=== PATIENT | female | born 1945 | race Caucasian/White ===

== ENCOUNTER 2019-04-14 12:24 | Outpatient (CLI) | payer MEDICARE, MEDICAID, SELFPAY ==
[2019-04-14 13:13] LABS: Alanine Aminotransferase 18 U/L (4-35); Albumin Level 3.7 g/dL (3.5-5.1); Alkaline Phosphatase 79 U/L (38-126); Aspartate Amino Transferase 32 U/L (14-36); Bilirubin,Total 0.5 mg/dL (0.2-1.3); Blood Urea Nitrogen 14 mg/dL (7-17); Carbon Dioxide 26 mmol/L (22-30); Chloride 103 mmol/L (98-107); Cholesterol 184 mg/dL (0-200); Estimated Glomerular Filt Rate > 60; Glucose 95 mg/dL (65-105); HDL Direct 58 mg/dL; Potassium 4.3 mmol/L (3.4-5.0); Sodium 136 mmol/L (137-145); Triglycerides 69 mg/dL (<150)
[2019-04-14 13:24] LABS: LDL Cholesterol Direct 97 mg/dL
== END 2019-04-14 12:25 | disposition home or self-care (01) ==
PROVIDERS: PCP Family Medicine; Visit Provider Nurse Practitioner Family
DX: E78.5 Hyperlipidemia, unspecified (principal); I10 Essential (primary) hypertension
CPT/HCPCS: 36415; 80053; 80061

== ENCOUNTER 2019-05-19 12:32 | Outpatient (CLI) | payer MEDICARE, MEDICAID, SELFPAY ==
--- NOTE | ~2019-05-19 | MM_ITS ---
EXAMINATION: MM screening jina BI w corbin HISTORY: Screening mammogram; history of left partial mastectomy and radiation treatment for breast c ancer TECHNIQUE: Craniocaudal and mediolateral oblique 3-D tomosynthesis images were obtained and synthetic 2-D images were generated. CAD analysis was submitted and interpreted. COMPARISON: 05/11/2018, 05/09/2017, 05/06/2016 bilateral digital screening mammogram examinations BREAST PARENCHYMAL COMPOSITION: There are scattered areas of fibroglandular density. FINDINGS: There is postoperative change including stable scarring and some benign calcifications in t he posterior outer mid left breast. There is no evidence of interval suspicious mass, calcification, or architectural distortion to suggest malignancy in either breast. There has been no suspicious inte rval change. IMPRESSION: 1. No mammographic evidence of malignancy. 2. Recommend routine screening mammography in one year. BI-RADS Category 2: Benign finding(s). Reviewed, dictated and finalized at location A. R ENTRY
== END 2019-05-19 12:33 | disposition home or self-care (01) ==
LOC: ANHIMG 12:36
PROVIDERS: PCP Family Medicine; Visit Provider Family Medicine
DX: Z12.31 Encounter for screening mammogram for malignant neoplasm of breast (principal)
CPT/HCPCS: 77063; 77067

== ENCOUNTER 2019-07-01 17:19 | Emergency (ER) | payer MEDICARE, MEDICAID, SELFPAY ==
--- NOTE | ~2019-07-01 | XR_ITS ---
EXAMINATION: XR chest 2V DATE: 07/01/2019 18:07 INDICATION: Chest pressure. TECHNIQUE: Frontal and lateral views of the chest were obtained. COMPARISON: Chest 2 views 02/08/2013 FINDINGS: There is mild scarring at the lung apices. No pleural effusion or pneumothorax. The heart s ize is normal. There is internal fixation of the humeri. IMPRESSION: 1. Mild scarring at the lung apices. Reviewed, dictated and finalized at location A.
[2019-07-01 17:25] VITALS: BP 148/82; PULSE 82; RESP 18; TEMP 37; O2SAT 97
[2019-07-01 17:32] VITALS: PULSE 82
--- NOTE | 2019-07-01 17:46 | ECG_ITS ---
Measurements Intervals [place] Rate: 83 P: 94 WI: 141 QRS: 36 QRSD: 104 T: -7 QT: 356 QTc: 418 Interpretive Statements SINUS RHYTHM ATRIAL PREMATURE COMPLEX INCOMPLETE RIGHT BUNDLE BRANCH BLOCK BORDERLINE ST-T WAVE ABNORMALITY- ANT/INF LEADS BASELINE ARTIFACT- II, III, AVL, AVF, V3 BORDERLINE ECG Electronically Signed On 07-02-2019 7:11:20 CDT by Paul Kaplan D.O.
--- NOTE | 2019-07-01 17:46 | ED.CHESTPAIN ---
HPI - Chest Pain General Chief Complaint: Chest Pain Stated Complaint: chest heaviness Time Seen by Provider: 07/01/19 17:45 Source: patient and RN notes reviewed Mode of arrival: ambulatory Limitations: no limitations History of Present Illness HPI narrative: A 74 y/o female presents to the ED with lt chest heaviness. She states that she was at home going through old bills when she acutely developed lt chest heaviness that lasted roughly 30 minutes before it resolved. She reports associated anxiety. She notes that she has a hx of anxiety but that she stopped taking her anxiety medication months ago because she no longer needed it. She denies any fevers, chills, SOB, or cough. MD complaint: chest heaviness Onset (ago): unknown Timing of current episode: now resolved Onset: other (gonig through old bills) Pain location: left chest Quality: heaviness Associated symptoms: other (anxiety) Treatment prior to arrival: none Risk Factors Coronary artery disease risk factors: hyperlipidemia and hypertension Related Data Home Medications Medication Instructions Recorded Confirmed letrozole 2.5 mg tablet 2.5 mg PO BID tablet 02/15/19 06/16/19 multivitamin 1 tablet PO DAILY 02/15/19 06/16/19 vitamin E (dl, acetate) 400 unit 400 unit PO BID cap 02/15/19 06/16/19 capsule benztropine 2 mg tablet 2 mg PO BID 06/01/19 06/16/19 gabapentin 300 mg capsule 300 mg PO DAILY 06/01/19 06/16/19 memantine 5 mg tablet 5 mg PO QAM 06/01/19 06/16/19 ropinirole 2 mg tablet 2 mg PO BID 06/01/19 06/16/19 ropinirole 3 mg tablet 3 mg PO .hs tablet 06/01/19 06/16/19 Allergies Allergy/AdvReac Type Severity Reaction Status Date / Time amoxicillin Allergy Mild Rash Verified 07/01/19 17:30 Review of Systems Review of Systems: All systems reviewed & are unremarkable except as noted in HPI and below Constitutional: Constitutional: Denies chills and Denies fever(s) Cardiovascular: Cardiovascular: Reports chest pain (lt heaviness - resolved) Respiratory: Respiratory: Denies cough and Denies dyspnea Psychiatric: Psychiatric: Reports anxiety PMFSH Past Medical History Medical History (Updated 07/02/19 @ 00:00 by Background Daemon) Anxiety Benign essential hypertension Depression GERD (gastroesophageal reflux disease) H/O: HTN (hypertension) History of left breast cancer Humeral fracture ALEN. Hx of breast cancer Obstructive sleep apnea Other hyperlipidemia Restless leg syndrome Surgical History Surgical History History of bladder surgery Hx of shoulder surgery ALEN. Hx of tubal ligation Family History Family History Father Family history of lung cancer Mother Family history of coronary artery disease Acute myocardial infarction Other Diabetes mellitus Family history of diabetes mellitus in first degree relative Social History Social History Smoking status: Never smoker Second hand tobacco smoke exposure: No Alcohol intake: never Exam Narrative: Exam Narrative: General appearance: Well-developed, well-nourished, anxious, restless Skin: Normal color Head: Normocephalic, nontraumatic Eyes: Clear conjunctiva ENT: Oropharynx normal, ears normal, nose normal Neck: Supple, nontender Chest and respiratory: Airway patent, no respiratory distress, no accessory muscle use Heart: Regular rate/rhythm Abdomen: Soft, nontender, no organomegaly, quiet bowel sounds Vascular: Normal peripheral pulses, normal capillary refill. Musculoskeletal: Normal range of motion, nontender back Neurologic: Alert and oriented ?3, AUTOMOTIVE CONSULTANT is normal as tested, no gross motor deficit
[2019-07-01 18:00] LABS: Basophils Percent Auto 0.7 % (0.2-1.2); Eosinophils Absolute Auto 0.1 K/mm3 (0-0.3); Eosinophils Percent Auto 1.3 % (0-4.4); Hematocrit 41.3 % (37.0-47.0); Hemoglobin 13.3 g/dL (12.0-15.0); Immature Granulocyte Absolute 0.02 K/mm3 (0.00-0.031); Immature Granulocyte Percent A 0.3 % (0-0.5); Lymphocytes Percent Auto 18.1 % (18.3-44.2); Mean Corpuscular HGB Conc 32.2 g/dl (32-36); Mean Corpuscular Hemoglobin 29.4 pg (26-34); Mean Corpuscular Volume 91.2 fl (80-100); Mean Platelet Volume 10.6 fl (7.4-10.4); Monocytes Absolute Auto 0.4 K/mm3 (0.1-0.6); Monocytes Percent Auto 6.6 % (2.6-8.5); Neutrophils Absolute Auto 4.4 K/mm3 (1.3-6.7); Platelet Count Result 203 k/mm3 (150-375); Red Blood Count 4.53 M/mm3 (4.2-5.4); Red Cell Distribution Width 13.2 % (11.5-14.5); White Blood Count 6.1 K/mm3 (4.5-10.0)
[2019-07-01 18:12] LABS: Blood Urea Nitrogen 15 mg/dL (7-17); Calcium 9.2 mg/dL (8.4-10.2); Carbon Dioxide 28 mmol/L (22-30); Chloride 107 mmol/L (98-107); Estimated CRCL calculation 47 ml/min; Estimated Glomerular Filt Rate > 60; Glucose 95 mg/dL (65-105); Partial Thromboplastin Time 24.5 SECONDS (22.3-36.8); Potassium 3.9 mmol/L (3.4-5.0); Prothrombin Time 12.5 Seconds (11.1-14.7); Sodium 138 mmol/L (137-145)
[2019-07-01] MEDS: ASPIRIN 81 MG CHEWABLE TABLET 324 MG PO (18:13)
[2019-07-01] MEDS: LORAZEPAM 0.5 MG TABLET PO (18:14)
[2019-07-01 18:17] VITALS: BP 146/82; PULSE 73; RESP 17; O2SAT 99
[2019-07-01 18:23] LABS: Troponin I < 0.012 ng/mL (0.000-0.034)
[2019-07-01 19:18] VITALS: BP 142/74; PULSE 72; RESP 16; O2SAT 98
== END 2019-07-01 19:19 | disposition home or self-care (01) ==
PROVIDERS: Emergency Provider Emergency Medicine; PCP Family Medicine
DX: R07.89 Other chest pain (principal); F41.9 Anxiety disorder, unspecified; I10 Essential (primary) hypertension; K21.9 Gastro-esophageal reflux disease without esophagitis; Z85.3 Personal history of malignant neoplasm of breast; G47.33 Obstructive sleep apnea (adult) (pediatric); G25.81 Restless legs syndrome; I49.1 Atrial premature depolarization; I45.10 Unspecified right bundle-branch block; R94.31 Abnormal electrocardiogram [ECG] [EKG]
CPT/HCPCS: 36415; 71046; 80048; 84484; 85025; 85610; 85730; 93005; 99284; A9270

== ENCOUNTER 2019-08-23 06:58 | Outpatient (CLI) | payer MEDICARE, MEDICAID, SELFPAY | END 2019-08-23 06:59 | disposition home or self-care (01) | PROVIDERS: PCP Family Medicine; Visit Provider Internal Medicine Gastroenterology | DX: Z01.812 Encounter for preprocedural laboratory examination (principal); Z20.828 Contact with and (suspected) exposure to other viral communicable diseases | CPT/HCPCS: 87635; C9803; U0003 ==

== ENCOUNTER 2019-08-25 00:22 | Day surgery (SDC) | payer MEDICARE, MEDICAID, SELFPAY ==
[2019-08-19 12:40] VITALS: BMI 29.2
[2019-08-25 07:08] VITALS: BP 107/55; PULSE 64; RESP 18; TEMP 37.2; O2SAT 95
[2019-08-25] MEDS: LACTATED RINGERS 1,000 ML 150 ML IV CONT (07:39)
--- NOTE | 2019-08-25 07:58 | WPDANESEPPF ---
Anes - Initial Pre Proc Eval Procedure: Operation Date: 08/25/19 08:00 Proposed Procedures p Screening Colonoscopy - Edison Lopez MD Date/Time: 08/25/19 07:58 Surgeon: Edison Lopez MD Pre Op Diagnosis: Neoplasm Screening Patient Data Age: 74 Gender: F Height: 5 ft Weight: 67.5 kg Last Vital Signs Temp 98.9 F 08/25/19 07:08 Pulse 64 08/25/19 07:08 Resp 18 08/25/19 07:08 BP 107/55 L 08/25/19 07:08 Pulse Ox 95 08/25/19 07:08 Allergies Allergy/AdvReac Type Severity Reaction Status Date / Time amoxicillin Allergy Mild Rash Verified 08/25/19 07:05 Home Medications Medication Instructions Recorded Confirmed Type letrozole 2.5 mg tablet 2.5 mg PO DAILY tablet 02/15/19 08/19/19 History multivitamin 1 tablet PO DAILY 02/15/19 08/19/19 History vitamin E (dl, acetate) 400 unit 400 unit PO BID cap 02/15/19 08/19/19 History capsule benztropine 2 mg tablet 2 mg PO BID 06/01/19 08/19/19 History gabapentin 300 mg capsule 300 mg PO HS 06/01/19 08/19/19 History memantine 5 mg tablet 5 mg PO QAM 06/01/19 08/19/19 History alendronate 70 mg tablet 70 mg PO WEEKLY #1 tablet 07/01/19 08/19/19 Rx meloxicam 15 mg tablet 15 mg PO DAILY #30 tablet 08/06/19 08/19/19 Rx ropinirole 2 mg tablet 2 mg PO BID #56 tablet 08/11/19 08/19/19 Rx ropinirole 3 mg tablet 3 mg PO .hs #90 tablet 08/11/19 08/19/19 Rx peg 3350-electrolytes 236 240 ml PO Q10M #4000 ml 08/16/19 Rx gram-22.74 gram-6.74 gram-5.86 gram solution amlodipine 5 mg PO HS 08/19/19 08/19/19 History aspirin [Aspir-81] 81 mg PO DAILY 08/19/19 08/19/19 History clonazepam 0.25 mg PO DAILY 08/19/19 08/19/19 History docusate sodium 100 mg PO DAILY PRN 08/19/19 08/19/19 History Patient hx anesthesia problems: none Family hx anesthesia problems: none [facility] Past Medical History Medical History (Updated 07/02/19 @ 00:00 by Keith Leon) Anxiety Benign essential hypertension Depression GERD (gastroesophageal reflux disease) H/O: HTN (hypertension) History of left breast cancer Humeral fracture ALEN. Hx of breast cancer Obstructive sleep apnea Other hyperlipidemia Restless leg syndrome Surgical History Surgical History History of bladder surgery Hx of shoulder surgery ALEN. Hx of tubal ligation Social History Social History Smoking status: Never smoker Second hand tobacco smoke exposure: No Alcohol intake: never Anes - Eval Final PreProcedure Day of Procedure 08/25/19 07:58 Patient weight: normal Heart: regular rate and rhythm Lungs: clear to auscultation Airway: Mallampati scale class II Neurological: alert and oriented Last oral intake: >/= 8 hours ASA classification: III Emergent: no Anesthetic plan: proceed Anesthesia type and monitoring: general GIVS and standard monitoring Informed Consent: The patient's anesthetic plan and its attendant risks and benefits were discussed with the patient/family/POA. Questions were solicited and answers provided to the satisfaction of the patient/family/POA.
--- NOTE | 2019-08-25 08:04 | PM.HPGS ---
History of Present Illness History of Present Illness Consent: Risks, benefits, and alternatives have been discussed and questions answered. Patient agrees to proceed with procedure. Chief complaint: Neoplasm Screening Narrative: Cinthia Mccartney is a 74 year old female with history of polyps, she is due to have another colonoscopy Review of Systems Constitutional: Constitutional: Denies headache(s) and Denies weakness Eyes: Eyes: Denies blurry vision ENT: Reports Normal hearing present, Denies headache(s) and Denies neck pain Cardiovascular: Cardiovascular: Denies chest pain and Denies dyspnea Respiratory: Respiratory: Denies dyspnea Gastrointestinal: Gastrointestinal: Reports no additional gastrointestinal complaints Genitourinary: Genitourinary: Denies dysuria Musculoskeletal: Musculoskeletal: Denies neck pain Integumentary/Breasts: Skin/Breast: Denies dry skin Neurologic: Reports Normal hearing present, Denies headache(s) and Denies weakness Psychiatric: Psychiatric: Denies anxiety Endocrine: Endocrine: Denies change in body appearance Hematologic/Lymphatic: Hematologic/Lymphatic: Denies easy bleeding Allergic/Immunologic: Allergic/Immunologic: Denies urticaria PMFSH Past Medical History Medical History (Updated 07/02/19 @ 00:00 by [facility] Daemon) Anxiety Benign essential hypertension Depression GERD (gastroesophageal reflux disease) H/O: HTN (hypertension) History of left breast cancer Humeral fracture ALEN. Hx of breast cancer Obstructive sleep apnea Other hyperlipidemia Restless leg syndrome Surgical History Surgical History History of bladder surgery Hx of shoulder surgery ALEN. Hx of tubal ligation Social History Social History Smoking status: Never smoker Second hand tobacco smoke exposure: No Alcohol intake: never Meds Home Medications and Allergies Home Medications Medication Instructions Recorded Confirmed Type letrozole 2.5 mg tablet 2.5 mg PO DAILY tablet 02/15/19 08/19/19 History multivitamin 1 tablet PO DAILY 02/15/19 08/19/19 History vitamin E (dl, acetate) 400 unit 400 unit PO BID cap 02/15/19 08/19/19 History capsule benztropine 2 mg tablet 2 mg PO BID 06/01/19 08/19/19 History gabapentin 300 mg capsule 300 mg PO HS 06/01/19 08/19/19 History memantine 5 mg tablet 5 mg PO QAM 06/01/19 08/19/19 History alendronate 70 mg tablet 70 mg PO WEEKLY #1 tablet 07/01/19 08/19/19 Rx meloxicam 15 mg tablet 15 mg PO DAILY #30 tablet 08/06/19 08/19/19 Rx ropinirole 2 mg tablet 2 mg PO BID #56 tablet 08/11/19 08/19/19 Rx ropinirole 3 mg tablet 3 mg PO .hs #90 tablet 08/11/19 08/19/19 Rx peg 3350-electrolytes 236 240 ml PO Q10M #4000 ml 08/16/19 Rx gram-22.74 gram-6.74 gram-5.86 gram solution amlodipine 5 mg PO HS 08/19/19 08/19/19 History aspirin [Aspir-81] 81 mg PO DAILY 08/19/19 08/19/19 History clonazepam 0.25 mg PO DAILY 08/19/19 08/19/19 History docusate sodium 100 mg PO DAILY PRN 08/19/19 08/19/19 History Allergies Allergy/AdvReac Type Severity Reaction Status Date / Time amoxicillin Allergy Mild Rash Verified 08/25/19 07:05 Vital Signs Vital Signs - 24 hr 08/25/19 07:08 Temperature 98.9 F Pulse Rate 64 Respiratory Rate 18 Blood Pressure 107/55 L Pulse Oximetry 95 Exam Const: General: comfortable and no acute distress HENMT: General nose exam: Normal nares present Eyes: General: appearance normal, both eyes and all related structures Neck: Neck: no JVD Resp: Auscultation: clear to auscultation bilaterally Cardio: Rate: regular rate Rhythm: regular rhythm GI: Inspection: non-distended GI Palp: Yes Soft to palpation Skin: General skin exam: normal color Neuro: General: gait normal Speech: normal speech Extrem: General: normal to inspection Psych: Mental Status: mental status grossly normal Assessment and Plan Asses
[2019-08-25 08:30] VITALS: BP 113/40; PULSE 66; RESP 14; O2SAT 100
[2019-08-25 08:40] VITALS: BP 100/50; PULSE 69; RESP 16; O2SAT 99
[2019-08-25 08:50] VITALS: BP 114/58; PULSE 71; RESP 16; O2SAT 100
== END 2019-08-25 09:07 | disposition home or self-care (01) ==
PROVIDERS: PCP Family Medicine; Visit Provider Internal Medicine Gastroenterology
PROC: 0DJD8ZZ Inspection of Lower Intestinal Tract, Via Natural or Artificial Opening Endoscopic (ICD-10-PCS; CPT 45378; principal; 2019-08-25 08:00)
DX: Z12.11 Encounter for screening for malignant neoplasm of colon (principal); K63.5 Polyp of colon; K57.30 Diverticulosis of large intestine without perforation or abscess without bleeding; K64.8 Other hemorrhoids; K64.4 Residual hemorrhoidal skin tags; I10 Essential (primary) hypertension; K21.9 Gastro-esophageal reflux disease without esophagitis; E78.5 Hyperlipidemia, unspecified; G25.81 Restless legs syndrome; F41.8 Other specified anxiety disorders; Z85.3 Personal history of malignant neoplasm of breast; Z79.811 Long term (current) use of aromatase inhibitors; Z79.82 Long term (current) use of aspirin
CPT/HCPCS: 45385; 88305; J2704; J7120

== ENCOUNTER 2019-10-20 08:35 | Outpatient (CLI) | payer MEDICARE, MEDICAID, SELFPAY ==
--- NOTE | ~2019-10-20 | DEXA_ITS ---
Bone Density Report Name: Cinthia Mccartney Age: 74 Sex: Female Ethnicity: White Date of : 1945 Indication: postmenopausal; cancer; Referring Provider: JENNIFER AMATO Study: Bone densitometry was performed. Exam Date: October 20, 2019 Accession number: [id number] Bone Density: Region BMD T-score Z-score Classification AP Spine (L1-L4) 1.091 0.4 2.7 Normal Femoral Neck (Left) 0.620 -2.1 -0.1 Osteopenia Total Hip (Left) 0.864 -0.6 1.0 Normal Total Hip Bilateral Avg 0.879 -0.5 1.2 Normal Femoral Neck (Right) 0.619 -2.1 -0.1 Osteopenia Total Hip (Right) 0.892 -0.4 1.3 Normal World Health Organization criteria for BMD impression classify patients as: Normal (T-score at or above -1.0), Osteopenia (T-score between -1.0 and -2.5), or Osteoporosis (T-score at or below -2.5). 10-year Fracture Risk(1): Major Osteoporotic Fracture 13% Hip Fracture 2.9% Reported Risk Factors: [place] (), Neck BMD=0.619, BMI=29.9 (1) FRAX(R) Version 3.08. Fracture probability calculated for an untreated patient. Fracture probability may be lower if the patient has received treatment. Previous Exams: Region Exam Age BMD T-score BMD Change BMD Change Date g/cm2 vs Baseline vs Previous AP Spine(L1-L4) 10/20/2019 74 1.091 0.4 0.017(1.6%)# 0.055(5.4%)* 05/02/2015 69 1.035 -0.1 -0.038(-3.6%)# -0.063(-5.7%)# 04/27/2008 62 1.098 0.5 0.024(2.2%)* 0.024(2.2%)* 08/09/2004 59 1.074 0.2 Total Hip(Left) 10/20/2019 74 0.864 -0.6 -0.132(-13.2%) -0.080(-8.5%)* 05/02/2015 69 0.945 0.0 -0.051(-5.1%)# -0.003(-0.4%)# 04/27/2008 62 0.948 0.0 -0.048(-4.8%)* -0.048(-4.8%)* 08/09/2004 59 0.996 0.4 Total Hip(Right) 10/20/2019 74 0.892 -0.4 -0.070(-7.3%)# -0.080(-8.3%)* 05/02/2015 69 0.973 0.3 0.011(1.1%)# 0.012(1.2%)# 04/27/2008 62 0.961 0.2 -0.001(-0.1%) -0.001(-0.1%) 08/09/2004 59 0.962 0.2 *Denotes significance at 95% confidence level, LSC for AP Spine = 0.022 g/cm2, LSC for Total Hip = 0.027 g/cm2 Clinical Information Provided by Patient: Has used the following medications: Calcium Has the following medical conditions: Cancer Patient maximum height was 60 Menopause Age: 51 Onset of menses at age 14 Number of children 2 Impression: The patient has low bone mass, based on the Left Femoral Neck T-score. The patient has an estimated ten-year risk of hip fracture of 2.9% and
== END 2019-10-20 08:36 | disposition home or self-care (01) ==
PROVIDERS: PCP Family Medicine; Visit Provider Internal Medicine Medical Oncology
DX: C50.112 Malignant neoplasm of central portion of left female breast (principal); Z17.0 Estrogen receptor positive status [ER+]; Z79.811 Long term (current) use of aromatase inhibitors; M85.89 Other specified disorders of bone density and structure, multiple sites
CPT/HCPCS: 77080

== ENCOUNTER 2019-10-27 08:52 | Outpatient (CLI) | payer MEDICARE, MEDICAID, SELFPAY ==
--- NOTE | ~2019-10-27 | XR_ITS ---
XR lumbar spine min 4V DATE: 10/27/2019 09:11 INDICATION: Low back pain for 2 weeks. No injury. TECHNIQUE: AP, bilateral oblique, lateral and coned lateral lumbosacral views COMPARISON: None FINDINGS: There is diffuse osteopenia. There is mild rotatory dextroscoliosis of the lumbar spine. No fracture or bone destruction is evident. The lumbar pedicles are intact. There is moderately severe degenerative disc disease at L2-3 on the left and mild to moderate degener ative disc disease at the remaining interspaces. There is degenerative change at the apophyseal joint s, particularly lower lumbar and lumbosacral area. No spondylolysis or spondylolisthesis. The sacroiliac joints are intact. IMPRESSION: Osteopenia Mild rotatory dextroscoliosis Degenerative disc disease, most pronounced at L2-3 on the left Reviewed, dictated and finalized at location B.
== END 2019-10-27 08:53 | disposition home or self-care (01) ==
LOC: ANHIMG 09:02
PROVIDERS: PCP Family Medicine; Visit Provider Nurse Practitioner
DX: M51.36 Other intervertebral disc degeneration, lumbar region (principal); M85.80 Other specified disorders of bone density and structure, unspecified site; M41.9 Scoliosis, unspecified
CPT/HCPCS: 72110

== ENCOUNTER 2019-12-23 08:30 | Outpatient (RCR) | payer MEDICARE, MEDICAID, SELFPAY ==
--- NOTE | 2019-11-22 13:51 | PTOPEVAL ---
PHYSICAL THERAPY EVALUATION AND PLAN OF CARE Thank you for referring Cinthia Mccartney to [facility].? The patient is scheduled to be seen for therapy? 2x/week for 4 weeks. Please review, sign, date and return this plan of care KASH. I agree with and certify that the following plan of care is medically necessary. Referring Physician Date Attending Provider: Brenda Dela Cruz NP Evaluation Outpatient Past Medical History Neurological History Hx Dementia Yes: ON NAMENDA Hx Other Neurological Disorders Yes: RESTLESS LEG SYNDROME Cardiovascular History Hx Hypertension Yes Gastrointestinal History Hx Hemorrhoids Yes Hx Polyps Yes Genitourinary History Hx Bladder Surgery Yes Musculoskeletal History Hx Arthritis Yes Hx Back Pain Yes Hx Fractures Yes: BILATERAL ARMS Hx Orthopedic Surgery Yes: BILATERAL ARMS, BILATERAL SHOULDER MAY HAVE METAL Hx Scoliosis Yes Hematological History Hx Hematological Disorders No Significant History Endocrine History Hx Endocrine Disorders No Significant History HEENT History Hx Cataracts Yes Hx Sinus Problems Yes: ALLERGIES Integumentary History Hx Skin Disorders No Significant History Reproductive History Hx Post Menopausal Yes Hx Other Reproductive Disorders Yes: LT BREAST LUMPECTOMY CANCER Psychosocial History Hx Anxiety Yes Pain History History of Any Previous or Ongoing No Significant History Instance of Pain Anesthesia History Hx Anesthesia Reactions No Significant History Other History Hx Cancer Yes: LT BREAST 8 years ago Hx Implanted Device Yes: BILATERAL SHOULDERS ? Hx Radiation Therapy Yes Diagnosis low back pain Onset 2months Subjective Information Cinthia is here today with left Query Text:As Reported By Patient/ sided low back pain. She Family states that it was initially intermittment pain and now it is continuous. Pain increases when she lifts the left leg - donning/doffing shoes, taking off pants. Pain stays in left side of low back and does not travel down the left leg. Self Report Pain Assessment Left Spine, Lumbar Reported Pain Level 2 Pain Description Aching Pain Frequency Acute,Continuous Lowest Pain Intensity 1 Greatest Pain Intensity 6 Other Pain Aggravat
--- NOTE | 2019-12-23 09:02 | PTOPEVAL ---
PHYSICAL THERAPY DISCHARGE NOTE Thank you for referring Cinthia Mccartney to [facility].? Please review, sign, date and return this plan of care KASH. I agree with and certify that the following plan of care is medically necessary. Referring Physician Date Attending Provider: Brenda Dela Cruz, IN SERVICE EDUCATION TEACHER Discharge Diagnosis low back pain Onset 2months Subjective Information Cinthia reports she is doing Query Text:As Reported By Patient/ much better. donning/doffing Family shoes not longer causes pain and taking off her pants on less troublesome. Self Report Pain Assessment Left Spine, Lumbar Reported Pain Level 3 Pain Description Pressure Pain Aggravating Factors Walking Pain Score Pain Score 3: Self Report Cervical and Lumbar ROM Lumbar ROM Lumbar Flexion (0-90) 70 Query Text:Active in Degrees Lumbar Flexion Active Floor Query Text:Hands to: Lumbar Extension (0-40) 30 Query Text:Active in Degrees Lumbar Lateral Flexion Right (0-40) 25 Query Text:Active in Degrees Lumbar Lateral Flexion Left (0-40) 25 Query Text:Active in Degrees Lateral Rotation Right (0-45) 30 Query Text:Active in Degrees Lateral Rotation Left (0-45) 30 Query Text:Active in Degrees Lumbar Comments no increase in symptoms with ROM Lower Extremity Muscle Strength Testing Hip Strength Bilateral Hip Flexion Strength 4+ Good + Hip Extension Strength 3 Fair Hip Abduction Strength 3+ Fair + Knee Strength Bilateral Knee Flexion Strength 5 Normal Knee Extension Strength 5 Normal Muscle Length Testing Muscle Length Testing Piriformis w/Hip Flexion >90 Degrees (R) WFL,(L) WFL Posture Supine Position Leg Length Discrepancy equal leg length Palpation non-tender throughout glutes and SIJ Special Test-Spine Lumbar Spine Special Tests Crossed Straight Leg Raise Test Negative Right,Negative Left Straight Leg Raise Test Negative Right,Negative Left PT Clinical Summary Cinthia has participated in physical therapy for 4 weeks for left sided low back pain. She presents with significant improvement in sypmtoms, ROM, and strength. ROM no longer illicits symptoms. She was provided with updated HEP and instructed in progression. We will discharge from PT
== END 2019-12-23 13:25 | disposition home or self-care (01) ==
LOC: ANHPT 08:30
PROVIDERS: PCP Family Medicine; Visit Provider Nurse Practitioner
DX: M54.5 Low back pain (principal)
CPT/HCPCS: 97110; 97161

== ENCOUNTER 2019-12-24 08:49 | Outpatient (CLI) | payer MEDICARE, MEDICAID, SELFPAY ==
[2019-12-24 09:16] LABS: Basophils Percent Auto 0.7 % (0.2-1.2); Eosinophils Absolute Auto 0.2 K/mm3 (0-0.3); Eosinophils Percent Auto 3.4 % (0-4.4); Hematocrit 36.5 % (37.0-47.0); Hemoglobin 12.7 g/dL (12.0-15.0); Immature Granulocyte Absolute 0.02 K/mm3 (0.00-0.031); Immature Granulocyte Percent A 0.4 % (0-0.5); Lymphocytes Absolute Auto 0.96 K/mm3 (0.9-3.2); Mean Corpuscular HGB Conc 34.8 g/dl (32-36); Mean Corpuscular Hemoglobin 31.4 pg (26-34); Mean Corpuscular Volume 90.1 fl (80-100); Mean Platelet Volume 9.8 fl (7.4-10.4); Monocytes Absolute Auto 0.4 K/mm3 (0.1-0.6); Monocytes Percent Auto 7.3 % (2.6-8.5); Neutrophils Percent Auto 71.2 % (45.5-73.1); Platelet Count Result 192 k/mm3 (150-375); Red Blood Count 4.05 M/mm3 (4.2-5.4); Red Cell Distribution Width 12.9 % (11.5-14.5); White Blood Count 5.6 K/mm3 (4.5-10.0)
[2019-12-24 09:35] LABS: Alanine Aminotransferase 19 U/L (4-35); Albumin Level 3.6 g/dL (3.5-5.1); Alkaline Phosphatase 73 U/L (38-126); Anion Gap 3 mmol/L (8-16); Aspartate Amino Transferase 26 U/L (14-36); Bilirubin,Total 0.6 mg/dL (0.2-1.3); Blood Urea Nitrogen 19 mg/dL (7-17); Calcium 9.5 mg/dL (8.4-10.2); Carbon Dioxide 29 mmol/L (22-30); Chloride 105 mmol/L (98-107); Cholesterol 225 mg/dL (0-200); Estimated Glomerular Filt Rate 54; Glucose 100 mg/dL (65-105); HDL Direct 66 mg/dL; Potassium 4.2 mmol/L (3.4-5.0); Sodium 137 mmol/L (137-145); Triglycerides 92 mg/dL (<150)
[2019-12-24 09:46] LABS: LDL Cholesterol Direct 117 mg/dL
== END 2019-12-24 08:50 | disposition home or self-care (01) ==
LOC: ANHLAB 08:51
PROVIDERS: PCP Family Medicine; Visit Provider Family Medicine
DX: E78.5 Hyperlipidemia, unspecified (principal); G25.81 Restless legs syndrome; I10 Essential (primary) hypertension
CPT/HCPCS: 36415; 80053; 80061; 84443; 85025

== ENCOUNTER 2020-01-04 08:55 | Outpatient (CLI) | payer MEDICARE, MEDICAID, SELFPAY ==
--- NOTE | 2020-01-04 09:07 | ECHO_ITS ---
Patient Info Name: Cinthia Mccartney Age: 74 years : 1945 Gender: Female Ht: 60 in Wt: 150 lbs BSA: 1.72 m2 HR: 59 bpm BP: 153 / 74 mmHg Heart Rhythm: Sinus Rhythm Exam Date: 01/04/2020 9:11 AM Exam Location: [facility] Patient Status: Outpatient Admit Date: 01/04/2020 Staff Ordering Physician: Judy Camarillo MD Mobility Manager: Elisabeth Timmons RDCS Attending Provider: Judy Camarillo MD Exam Type: CA echo doppler color flow Study Info Indications R01.1 - Cardiac murmur, unspecified Complete two-dimensional, color flow and Doppler transthoracic echocardiogram is performed. Summary 1. Complete two-dimensional, color flow and Doppler transthoracic echocardiogram is performed. 2. Left ventricular chamber dimension is normal. 3. Left ventricular systolic function is normal, estimated at 60-65%. 4. There is mildly increased left ventricular wall thickness. 5. The left ventricular diastolic function is grade III diastolic dysfunction. 6. E/e' 22 is elevated. 7. Left atrial chamber dimension is mildly enlarged. 8. The aortic valve is not well visualized. 9. There is severe aortic valve sclerosis. 10. There is mild aortic valve stenosis with a peak velocity of 242 cm/s, mean gradient of 12 mmHg, and aortic valve area of 1.9 cm2. 11. There is mild aortic valve regurgitation. 12. The mitral valve has mildly calcified annulus. 13. There is trace mitral valve regurgitation. 14. There is mild to moderate tricuspid valve regurgitation. 15. No pulmonary hypertension, estimated pulmonary arterial systolic pressure is 36 mmHg. 16. There is trace pulmonic regurgitation. Left Ventricle E/e' 22 is elevated. Left ventricular chamber dimension is normal. Left ventricular systolic function is normal, estimated at 60-65%. There is mildly increased left ventricular wall thickness. The left ventricular diastolic function is grade III diastolic dysfunction. Right Ventricle Right ventricular chamber dimension is normal. Right ventricular systolic function is normal. Left Atria Left atrial chamber dimension is mildly enlarged. Right Atria Right atrial chamber dimension is normal. Aortic Valve Cannot determine number of aortic valve leaflets. The aortic valve is not well visualized. There is severe aortic valve sclerosis. There is mild aortic valve stenosis with a peak velocity of 242 cm/s, mean gradient of 12 mmHg, and aortic valve area of 1.9 cm2. There is mild aortic valve regurgitation. Pulmonic Valve There is trace pulmonic regurgitation. Mitral Valve The mitral valve has mildly calcified annulus. There is no mitral valve stenosis. There is trace mitral valve regurgitation. Tricuspid Valve There is mild to moderate tricuspid valve regurgitation. No pulmonary hypertension, estimated pulmonary arterial systolic pressure is 36 mmHg. Pericardium/Pleural There is no pericardial effusion. Inferior Vena Cava Normal inferior vena cava with >50% collapse upon inspiration consistent with normal right atrial pressure, 5 mmHg. Aorta The aortic root size at the sinus of Valsalva is normal. Left Ventricular Outflow Tract Name Value Normal LVOT 2D LVOT Diameter 2.0 cm
--- NOTE | 2020-01-04 09:45 | ECG_ITS ---
Measurements Intervals [place] Rate: 58 P: 88 IN: 154 QRS: 46 QRSD: 111 T: 24 QT: 394 QTc: 388 Interpretive Statements SINUS BRADYCARDIA INCOMPLETE RIGHT BUNDLE BRANCH BLOCK NONSPECIFIC T-WAVE ABNORMALITY- INFERIOR LEADS BASELINE ARTIFACT- II, III, AVF BORDERLINE ECG Electronically Signed On 01-04-2020 10:32:00 CDT by Paul Kaplan D.O.
== END 2020-01-04 08:56 | disposition home or self-care (01) ==
PROVIDERS: PCP Family Medicine; Visit Provider Family Medicine
DX: I10 Essential (primary) hypertension (principal); I45.10 Unspecified right bundle-branch block; I34.0 Nonrheumatic mitral (valve) insufficiency; I35.1 Nonrheumatic aortic (valve) insufficiency; I36.1 Nonrheumatic tricuspid (valve) insufficiency
CPT/HCPCS: 93005; 93306

== ENCOUNTER 2020-01-08 01:19 | Outpatient (CLI) | payer MEDICARE, MEDICAID, SELFPAY ==
[2020-01-08 17:59] LABS: SARS-CoV-2 RNA PCR Negative
== END 2020-01-08 01:20 | disposition home or self-care (01) ==
LOC: ANHCOVIDDT 01:19
PROVIDERS: PCP Family Medicine; Visit Provider Surgery
DX: Z01.812 Encounter for preprocedural laboratory examination (principal); Z20.828 Contact with and (suspected) exposure to other viral communicable diseases
CPT/HCPCS: 87635; C9803; U0003

== ENCOUNTER 2020-01-11 01:26 | Day surgery (SDC) | payer MEDICARE, MEDICAID, SELFPAY ==
[2019-12-30 09:38] VITALS: BMI 30.1
[2020-01-11] MEDS: ACETAMINOPHEN 500 MG TABLET 1000 MG PO (10:13)
[2020-01-11 10:25] VITALS: BP 144/51; PULSE 71; RESP 16; TEMP 36.8; O2SAT 98
[2020-01-11] MEDS: LACTATED RINGERS 1,000 ML 30 ML IV CONT ×2 (10:34→14:19)
[2020-01-11] MEDS: KETOROLAC 15 MG/ML VIAL (*BKC) IV PUSH (10:39)
--- NOTE | 2020-01-11 10:55 | WPDANESEPPF ---
Anes - Initial Pre Proc Eval Procedure: Operation Date: 01/11/20 12:00 Proposed Procedures p Laparoscopic Incarcerated Umbilical Hernia Repair with Mesh, Possible Open - Freeman Patino MD Date/Time: 01/11/20 10:55 Surgeon: Freeman Patino MD Pre Op Diagnosis: incarcerated umbilical hernia Patient Data Age: 74 Gender: F Height: 5 ft Weight: 68.3 kg Allergies Allergy/AdvReac Type Severity Reaction Status Date / Time amoxicillin Allergy Mild Rash Verified 01/11/20 10:06 Home Medications Medication Instructions Recorded Confirmed Type letrozole 2.5 mg tablet 2.5 mg PO DAILY tablet 02/15/19 01/11/20 History multivitamin 1 tablet PO DAILY 02/15/19 01/11/20 History vitamin E (dl, acetate) 400 unit 400 unit PO BID cap 02/15/19 01/11/20 History capsule benztropine 2 mg tablet 2 mg PO BID 06/01/19 01/11/20 History gabapentin 300 mg capsule 300 mg PO HS 06/01/19 01/11/20 History memantine 5 mg tablet 5 mg PO QAM 06/01/19 01/11/20 History alendronate 70 mg tablet 70 mg PO WEEKLY #1 tablet 07/01/19 01/11/20 Rx ropinirole 3 mg tablet 3 mg PO .hs #90 tablet 08/11/19 01/11/20 Rx aspirin [Aspir-81] 81 mg PO DAILY 08/19/19 01/11/20 History ropinirole 2 mg tablet 2 mg PO BID #180 tablet 09/07/19 01/11/20 Rx amlodipine 5 mg tablet 5 mg PO HS #28 tablet 11/30/19 01/11/20 Rx famotidine 20 mg tablet 20 mg PO BID #180 tablet 12/22/19 01/11/20 Rx clonazepam 0.25 mg disintegrating 0.5 mg PO .prn tablet 12/29/19 01/05/20 History tablet meloxicam 15 mg tablet 15 mg PO DAILY #30 tablet 12/30/19 01/11/20 Rx Patient hx anesthesia problems: none Family hx anesthesia problems: none PMFSH Past Medical History Medical History Benign essential hypertension Chronic back pain Depression GERD (gastroesophageal reflux disease) GERD without esophagitis History of left breast cancer HTN (hypertension) Humeral fracture ALEN. Obstructive sleep apnea Osteopenia Other hyperlipidemia Restless leg syndrome Surgical History Surgical History History of bladder surgery History of lumpectomy of left breast 06/2012 Hx of shoulder surgery ALEN. Hx of tubal ligation Family History Family History Father Family history of lung cancer Mother Family history of coronary artery disease Acute myocardial infarction Son Diabetes mellitus Other Family history of diabetes mellitus in first degree relative Social History Social History Smoking status: Never smoker Second hand tobacco smoke exposure: No Alcohol intake: never Substance use: unknown Living arrangements: alone Gender identity (if verbalized by the patient): Female Spiritual care concerns: No Anes - Eval Final PreProcedure Day of Procedure 01/11/20 10:55 Patient weight: overweight Heart: regular rate and rhythm Lungs: clear to auscultation Airway: Mallampati scale class II Neurological: alert and oriented Last oral intake: >/= 8 hours ASA classification: III Emergent: no Anesthetic plan: proceed Anesthesia type and monitoring: general ETT and standard monitoring Informed Consent: The patient's anesthetic plan and its attendant risks and benefits were discussed with the patient/family/POA. Questions were solicited and answers provided to the satisfaction of the patient/family/POA.
--- NOTE | 2020-01-11 11:48 | WPDHPUPDATE1 ---
History and Physical Update Update Date/Time: 01/11/20 11:48 History and Physical has been reviewed, including an updated exam of the patient. There are NO changes in the patient's condition. Risks, benefits, and alternatives have been discussed and questions answered. Patient agrees to proceed with procedure.
[2020-01-11] MEDS: CLINDAMYCIN 900 MG/NS 50 ML 900 MG/50 ML PIGGYBACK 50 MG IVPB (12:12)
[2020-01-11] MEDS: BUPIVACAINE/EPINEPHRINE 0.5% 10 ML VIAL 20 ML INFILTRATE (12:29)
[2020-01-11 14:19] VITALS: BP 113/54; PULSE 88; RESP 10; TEMP 36.1; O2SAT 100
--- NOTE | 2020-01-11 14:24 | PM.PROC ---
Procedure Note - Detailed Date of procedure: 01/11/20 Pre-op diagnosis: incarcerated umbilical hernia Post-op diagnosis: same Procedure performed: Laparoscopic umbilical hernia repair with mesh Description of procedure: DESCRIPTION OF PROCEDURE: The patient was placed in the supine position on the operative table and after induction of adequate general endotracheal anesthesia by Chirag Anesthesia, the entire abdomen was prepped and draped in usual sterile fashion and the head placed slightly up. An Ioban drape was used to prevent contact of the mesh with the skin during this clean case. Following this, local anesthetic was placed and a spot selected about two fingerbreadths below the costal margin on the left and a small incision made after instilling local anesthetic using 0.25% Marcaine with epinephrine. Following this, a Veress needle technique using the water drop test was completed. Using 2 towel clips on the skin, I carefully elevated the skin and then passed the Veress needle into the abdomen and we could see that the saline dropped through the Veress needle easily. CO2 gas was connected and the abdomen was insufflated to 15 mm Hg pressure after starting out at around 9. Following this, 0 degree 5 mm laparoscope was placed inside a 5 mm trocar, which was carefully twisted into the abdomen without difficulty, seeing a open pneumoperitoneum as we entered. Thus, the trocar was removed, the sleeve seemed to be within the abdomen but perhaps within some omentum in the left upper quadrant. Whenever I pulled this back it appeared that there was some bleeding going on. Therefore we left this in place holding it for a study. I then went to the patient's right side right mid abdomen placed local anesthetic a small incision and then a new trocar was used to carefully twisted and turned into the abdomen and the in the right mid abdomen entering the abdomen under direct vision with fill 5 mm 0 degree scope within the 5 mm trocar. The trocar was removed gas connected to this site and we then inspected the left upper quadrant through this site there was no major pulsatile bleeding or any other problems the trocar its the sleeve itself was tangled in a little bit of omentum in so then we went ahead used the right lower quadrant trocar site to be able to place a 12 mm port site as noted below. This was placed in left lower quadrant of the abdomen.. Careful inspection of the abdomen revealed no inguinal hernias. A medium-sized defect in the umbilicus that was actually difficult to see initially because there was significant Omentum going up into the defect which eventually measure a bout 3 cm in diameter. I then placed a 12 mm port in the left lower quadrant under direct vision with the laparoscope, we could see up into a 30 mm defect that had been measured then with an instrument with a known cm marker. There was incarceration of omentum and some other adhesions to the underside of the umbilicus. I used a combination of blunt sharp dissection to reduce the omental fat out of the umbilical defect carefully putting pressure externally over the umbilical hernia and pulling the mental fat out of the defect with either grasper or a [place] dissector. Bovie cautery was used on the adhesions and we eventually removed what appeared to be a good amount of omental fat from the umbilical defect. The omentum going up into this was amputated and we checked for hemostasis and was allowed to fall back down over the top of the underlying bowel. At least a 2 fairly good sized pieces of omental fat that were from the omentum and were up in the hernia defect were removed from the abdomen and passed off the field as specimen. Just above the hernia defect was where the falciform started so I incised this for about 2 cm to get out of the way so as the such the circular mesh would lay nicely against the anterior abdominal wall when we placed it. During the various parts of this di
[2020-01-11 14:35] VITALS: BP 110/46; PULSE 79; RESP 14; O2SAT 100
[2020-01-11 14:50] VITALS: BP 110/50; PULSE 78; RESP 19; O2SAT 95
[2020-01-11 15:00] VITALS: BP 88/59; PULSE 84; RESP 16
[2020-01-11] MEDS: oxyCODONE HCL (*CRX) 2.5 MG TAB IR PO (15:06)
[2020-01-11 15:15] VITALS: BP 92/58; PULSE 93; RESP 16
== END 2020-01-11 16:05 | disposition home or self-care (01) ==
PROVIDERS: PCP Family Medicine; Visit Provider Surgery
PROC: (CPT 49653; principal; 2020-01-11 12:00)
DX: K42.0 Umbilical hernia with obstruction, without gangrene (principal); I10 Essential (primary) hypertension; E78.5 Hyperlipidemia, unspecified; G25.81 Restless legs syndrome; K21.9 Gastro-esophageal reflux disease without esophagitis; F32.9 Major depressive disorder, single episode, unspecified; G47.33 Obstructive sleep apnea (adult) (pediatric); Z79.82 Long term (current) use of aspirin
CPT/HCPCS: 49653; 36415; 86850; 86900; 86901; 88304; A9270; C1781; J0330; J1100; J1170; J1885; J2405; J2704; J3010; J7120

== ENCOUNTER 2020-05-26 08:18 | Outpatient (CLI) | payer MEDICARE, MEDICAID, SELFPAY ==
--- NOTE | ~2020-05-26 | MM_ITS ---
EXAMINATION: MM screening jina BI w corbin HISTORY: Screening TECHNIQUE: Craniocaudal and mediolateral oblique 3-D tomosynthesis images were obtained and synthetic 2-D images were generated. CAD analysis was submitted and interpreted. COMPARISON: Comparison to multiple prior studies sequentially, with oldest reviewed study dated 09/19. BREAST PARENCHYMAL COMPOSITION: There are scattered areas of fibroglandular density. FINDINGS: There are surgical changes in the mid outer aspect of the left breast. There is no evidence of suspicious mass, calcification, or architectural distortion to suggest malignancy in either breas t. There has been no suspicious interval change. IMPRESSION: 1. No mammographic evidence of malignancy. 2. Recommend routine screening mammography in one year. BI-RADS Category 1: Negative Reviewed, dictated and finalized at location A. 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
== END 2020-05-26 08:19 | disposition home or self-care (01) ==
PROVIDERS: PCP Family Medicine; Visit Provider Family Medicine
DX: Z12.31 Encounter for screening mammogram for malignant neoplasm of breast (principal)
CPT/HCPCS: 77063; 77067

== ENCOUNTER 2020-07-12 08:56 | Outpatient (CLI) | payer MEDICARE, MEDICAID, SELFPAY ==
[2020-07-12 09:52] LABS: Alanine Aminotransferase 17 U/L (4-35); Aspartate Amino Transferase 46 U/L (14-36)
== END 2020-07-12 08:57 | disposition home or self-care (01) ==
PROVIDERS: PCP Family Medicine; Visit Provider Podiatrist Foot & Ankle Surgery
DX: B35.1 Tinea unguium (principal)
CPT/HCPCS: 36415; 84450; 84460

== ENCOUNTER 2020-10-11 09:11 | Outpatient (CLI) | payer MEDICARE, MEDICAID, SELFPAY ==
[2020-10-11 09:56] LABS: Alanine Aminotransferase 13 U/L (4-35); Aspartate Amino Transferase 38 U/L (14-36)
== END 2020-10-11 09:12 | disposition home or self-care (01) ==
PROVIDERS: PCP Family Medicine; Visit Provider Podiatrist Foot & Ankle Surgery
DX: B35.1 Tinea unguium (principal)
CPT/HCPCS: 36415; 84450; 84460

== ENCOUNTER → 2020-12-29 03:53 | Outpatient (CLI) | payer MEDICARE, MEDICAID, SELFPAY ==
[2020-12-29 18:26] LABS: SARS-CoV-2 RNA PCR Positive
== END ==
PROVIDERS: PCP Family Medicine; Visit Provider Nurse Practitioner
DX: U07.1 COVID-19 (principal)
CPT/HCPCS: C9803; U0003; U0005

== ENCOUNTER 2021-02-02 08:20 | Outpatient (CLI) | payer MEDICARE, MEDICAID, SELFPAY ==
[2021-02-02 08:51] LABS: Basophils Percent Auto 0.8 % (0.2-1.2); Eosinophils Absolute Auto 0.2 K/mm3 (0-0.3); Hematocrit 33.8 % (37.0-47.0); Immature Granulocyte Absolute 0.02 K/mm3 (0.00-0.031); Immature Granulocyte Percent A 0.4 % (0-0.5); Lymphocytes Absolute Auto 0.92 K/mm3 (0.9-3.2); Lymphocytes Percent Auto 17.5 % (18.3-44.2); Mean Corpuscular HGB Conc 32.5 g/dl (32-36); Mean Corpuscular Hemoglobin 29.5 pg (26-34); Mean Corpuscular Volume 90.6 fl (80-100); Mean Platelet Volume 9.3 fl (7.4-10.4); Monocytes Absolute Auto 0.4 K/mm3 (0.1-0.6); Monocytes Percent Auto 8.2 % (2.6-8.5); Neutrophils Absolute Auto 3.6 K/mm3 (1.3-6.7); Neutrophils Percent Auto 69.1 % (45.5-73.1); Platelet Count Result 196 k/mm3 (150-375); Red Blood Count 3.73 M/mm3 (4.2-5.4); Red Cell Distribution Width 13.3 % (11.5-14.5); White Blood Count 5.3 K/mm3 (4.5-10.0)
[2021-02-02 09:00] LABS: Hemoglobin A1C 5.3 % (<5.7)
[2021-02-02 09:19] LABS: Alanine Aminotransferase 30 U/L (4-35); Albumin Level 3.9 g/dL (3.5-5.1); Alkaline Phosphatase 67 U/L (38-126); Anion Gap 6 mmol/L (8-16); Aspartate Amino Transferase 33 U/L (14-36); Bilirubin,Total 0.5 mg/dL (0.2-1.3); Blood Urea Nitrogen 15 mg/dL (7-17); Calcium 9.3 mg/dL (8.4-10.2); Carbon Dioxide 27 mmol/L (22-30); Chloride 103 mmol/L (98-107); Cholesterol 131 mg/dL (0-200); Estimated Glomerular Filt Rate > 60; Glucose 96 mg/dL (65-110); HDL Direct 67 mg/dL; Potassium 4.6 mmol/L (3.4-5.0); Sodium 136 mmol/L (137-145); Triglycerides 48 mg/dL (<150)
[2021-02-02 09:28] LABS: Vitamin D 25 Hydroxy 47.6 ng/mL
[2021-02-02 09:32] LABS: LDL Cholesterol Direct 41 mg/dL
[2021-02-03 09:44] LABS: Total Triiodothyronine (T3) 1.55 NG/ML (0.97-1.69)
== END 2021-02-02 08:21 | disposition home or self-care (01) ==
PROVIDERS: PCP Family Medicine; Visit Provider Family Medicine
DX: E55.9 Vitamin D deficiency, unspecified (principal); E78.5 Hyperlipidemia, unspecified; R73.9 Hyperglycemia, unspecified; F32.9 Major depressive disorder, single episode, unspecified; F41.9 Anxiety disorder, unspecified; E53.8 Deficiency of other specified B group vitamins; I10 Essential (primary) hypertension
CPT/HCPCS: 36415; 80053; 80061; 82306; 82607; 83036; 84439; 84443; 84480; 85025

== ENCOUNTER 2021-02-09 08:54 | Outpatient (RCR) | payer MEDICARE, MEDICAID, SELFPAY ==
[2021-02-07 10:38] LABS: Basophils Percent Auto 0.6 % (0.2-1.2); Eosinophils Absolute Auto 0.1 K/mm3 (0-0.3); Eosinophils Percent Auto 1.1 % (0-4.4); Hematocrit 34.9 % (37.0-47.0); Hemoglobin 11.6 g/dL (12.0-15.0); Immature Granulocyte Absolute 0.01 K/mm3 (0.00-0.031); Immature Granulocyte Percent A 0.2 % (0-0.5); Lymphocytes Absolute Auto 0.82 K/mm3 (0.9-3.2); Lymphocytes Percent Auto 15.7 % (18.3-44.2); Mean Corpuscular HGB Conc 33.2 g/dl (32-36); Mean Corpuscular Hemoglobin 30.1 pg (26-34); Mean Corpuscular Volume 90.4 fl (80-100); Mean Platelet Volume 9.5 fl (7.4-10.4); Monocytes Absolute Auto 0.3 K/mm3 (0.1-0.6); Monocytes Percent Auto 5.9 % (2.6-8.5); Neutrophils Percent Auto 76.5 % (45.5-73.1); Platelet Count Result 197 k/mm3 (150-375); Red Blood Count 3.86 M/mm3 (4.2-5.4); Red Cell Distribution Width 13.2 % (11.5-14.5); White Blood Count 5.2 K/mm3 (4.5-10.0)
[2021-02-07 11:19] LABS: Iron 65 ug/dL (37-170)
[2021-02-07 11:29] LABS: Percent Iron Saturation 19 % (20-50)
[2021-02-09 13:28] LABS: IFOB Positive Control Positive; Immunochemical Fecal Occult Bl Negative (N)
== END 2021-05-08 23:59 | disposition home or self-care (01) ==
LOC: ANHLAB 08:54
PROVIDERS: PCP Family Medicine; Visit Provider Family Medicine
DX: D64.9 Anemia, unspecified (principal)
CPT/HCPCS: 36415; 82274; 82728; 83540; 83550; 85025

== ENCOUNTER 2021-06-22 08:17 | Outpatient (CLI) | payer MEDICARE, MEDICAID, SELFPAY ==
--- NOTE | ~2021-06-22 | MM_ITS ---
EXAMINATION: MM screening jina BI w corbin HISTORY: Screening mammogram, history of left breast cancer TECHNIQUE: Craniocaudal and mediolateral oblique 3-D tomosynthesis images were obtained and synthetic 2-D images were generated. CAD analysis was submitted and interpreted. COMPARISON: 05/26/2020, 05/19/2019, 05/11/2018 BREAST PARENCHYMAL COMPOSITION: There are scattered areas of fibroglandular density. FINDINGS: There are stable lumpectomy changes in the outer left breast. There is no suspicious mass, calcification, or architectural distortion to suggest malignancy in either breast. There has been no suspicious interval change. IMPRESSION: 1. No mammographic evidence of malignancy. 2. Recommend routine screening mammography in one year. BI-RADS Category 2: Benign finding(s). Reviewed, dictated and finalized at location A.
== END 2021-06-22 08:18 | disposition home or self-care (01) ==
LOC: ANHIMG 08:19
PROVIDERS: PCP Family Medicine; Visit Provider Family Medicine
DX: Z12.31 Encounter for screening mammogram for malignant neoplasm of breast (principal)
CPT/HCPCS: 77063; 77067

== ENCOUNTER 2021-08-01 10:21 | Outpatient (CLI) | payer MEDICARE, MEDICAID, SELFPAY ==
[2021-08-01 10:50] LABS: Basophils Percent Auto 0.5 % (0.2-1.2); Eosinophils Absolute Auto 0.1 K/mm3 (0-0.3); Eosinophils Percent Auto 1.3 % (0-4.4); Hematocrit 35.6 % (37.0-47.0); Hemoglobin 11.4 g/dL (12.0-15.0); Immature Granulocyte Absolute 0.03 K/mm3 (0.00-0.031); Immature Granulocyte Percent A 0.5 % (0-0.5); Lymphocytes Absolute Auto 0.74 K/mm3 (0.9-3.2); Lymphocytes Percent Auto 13.3 % (18.3-44.2); Mean Corpuscular Hemoglobin 29.4 pg (26-34); Mean Corpuscular Volume 91.8 fl (80-100); Mean Platelet Volume 9.9 fl (7.4-10.4); Monocytes Absolute Auto 0.3 K/mm3 (0.1-0.6); Monocytes Percent Auto 5.9 % (2.6-8.5); Neutrophils Absolute Auto 4.4 K/mm3 (1.3-6.7); Neutrophils Percent Auto 78.5 % (45.5-73.1); Platelet Count Result 175 k/mm3 (150-375); Red Blood Count 3.88 M/mm3 (4.2-5.4); Red Cell Distribution Width 13.3 % (11.5-14.5); White Blood Count 5.6 K/mm3 (4.5-10.0)
[2021-08-01 11:11] LABS: Alanine Aminotransferase 53 U/L (4-35); Albumin Level 4.3 g/dL (3.5-5.1); Alkaline Phosphatase 91 U/L (38-126); Anion Gap 6 mmol/L (8-16); Aspartate Amino Transferase 49 U/L (14-36); Bilirubin,Total 0.8 mg/dL (0.2-1.3); Blood Urea Nitrogen 13 mg/dL (7-17); Calcium 8.9 mg/dL (8.4-10.2); Carbon Dioxide 26 mmol/L (22-30); Chloride 105 mmol/L (98-107); Estimated Glomerular Filt Rate > 60; Glucose 94 mg/dL (65-110); Potassium 4.7 mmol/L (3.4-5.0); Sodium 137 mmol/L (137-145)
== END 2021-08-01 10:22 | disposition home or self-care (01) ==
LOC: ANHLAB 10:23
PROVIDERS: PCP Family Medicine; Visit Provider Family Medicine
DX: D64.9 Anemia, unspecified (principal); I10 Essential (primary) hypertension
CPT/HCPCS: 36415; 80053; 85025

== ENCOUNTER 2021-09-12 10:40 | Outpatient (CLI) | payer MEDICARE, MEDICAID, SELFPAY ==
[2021-09-12 12:07] LABS: Alanine Aminotransferase 43 U/L (6-35); Albumin Level 4.1 g/dL (3.5-5.1); Alkaline Phosphatase 74 U/L (38-126); Anion Gap 5 mmol/L (8-16); Aspartate Amino Transferase 43 U/L (14-36); Blood Urea Nitrogen 28 mg/dL (7-17); Carbon Dioxide 28 mmol/L (22-30); Chloride 106 mmol/L (98-107); Estimated Glomerular Filt Rate > 60; Glucose 94 mg/dL (65-110); Potassium 4.6 mmol/L (3.4-5.0); Sodium 139 mmol/L (137-145)
== END 2021-09-12 10:41 | disposition home or self-care (01) ==
PROVIDERS: PCP Family Medicine; Visit Provider Family Medicine
DX: I50.32 Chronic diastolic (congestive) heart failure (principal); R79.89 Other specified abnormal findings of blood chemistry
CPT/HCPCS: 36415; 80053

== ENCOUNTER 2021-09-18 10:45 | Observation (INO) | payer MEDICARE, MEDICAID, SELFPAY ==
[2021-09-18] VITALS (35 sets, daily range): BP systolic 87–138; BP diastolic 48–77; PULSE 113–176; RESP 8–27; TEMP 36.4–37.2; O2SAT 97–100; BMI 26.7
--- NOTE | 2021-09-18 | ECHO_ITS ---
Patient Info Name: Cinthia Mccartney Age: 76 years : 1945 Gender: Female Ht: 60 in Wt: 137 lbs BSA: 1.64 m2 HR: 113 bpm BP: 118 / 72 mmHg Heart Rhythm: Sinus Rhythm Technical Quality: Fair Exam Date: 09/18/2021 4:21 PM Exam Location: [facility] Card Pulmonary Patient Status: Inpatient Admit Date: 09/18/2021 Staff Ordering Physician: Rafa Pineda Orthodontic Assistant: Lynn Kasper RDCS Attending Provider: Fish Lowry MD Referring Physician: Edwin MCKEON; Exam Type: CA echo doppler w bubble study Study Info Indications - syncope Complete two-dimensional, color flow and Doppler transthoracic echocardiogram is performed with agitated saline. Contrast/Agitated Saline Contrast/Ag. Saline: Agitated Saline Amount: 20.00 ml Existing IV Access: Yes IV Access Condition: patent with no signs of infiltration Summary 1. Left ventricular chamber dimension is normal. 2. Left ventricular systolic function is normal, estimated at 65-70%. 3. There is mildly increased left ventricular wall thickness. 4. The left ventricular diastolic function is abnormal. 5. E/e' 12 is mildly elevated. 6. Left atrial chamber dimension is moderately enlarged. 7. Right atrial chamber dimension is mildly enlarged. 8. There is severe aortic valve sclerosis. 9. There is moderate aortic valve stenosis with a peak velocity of 250 cm/s, mean gradient of 13 mmHg, and aortic valve area of 1.3 cm2. 10. There is mild aortic valve regurgitation. 11. The mitral valve has moderately calcified annulus. 12. There is mild mitral valve regurgitation. 13. There is mild to moderate tricuspid valve regurgitation. 14. No pulmonary hypertension, estimated pulmonary arterial systolic pressure is 39 mmHg. 15. Dilated inferior vena cava with <50% collapse upon inspiration consistent with significantly elevated right atrial pressure, 15 mmHg. 16. There is trivial pericardial effusion. Left Ventricle E/e' 12 is mildly elevated. Left ventricular chamber dimension is normal. Left ventricular systolic function is normal, estimated at 65-70%. There is mildly increased left ventricular wall thickness. The left ventricular diastolic function is abnormal. Right Ventricle Right ventricular chamber dimension is normal. Right ventricular systolic function is normal. Left Atria Left atrial chamber dimension is moderately enlarged. Right Atria Right atrial chamber dimension is mildly enlarged. Atrial Septum Agitated saline injection with and without valsalva maneuver opacified right side cardiac chambers without shunt to left cardiac chambers. Intact interatrial septum visualized by 2D, color flow and agitated saline imaging. Aortic Valve The aortic valve is probable trileaflet. There is severe aortic valve sclerosis. There is moderate aortic valve stenosis with a peak velocity of 250 cm/s, mean gradient of 13 mmHg, and aortic valve area of 1.3 cm2. There is mild aortic valve regurgitation. Pulmonic Valve There is no pulmonic regurgitation. Mitral Valve The mitral valve has moderately calcified annulus. There is no mitral valve stenosis. There is mild mitral valve regurgitation. Tricuspid Valve There is mild to moderate tricuspid valve regurgitation. No pulmonary hypertension, estimated pulmonary arterial systolic pressure is 39 mmHg. Pericardium/Pleural There is trivial pericardial effusion. Inferior Vena Cava Dilated inferior
--- NOTE | ~2021-09-18 | CT_ITS ---
EXAMINATION: CT brain wo con DATE: 09/18/2021 17:56 INDICATION: fall . TECHNIQUE: Computed tomography (CT) of the head was performed without intravenous contrast. The mA wa s adjusted according to patient size. Iterative reconstruction technique was employed. The dose-lengt h product was 529.67 mGy-cm. COMPARISON: None FINDINGS: No acute intracranial hemorrhage or extra-axial fluid collection. No hydrocephalus, mass, or herniation. No acute ischemic infarct. Unremarkable dural venous sinus attenuation. No acute osseous abnormality. Possible mild posterior scalp contusion. Mucosal thickening in ethmoid air cells, otherwise the aerated spaces are clear. Mild atrophy and chronic white matter change. Atherosclerotic intracranial calcifications. IMPRESSION: No acute intracranial process. Reviewed, dictated and finalized at location K.
--- NOTE | ~2021-09-18 | XR_ITS ---
EXAM: XR humerus LT DATE: 09/19/2021 17:43 HISTORY: Fall, bruising to lateral proximal left humerus . COMPARISON: None available. FINDINGS: Pin fixation of the proximal left humerus, without hardware fracture or abnormal perihardw are lucency. Decreased mineralization. No fracture or dislocation. No lytic or blastic lesion. Joint spaces are maintained. No erosion or periosteal change. Subcutaneous contusion. IMPRESSION: No acute osseous finding in the left humerus. No radiographic evidence of hardware-relate d complication. Reviewed, dictated and finalized at location K. IMPRESSION: No acute osseous finding in the left humerus. No radiographic evide nce of hardware-related complication.
--- NOTE | ~2021-09-18 | XR_ITS ---
EXAMINATION: XR chest 1V portable DATE: 09/18/2021 11:35 INDICATION: Arrhythmia. Dizziness. Chest pressure. TECHNIQUE: A single frontal view of the chest was obtained. COMPARISON: Chest 2 views 07/01/2019 FINDINGS: The chest demonstrates clear lungs without pneumonia, pleural effusion, or pneumothorax. Th e heart size is normal. There is internal fixation of right humerus and left humerus. IMPRESSION: 1. No acute cardiopulmonary disease. Reviewed, dictated and finalized at location B.
--- NOTE | ~2021-09-18 | US_ITS ---
EXAMINATION: US carotid duplex BI DATE: 09/19/2021 10:53 INDICATION: Syncope. TECHNIQUE: Grayscale, color Doppler, and pulsed Doppler images of the cervical carotid arteries were obtained. The degree of vessel stenosis is placed in one of the following categories: normal, <50%, 5 0-69%, >=70% but less than near-occlusion, near-occlusion, or total occlusion. Note that percent sten osis relative to normal distal artery lumen diameter is indirectly measured from velocity measurement s as described by Christiano, et al. Radiology 2003; 229:340-346. COMPARISON: Ultrasound 03/27/17 FINDINGS: RIGHT: The right common carotid artery (CCA) peak systolic velocity (PSV) is 75 cm/s. The right internal car otid artery (ICA) PSV is 102 cm/s. The right ICA end-diastolic velocity (EDV) is 20 cm/s. The right I CA/CCA PSV ratio is 1.4. Grayscale and color Doppler images yield an estimate of <50% diameter reduct ion from plaque in the ICA. There is antegrade flow in the right vertebral artery. LEFT: The left CCA PSV is 69 cm/s. The left ICA PSV is 63 cm/s. The left ICA EDV is 18 cm/s. The left ICA/C CA PSV ratio is 0.9. Grayscale and color Doppler images yield an estimate of <50% diameter reduction from plaque in the ICA. There is antegrade flow in the left vertebral artery. IMPRESSION: 1. <50% stenosis in the right internal carotid artery. 2. <50% stenosis in the left internal carotid artery. Reviewed, dictated and finalized at location B.
--- NOTE | 2021-09-18 10:49 | ECG_ITS ---
Measurements Intervals [place] Rate: 157 P: OR: 0 QRS: 82 QRSD: 103 T: 242 QT: 268 QTc: 433 Interpretive Statements ATRIAL FIBRILLATION WITH RAPID VENTRICULAR RESPONSE INCOMPLETE RIGHT BUNDLE BRANCH BLOCK RIGHT VENTRICULAR HYPERTROPHY AND ST-T CHANGE MARKED ST DEPRESSION, CONSIDER SUBENDOCARDIAL INJURY COMPARED TO ECG 01/04/2020 09:53:37 ATRIAL FIBRILLATION NOW PRESENT RIGHT VENTRICULAR HYPERTROPHY NOW PRESENT ST (T WAVE) DEVIATION NOW PRESENT Electronically Signed On 09-18-2021 11:23:00 CDT by Acosta Henson M.D.
--- NOTE | 2021-09-18 10:53 | ED.ARRPALP ---
HPI - Arrhythmia/Palpitations General Chief Complaint: Dizziness Stated Complaint: fast heart rate Time Seen by Provider: 09/18/21 10:48 History of Present Illness HPI narrative: pt woke up with feeling like going to pass out no loc no kapoor/vision chagnes/med changes no cp buyt mild chest pressure and sob says has had before but no dx svt or afib ems thought svt tried adenocard 6mg and 12mg no conversion, fluids for soft pressure. no other f/uri/n/v/d/abd pain/neuro cahgnes/med chagnes/sick contacts smoking or drinking Related Data Home Medications Medication Instructions Recorded Confirmed letrozole 2.5 mg tablet 2.5 mg PO DAILY 02/15/19 09/07/21 benztropine 2 mg tablet 2 mg PO BID RLS 06/01/19 09/07/21 memantine 5 mg tablet 5 mg PO QAM 06/01/19 09/07/21 aspirin 81 mg tablet,delayed 81 mg PO DAILY 08/19/19 09/07/21 release (Aspir-) paliperidone palmitate 156 mg/mL 156 mg IM MONTHLY 05/31/20 09/07/21 intramuscular syringe ezetimibe 10 mg tablet 10 mg PO DAILY 01/31/21 09/07/21 rosuvastatin 40 mg tablet 40 mg PO DAILY 01/31/21 09/07/21 letrozole 2.5 mg tablet 2.5 mg PO DAILY 09/18/21 09/18/21 Allergies Allergy/AdvReac Type Severity Reaction Status Date / Time amoxicillin Allergy Mild Rash Verified 09/07/21 09:30 Review of Systems Constitutional: Comments: CONSTITUTIONAL: Denies fever, chills, or sweats. EYES: Denies visual changes, redness, or discharge. ENT: Denies rhinorrhea, congestion, sore throat, or otalgia. CARDIOVASCULAR: Denies chest pain, palpitations, or edema. RESPIRATORY: Denies cough. says some sob GASTROINTESTINAL: Denies abdominal pain, nausea, vomiting, or diarrhea. GENITOURINARY: Denies dysuria or hematuria. SKIN: Denies rash or itching. MUSCULOSKELETAL: Denies back pain, joint pain, or myalgia. NEUROLOGIC: Denies headache, numbness, or weakness. has lt headedness PSYCHIATRIC: Denies anxiety or depression. [facility] Past Medical History Medical History (Updated 09/18/21 @ 13:20 by Sarita Yan MD) Benign essential hypertension Chronic back pain Cognitive impairment Depression GERD without esophagitis History of breast cancer Humeral fracture ALEN. Ingrown toenail of left foot Obstructive sleep apnea Osteopenia Other hyperlipidemia Paronychia Restless leg syndrome Seasonal allergies Surgical History Surgical History History of bladder surgery (Unknown) History of lumpectomy of left breast 06/2012 History of umbilical hernia (~2019) Hx of shoulder surgery ALEN. Hx of tubal ligation (Unknown) Family History Family History Father Family history of lung cancer Mother Family history of coronary artery disease Acute myocardial infarction Son Diabetes mellitus Other Family history of diabetes mellitus in first degree relative Social History Social History Second hand tobacco smoke exposure: No Alcohol intake: never Substance use: unknown Gender identity (if verbalized by the patient): Female Spiritual care concerns: No Exam Const: Other: APPEARANCE: Well appearing, no pain in distress, well-nourished. Head normocephalic atraumtaic. EYES: PERRLA/EOMI, conjunctivae very clear. NOSE: Normal no drainage EARS:TMS clear Nichelle Larsen, with good light reflex. THROAT: Pharynx clear, no exudate. NECK: Supple. No adenopathy, no masses. RESPIRATORY: Airway patent, repsirations nonlabored. Clear to auscultation bilaterally, no rales, rhonchi, wheezing. CARDIOVASCULAR: tachy irreg irredg ABDOMINAL: Soft, nontender, nondistended, no hepatosplenomegally MUSCULOSKELETAl: Moves all extremities. Strenght/ROM intact, No edema, No calf tenderness. NEURO: Alert. Cranial nerves II through XII intact. Good gait. Good coordination SKIN:: Warm, dry. Normal Color PSYCHIATRIC: Normal affect/mood, normal interaction with parents
[2021-09-18] MEDS: AMIODARONE 150 MG/D5W 100 ML 150 MG/100 ML BAG 600 MG IV CONT (11:02)
--- NOTE | 2021-09-18 11:08 | ECG_ITS ---
Measurements Intervals [place] Rate: 135 P: [place]: 0 QRS: 76 QRSD: 112 T: -82 QT: 297 QTc: 446 Interpretive Statements ATRIAL FIBRILLATION WITH RAPID VENTRICULAR RESPONSE INCOMPLETE RIGHT BUNDLE BRANCH BLOCK RIGHT VENTRICULAR HYPERTROPHY AND ST-T CHANGE ST DEPRESSION, CONSIDER SUBENDOCARDIAL INJURY Electronically Signed On 09-18-2021 12:14:52 CDT by Acosta Henson M.D.
[2021-09-18] MEDS: AMIODARONE 360 MG/D5W 200 ML 360 MG/200 ML BAG 33.33 MG IV CONT ×2 (11:16→15:52)
[2021-09-18] MEDS: ASPIRIN 81 MG CHEWABLE TABLET 324 MG PO (11:23)
[2021-09-18 11:38] LABS: Basophils Percent Auto 0.4 % (0.2-1.2); Eosinophils Percent Auto 0.8 % (0-4.4); Hematocrit 36.2 % (37.0-47.0); Hemoglobin 11.5 g/dL (12.0-15.0); Immature Granulocyte Absolute 0.03 K/mm3 (0.00-0.031); Immature Granulocyte Percent A 0.6 % (0-0.5); Lymphocytes Absolute Auto 0.57 K/mm3 (0.9-3.2); Mean Corpuscular HGB Conc 31.8 g/dl (32-36); Mean Corpuscular Hemoglobin 29.4 pg (26-34); Mean Corpuscular Volume 92.6 fl (80-100); Mean Platelet Volume 11.1 fl (7.4-10.4); Monocytes Absolute Auto 0.3 K/mm3 (0.1-0.6); Monocytes Percent Auto 5.4 % (2.6-8.5); Neutrophils Absolute Auto 4.3 K/mm3 (1.3-6.7); Neutrophils Percent Auto 81.8 % (45.5-73.1); Platelet Count Result 154 k/mm3 (150-375); Red Blood Count 3.91 M/mm3 (4.2-5.4); Red Cell Distribution Width 13.7 % (11.5-14.5); White Blood Count 5.2 K/mm3 (4.5-10.0)
[2021-09-18 11:55] LABS: Alanine Aminotransferase 39 U/L (6-35); Albumin Level 3.7 g/dL (3.5-5.1); Alkaline Phosphatase 68 U/L (38-126); Anion Gap 15 mmol/L (8-16); Aspartate Amino Transferase 44 U/L (14-36); Bilirubin,Total 0.9 mg/dL (0.2-1.3); Blood Urea Nitrogen 28 mg/dL (7-17); CRP < 0.5 mg/dL (<1.0); Calcium 8.5 mg/dL (8.4-10.2); Carbon Dioxide 16 mmol/L (22-30); Chloride 109 mmol/L (98-107); Estimated CRCL calculation 33 ml/min; Estimated Glomerular Filt Rate 48; Glucose 98 mg/dL (65-110); Potassium 3.8 mmol/L (3.4-5.0); Sodium 140 mmol/L (137-145)
[2021-09-18 12:10] LABS: Troponin I 0.026 ng/mL (0.000-0.034)
[2021-09-18 12:11] LABS: Magnesium 2.1 mg/dL (1.6-2.3)
[2021-09-18 12:43] LABS: INR 1.2; Lactic Acid Reflex 1.4 mmol/L (0.7-2.0); Prothrombin Time 14.2 Seconds (11.1-14.7)
--- NOTE | 2021-09-18 12:43 | PC.NURSE ---
Per verbal order from Dr. Yan Amiodarone drip increased to 1.5 mg/min.
[2021-09-18 12:44] LABS: Partial Thromboplastin Time 28.9 SECONDS (22.3-36.8)
--- NOTE | 2021-09-18 13:00 | PM.IMHP ---
H&P: HPI History of Present Illness Date/Time: 09/18/21 13:00 Chief Complaint: Near Syncope Narrative: Patient is a 76-year-old female with a past medical history of hypertension, CAD, breast cancer, ZORAN who presented to the hospital after a syncopal episode. Patient's daughter was also present and stated that the patient passed out and fell over the coffee table. She was unresponsive with her eyes rolling back in the back of her head. She was also dizzy with white sheet and blurry vision. She denied any chest pain or palpitations however she did state that she took her blood pressure this a.m. and was 113 systolic LEEP. She also took her Entresto which is new and she stated that she feels like her blood pressure was affected. She also stated that over the last few weeks she has lost about 10 lb ends 3 weeks and feels like her blood pressure has been labile. Her doctors recently taken her off of her blood pressure medications and has started her on Entresto for a systolic heart murmur and lesions on her. Patient sees Dr. Duckworth for cardiology. She also stated that her vision changes has resolved and she does have a little bit of a headache. She also claims to be dizzy with any kind of activity like just getting on a bedpan. She denies any nausea and vomiting however did have nausea vomiting upon arrival in the ambulance. Her appetite has been good and she was doing well eating a salad. She denies any chest pain or shortness of breath. It was also noted that the patient's heart rate was elevated and was 180 and is currently in the 110s. Patient is also noted to have slightly elevated liver enzymes. Blood pressure was also noted to be in the 80 systolic sleep patient was given fluids and blood pressure is currently 128/57. Patient is on 2 L nasal cannula currently satting 100%. Was also discussed the patient is on Namenda for psychoses. Review of Systems Review of Systems: All systems reviewed & are unremarkable except as noted in HPI and below PMFSH Past Medical History Medical History Benign essential hypertension Depression DJD (degenerative joint disease) GERD without esophagitis History of breast cancer Humeral fracture ALEN. Ingrown toenail of left foot Obstructive sleep apnea Osteopenia Other hyperlipidemia Paronychia Restless leg syndrome Seasonal allergies Surgical History Surgical History History of bladder surgery (Unknown) History of lumpectomy of left breast 06/2012 History of umbilical hernia (~2019) Hx of shoulder surgery ALEN. Hx of tubal ligation (Unknown) Family History Family History Father Family history of lung cancer Mother Family history of coronary artery disease Acute myocardial infarction Son Diabetes mellitus Daughter Hypertension Other Family history of diabetes mellitus in first degree relative Social History Social History Social History: Patient currently resides in a apartment at [facility] in [facility]. Daughter states that she can go to assisted living due to her Namenda. She wishes to be a full code at this time and her daughter Ashli is her surrogate. She denies any pets. Smoking status: Never smoker Second hand tobacco smoke exposure: No Alcohol intake: never Substance use: never Living arrangements: alone Occupation/Education: retired Gender identity (if verbalized by the patient): Female Sexual Orientation (if Verbalized by the Patient): Straight or Heterosexual Spiritual care concerns: No Agree to blood products: Yes Meds Home Medications and Allergies Home Medications Medication Instructions Recorded Confirmed Type benztropine 2 mg tablet 2 mg PO HS 06/01/19 09/18/21 History memantine 5 mg tablet 5 mg
[2021-09-18] MEDS: ENOXAPARIN 80 MG/0.8 ML SYRINGE 64 MG SUB-Q (13:36)
--- NOTE | 2021-09-18 14:46 | PC.NURSE ---
Amiodarone drip rate decreased to 1 mg/min per Pharmacy.
--- NOTE | 2021-09-18 14:47 | ADMGEN ---
This patient, Cinthia Mccartney, was admitted to IMU Room 211-01 at 1442. Patient/family oriented to hospital policies and general routines including ID bracelet, bed and alarms, visiting hours, pain management, procedures, bathroom and other care routines, personal items, smoking policy, room service/diet, and visiting hours. Information on how to activate the Rapid Response Team has been discussed. Patient/Family are encouraged to report perceived risks to care and to ask questions if they do not understand what they are told or what they should do.
--- NOTE | 2021-09-18 15:48 | ECG_ITS ---
Measurements Intervals [place] Rate: 114 P: [place]: 0 QRS: 51 QRSD: 110 T: 17 QT: 335 QTc: 462 Interpretive Statements ATRIAL FLUTTER/TACHYCARDIA WITH RAPID VENTRICULAR RESPONSE INCOMPLETE RIGHT BUNDLE BRANCH BLOCK [90+ ms QRS DURATION, TERMINAL R IN V1/V2, 40+ ms S IN I/aVL/V4/V5/V6] MODERATE ST DEPRESSION [0.05+ mV ST DEPRESSION] ABNORMAL ECG COMPARED TO ECG 09/18/2021 11:30:38 ATRIAL FLUTTER NOW PRESENT Electronically Signed On 09-19-2021 9:57:15 CDT by Krishan Webb M.D.
--- NOTE | 2021-09-18 15:54 | PM.CNCAR ---
Assessment and Plan Assessment and plan (1) Syncope and collapse: Code(s): R55 - Syncope and collapse Status: Acute Assessment and Plan: This is a related hypotension likely secondary to atrial fibrillation with extreme rapid ventricular response. (2) Atrial fibrillation with rapid ventricular response: Code(s): I48.91 - Unspecified atrial fibrillation Status: Acute Assessment and Plan: Probably new onset. Heart rate is better controlled on amiodarone drip. Appears to be acute onset. Will request records from Dr. Mills's office. Recommend 1 milligram/kilogram subQ of enoxaparin. 2D echocardiogram with Doppler be ordered and reviewed. Will trend troponins as her troponin has elevated. Repeat EKG stat. (3) Cognitive impairment: Code(s): R41.89 - Other symptoms and signs involving cognitive functions and awareness Status: Acute (4) Benign essential hypertension: Code(s): I10 - Essential (primary) hypertension Status: Chronic Assessment and Plan: He has improved at this point. (5) Obstructive sleep apnea: Code(s): G47.33 - Obstructive sleep apnea (adult) (pediatric) Status: Chronic Plan Patient has elevated troponin in the setting of atrial fibrillation with rapid ventricular response and hypotension. She has diffuse ST segment changes. Cannot exclude underlying severe ischemia but also could be a demand ischemia situation due to her atrial fibrillation rapid response. She is currently feeling better with better rate control. Will continue amiodarone, enoxaparin. 2D echocardiogram with Doppler. Continue to trend troponins. Continue Zetia and rosuvastatin. She does have [id number] aortic stenosis noted by echocardiogram last month. Stat EKG now. Will keep NPO after midnight for possible cardiac catheterization tomorrow versus cardioversion +/-T tomorrow. History of Present Illness History of Present Illness Consult date/time: 09/18/21 15:54 Reason For Visit: Afib RVR New Onset Narrative: Date of service 09/18/2021 Reason consultation: Atrial fibrillation Requesting provider: Dr. Yan History: Patient is a 76-year-old female who has history of aortic stenosis and follows with Dr. Mills. To my knowledge she does not have any abnormal rhythm issues. The patient herself is a poor historian but her daughter is at bedside. Patient states she was feeling fine until this morning. She was getting ready and had a sudden onset of feeling like she was going to faint. She did actually pass out or her kitchen table. Family did lay her down on the ground and she did become a bit more awake and alert at that point. She did develop some chest pressure. EMS was called and she was found to be tachycardic. She was given adenosine without benefit. She was brought to the ER and is found to be in atrial fibrillation with rapid ventricular response. She was started on amiodarone. She was also hypotensive at that time. With slowing of the heart rate though her blood pressures did increase. Chest pain lasted for couple of hours. She no longer has any chest pain or tightness. She has no shortness of breath. She has no paroxysmal nocturnal dyspnea, orthopnea, edema. Review of Systems Review of Systems: All systems reviewed & are unremarkable except as noted in HPI and below Constitutional: Constitutional: Denies body ache(s) Eyes: Eyes: Denies blurry vision ENT: Reports Normal hearing present Cardiovascular: Cardiovascular: Reports chest pain Respiratory: Respiratory: Denies chest congestion and Denies dyspnea Gastrointestinal: Gastrointestinal: Denies abdominal pain Genitourinary: Genitourinary: Denies hematuria Musculoskeletal: Musculoskeletal: Denies back pain Integumentary/Breasts: Skin/Breast: Denies breast pain Neurologic: Denies Abnormal speech present Psychiatric: Psychiatric: Denies behavioral changes Endocrine: E
[2021-09-18 16:09] LABS: Appearance Urine Clear (Clear); Bilirubin Urine Negative (Negative); Color Urine Yellow (Yellow); Glucose Urine UA 3+ mg/dL (Negative); Ketones Urine 3+ mg/dL (Negative); Leukocyte Esterase Ur 1+ LEU/UL (Negative); Nitrate Urine Negative (Negative); Protein Urine 1+ mg/dL (Negative); Specific Grav Ur 1.015 (1.001-1.035); Urobilinogen Urine 0.2 mg/dL (<2.0); pH Urine 5.5 (5.0-9.0)
[2021-09-18 16:12] LABS: Mucus Urine Rare /lpf; Squamous Epithelial Cell Urine Occasional /hpf (Few); WBC Urine 21-30 /hpf
[2021-09-18 16:15] LABS: Add Urine Microscopic? YES; Blood Urine Trace-Intact (Negative)
[2021-09-18] MEDS: AMIODARONE 360 MG/D5W 200 ML 360 MG/200 ML BAG 16.67 MG IV CONT (17:20)
[2021-09-18] MEDS: rOPINIRole HCL 1 MG TABLET 2 MG PO (17:22)
[2021-09-18] MEDS: ACETAMINOPHEN 325 MG TABLET 650 MG PO (18:33)
[2021-09-18] MEDS: rOPINIRole HCL 1 MG TABLET 3 MG PO (20:47)
[2021-09-18] MEDS: BENZTROPINE MESYLATE 1 MG TABLET 2 MG PO (20:47)
[2021-09-19] VITALS (22 sets, daily range): BP systolic 102–148; BP diastolic 45–89; PULSE 50–121; RESP 14–20; TEMP 36.6–36.9; O2SAT 92–100
[2021-09-19] MEDS: AMIODARONE 360 MG/D5W 200 ML 360 MG/200 ML BAG 16.67 MG IV CONT (01:58)
[2021-09-19] MEDS: ENOXAPARIN 80 MG/0.8 ML SYRINGE 64 MG SUB-Q (01:59)
--- NOTE | 2021-09-19 04:48 | ECG_ITS ---
Measurements Intervals Simms Rate: 59 P: 100 UT: 144 QRS: 65 QRSD: 121 T: 24 QT: 430 QTc: 428 Interpretive Statements SINUS BRADYCARDIA RIGHT BUNDLE BRANCH BLOCK [120+ ms QRS DURATION, UPRIGHT V1, 40+ ms S IN I/aVL/V4/V5/V6] NONSPECIFIC ST AND T-WAVE ABNORMALITY ABNORMAL ECG SINUS BRADYCARDIA NOW PRESENT RIGHT BUNDLE-BRANCH BLOCK NOW PRESENT Electronically Signed On 09-19-2021 10:30:27 CDT by Krishan Webb M.D.
[2021-09-19 06:26] LABS: Basophils Percent Auto 0.4 % (0.2-1.2); Eosinophils Absolute Auto 0.1 K/mm3 (0-0.3); Eosinophils Percent Auto 1.1 % (0-4.4); Hematocrit 33.4 % (37.0-47.0); Hemoglobin 11.2 g/dL (12.0-15.0); Immature Granulocyte Absolute 0.02 K/mm3 (0.00-0.031); Immature Granulocyte Percent A 0.3 % (0-0.5); Lymphocytes Absolute Auto 0.87 K/mm3 (0.9-3.2); Lymphocytes Percent Auto 12.3 % (18.3-44.2); Mean Corpuscular HGB Conc 33.5 g/dl (32-36); Mean Corpuscular Hemoglobin 29.6 pg (26-34); Mean Corpuscular Volume 88.4 fl (80-100); Mean Platelet Volume 10.4 fl (7.4-10.4); Monocytes Absolute Auto 0.6 K/mm3 (0.1-0.6); Monocytes Percent Auto 8.1 % (2.6-8.5); Neutrophils Absolute Auto 5.5 K/mm3 (1.3-6.7); Neutrophils Percent Auto 77.8 % (45.5-73.1); Platelet Count Result 155 k/mm3 (150-375); Red Blood Count 3.78 M/mm3 (4.2-5.4); Red Cell Distribution Width 13.4 % (11.5-14.5); White Blood Count 7.1 K/mm3 (4.5-10.0)
[2021-09-19 06:45] LABS: Alanine Aminotransferase 45 U/L (6-35); Albumin Level 3.3 g/dL (3.5-5.1); Alkaline Phosphatase 70 U/L (38-126); Anion Gap 4 mmol/L (8-16); Aspartate Amino Transferase 65 U/L (14-36); Bilirubin,Total 0.2 mg/dL (0.2-1.3); Blood Urea Nitrogen 20 mg/dL (7-17); Carbon Dioxide 23 mmol/L (22-30); Chloride 104 mmol/L (98-107); Estimated CRCL calculation 39 ml/min; Estimated Glomerular Filt Rate > 60; Glucose 107 mg/dL (65-110); Potassium 4.1 mmol/L (3.4-5.0); Sodium 131 mmol/L (137-145)
[2021-09-19 07:42] LABS: Hepatitis B Surface Antigen Negative (Negative)
[2021-09-19 07:48] LABS: HAV RESULT Negative (Negative); Hepatitis B Core IgM Result Negative (Negative)
[2021-09-19 07:59] LABS: Hepatitis C Virus Antibody Negative (Negative)
[2021-09-19] MEDS: ACETAMINOPHEN 325 MG TABLET 650 MG PO (08:32)
[2021-09-19] MEDS: ASPIRIN 81 MG ENTERIC TABLET PO (08:34)
--- NOTE | 2021-09-19 09:00 | PM.IMPN ---
Progress Note: A&P Assessment and Plan (1) Atrial fibrillation with rapid ventricular response: Code(s): I48.91 - Unspecified atrial fibrillation Status: Acute Assessment and Plan: HR noted in the 180s, adenosine 6 and 12mg given in the field with no response EKG shows afib with RVR DC'd at this time Add aspirin 81mg PO Daily Cardiology consulted thank you for your help Telemonitor Will go for cardiac cath tomorrow Trend heart rate Lovenox for stroke prophylaxis, will probably need to change to a PO option upon DC CHADVAS score is 4, mod-high risk (2) Elevated troponin: Code(s): R77.8 - Other specified abnormalities of plasma proteins Status: Acute Assessment and Plan: Trops elevated 1.020, 2.950, 2.260 Could be demand ischemia metoprolol added Cardiac cath scheduled for tomorrow (3) Syncope and collapse: Code(s): R55 - Syncope and collapse Status: Acute Assessment and Plan: Reported by daughter probably related to hypotension Carotid doppler <50% stenosis Orthostatic blood pressures seems to be unremarkable Head CT No acute intracranial process Echo with bubble EF of 65-70% with abnormal diastolic dysfunction PT/OT (4) Transaminitis: Code(s): R74.01 - Elevation of levels of liver transaminase levels Status: Acute Assessment and Plan: AST/ALT elevated at 65/45 Hep panel in the am Trend labs (5) GERD without esophagitis: Code(s): K21.9 - Gastro-esophageal reflux disease without esophagitis Status: Acute Assessment and Plan: Protonix on board (6) Restless leg syndrome: Code(s): G25.81 - Restless legs syndrome Status: Chronic Assessment and Plan: Continue home ropinirole (7) History of breast cancer: Code(s): Z85.3 - Personal history of malignant neoplasm of breast Status: Acute Assessment and Plan: Continue home chemo therapy medications (8) ZORAN (obstructive sleep apnea): Code(s): G47.33 - Obstructive sleep apnea (adult) (pediatric) Status: Acute Assessment and Plan: CPAP with home settings apnea link ordered Time Spent With Patient Time with patient: Greater than 35 minutes Subjective Date/time seen: 09/19/21 09:00 Interval history: 09/19/21 0900 Patient was sitting in the chair. Patient stated that she is little weak but has not had any dizziness, shortness of breath, nausea, sweats, chills, fevers or for [place]. She did state that she is having a little bit of chest pain that lasts a couple minutes however was not accompanied with anything or radiated anywhere. Looks as if patient is going for cardiac catheterization tomorrow. 09/18/21? 13:00 Patient is a 76-year-old female with a past medical history of hypertension, CAD, breast cancer, ZORAN who presented to the hospital after a syncopal episode.? Patient's daughter was also present and stated that the patient passed out and fell over the coffee table.? She was unresponsive with her eyes rolling back in the back of her head.? She was also dizzy with white sheet and blurry vision.? She denied any chest pain or palpitations however she did state that she took her blood pressure this a.m. and was 113 systolic LEEP.? She also took her Entresto which is new and she stated that she feels like her blood pressure was affected.? She also stated that over the last few weeks she has lost about 10 lb ends 3 weeks and feels like her blood pressure has been labile.? Her doctors recently taken her off of her blood pressure medications and has started her on Entresto for a systolic heart murmur and lesions on her.? Patient sees Dr. Duckworth for cardiology.? She also stated that her vision changes has resolved and she does have a little bit of a headache.? She also claims to be dizzy with any kind of a
--- NOTE | 2021-09-19 09:00 | P.PNIM_ITS ---
Progress Note: A&P Assessment and Plan (1) Atrial fibrillation with rapid ventricular response: Code(s): I48.91 - Unspecified atrial fibrillation Status: Acute Assessment and Plan: * HR noted in the 180s, adenosine 6 and 12mg given in the field with no response * EKG shows afib with RVR * DC'd at this time * Add aspirin 81mg PO Daily * Cardiology consulted thank you for your help * Telemonitor * Will go for cardiac cath tomorrow * Trend heart rate * Lovenox for stroke prophylaxis, will probably need to change to a PO option upon DC * CHADVAS score is 4, mod-high risk (2) Elevated troponin: Code(s): R77.8 - Other specified abnormalities of plasma proteins Status: Acute Assessment and Plan: * Trops elevated 1.020, 2.950, 2.260 * Could be demand ischemia * metoprolol added * Cardiac cath scheduled for tomorrow (3) Syncope and collapse: Code(s): R55 - Syncope and collapse Status: Acute Assessment and Plan: * Reported by daughter * probably related to hypotension * Carotid doppler <50% stenosis * Orthostatic blood pressures seems to be unremarkable * Head CT No acute intracranial process * Echo with bubble EF of 65-70% with abnormal diastolic dysfunction * PT/OT (4) Transaminitis: Code(s): R74.01 - Elevation of levels of liver transaminase levels Status: Acute Assessment and Plan: * AST/ALT elevated at 65/45 * Hep panel in the am * Trend labs (5) GERD without esophagitis: Code(s): K21.9 - Gastro-esophageal reflux disease without esophagitis Status: Acute Assessment and Plan: * Protonix on board (6) Restless leg syndrome: Code(s): G25.81 - Restless legs syndrome Status: Chronic Assessment and Plan: * Continue home ropinirole (7) History of breast cancer: Code(s): Z85.3 - Personal history of malignant neoplasm of breast Status: Acute Assessment and Plan: * Continue home chemo therapy medications (8) ZORAN (obstructive sleep apnea): Code(s): G47.33 - Obstructive sleep apnea (adult) (pediatric) Status: Acute Assessment and Plan: * CPAP with home settings * apnea link ordered Time Spent With Patient Time with patient: Greater than 35 minutes Subjective Date/time seen: 09/19/21 09:00 Interval history: 09/19/21 0900 Patient was sitting in the chair. Patient stated that she is little weak but has not had any dizziness, shortness of breath, nausea, sweats, chills, fevers or for Strong. She did state that she is having a little bit of chest pain that lasts a couple minutes however was not accompanied with anything or radiated anywhere. Looks as if patient is going for cardiac catheterization tomorrow. 09/18/21? 13:00 Patient is a 76-year-old female with a past medical history of hypertension, CAD, breast cancer, ZORAN who presented to the hospital after a syncopal episode.? Patient's daughter was also present and stated that the patient passed out and fell over the coffee table.? She was unresponsive with her eyes rolling back in the back of her head.? She was also dizzy with white sheet and blurry vision.? She denied any chest pain or palpitations however she did state that she took her blood pressure this a.m. and was 113 systolic LEEP.
--- NOTE | 2021-09-19 09:37 | PM.PNCARD ---
Progress Note: A&P Assessment and Plan (1) Syncope and collapse: Code(s): R55 - Syncope and collapse Status: Acute Assessment and Plan: This is a related hypotension likely secondary to atrial fibrillation with extreme rapid ventricular response. (2) Atrial fibrillation with rapid ventricular response: Code(s): I48.91 - Unspecified atrial fibrillation Status: Acute Assessment and Plan: Probably new onset. Will discontinue amiodarone for now. Continue enoxaparin and transition to a direct oral anticoagulant likely tomorrow. Will start low-dose metoprolol tartrate 12.5 mg p.o. b.i.d.. Request records from Dr. Mills's office. Echocardiogram will be reviewed. (3) Cognitive impairment: Code(s): R41.89 - Other symptoms and signs involving cognitive functions and awareness Status: Acute (4) Benign essential hypertension: Code(s): I10 - Essential (primary) hypertension Status: Chronic Assessment and Plan: He has improved at this point. (5) Obstructive sleep apnea: Code(s): G47.33 - Obstructive sleep apnea (adult) (pediatric) Status: Chronic (6) Elevated troponin: Code(s): R77.8 - Other specified abnormalities of plasma proteins Status: Acute Assessment and Plan: Uncertain if this is secondary to demand ischemia from her rapid ventricular response +/-associated with underlying significant coronary disease. Given her significant EKG abnormalities though while in rapid ventricular response, will recommend a coronary angiogram prior to discharge. Continue enoxaparin, metoprolol, statin. Will repeat a troponin now Plan Patient has elevated troponin in the setting of atrial fibrillation with rapid ventricular response and hypotension. She has diffuse ST segment changes. Cannot exclude underlying severe ischemia but also could be a demand ischemia situation due to her atrial fibrillation rapid response. She is currently feeling better with better rate control. Will continue amiodarone, enoxaparin. 2D echocardiogram with Doppler. Continue to trend troponins. Continue Zetia and rosuvastatin. She does have [id number] aortic stenosis noted by echocardiogram last month. Stat EKG now. Will keep NPO after midnight for possible cardiac catheterization tomorrow versus cardioversion +/-T tomorrow. Subjective Date/time seen: 09/19/21 09:37 Interval history: Patient is a 76-year-old female with a past medical history of hypertension, CAD, breast cancer, ZORAN who presented to the hospital after a syncopal episode.? Date of service 09/19/2021: She had a low little bit of chest pain lasting a couple of minutes this morning but is overall feeling better. Rhythm is now normal. No shortness of breath Review of Systems Review of Systems: All systems reviewed & are unremarkable except as noted in HPI and below Constitutional: Constitutional: Denies body ache(s) and Denies excessive sweating Eyes: Eyes: Denies blurry vision ENT: Reports Normal hearing present Cardiovascular: Cardiovascular: Reports chest pain and Denies dyspnea Respiratory: Respiratory: Denies chest congestion and Denies dyspnea Gastrointestinal: Gastrointestinal: Denies abdominal pain Genitourinary: Genitourinary: Denies hematuria Musculoskeletal: Musculoskeletal: Denies back pain Integumentary/Breasts: Skin/Breast: Denies breast pain Neurologic: Reports Normal hearing present, Denies Abnormal speech present and Denies behavioral changes Psychiatric: Psychiatric: Denies behavioral changes Endocrine: Endocrine: Denies excessive sweating Hematologic/Lymphatic: Hematologic/Lymphatic: Denies easy bleeding Allergic/Immunologic: Allergic/Immunologic: Denies GI upset with certain foods Exam Narrative: Patient is awake alert appears to be stated age Const: General: comfortable; No in distress HENMT: General nose exam: Normal nares present Eyes: Scl
[2021-09-19] MEDS: ROSUVASTATIN 10 MG TABLET 40 MG PO (11:05)
[2021-09-19] MEDS: MELOXICAM 7.5 MG TABLET 15 MG PO (11:06)
[2021-09-19] MEDS: EZETIMIBE 10 MG TABLET PO (11:06)
[2021-09-19] MEDS: LETROZOLE (*CHEMO) 2.5 MG TABLET PO (11:07)
[2021-09-19] MEDS: LORATADINE 10 MG TABLET PO (11:07)
[2021-09-19] MEDS: BENZTROPINE MESYLATE 1 MG TABLET PO (11:07)
[2021-09-19] MEDS: rOPINIRole HCL 1 MG TABLET 2 MG PO ×2 (11:07→17:25)
[2021-09-19] MEDS: MEMANTINE 5 MG TABLET PO (11:07)
[2021-09-19] MEDS: ENOXAPARIN 60 MG/0.6 ML SYRINGE SUB-Q (14:13)
[2021-09-19] MEDS: HYDROcodone/acetaminophen (*CRX) 5-325 MG TABLET 1 TAB PO (20:22)
[2021-09-19] MEDS: METOPROLOL TARTRATE 12.5 MG TABLET PO (20:23)
[2021-09-19] MEDS: rOPINIRole HCL 1 MG TABLET 3 MG PO (20:23)
[2021-09-19] MEDS: BENZTROPINE MESYLATE 1 MG TABLET 2 MG PO (20:23)
[2021-09-20] VITALS (26 sets, daily range): BP systolic 136–155; BP diastolic 37–90; PULSE 46–99; RESP 13–20; TEMP 36.4–37.1; O2SAT 95–100
[2021-09-20 05:11] LABS: Basophils Percent Auto 0.4 % (0.2-1.2); Eosinophils Absolute Auto 0.1 K/mm3 (0-0.3); Eosinophils Percent Auto 2.6 % (0-4.4); Hemoglobin 10.6 g/dL (12.0-15.0); Immature Granulocyte Absolute 0.01 K/mm3 (0.00-0.031); Immature Granulocyte Percent A 0.2 % (0-0.5); Immature Platelet Fraction Pct 8.1 % (0.9-11.2); Lymphocytes Absolute Auto 0.81 K/mm3 (0.9-3.2); Lymphocytes Percent Auto 16.2 % (18.3-44.2); Mean Corpuscular HGB Conc 33.1 g/dl (32-36); Mean Corpuscular Hemoglobin 29.2 pg (26-34); Mean Corpuscular Volume 88.2 fl (80-100); Mean Platelet Volume 10.8 fl (7.4-10.4); Monocytes Absolute Auto 0.5 K/mm3 (0.1-0.6); Monocytes Percent Auto 9.2 % (2.6-8.5); Neutrophils Absolute Auto 3.6 K/mm3 (1.3-6.7); Neutrophils Percent Auto 71.4 % (45.5-73.1); Platelet Count Result 157 k/mm3 (150-375); Red Blood Count 3.63 M/mm3 (4.2-5.4); Red Cell Distribution Width 13.5 % (11.5-14.5)
[2021-09-20 05:34] LABS: Alanine Aminotransferase 40 U/L (6-35); Albumin Level 3.4 g/dL (3.5-5.1); Alkaline Phosphatase 68 U/L (38-126); Anion Gap 4 mmol/L (8-16); Aspartate Amino Transferase 46 U/L (14-36); Bilirubin,Total 0.4 mg/dL (0.2-1.3); Blood Urea Nitrogen 16 mg/dL (7-17); Calcium 7.9 mg/dL (8.4-10.2); Carbon Dioxide 24 mmol/L (22-30); Chloride 101 mmol/L (98-107); Estimated CRCL calculation 44 ml/min; Estimated Glomerular Filt Rate > 60; Glucose 104 mg/dL (65-110); Sodium 129 mmol/L (137-145)
--- NOTE | 2021-09-20 07:34 | P.PNIM_ITS ---
Progress Note: A&P Assessment and Plan (1) Atrial fibrillation with rapid ventricular response: Code(s): I48.91 - Unspecified atrial fibrillation Status: Acute Assessment and Plan: * HR noted in the 180s, adenosine 6 and 12mg given in the field with no response * EKG shows afib with RVR * DC'd at this time * Add aspirin 81mg PO Daily * Cardiology consulted thank you for your help * Telemonitor * Cardiac cath scheduled for today * Metoprolol added 12.5mg PO Q12 * Trend heart rate * Lovenox for stroke prophylaxis, will probably need to change to a PO option upon DC * CHADVAS score is 4, mod-high risk (2) Elevated troponin: Code(s): R77.8 - Other specified abnormalities of plasma proteins Status: Acute Assessment and Plan: * Trops elevated 1.020, 2.950, 2.260 * Could be demand ischemia * metoprolol added * Cardiac cath scheduled today (3) Syncope and collapse: Code(s): R55 - Syncope and collapse Status: Acute Assessment and Plan: * Reported by daughter * probably related to hypotension * Carotid doppler <50% stenosis * Orthostatic blood pressures seems to be unremarkable * Head CT No acute intracranial process * Echo with bubble EF of 65-70% with abnormal diastolic dysfunction * PT/OT (4) Transaminitis: Code(s): R74.01 - Elevation of levels of liver transaminase levels Status: Acute Assessment and Plan: * AST/ALT elevated, trending down 46/40 * Hep panel negative * Trend labs (5) GERD without esophagitis: Code(s): K21.9 - Gastro-esophageal reflux disease without esophagitis Status: Acute Assessment and Plan: * Protonix on board (6) Restless leg syndrome: Code(s): G25.81 - Restless legs syndrome Status: Chronic Assessment and Plan: * Continue home ropinirole (7) History of breast cancer: Code(s): Z85.3 - Personal history of malignant neoplasm of breast Status: Acute Assessment and Plan: * Continue home chemo therapy medications (8) ZORAN (obstructive sleep apnea): Code(s): G47.33 - Obstructive sleep apnea (adult) (pediatric) Status: Acute Assessment and Plan: * CPAP with home settings * apnea link showed evaluation period being too short * Will need to repeat, reordered (9) Upper extremity injury: Code(s): S49.90XA - Unspecified injury of shoulder and upper arm, unspecified arm, initial encounter Status: Acute Assessment and Plan: * Large lump with bruising noted on left biceps * Xray just shows subcutaneous contusion * ice and pain medications on board * Continue to watch swelling Time Spent With Patient Time with patient: Greater than 35 minutes Subjective Date/time seen: 09/20/21 07:34 Interval history: 09/20/2134 Patient was lying in bed looking at her menu. She stated that she is doing okay today. She is going for a cardiac catheterization today. Did get a call from the nurse yesterday who stated that she had a lump with soreness on her left arm. Arm does exhibit a big lump with a bruise which he states is sore and rates her pain a 3/10. She did say that Tylenol was helping. She denies any chest pain, shortness of breath, nausea, vomiting,
--- NOTE | 2021-09-20 07:34 | PM.IMPN ---
Progress Note: A&P Assessment and Plan (1) Atrial fibrillation with rapid ventricular response: Code(s): I48.91 - Unspecified atrial fibrillation Status: Acute Assessment and Plan: HR noted in the 180s, adenosine 6 and 12mg given in the field with no response EKG shows afib with RVR DC'd at this time Add aspirin 81mg PO Daily Cardiology consulted thank you for your help Telemonitor Cardiac cath scheduled for today Metoprolol added 12.5mg PO Q12 Trend heart rate Lovenox for stroke prophylaxis, will probably need to change to a PO option upon DC CHADVAS score is 4, mod-high risk (2) Elevated troponin: Code(s): R77.8 - Other specified abnormalities of plasma proteins Status: Acute Assessment and Plan: Trops elevated 1.020, 2.950, 2.260 Could be demand ischemia metoprolol added Cardiac cath scheduled today (3) Syncope and collapse: Code(s): R55 - Syncope and collapse Status: Acute Assessment and Plan: Reported by daughter probably related to hypotension Carotid doppler <50% stenosis Orthostatic blood pressures seems to be unremarkable Head CT No acute intracranial process Echo with bubble EF of 65-70% with abnormal diastolic dysfunction PT/OT (4) Transaminitis: Code(s): R74.01 - Elevation of levels of liver transaminase levels Status: Acute Assessment and Plan: AST/ALT elevated, trending down 46/40 Hep panel negative Trend labs (5) GERD without esophagitis: Code(s): K21.9 - Gastro-esophageal reflux disease without esophagitis Status: Acute Assessment and Plan: Protonix on board (6) Restless leg syndrome: Code(s): G25.81 - Restless legs syndrome Status: Chronic Assessment and Plan: Continue home ropinirole (7) History of breast cancer: Code(s): Z85.3 - Personal history of malignant neoplasm of breast Status: Acute Assessment and Plan: Continue home chemo therapy medications (8) ZORAN (obstructive sleep apnea): Code(s): G47.33 - Obstructive sleep apnea (adult) (pediatric) Status: Acute Assessment and Plan: CPAP with home settings apnea link showed evaluation period being too short Will need to repeat, reordered (9) Upper extremity injury: Code(s): S49.90XA - Unspecified injury of shoulder and upper arm, unspecified arm, initial encounter Status: Acute Assessment and Plan: Large lump with bruising noted on left biceps Xray just shows subcutaneous contusion ice and pain medications on board Continue to watch swelling Time Spent With Patient Time with patient: Greater than 35 minutes Subjective Date/time seen: 09/20/21 07:34 Interval history: 09/20/21 0734 Patient was lying in bed looking at her menu. She stated that she is doing okay today. She is going for a cardiac catheterization today. Did get a call from the nurse yesterday who stated that she had a lump with soreness on her left arm. Arm does exhibit a big lump with a bruise which he states is sore and rates her pain a 3/10. She did say that Tylenol was helping. She denies any chest pain, shortness of breath, nausea, vomiting, diarrhea, sweats, fevers, chills. She also stated that she has been having a little constipation has had a bowel movement while. 09/19/21 0900 Patient was sitting in the chair. Patient stated that she is little weak but has not had any dizziness, shortness of breath, nausea, sweats, chills, fevers or fatigue. She did state that she is having a little bit of chest pain that lasts a couple minutes however was not accompanied with anything or radiated anywhere. Looks as if patient is going for cardiac catheterization tomorrow. 09/18/21? 13:00 Patient is a 76-year-old female with a past medical history of hypert
[2021-09-20] MEDS: EZETIMIBE 10 MG TABLET PO (08:47)
[2021-09-20] MEDS: ASPIRIN 81 MG ENTERIC TABLET PO (08:47)
[2021-09-20] MEDS: BENZTROPINE MESYLATE 1 MG TABLET PO (08:47)
[2021-09-20] MEDS: LETROZOLE (*CHEMO) 2.5 MG TABLET PO (08:48)
[2021-09-20] MEDS: LORATADINE 10 MG TABLET PO (08:48)
[2021-09-20] MEDS: MEMANTINE 5 MG TABLET PO (08:50)
[2021-09-20] MEDS: METOPROLOL TARTRATE 12.5 MG TABLET PO ×2 (08:50→20:31)
[2021-09-20] MEDS: rOPINIRole HCL 1 MG TABLET 2 MG PO ×2 (08:50→16:23)
[2021-09-20] MEDS: ROSUVASTATIN 10 MG TABLET 40 MG PO (08:51)
--- NOTE | 2021-09-20 11:04 | P.PCNCC_ITS ---
Cardiac Cath Procedure Note Date of procedure:: 09/20/21 Performing physician:: Lydia Fox MD Date of service September 20, 2021 Indication:: elevated troponins Brief clinical history:: this 76-year-old female with past history of atrial fibrillation who was admitted here with syncope and AFib with RVR. The EKG was very concerning with very deep ST depressions and AVR elevation concerning for left main disease. Procedure Procedure performed:: 1-Moderate sedation that started at 10:47 a.m. and ended at 10:59 a.m. with total duration 12 minutes using 2mg of Versed and 50mcg fentanyl. The registered nurse was maulik peralta. 2-Selective left and right coronary angiogram. 3-Left heart catheterization with measurement of LVEDP and measurement of gradient across aortic valve. 4-Right common femoral arterial angiogram. 5-Deployment of 6 Palestinian Angio-Seal. Sedation/Medication given:: Moderate sedation. Access site:: Right common femoral artery. Estimated blood loss:: 10cc Procedure note:: After informed consent patient was brought in to director of labor relations with the was draped and prepped in usual manner. Moderate sedation was given and the right groin was infiltrated using 1% lidocaine. Five Palestinian sheath was obtained using micropuncture needle and the modified Seldinger technique. Selective left coronary angiogram was done using JL4 catheter with the tip of the catheter placed in the left main coronary artery. Selective right coronary angiogram was done using JR4 catheter with the tip of the catheter placed to the right coronary artery. After that 5 Palestinian pigtail catheter was advanced across the aortic valve into the left ventricle with measurement of LVEDP and measurement of gradient across aortic valve. Right common femoral arterial angiogram was done. Findings:: 1- left coronary artery is a large artery that divides into large LAD, large circumflex artery. Left main is free of disease. 2- left anterior descending artery is a large artery that runs and wraps around the apex. Minimal irregularities proximally. In the mid segment medium size diagonal branch looks unremarkable. 3- leftcircumflex artery is a large artery Free of disease. Medium-sized OM1 tortuous free of disease, small to medium OM2 free of disease and small OM 3 free of disease. 4- right coronary artery is very large artery and dominant and free of disease. 5- LVEDP was 19 mm Hgand no gradient across aortic valve. 6- opening arterial pressure was 150/80and closing pressure was 125/66 7- right femoral artery angiogram shows no significant disease in the right common femoral artery. Conclusion:: - no CAD. Assessment and Plan Assessment and plan (1) Elevated troponin: Code(s): R77.8 - Other specified abnormalities of plasma proteins Status: Acute Plan - continue medical management
--- NOTE | 2021-09-20 11:08 | WPDHPUPDATE1 ---
History and Physical Update Update Date/Time: 09/20/21 11:08 History and Physical has been reviewed, including an updated exam of the patient. There are NO changes in the patient's condition. Risks, benefits, and alternatives have been discussed and questions answered. Patient agrees to proceed with procedure.
--- NOTE | 2021-09-20 11:08 | WPDMODSED ---
Moderate Sedation Note-Pt Data Patient Data Allergies Allergy/AdvReac Type Severity Reaction Status Date / Time amoxicillin Allergy Mild Rash Verified 09/20/21 09:51 Home Medications Medication Instructions Recorded Confirmed Type benztropine 2 mg tablet 2 mg PO HS 06/01/19 09/18/21 History memantine 5 mg tablet 5 mg PO QAM 06/01/19 09/18/21 History ezetimibe 10 mg tablet 10 mg PO DAILY 01/31/21 09/18/21 History rosuvastatin 40 mg tablet 40 mg PO DAILY 01/31/21 09/18/21 History alendronate 70 mg tablet 70 mg PO WEEKLY #12 tabs 04/09/21 09/18/21 Rx meloxicam 15 mg tablet 15 mg PO DAILY #90 tabs 04/09/21 09/18/21 Rx ropinirole 2 mg tablet 2 mg PO BID #180 tabs 06/04/21 09/18/21 Rx omeprazole 20 mg capsule,delayed 20 mg PO BID #180 caps 06/28/21 09/18/21 Rx release ropinirole 3 mg tablet 3 mg PO QHS #90 tabs 08/23/21 09/18/21 Rx loratadine 10 mg tablet (Allergy 10 mg PO DAILY #90 tabs 09/07/21 09/18/21 Rx Relief (loratadine)) benztropine 1 mg tablet 1 mg PO DAILY 09/18/21 09/18/21 History letrozole 2.5 mg tablet 2.5 mg PO DAILY 09/18/21 09/18/21 History paliperidone palm (3-month) 819 1 syr IM [id number] 09/18/21 09/18/21 History mg/2.63 mL intramuscular syringe (Jv Peterson) Current Medications: Active Medications Acetaminophen (Acetaminophen 325 Mg Tablet) 650 mg PO Q6H PRN PRN Reason: Mild Pain (1-3) or Fever Last Admin: 09/19/21 08:32 Dose: 650 mg Hydrocodone Bitart/Acetaminophen (Hydrocodone/Acetaminophen (*Crx) 5-325 Mg Tablet) 1 tab PO Q6H PRN PRN Reason: Pain Rated 4-6 Last Admin: 09/19/21 20:22 Dose: 1 tab Alendronate Sodium (Alendronate Sodium 70 Mg Tablet) 70 mg PO Tu@0630 MATHIEU Aspirin (Aspirin 81 Mg Enteric Tablet) 81 mg PO QAM [facility] Last Admin: 09/20/21 08:47 Dose: 81 mg Benztropine Mesylate (Benztropine Mesylate 1 Mg Tablet) 2 mg PO HS [facility] Last Admin: 09/19/21 20:23 Dose: 2 mg Benztropine Mesylate (Benztropine Mesylate 1 Mg Tablet) 1 mg PO DAILY [facility] Last Admin: 09/20/21 08:47 Dose: 1 mg Ezetimibe (Ezetimibe 10 Mg Tablet) 10 mg PO DAILY [facility] Last Admin: 09/20/21 08:47 Dose: 10 mg Letrozole (Letrozole (*Chemo) 2.5 Mg Tablet) 2.5 mg PO DAILY [facility] Last Admin: 09/20/21 08:48 Dose: 2.5 mg Loratadine (Loratadine 10 Mg Tablet) 10 mg PO DAILY [facility] Last Admin: 09/20/21 08:48 Dose: 10 mg Meloxicam (Meloxicam 7.5 Mg Tablet) 15 mg PO DAILY [facility] Stop: 10/19/21 08:59 Last Admin: 09/19/21 11:06 Dose: 15 mg Memantine (Memantine 5 Mg Tablet) 5 mg PO QAM [facility] Last Admin: 09/20/21 08:50 Dose: 5 mg Metoprolol Tartrate (Metoprolol Tartrate 12.5 Mg Tablet) 12.5 mg PO Q12HR [facility] Last Admin: 09/20/21 08:50 Dose: 12.5 mg Perflutren Lipid Microsphere (Perflutren Lipid Microspheres 1.5 Ml Vial Diluted To 10 Ml Total Volume) 0 ml IV PUSH ONCE PRN; Protocol PRN Reason: adequate visualization Perflutren Lipid Microsphere (Perflutren Lipid Microspheres 1.5 Ml Vial Diluted To 10 Ml Total Volume) 0 ml IV PUSH ONCE PRN; Protocol PRN Reason: adequate visualization Polyethylene Glycol (Polyethylene Glycol 3350 17 Gm Powd.Pack) 17 gm PO QAM [facility] Ropinirole HCl (Ropinirole Hcl 1 Mg Tablet) 3 mg PO QHS [facility] Last Admin: 09/19/21 20:23 Dose: 3 mg Ropinirole HCl (Ropinirole Hcl 1 Mg Tablet) 2 mg PO BID [facility] Last Admin: 09/20/21 08:50 Dose: 2 mg Rosuvastatin Calcium (Rosuvastatin 10 Mg Tablet) 40 mg PO DAILY [facility] Last Admin: 09/20/21 08:51 Dose: 40 mg Senna/Docusate Sodium (Senna/Docusate Sodium Tablet) 1 tab PO DAILY MATHIEU Sedation/Anesthesia: No previous sedation/anesthesia problems (including family history). [facility] Past Medical History Medical History Benign essential hypertension Depression DJD (degenerative joint disease) GERD without esophagitis History of breast cancer Humeral fracture ALEN. Ingrown toenail of left foot Obstructive sleep apnea Osteopenia Other hyperlipidemia Paronychia Restless leg
[2021-09-20] MEDS: MELOXICAM 7.5 MG TABLET 15 MG PO (12:00)
[2021-09-20] MEDS: SENNA/DOCUSATE SODIUM TABLET 1 TAB PO (16:21)
[2021-09-20] MEDS: polyethylene glycoL 3350 17 GM POWD.PACK PO (16:21)
[2021-09-20] MEDS: BENZTROPINE MESYLATE 1 MG TABLET 2 MG PO (20:31)
[2021-09-20] MEDS: rOPINIRole HCL 1 MG TABLET 3 MG PO (20:31)
[2021-09-21] VITALS (8 sets, daily range): BP systolic 112–164; BP diastolic 48–97; PULSE 53–72; RESP 16–18; TEMP 36–36.6; O2SAT 98–100
[2021-09-21 05:09] LABS: Basophils Percent Auto 0.3 % (0.2-1.2); Eosinophils Absolute Auto 0.2 K/mm3 (0-0.3); Eosinophils Percent Auto 2.9 % (0-4.4); Hematocrit 33.1 % (37.0-47.0); Immature Granulocyte Absolute 0.01 K/mm3 (0.00-0.031); Immature Granulocyte Percent A 0.2 % (0-0.5); Lymphocytes Absolute Auto 0.92 K/mm3 (0.9-3.2); Lymphocytes Percent Auto 15.5 % (18.3-44.2); Mean Corpuscular HGB Conc 33.2 g/dl (32-36); Mean Corpuscular Hemoglobin 29.5 pg (26-34); Mean Corpuscular Volume 88.7 fl (80-100); Mean Platelet Volume 10.9 fl (7.4-10.4); Monocytes Absolute Auto 0.5 K/mm3 (0.1-0.6); Monocytes Percent Auto 7.6 % (2.6-8.5); Neutrophils Absolute Auto 4.4 K/mm3 (1.3-6.7); Neutrophils Percent Auto 73.5 % (45.5-73.1); Platelet Count Result 145 k/mm3 (150-375); Red Blood Count 3.73 M/mm3 (4.2-5.4); Red Cell Distribution Width 13.5 % (11.5-14.5); White Blood Count 5.9 K/mm3 (4.5-10.0)
[2021-09-21 05:22] LABS: Alanine Aminotransferase 49 U/L (6-35); Albumin Level 3.6 g/dL (3.5-5.1); Alkaline Phosphatase 75 U/L (38-126); Anion Gap 3 mmol/L (8-16); Aspartate Amino Transferase 48 U/L (14-36); Bilirubin,Total 0.7 mg/dL (0.2-1.3); Blood Urea Nitrogen 12 mg/dL (7-17); Calcium 8.2 mg/dL (8.4-10.2); Carbon Dioxide 25 mmol/L (22-30); Chloride 101 mmol/L (98-107); Estimated CRCL calculation 44 ml/min; Estimated Glomerular Filt Rate > 60; Glucose 94 mg/dL (65-110); Magnesium 1.9 mg/dL (1.6-2.3); Potassium 4.3 mmol/L (3.4-5.0); Sodium 129 mmol/L (137-145)
--- NOTE | 2021-09-21 09:00 | P.DS_ITS ---
DS: Admitting Diagnosis Discharge Date 09/21/21 0900 Admitting Diagnosis New onset AFib RVR DS: Discharge Diagnosis Discharge Diagnosis (1) Atrial fibrillation with rapid ventricular response: Code(s): I48.91 - Unspecified atrial fibrillation Status: Acute Assessment and Plan: * HR noted in the 180s, adenosine 6 and 12mg given in the field with no response * EKG shows afib with RVR * DC'd at this time * Add aspirin 81mg PO Daily * Cardiology consulted thank you for your help * Telemonitor * Cardiac cath no cardiac disease noted * Metoprolol added 12.5mg PO Q12 * Trend heart rate * Lovenox for stroke prophylaxis, will probably need to change to a PO option upon DC * CHADVAS score is 4, mod-high risk (2) Elevated troponin: Code(s): R77.8 - Other specified abnormalities of plasma proteins Status: Acute Assessment and Plan: * Trops elevated 1.020, 2.950, 2.260 * Could be demand ischemia * metoprolol added * Cardiac cath scheduled today (3) Syncope and collapse: Code(s): R55 - Syncope and collapse Status: Acute Assessment and Plan: * Reported by daughter * probably related to hypotension * Carotid doppler <50% stenosis * Orthostatic blood pressures seems to be unremarkable * Head CT No acute intracranial process * Echo with bubble EF of 65-70% with abnormal diastolic dysfunction * PT/OT (4) Transaminitis: Code(s): R74.01 - Elevation of levels of liver transaminase levels Status: Acute Assessment and Plan: * AST/ALT elevated, trending down 46/40 * Hep panel negative * Trend labs (5) GERD without esophagitis: Code(s): K21.9 - Gastro-esophageal reflux disease without esophagitis Status: Acute Assessment and Plan: * Protonix on board (6) Restless leg syndrome: Code(s): G25.81 - Restless legs syndrome Status: Chronic Assessment and Plan: * Continue home ropinirole (7) History of breast cancer: Code(s): Z85.3 - Personal history of malignant neoplasm of breast Status: Acute Assessment and Plan: * Continue home chemo therapy medications (8) ZORAN (obstructive sleep apnea): Code(s): G47.33 - Obstructive sleep apnea (adult) (pediatric) Status: Acute Assessment and Plan: * CPAP with home settings * apnea link showed evaluation period being too short * Will need to repeat, reordered (9) Upper extremity injury: Code(s): S49.90XA - Unspecified injury of shoulder and upper arm, unspecified arm, initial encounter Status: Acute Assessment and Plan: * Large lump with bruising noted on left biceps * Xray just shows subcutaneous contusion * ice and pain medications on board * Continue to watch swelling DS: Summary Hospital Course Hospital Course: Patient is a 76-year-old female with a past medical history of hypertension, depression, GERD, hyperlipidemia that presented to the ED with complaint of a syncopal episode. Upon arrival patient was noted to be in AFib RVR with a heart rate in the 180s. EKG did show AFib RVR and Cardiology was consulted. Patient was started on amiodarone drip and patient did convert later in the evening to sinus bradycardia. It was also noted the humble
--- NOTE | 2021-09-21 09:00 | PM.DS ---
DS: Admitting Diagnosis Discharge Date 09/21/21 0900 Admitting Diagnosis New onset AFib RVR DS: Discharge Diagnosis Discharge Diagnosis (1) Atrial fibrillation with rapid ventricular response: Code(s): I48.91 - Unspecified atrial fibrillation Status: Acute Assessment and Plan: HR noted in the 180s, adenosine 6 and 12mg given in the field with no response EKG shows afib with RVR DC'd at this time Add aspirin 81mg PO Daily Cardiology consulted thank you for your help Telemonitor Cardiac cath no cardiac disease noted Metoprolol added 12.5mg PO Q12 Trend heart rate Lovenox for stroke prophylaxis, will probably need to change to a PO option upon DC CHADVAS score is 4, mod-high risk (2) Elevated troponin: Code(s): R77.8 - Other specified abnormalities of plasma proteins Status: Acute Assessment and Plan: Trops elevated 1.020, 2.950, 2.260 Could be demand ischemia metoprolol added Cardiac cath scheduled today (3) Syncope and collapse: Code(s): R55 - Syncope and collapse Status: Acute Assessment and Plan: Reported by daughter probably related to hypotension Carotid doppler <50% stenosis Orthostatic blood pressures seems to be unremarkable Head CT No acute intracranial process Echo with bubble EF of 65-70% with abnormal diastolic dysfunction PT/OT (4) Transaminitis: Code(s): R74.01 - Elevation of levels of liver transaminase levels Status: Acute Assessment and Plan: AST/ALT elevated, trending down 46/40 Hep panel negative Trend labs (5) GERD without esophagitis: Code(s): K21.9 - Gastro-esophageal reflux disease without esophagitis Status: Acute Assessment and Plan: Protonix on board (6) Restless leg syndrome: Code(s): G25.81 - Restless legs syndrome Status: Chronic Assessment and Plan: Continue home ropinirole (7) History of breast cancer: Code(s): Z85.3 - Personal history of malignant neoplasm of breast Status: Acute Assessment and Plan: Continue home chemo therapy medications (8) ZORAN (obstructive sleep apnea): Code(s): G47.33 - Obstructive sleep apnea (adult) (pediatric) Status: Acute Assessment and Plan: CPAP with home settings apnea link showed evaluation period being too short Will need to repeat, reordered (9) Upper extremity injury: Code(s): S49.90XA - Unspecified injury of shoulder and upper arm, unspecified arm, initial encounter Status: Acute Assessment and Plan: Large lump with bruising noted on left biceps Xray just shows subcutaneous contusion ice and pain medications on board Continue to watch swelling DS: Summary Hospital Course Hospital Course: Patient is a 76-year-old female with a past medical history of hypertension, depression, GERD, hyperlipidemia that presented to the ED with complaint of a syncopal episode. Upon arrival patient was noted to be in AFib RVR with a heart rate in the 180s. EKG did show AFib RVR and Cardiology was consulted. Patient was started on amiodarone drip and patient did convert later in the evening to sinus bradycardia. It was also noted the patient had elevated troponins of 1.020, 2.950, 2.260. Patient did undergo a echo which did show an EF of 65-70% with an abnormal diastolic dysfunction. Patient was also was taken to the cardiac catheterization which did not show any CAD at this time. Patient was also worked up for syncope and carotid Dopplers were less than 50% stenosis bilaterally and orthostatic blood pressures were unremarkable. Head CT did show no acute intracranial process. Patient has been working with PT and OT and has been doing well. Patient was also transitioned off the insulin drip and put on metoprolol. Heart rate has been controlled and p
[2021-09-21] MEDS: BENZTROPINE MESYLATE 1 MG TABLET PO (09:44)
[2021-09-21] MEDS: EZETIMIBE 10 MG TABLET PO (09:44)
[2021-09-21] MEDS: LETROZOLE (*CHEMO) 2.5 MG TABLET PO (09:45)
[2021-09-21] MEDS: MELOXICAM 7.5 MG TABLET 15 MG PO (09:45)
[2021-09-21] MEDS: LORATADINE 10 MG TABLET PO (09:45)
[2021-09-21] MEDS: METOPROLOL TARTRATE 12.5 MG TABLET PO (09:46)
[2021-09-21] MEDS: polyethylene glycoL 3350 17 GM POWD.PACK PO (09:46)
[2021-09-21] MEDS: MEMANTINE 5 MG TABLET PO (09:46)
[2021-09-21] MEDS: rOPINIRole HCL 1 MG TABLET 2 MG PO (09:47)
[2021-09-21] MEDS: SENNA/DOCUSATE SODIUM TABLET 1 TAB PO (09:47)
[2021-09-21] MEDS: ROSUVASTATIN 10 MG TABLET 40 MG PO (09:49)
== END 2021-09-21 10:40 | disposition home or self-care (01) ==
LOC: ANHED 13:20 → ANHIMU 15:06
PROVIDERS: Internal Medicine Cardiovascular Disease; Admitting Provider Chiropractor; Emergency Provider Emergency Medicine; PCP Family Medicine; Visit Provider Nurse Practitioner
PROC: 4A023N7 Measurement of Cardiac Sampling and Pressure, Left Heart, Percutaneous Approach (ICD-10-PCS; CPT 93452; principal; 2021-09-20 10:00)
DX: R55 Syncope and collapse (principal); I48.91 Unspecified atrial fibrillation; R41.89 Other symptoms and signs involving cognitive functions and awareness; R74.01 Elevation of levels of liver transaminase levels; R77.8 Other specified abnormalities of plasma proteins; S49.92XA Unspecified injury of left shoulder and upper arm, initial encounter; Z79.82 Long term (current) use of aspirin; I10 Essential (primary) hypertension; K21.9 Gastro-esophageal reflux disease without esophagitis; G47.33 Obstructive sleep apnea (adult) (pediatric); E78.5 Hyperlipidemia, unspecified; Z85.3 Personal history of malignant neoplasm of breast; I25.10 Atherosclerotic heart disease of native coronary artery without angina pectoris; G25.81 Restless legs syndrome
CPT/HCPCS: 36415; 70450; 71045; 73060; 80053; 80074; 81001; 83605; 83735; 84443; 84484; 85025; 85055; 85610; 85730; 86140; 87040; 87086; 87088; 93005; 93306; 93458; 93880; 94762; 96365; 96366; 96372; 96375; 96376; 97161; 97165; 99285; A9270; C1760; C1887; C1894; G0269; G0378; J0282; J1644; J1650; J2250; J3010; J7030; J7040

== ENCOUNTER 2021-10-26 10:01 | Outpatient (CLI) | payer MEDICARE, MEDICAID, SELFPAY ==
[2021-10-26 10:35] LABS: Basophils Percent Auto 0.8 % (0.2-1.2); Eosinophils Absolute Auto 0.1 K/mm3 (0-0.3); Eosinophils Percent Auto 1.7 % (0-4.4); Hematocrit 41.2 % (37.0-47.0); Hemoglobin 12.2 g/dL (12.0-15.0); Immature Granulocyte Absolute 0.01 K/mm3 (0.00-0.031); Immature Granulocyte Percent A 0.2 % (0-0.5); Lymphocytes Absolute Auto 0.65 K/mm3 (0.9-3.2); Lymphocytes Percent Auto 13.8 % (18.3-44.2); Mean Corpuscular HGB Conc 29.6 g/dl (32-36); Mean Corpuscular Hemoglobin 29.8 pg (26-34); Mean Corpuscular Volume 100.5 fl (80-100); Mean Platelet Volume 10.5 fl (7.4-10.4); Monocytes Absolute Auto 0.4 K/mm3 (0.1-0.6); Monocytes Percent Auto 7.8 % (2.6-8.5); Neutrophils Absolute Auto 3.6 K/mm3 (1.3-6.7); Neutrophils Percent Auto 75.7 % (45.5-73.1); Platelet Count Result 162 k/mm3 (150-375); Red Cell Distribution Width 13.8 % (11.5-14.5); White Blood Count 4.7 K/mm3 (4.5-10.0)
[2021-10-26 10:49] LABS: Alanine Aminotransferase 41 U/L (6-35); Albumin Level 4.4 g/dL (3.5-5.1); Alkaline Phosphatase 72 U/L (38-126); Anion Gap 5 mmol/L (8-16); Aspartate Amino Transferase 42 U/L (14-36); Bilirubin,Total 0.9 mg/dL (0.2-1.3); Blood Urea Nitrogen 30 mg/dL (7-17); Carbon Dioxide 30 mmol/L (22-30); Chloride 105 mmol/L (98-107); Estimated Glomerular Filt Rate 54; Glucose 105 mg/dL (65-110); Magnesium 2.2 mg/dL (1.6-2.3); Potassium 4.8 mmol/L (3.4-5.0); Sodium 140 mmol/L (137-145)
== END 2021-10-26 10:02 | disposition home or self-care (01) ==
LOC: ANHLAB 10:06
PROVIDERS: PCP Family Medicine; Visit Provider Nurse Practitioner
DX: D64.9 Anemia, unspecified (principal); R74.8 Abnormal levels of other serum enzymes; R25.2 Cramp and spasm
CPT/HCPCS: 36415; 80053; 83735; 85025

== ENCOUNTER 2021-12-03 09:26 | Outpatient (CLI) | payer MEDICARE, MEDICAID, SELFPAY ==
[2021-12-03 10:09] LABS: Basophils Percent Auto 0.6 % (0.2-1.2); Eosinophils Absolute Auto 0.1 K/mm3 (0-0.3); Eosinophils Percent Auto 1.3 % (0-4.4); Hematocrit 39.7 % (37.0-47.0); Hemoglobin 12.7 g/dL (12.0-15.0); Immature Granulocyte Absolute 0.02 K/mm3 (0.00-0.031); Immature Granulocyte Percent A 0.4 % (0-0.5); Lymphocytes Absolute Auto 0.66 K/mm3 (0.9-3.2); Lymphocytes Percent Auto 12.5 % (18.3-44.2); Mean Corpuscular Hemoglobin 29.9 pg (26-34); Mean Corpuscular Volume 93.4 fl (80-100); Mean Platelet Volume 10.3 fl (7.4-10.4); Monocytes Absolute Auto 0.5 K/mm3 (0.1-0.6); Monocytes Percent Auto 8.5 % (2.6-8.5); Neutrophils Percent Auto 76.7 % (45.5-73.1); Platelet Count Result 189 k/mm3 (150-375); Red Blood Count 4.25 M/mm3 (4.2-5.4); Red Cell Distribution Width 13.4 % (11.5-14.5); White Blood Count 5.3 K/mm3 (4.5-10.0)
[2021-12-03 10:24] LABS: Anion Gap 9 mmol/L (8-16); Blood Urea Nitrogen 26 mg/dL (7-17); Calcium 9.6 mg/dL (8.4-10.2); Carbon Dioxide 30 mmol/L (22-30); Chloride 100 mmol/L (98-107); Estimated Glomerular Filt Rate > 60; Glucose 99 mg/dL (65-110); Potassium 4.4 mmol/L (3.4-5.0); Sodium 139 mmol/L (137-145)
[2021-12-03 10:27] LABS: NT Pro B Type Natriuretic Pept 519 pg/mL (5-100)
[2021-12-03 10:48] LABS: Iron 64 ug/dL (37-170)
[2021-12-03 10:58] LABS: Percent Iron Saturation 18 % (20-50)
[2021-12-03 11:20] LABS: Hepatitis B Surface Antigen Negative (Negative)
[2021-12-03 11:26] LABS: HAV RESULT Negative (Negative); Hepatitis B Core IgM Result Negative (Negative)
[2021-12-03 11:37] LABS: Hepatitis C Virus Antibody Negative (Negative)
== END 2021-12-03 09:27 | disposition home or self-care (01) ==
PROVIDERS: PCP Family Medicine
DX: I27.20 Pulmonary hypertension, unspecified (principal); I38 Endocarditis, valve unspecified; I65.23 Occlusion and stenosis of bilateral carotid arteries; I49.5 Sick sinus syndrome; R79.89 Other specified abnormal findings of blood chemistry; E78.5 Hyperlipidemia, unspecified; D50.9 Iron deficiency anemia, unspecified; I50.32 Chronic diastolic (congestive) heart failure; Z13.9 Encounter for screening, unspecified; R53.83 Other fatigue
CPT/HCPCS: 36415; 80048; 80074; 82728; 83540; 83550; 83880; 85025

== ENCOUNTER 2021-12-21 09:09 | Outpatient (CLI) | payer MEDICARE, MEDICAID, SELFPAY ==
[2021-12-21 09:53] LABS: Basophils Percent Auto 0.4 % (0.2-1.2); Eosinophils Absolute Auto 0.1 K/mm3 (0-0.3); Hematocrit 38.7 % (37.0-47.0); Hemoglobin 12.3 g/dL (12.0-15.0); Immature Granulocyte Absolute 0.01 K/mm3 (0.00-0.031); Immature Granulocyte Percent A 0.2 % (0-0.5); Lymphocytes Absolute Auto 0.74 K/mm3 (0.9-3.2); Lymphocytes Percent Auto 15.7 % (18.3-44.2); Mean Corpuscular HGB Conc 31.8 g/dl (32-36); Mean Corpuscular Hemoglobin 29.9 pg (26-34); Mean Corpuscular Volume 93.9 fl (80-100); Mean Platelet Volume 10.1 fl (7.4-10.4); Monocytes Absolute Auto 0.4 K/mm3 (0.1-0.6); Monocytes Percent Auto 8.7 % (2.6-8.5); Neutrophils Absolute Auto 3.4 K/mm3 (1.3-6.7); Platelet Count Result 175 k/mm3 (150-375); Red Blood Count 4.12 M/mm3 (4.2-5.4); Red Cell Distribution Width 13.7 % (11.5-14.5); White Blood Count 4.7 K/mm3 (4.5-10.0)
[2021-12-21 10:01] LABS: Alanine Aminotransferase 42 U/L (6-35); Albumin Level 4.1 g/dL (3.5-5.1); Alkaline Phosphatase 73 U/L (38-126); Anion Gap 11 mmol/L (8-16); Aspartate Amino Transferase 45 U/L (14-36); Bilirubin,Total 0.6 mg/dL (0.2-1.3); Blood Urea Nitrogen 23 mg/dL (7-17); Calcium 9.4 mg/dL (8.4-10.2); Carbon Dioxide 25 mmol/L (22-30); Chloride 104 mmol/L (98-107); Estimated Glomerular Filt Rate > 60; Glucose 97 mg/dL (65-110); Potassium 4.4 mmol/L (3.4-5.0); Sodium 140 mmol/L (137-145)
[2021-12-21 10:08] LABS: NT Pro B Type Natriuretic Pept 384 pg/mL (5-100)
[2021-12-21 10:19] LABS: Iron 47 ug/dL (37-170)
[2021-12-21 10:45] LABS: Percent Iron Saturation 14 % (20-50)
[2021-12-21 10:51] LABS: Hepatitis B Surface Antigen Negative (Negative)
[2021-12-21 10:57] LABS: HAV RESULT Negative (Negative); Hepatitis B Core IgM Result Negative (Negative)
[2021-12-21 11:08] LABS: Hepatitis C Virus Antibody Negative (Negative)
== END 2021-12-21 09:10 | disposition home or self-care (01) ==
PROVIDERS: PCP Family Medicine
DX: G47.30 Sleep apnea, unspecified (principal); I50.32 Chronic diastolic (congestive) heart failure; R79.89 Other specified abnormal findings of blood chemistry; I27.20 Pulmonary hypertension, unspecified; I38 Endocarditis, valve unspecified; I65.23 Occlusion and stenosis of bilateral carotid arteries; I49.5 Sick sinus syndrome; E78.5 Hyperlipidemia, unspecified; D50.9 Iron deficiency anemia, unspecified; Z51.81 Encounter for therapeutic drug level monitoring; Z79.899 Other long term (current) drug therapy
CPT/HCPCS: 36415; 80053; 80074; 82728; 83540; 83550; 83880; 85025

== ENCOUNTER 2021-12-28 08:29 | Outpatient (CLI) | payer MEDICARE, MEDICAID, SELFPAY ==
--- NOTE | ~2021-12-28 | DEXA_ITS ---
Bone Density Report Name: ERLIN TRONCOSO Age: 76 Sex: Female Ethnicity: White Date of : 1945 Indication: postmenopausal; screening for osteoporosis; cancer; Referring Provider: LM, JENNIFER Study: Bone densitometry was performed. Exam Date: December 28, 2021 Accession number: [id number] Bone Density: Region BMD T-score Z-score Classification AP Spine(L1-L4) 1.018 -0.3 2.2 Normal Femoral Neck (Left) 0.575 -2.5 -0.4 Osteoporosis Total Hip (Left) 0.852 -0.7 1.1 Normal Femoral Neck (Right) 0.628 -2.0 0.1 Osteopenia Total Hip (Right) 0.873 -0.6 1.2 Normal Total Hip Mean 0.862 -0.7 1.2 Normal World Health Organization criteria for BMD impression classify patients as: Normal (T-score at or above -1.0), Osteopenia (T-score between -1.0 and -2.5), or Osteoporosis (T-score at or below -2.5). 10-year Fracture Risk: FRAX not reported because: Some T-score for Spine Total or Hip Total or Femoral Neck at or below -2.5 Previous Exams: Region Exam Age BMD T-score BMD Change BMD Change Date g/cm2 vs Baseline vs Previous AP Spine (L1-L4) 12/28/2021 76 1.018 -0.3 -0.018 (-1.7%) -0.073 (-6.7%) 10/20/2019 74 1.091 0.4 0.055 (5.4%)* 0.055 (5.4%)* 05/02/2015 69 1.035 -0.1 Total Hip(Left) 12/28/2021 76 0.852 -0.7 -0.093 (-9.8%) -0.012 (-1.4%) 10/20/2019 74 0.864 -0.6 -0.080 (-8.5%) -0.080 (-8.5%) 05/02/2015 69 0.945 0.0 Total Hip(Right) 12/28/2021 76 0.873 -0.6 -0.100 (-10.3% -0.020 (-2.2%) 10/20/2019 74 0.892 -0.4 -0.080 (-8.3%) -0.080 (-8.3%) 05/02/2015 69 0.973 0.3 *Denotes significance at 95% confidence level, LSC for AP Spine = 0.022 g/cm2, LSC for Total Hip = 0.027 g/cm2 Clinical Information Provided by Patient: Has the following medical conditions: Cancer Patient maximum height was 60.5 Drinks caffeinated beverages Onset of menses at age 14 Number of children 2 Impression: The patient has osteoporosis, based on the Left Femoral Neck T-score. The BMD for the AP Spine (L1-L4) decreased, changing by -6.7% since the last DXA exam. Discussion: INCREASED RISK OF FRACTURE. BONE DENSITY IS UNDESIRABLY LOW AT ONE OR MORE SKELETAL SITES, CONSISTENT WITH POSTMENOPAUSAL OSTEOPOROSIS. This patient's lowest T-score meets the World Health Organization's (WHO) criteria for osteoporosis at one or more sites (T-score -2.5 or below). In untreated patients, the risk of osteoporotic fracture
== END 2021-12-28 08:30 | disposition home or self-care (01) ==
LOC: ANHIMG 08:31
PROVIDERS: PCP Family Medicine; Visit Provider Internal Medicine Medical Oncology
DX: Z78.0 Asymptomatic menopausal state (principal); M85.89 Other specified disorders of bone density and structure, multiple sites
CPT/HCPCS: 77080

== ENCOUNTER 2022-02-08 09:39 | Outpatient (CLI) | payer MEDICARE, MEDICAID, SELFPAY ==
[2022-02-08 10:05] LABS: Basophils Percent Auto 0.6 % (0.2-1.2); Eosinophils Absolute Auto 0.1 K/mm3 (0-0.3); Eosinophils Percent Auto 1.2 % (0-4.4); Hematocrit 44.1 % (37.0-47.0); Hemoglobin 14.2 g/dL (12.0-15.0); Immature Granulocyte Absolute 0.01 K/mm3 (0.00-0.031); Immature Granulocyte Percent A 0.2 % (0-0.5); Lymphocytes Percent Auto 12.3 % (18.3-44.2); Mean Corpuscular HGB Conc 32.2 g/dl (32-36); Mean Corpuscular Hemoglobin 30.1 pg (26-34); Mean Corpuscular Volume 93.4 fl (80-100); Mean Platelet Volume 10.4 fl (7.4-10.4); Monocytes Absolute Auto 0.3 K/mm3 (0.1-0.6); Monocytes Percent Auto 6.7 % (2.6-8.5); Neutrophils Absolute Auto 3.9 K/mm3 (1.3-6.7); Platelet Count Result 165 k/mm3 (150-375); Red Blood Count 4.72 M/mm3 (4.2-5.4); Red Cell Distribution Width 13.4 % (11.5-14.5); White Blood Count 4.9 K/mm3 (4.5-10.0)
[2022-02-08 10:19] LABS: Alanine Aminotransferase 53 U/L (6-35); Albumin Level 4.9 g/dL (3.5-5.1); Alkaline Phosphatase 85 U/L (38-126); Anion Gap 12 mmol/L (8-16); Aspartate Amino Transferase 50 U/L (14-36); Bilirubin,Total 1.1 mg/dL (0.2-1.3); Blood Urea Nitrogen 24 mg/dL (7-17); Calcium 9.6 mg/dL (8.4-10.2); Carbon Dioxide 26 mmol/L (22-30); Chloride 101 mmol/L (98-107); Cholesterol 158 mg/dL (0-200); Estimated Glomerular Filt Rate > 60; Glucose 83 mg/dL (65-110); HDL Direct 72 mg/dL; Potassium 4.5 mmol/L (3.4-5.0); Sodium 139 mmol/L (137-145); Triglycerides 65 mg/dL (<150)
[2022-02-08 10:30] LABS: LDL Cholesterol Direct 55 mg/dL
[2022-02-08 13:48] LABS: Vitamin D 25 Hydroxy 54.2 ng/mL
== END 2022-02-08 09:40 | disposition home or self-care (01) ==
PROVIDERS: PCP Family Medicine; Visit Provider Family Medicine
DX: E78.5 Hyperlipidemia, unspecified (principal); I10 Essential (primary) hypertension; I48.91 Unspecified atrial fibrillation; E55.9 Vitamin D deficiency, unspecified
CPT/HCPCS: 36415; 80053; 80061; 82306; 84443; 85025

== ENCOUNTER 2022-06-24 08:26 | Outpatient (CLI) | payer MEDICARE, MEDICAID, SELFPAY ==
--- NOTE | ~2022-06-24 | MM_ITS ---
EXAMINATION: MM screening jina BI w corbin HISTORY: Screening TECHNIQUE: Craniocaudal and mediolateral oblique 3-D tomosynthesis images were obtained and synthetic 2-D images were generated. CAD analysis was submitted and interpreted. COMPARISON: Comparison to multiple prior studies sequentially, with oldest reviewed study dated 05/06. BREAST PARENCHYMAL COMPOSITION: There are scattered areas of fibroglandular density. FINDINGS: Stable surgical changes in the upper outer quadrant of the left breast, consistent with pre vious lumpectomy for breast cancer. There is no evidence of suspicious mass, calcification, or hansa ectural distortion to suggest malignancy in either breast. There has been no suspicious interval aguirre ge. IMPRESSION: 1. No mammographic evidence of malignancy. 2. Recommend routine screening mammography in one year. BI-RADS Category 1: Negative Reviewed, dictated and finalized at location A.
== END 2022-06-24 08:27 | disposition home or self-care (01) ==
LOC: ANHIMG 08:28
PROVIDERS: PCP Family Medicine; Visit Provider Internal Medicine Medical Oncology
DX: Z12.31 Encounter for screening mammogram for malignant neoplasm of breast (principal)
CPT/HCPCS: 77063; 77067

== ENCOUNTER 2022-08-14 09:26 | Outpatient (CLI) | payer MEDICARE, MEDICAID, SELFPAY ==
[2022-08-14 21:13] LABS: Alanine Aminotransferase 79 U/L (6-35); Albumin Level 3.9 g/dL (3.5-5.1); Alkaline Phosphatase 90 U/L (38-126); Anion Gap 5 mmol/L (8-16); Aspartate Amino Transferase 84 U/L (14-36); Bilirubin,Total 0.7 mg/dL (0.2-1.3); Blood Urea Nitrogen 23 mg/dL (7-17); Calcium 8.5 mg/dL (8.4-10.2); Carbon Dioxide 30 mmol/L (22-30); Chloride 106 mmol/L (98-107); Estimated Glomerular Filt Rate > 60; Glucose 90 mg/dL (65-110); Potassium 4.2 mmol/L (3.4-5.0); Sodium 141 mmol/L (137-145)
== END 2022-08-14 09:27 | disposition home or self-care (01) ==
LOC: ANHGOSHLAB 09:28
PROVIDERS: PCP Family Medicine; Visit Provider Family Medicine
DX: F03.90 Unspecified dementia, unspecified severity, without behavioral disturbance, psychotic disturbance, mood disturbance, and anxiety (principal); I10 Essential (primary) hypertension
CPT/HCPCS: 36415; 80053

== ENCOUNTER 2023-02-21 09:49 | Outpatient (CLI) | payer MEDICARE, MEDICAID, SELFPAY ==
[2023-02-21 18:40] LABS: Basophils Percent Auto 0.6 % (0.2-1.2); Eosinophils Percent Auto 0.7 % (0-4.4); Hematocrit 42.9 % (37.0-47.0); Hemoglobin 13.3 g/dL (12.0-15.0); Immature Granulocyte Absolute 0.03 K/mm3 (0.00-0.031); Immature Granulocyte Percent A 0.6 % (0-0.5); Lymphocytes Absolute Auto 0.85 K/mm3 (0.9-3.2); Lymphocytes Percent Auto 15.6 % (18.3-44.2); Mean Corpuscular Hemoglobin 29.1 pg (26-34); Mean Corpuscular Volume 93.9 fl (80-100); Mean Platelet Volume 10.6 fl (7.4-10.4); Monocytes Absolute Auto 0.4 K/mm3 (0.1-0.6); Monocytes Percent Auto 6.4 % (2.6-8.5); Neutrophils Absolute Auto 4.2 K/mm3 (1.3-6.7); Neutrophils Percent Auto 76.1 % (45.5-73.1); Platelet Count Result 156 k/mm3 (150-375); Red Blood Count 4.57 M/mm3 (4.2-5.4); Red Cell Distribution Width 14.4 % (11.5-14.5); White Blood Count 5.5 K/mm3 (4.5-10.0)
[2023-02-21 18:51] LABS: Alanine Aminotransferase 77 U/L (6-35); Albumin Level 4.1 g/dL (3.5-5.1); Alkaline Phosphatase 83 U/L (38-126); Anion Gap 7 mmol/L (8-16); Aspartate Amino Transferase 84 U/L (14-36); Blood Urea Nitrogen 12 mg/dL (7-17); Calcium 9.2 mg/dL (8.4-10.2); Carbon Dioxide 29 mmol/L (22-30); Chloride 106 mmol/L (98-107); Cholesterol 132 mg/dL (0-200); Estimated Glomerular Filt Rate > 60; Glucose 95 mg/dL (65-110); HDL Direct 64 mg/dL; Potassium 4.3 mmol/L (3.4-5.0); Sodium 142 mmol/L (137-145); Triglycerides 50 mg/dL (<150)
[2023-02-21 18:58] LABS: Vitamin D 25 Hydroxy 35.1 ng/mL
[2023-02-21 19:03] LABS: LDL Cholesterol Direct 52 mg/dL
== END 2023-02-21 09:50 | disposition home or self-care (01) ==
LOC: ANHGOSHLAB 09:50
PROVIDERS: PCP Family Medicine; Visit Provider Family Medicine
DX: E78.49 Other hyperlipidemia (principal); R79.89 Other specified abnormal findings of blood chemistry; E53.8 Deficiency of other specified B group vitamins; E55.9 Vitamin D deficiency, unspecified; E78.5 Hyperlipidemia, unspecified; I48.91 Unspecified atrial fibrillation; G25.81 Restless legs syndrome; I10 Essential (primary) hypertension; F32.9 Major depressive disorder, single episode, unspecified
CPT/HCPCS: 36415; 80053; 80061; 82306; 82607; 84443; 85025

== ENCOUNTER 2023-03-23 13:53 | Inpatient (IN) | payer MEDICARE, MEDICAID, SELFPAY ==
[2023-03-23] VITALS (37 sets, daily range): BP systolic 85–137; BP diastolic 29–88; PULSE 129–153; RESP 16–25; TEMP 36.2–36.9; O2SAT 95–100; BMI 24.2
--- NOTE | ~2023-03-23 | XR_ITS ---
EXAMINATION: XR chest 1V portable Exam Date/Time: 03/23/2023 14:38 EARRING MAKER HISTORY: tachycardia Comparison: 09/18/2021. RESULT: Lines, tubes, and devices: Bilateral humeral internal fixation. Lungs and pleura: Clear. Cardiomediastinal silhouette: Stable. Other: No acute osseous or upper abdominal finding. IMPRESSION: No acute cardiopulmonary process. Reviewed, dictated and finalized at location K. ING MAKER
--- NOTE | 2023-03-23 14:31 | ECG_ITS ---
Measurements Intervals [place] Rate: 151 P: [place]: 0 QRS: 80 QRSD: 109 T: -27 QT: 313 QTc: 497 Interpretive Statements ATRIAL FLUTTER/TACHYCARDIA WITH RAPID VENTRICULAR RESPONSE INCOMPLETE RIGHT BUNDLE BRANCH BLOCK [90+ ms QRS DURATION, TERMINAL R IN V1/V2, 40+ ms S IN I/aVL/V4/V5/V6] NONSPECIFIC ST AND T ABNORMALITY ABNORMAL ECG COMPARED TO ECG 09/19/2021 04:00:32 ATRIAL FLUTTER REPLACES SINUS RHYTHM Electronically Signed On 03-24-2023 7:18:31 RESOLUTION AGENT by Fish Brito M.D.
[2023-03-23 14:46] LABS: Basophils Percent Auto 0.3 % (0.2-1.2); Eosinophils Absolute Auto 0.1 K/mm3 (0-0.3); Eosinophils Percent Auto 0.8 % (0-4.4); Hematocrit 37.9 % (37.0-47.0); Hemoglobin 12.4 g/dL (12.0-15.0); Immature Granulocyte Absolute 0.02 K/mm3 (0.00-0.031); Immature Granulocyte Percent A 0.3 % (0-0.5); Lymphocytes Absolute Auto 0.95 K/mm3 (0.9-3.2); Lymphocytes Percent Auto 15.1 % (18.3-44.2); Mean Corpuscular HGB Conc 32.7 g/dl (32-36); Mean Corpuscular Hemoglobin 30.1 pg (26-34); Mean Platelet Volume 9.7 fl (7.4-10.4); Monocytes Absolute Auto 0.6 K/mm3 (0.1-0.6); Monocytes Percent Auto 9.2 % (2.6-8.5); Neutrophils Absolute Auto 4.7 K/mm3 (1.3-6.7); Neutrophils Percent Auto 74.3 % (45.5-73.1); Platelet Count Result 159 k/mm3 (150-375); Red Blood Count 4.12 M/mm3 (4.2-5.4); Red Cell Distribution Width 13.2 % (11.5-14.5); White Blood Count 6.3 K/mm3 (4.5-10.0)
[2023-03-23 14:58] LABS: Partial Thromboplastin Time 29.8 SECONDS (22.3-36.8)
[2023-03-23 15:01] LABS: Alanine Aminotransferase 64 U/L (6-35); Albumin Level 3.4 g/dL (3.5-5.1); Alkaline Phosphatase 107 U/L (38-126); Anion Gap 7 mmol/L (8-16); Aspartate Amino Transferase 70 U/L (14-36); Bilirubin,Total 0.6 mg/dL (0.2-1.3); Blood Urea Nitrogen 12 mg/dL (7-17); Calcium 8.5 mg/dL (8.4-10.2); Carbon Dioxide 24 mmol/L (22-30); Chloride 108 mmol/L (98-107); Estimated CRCL calculation 39 ml/min; Estimated Glomerular Filt Rate > 60; Glucose 100 mg/dL (65-110); Magnesium 2.1 mg/dL (1.6-2.3); Potassium 4.1 mmol/L (3.4-5.0); Sodium 139 mmol/L (137-145)
[2023-03-23] MEDS: SODIUM CHLORIDE 0.9% IV 500 ML 999 ML IV CONT (15:01)
[2023-03-23] MEDS: METOPROLOL TARTRATE INJ 5 MG/5 ML VIAL IV PUSH ×2 (15:02→15:29)
[2023-03-23 15:03] LABS: INR 1.3; Prothrombin Time 17.4 Seconds (11.1-14.7)
[2023-03-23 15:14] LABS: Appearance Urine Clear (Clear); Bilirubin Urine Negative (Negative); Blood Urine Negative (Negative); Color Urine Yellow (Yellow); Glucose Urine UA 3+ mg/dL (Negative); Ketones Urine Negative (Negative); Leukocyte Esterase Ur Negative LEU/UL (Negative); Nitrate Urine Negative (Negative); Protein Urine Negative (Negative); Urobilinogen Urine 0.2 mg/dL (<2.0)
[2023-03-23 15:17] LABS: Add Urine Microscopic? NO
--- NOTE | 2023-03-23 15:25 | ED.GENADULT ---
HPI - General Adult General Chief complaint: Recheck/Abnormal Lab/Rx Stated complaint: problems with BP Time Seen by Provider: 03/23/23 14:25 History of Present Illness HPI narrative: 77-year-old female presenting to the emergency department for evaluation of high blood pressure at home. Patient measured her blood pressure at home and felt that it was elevated. Patient states she has also had elevated heart rate for possibly last few days to weeks. Patient does take metoprolol and states she has not missed any of her medications. patient had onset of atrial fibrillation back September of 2021 and ultimately was started on amiodarone and had a cardiac catheterization that was negative Related Data Home Medications Medication Instructions Recorded Confirmed memantine 5 mg tablet 5 mg PO QAM 06/01/19 02/19/23 ezetimibe 10 mg tablet 10 mg PO DAILY 01/31/21 02/19/23 empagliflozin 10 mg tablet 10 mg PO DAILY 10/26/21 02/19/23 (Jardiance) rivaroxaban 20 mg tablet (Xarelto) 20 mg PO DAILY 10/26/21 02/19/23 dronedarone 400 mg tablet (Multaq) 400 mg PO DAILY 02/06/22 02/19/23 omega-3 fatty acids 1,000 mg 1,000 mg PO DAILY 08/14/22 02/19/23 capsule ferrous sulfate 325 mg (65 mg 325 mg PO DAILY 02/19/23 02/19/23 iron) tablet lifitegrast 5 % eye drops in a 1 drp EACH EYE BID 02/19/23 02/19/23 dropperette (Xiidra) rosuvastatin 40 mg tablet 40 mg PO QHS 02/19/23 02/19/23 trihexyphenidyl 2 mg tablet 2 mg PO QHS 02/19/23 02/19/23 trihexyphenidyl 5 mg tablet 5 mg PO BID 02/19/23 02/19/23 Allergies Allergy/AdvReac Type Severity Reaction Status Date / Time amoxicillin Allergy Mild Rash Verified 03/23/23 13:54 Review of Systems Review of Systems: All systems reviewed & are unremarkable except as noted in HPI and below PMFSH Past Medical History Medical History Afib Benign essential hypertension Depression Diastolic dysfunction DJD (degenerative joint disease) Elevated LFTs Elevated troponin GERD without esophagitis History of left breast cancer Humeral fracture ALEN. Ingrown toenail of left foot Obstructive sleep apnea ZORAN (obstructive sleep apnea) Osteopenia Osteoporosis Other hyperlipidemia Restless leg syndrome Seasonal allergies Subcutaneous mass of abdominal wall Supraumbilical (suspected residual fat from previous hernia) Syncope and collapse Surgical History Surgical History History of bladder surgery (Unknown) History of lumpectomy of left breast 06/2012 History of umbilical hernia (~2019) History of umbilical hernia repair Hx of shoulder surgery ALEN. Hx of tubal ligation (Unknown) Family History Family History Father Family history of lung cancer Mother Family history of coronary artery disease Acute myocardial infarction Son Diabetes mellitus Daughter Hypertension Other Family history of diabetes mellitus in first degree relative Social History Social History Social History: Patient currently resides in a apartment at [facility] in [facility]. Daughter states that she can go to assisted living due to her Namenda. She wishes to be a full code at this time and her daughter Ashli is her surrogate. She denies any pets. Smoking status: Never smoker Second hand tobacco smoke exposure: No Alcohol intake: never Substance use: never Substance use type: does not use Lack of Transportation: No Lack of Food: Never True Current Housing: I Have Housing Concerned About Future Housing: No Difficulty Paying Gas/Electric Bills: No Difficulty Paying for Meds: No Currently Unemployed: No Education: High School Diploma/GED Difficulty w/ Childcare or Family Care: No Living arrangements: alone Occupation/Education: retired Gender identity (if
[2023-03-23] MEDS: AMIODARONE 150 MG/D5W 100 ML 150 MG/100 ML BAG 600 MG IV CONT (16:19)
[2023-03-23 16:33] LABS: Troponin I 0.068 ng/mL (0.000-0.034)
[2023-03-23] MEDS: AMIODARONE 360 MG/D5W 200 ML 360 MG/200 ML BAG 33.33 MG IV CONT (16:34)
--- NOTE | 2023-03-23 19:58 | ADMGEN ---
This patient, Cinthia Mccartney, was admitted to IMU Room 205-01. Patient/family oriented to hospital policies and general routines including ID bracelet, bed and alarms, visiting hours, pain management, procedures, bathroom and other care routines, personal items, smoking policy, room service/diet, and visiting hours. Information on how to activate the Rapid Response Team has been discussed. Patient/Family are encouraged to report perceived risks to care and to ask questions if they do not understand what they are told or what they should do.
--- NOTE | 2023-03-23 21:37 | PM.IMHP ---
H&P: HPI History of Present Illness Date/Time: 03/23/23 19:45 Chief Complaint: Fast heart rate. Narrative: This is a pleasant 77-year-old female with paroxysmal atrial fibrillation maintained on dronedarone on rivaroxaban for stroke prophylaxis, tachycardia bradycardia syndrome, hypertension, dyslipidemia, carotid artery disease, diastolic congestive heart failure, obstructive sleep apnea on CPAP, anemia, anxiety, schizophrenia on multiple medications causing tardive dyskinesia, and other comorbidities who presented to the emergency department for evaluation of a fast heart rate. The patient provides the following history. She is followed by Dr. Jose G Mills and she saw him for routine follow-up early this month. During that visit it looks as though they discussed the fact that she may at some point in time need a pacemaker and he encouraged her to get a mobile traffic monitor specialist keep track of her heart rate as she does not seem to be symptomatic when she is in atrial fibrillation. She is diligent about checking her blood pressure 2 times a day and on Friday she noticed that her blood pressures were a bit higher than what they had been (she was reportedly taken off some of her antihypertensives recently) and that the heart rate seemed to be flashing quite quickly. She decided to come in today for evaluation as she knows her heart rate is probably going fast but again she does not have any sensations of racing heart or palpitations. She otherwise is feeling quite well but mentions that last Friday she had a 24 hour stomach bug with nausea and vomiting though that has resolved. In the ED she was found to be in atrial fibrillation with rapid ventricular response with rates in the 140s and she was started on an amiodarone drip. She has since been admitted to the IMU for close monitoring and Cardiology consultation. She is compliant with her medications and has not missed any doses. Review of Systems Review of Systems: Twelve systems were reviewed and are negative except for as per HPI. [facility] Past Medical History Medical History (Updated 03/24/23 @ 00:09 by Roberta Martino PA-C) Benign essential hypertension Cognitive impairment Degenerative joint disease Depression Diastolic congestive heart failure Dyslipidemia GERD without esophagitis History of left breast cancer Humeral fracture Bilateral Obstructive sleep apnea on CPAP Osteopenia Osteoporosis Paroxysmal atrial fibrillation Paroxysmal atrial flutter Restless leg syndrome Schizophrenia Seasonal allergies Tardive dyskinesia Surgical History Surgical History History of bladder surgery (Unknown) History of lumpectomy of left breast 06/2012 History of umbilical hernia (~2020) History of umbilical hernia repair Hx of shoulder surgery ALEN. Hx of tubal ligation (Unknown) Family History Family History Father Lung cancer Mother Acute myocardial infarction Son Diabetes mellitus Daughter Hypertension Social History Social History Social History: Patient currently resides in a apartment at [facility] in [facility]. Daughter states that she can go to assisted living due to her Namenda. She wishes to be a full code at this time and her daughter Ashli is her surrogate. She denies any pets. Smoking status: Never smoker Second hand tobacco smoke exposure: No Alcohol intake: never Substance use: never Substance use type: does not use Lack of Transportation: No Lack of Food: Never True Current Housing: I Have Housing Concerned About Future Housing: No Difficulty Paying Gas/Electric Bills: No Difficulty Paying for Meds: No Currently Unemployed: No Education: High School Diploma/GED Difficulty w/ Childcare or Family Care: No Living arrangements: alone Occupation/Educati
[2023-03-23] MEDS: AMIODARONE 360 MG/D5W 200 ML 360 MG/200 ML BAG 16.67 MG IV CONT (22:34)
[2023-03-24] VITALS (21 sets, daily range): BP systolic 108–130; BP diastolic 63–75; PULSE 135–145; RESP 16–20; TEMP 36.6–37.4; O2SAT 95–100
[2023-03-24 05:24] LABS: Basophils Percent Auto 0.4 % (0.2-1.2); Eosinophils Absolute Auto 0.1 K/mm3 (0-0.3); Eosinophils Percent Auto 1.3 % (0-4.4); Hematocrit 40.8 % (37.0-47.0); Hemoglobin 12.9 g/dL (12.0-15.0); Immature Granulocyte Absolute 0.03 K/mm3 (0.00-0.031); Immature Granulocyte Percent A 0.3 % (0-0.5); Lymphocytes Absolute Auto 1.12 K/mm3 (0.9-3.2); Lymphocytes Percent Auto 12.5 % (18.3-44.2); Mean Corpuscular HGB Conc 31.6 g/dl (32-36); Mean Corpuscular Hemoglobin 29.7 pg (26-34); Mean Platelet Volume 9.7 fl (7.4-10.4); Monocytes Absolute Auto 0.5 K/mm3 (0.1-0.6); Neutrophils Absolute Auto 7.1 K/mm3 (1.3-6.7); Neutrophils Percent Auto 79.5 % (45.5-73.1); Platelet Count Result 158 k/mm3 (150-375); Red Blood Count 4.34 M/mm3 (4.2-5.4); Red Cell Distribution Width 13.4 % (11.5-14.5); White Blood Count 8.9 K/mm3 (4.5-10.0)
[2023-03-24 05:34] LABS: Anion Gap 6 mmol/L (8-16); Blood Urea Nitrogen 14 mg/dL (7-17); Calcium 8.7 mg/dL (8.4-10.2); Carbon Dioxide 25 mmol/L (22-30); Chloride 109 mmol/L (98-107); Estimated CRCL calculation 42 ml/min; Estimated Glomerular Filt Rate > 60; Glucose 88 mg/dL (65-110); Magnesium 2.1 mg/dL (1.6-2.3); Sodium 140 mmol/L (137-145)
[2023-03-24] MEDS: MEMANTINE 5 MG TABLET PO (09:01)
[2023-03-24] MEDS: EZETIMIBE 10 MG TABLET PO (09:01)
[2023-03-24] MEDS: OMEGA 3 POLYUNSAT FATTY ACIDS 1 GM CAP PO (09:01)
[2023-03-24] MEDS: EMPAGLIFLOZIN 10 MG TABLET PO (09:01)
[2023-03-24] MEDS: rOPINIRole HCL 1 MG TABLET 2 MG PO ×2 (09:01→17:11)
[2023-03-24] MEDS: PANTOPRAZOLE 40 MG TABLET PO (09:01)
[2023-03-24] MEDS: LORATADINE 10 MG TABLET PO (09:01)
[2023-03-24] MEDS: DRONEDARONE HCL 400 MG TABLET PO ×2 (09:02→17:11)
[2023-03-24] MEDS: TRIHEXYPHENIDYL HCL 2 MG TABLET 4 MG PO ×2 (09:02→17:11)
[2023-03-24] MEDS: TRIHEXYPHENIDYL HCL 1 MG TABLET PO ×2 (09:03→17:11)
[2023-03-24] MEDS: AMIODARONE 360 MG/D5W 200 ML 360 MG/200 ML BAG 16.67 MG IV CONT (09:09)
--- NOTE | 2023-03-24 09:16 | PM.IMPN ---
Progress Note: A&P Assessment and Plan (1) Atrial flutter with rapid ventricular response: Code(s): I48.92 - Unspecified atrial flutter Status: Acute Assessment and Plan: Cardio consulted and pending Cont amio drip + home multaq (2) Elevated troponin: Code(s): R79.89 - Other specified abnormal findings of blood chemistry Status: Acute Assessment and Plan: Likely due to troponin leak, monitor (3) Obstructive sleep apnea on CPAP: Code(s): G47.33 - Obstructive sleep apnea (adult) (pediatric) Status: Acute Assessment and Plan: CPAP as needed (4) Diastolic congestive heart failure: Code(s): I50.30 - Unspecified diastolic (congestive) heart failure Status: Acute (5) Elevated LFTs: Code(s): R79.89 - Other specified abnormal findings of blood chemistry Status: Acute Assessment and Plan: Likely secondary to hypoperfusion due to rapid heart rate, monitor Plan DVT prophylaxis with Xarelto GI prophylaxis not indicated Code status full code Subjective Date/time seen: 03/24/23 09:16 Interval history: 77-year-old female with paroxysmal atrial fibrillation maintained on dronedarone on rivaroxaban for stroke prophylaxis, tachycardia bradycardia syndrome, hypertension, dyslipidemia, carotid artery disease, diastolic congestive heart failure, obstructive sleep apnea on CPAP, anemia, anxiety, schizophrenia on multiple medications causing tardive dyskinesia, and other comorbidities who presented to the emergency department for evaluation of a fast heart rate. No overnight events noted. No chest pain or shortness of breath. No nausea, vomiting or diarrhea. No fevers or chills. Feels much better than when she came in. Review of Systems Review of Systems: 12 point review of systems was assessed and was negative except as noted in the HPI Exam Narrative: General: No acute distress, alert and oriented per baseline HEENT: Atraumatic, normocephalic, mucous membranes moist CV: Regular rate and rhythm, S1, S2 Lungs: Clear to auscultation bilaterally, no rales or crackles noted, no wheezes, good air entry Abdomen: Soft, nontender, nondistended Extremities: Normal to inspection Skin: No rashes noted, no lesions or wounds seen Psych: Euthymic, normal affect Objective Data Vital Signs Vital Signs: Vital Signs - 24 hr 03/23/23 14:00 03/23/23 14:42 03/23/23 15:02 Temperature 98.3 F Pulse Rate 153 H 147 H 149 H Respiratory Rate 20 20 Blood Pressure 137/78 114/88 Pulse Oximetry 98 97 Oxygen Delivery Room Air Room Air 03/23/23 15:29 03/23/23 16:19 03/23/23 16:34 Temperature Pulse Rate 142 H 142 H 132 H Respiratory Rate Blood Pressure 109/75 102/73 Pulse Oximetry Oxygen Delivery 03/23/23 15:49 03/23/23 16:00 03/23/23 16:02 Temperature Pulse Rate 140 H 141 H 141 H Respiratory Rate 21 H 17 20 Blood Pressure 104/76 Pulse Oximetry 96 96 95 Oxygen Delivery 03/23/23 16:17 03/23/23 16:19 03/23/23 16:30 Temperature Pulse Rate 142 H 142 H 136 H Respiratory Rate 18 22 H 24 H Blood Pressure 109/75 Pulse Oximetry 96 96 95 Oxygen Delivery 03/23/23 16:31 03/23/23 16:33 03/23/23 16:34 Temperature Pulse Rate 134 H 133 H 132 H Respiratory Rate 22 H 19 17 Blood Pressure 98/77 L 102/73 Pulse Oximetry 97 96 97 Oxygen Delivery 03/23/23 16:45 03/23/23 16:46 03/23/23 17:00 Temperature Pulse Rate 135 H 135 H 136 H Respiratory Rate 16 16 21 H Blood Pressure 115/77 Pulse Oximetry 96 96 96 Oxygen Delivery 03/23/23 17:01 03/23/23 17:03 03/23/23 17:15 Temperature Pulse Rate 137 H 138 H 137 H Respiratory Rate 22 H 22 H 22 H Blood Pressure 85/71 L 104/68 Pulse Oximetry 99 96 99 Oxygen Delivery 03/23/23 17:16 03/23/23 17:30 03/23/23 17:31 Temperature Pulse Rate 137 H 137 H 137 H Respiratory Rate 20 23 H 25 H Blood Pressure
--- NOTE | 2023-03-24 11:19 | ECG_ITS ---
Measurements Intervals [place] Rate: 141 P: RI: 0 QRS: 52 QRSD: 107 T: -37 QT: 207 QTc: 318 Interpretive Statements ATRIAL FLUTTER/TACHYCARDIA WITH RAPID VENTRICULAR RESPONSE LOW QRS VOLTAGE IN PRECORDIAL LEADS [QRS DEFLECTION < 1.0 mV IN CHEST LEADS] INCOMPLETE RIGHT BUNDLE BRANCH BLOCK [90+ ms QRS DURATION, TERMINAL R IN V1/V2, 40+ ms S IN I/aVL/V4/V5/V6] NONSPECIFIC ST & T-WAVE ABNORMALITY ABNORMAL ECG COMPARED TO ECG 03/23/2023 14:06:38 NO SIGNIFICANT CHANGES Electronically Signed On 03-24-2023 17:21:30 COLLECTION ADVISOR by Flako Torrez M.D.
--- NOTE | 2023-03-24 11:23 | PM.CNCAR ---
Assessment and Plan Assessment and plan (1) Atrial flutter with rapid ventricular response: Code(s): I48.92 - Unspecified atrial flutter Status: Acute Assessment and Plan: Patient asymptomatic with persistent atrial flutter with RVR refractory to IV amiodarone. Patient was on dronedarone 400 mg daily as an outpatient and had been doing well as she reports for approximately 1 year. Therefore, I do not feel this is likely a function of failure of dronedarone at this time. Given abnormal LFTs and the above I will discontinue amiodarone. Changed to dronedarone 400 mg twice daily. Hold off on additional AV jessy blocking agents for now. There is report of concern with regards to tachycardia bradycardia as an outpatient upon review of her cardiology notes from [facility]. Therefore, this may be the reason she is on daily dronedarone and we will need to see if she will tolerate this therapy. Her atrial tachyarrhythmias likely exacerbated due to preceding viral illness which has subsequently resolved. We discussed concern with regards to overlap of amiodarone and dronedarone with regards to QT prolongation potential proarrhythmic risk for VT/torsades. Very difficult to assess given degree of tachycardia under ECG but obvious QT prolongation is not appreciated. Monitor electrolytes closely, check BMP and magnesium in a.m.. If persistent atrial flutter NPO after midnight for elective electrical cardioversion to restore sinus rhythm for TESHA guidance is not required she has not missed a single dose of anticoagulation for greater than 4 weeks and is generally in sinus rhythm. Will need to monitor heart rate response with b.i.d. dronedarone post cardioversion to avoid symptomatic bradycardia. Patient verbalized understanding and agreed with plan of care. Further recommendation to follow. TSH normal. Discussed risks, benefits, and alternatives to cardioversion. Risk for tachycardia induced cardiomyopathy EF suboptimally managed tachyarrhythmia warrants episcopal of sinus rhythm. Will need to monitor tolerance as above. (2) Elevated troponin: Code(s): R79.89 - Other specified abnormal findings of blood chemistry Status: Acute Assessment and Plan: Mild flat troponin elevation not consistent with acute coronary syndrome most likely type 2 infarct secondary to persistent tachyarrhythmia. (3) Elevated LFTs: Code(s): R79.89 - Other specified abnormal findings of blood chemistry Status: Acute Assessment and Plan: History of chronic mild elevation LFTs. Furthermore, long-term amiodarone on likely get option in this regard either. Continue to monitor clinically. Defer further workup per primary service. (4) Aortic stenosis: Code(s): I35.0 - Nonrheumatic aortic (valve) stenosis Status: Acute Assessment and Plan: History of moderate aortic stenosis asymptomatic. Patient hemodynamically stable. Avoid symptomatic hypotension. She has a history preserved LV systolic function. (5) Obstructive sleep apnea on CPAP: Code(s): G47.33 - Obstructive sleep apnea (adult) (pediatric) Status: Acute Assessment and Plan: Continue compliance with CPAP for treatment of ZORAN. Discussed importance of compliance with regards reduction risk for atrial tachyarrhythmia and or Cristhian arrhythmias. (6) Benign essential hypertension: Code(s): I10 - Essential (primary) hypertension Status: Chronic Assessment and Plan: BP stable. Avoid symptomatic hypotension. I do not see that she was previously on antihypertensive therapy. (7) Chronic anticoagulation: Code(s): Z79.01 - terminal gauger (current) use of anticoagulants Status: Acute Assessment and Plan: Continue Xarelto 20 mg at bedtime without interruption. History of Present Illness History of Present Illness Consult date/time: Date of service: 03/24/23 11:23 Requesting physician: Tristin
[2023-03-24] MEDS: polyethylene glycoL 3350 17 GM POWD.PACK PO (17:11)
[2023-03-24] MEDS: RIVAROXABAN 20 MG TABLET PO (17:11)
[2023-03-24] MEDS: rOPINIRole HCL 1 MG TABLET 3 MG PO (20:29)
[2023-03-24] MEDS: TRIHEXYPHENIDYL HCL 2 MG TABLET PO (20:30)
[2023-03-24] MEDS: ROSUVASTATIN 10 MG TABLET 40 MG PO (20:30)
[2023-03-25] VITALS (17 sets, daily range): BP systolic 95–125; BP diastolic 43–80; PULSE 0–156; RESP 16–28; TEMP 36.4–37.3; O2SAT 95–99
[2023-03-25 04:58] LABS: Basophils Percent Auto 0.3 % (0.2-1.2); Eosinophils Absolute Auto 0.1 K/mm3 (0-0.3); Eosinophils Percent Auto 1.1 % (0-4.4); Hematocrit 39.3 % (37.0-47.0); Hemoglobin 13.1 g/dL (12.0-15.0); Immature Granulocyte Absolute 0.04 K/mm3 (0.00-0.031); Immature Granulocyte Percent A 0.4 % (0-0.5); Lymphocytes Absolute Auto 1.02 K/mm3 (0.9-3.2); Lymphocytes Percent Auto 10.8 % (18.3-44.2); Mean Corpuscular HGB Conc 33.3 g/dl (32-36); Mean Corpuscular Hemoglobin 30.1 pg (26-34); Mean Corpuscular Volume 90.3 fl (80-100); Mean Platelet Volume 9.9 fl (7.4-10.4); Monocytes Absolute Auto 0.6 K/mm3 (0.1-0.6); Monocytes Percent Auto 6.1 % (2.6-8.5); Neutrophils Absolute Auto 7.7 K/mm3 (1.3-6.7); Neutrophils Percent Auto 81.3 % (45.5-73.1); Platelet Count Result 188 k/mm3 (150-375); Red Blood Count 4.35 M/mm3 (4.2-5.4); Red Cell Distribution Width 13.3 % (11.5-14.5); White Blood Count 9.5 K/mm3 (4.5-10.0)
[2023-03-25 05:09] LABS: Alanine Aminotransferase 66 U/L (6-35); Albumin Level 3.5 g/dL (3.5-5.1); Alkaline Phosphatase 84 U/L (38-126); Anion Gap 7 mmol/L (8-16); Aspartate Amino Transferase 55 U/L (14-36); Bilirubin,Total 1.3 mg/dL (0.2-1.3); Blood Urea Nitrogen 14 mg/dL (7-17); Calcium 8.7 mg/dL (8.4-10.2); Carbon Dioxide 25 mmol/L (22-30); Chloride 108 mmol/L (98-107); Estimated CRCL calculation 34 ml/min; Estimated Glomerular Filt Rate > 60; Glucose 87 mg/dL (65-110); Potassium 4.3 mmol/L (3.4-5.0); Sodium 140 mmol/L (137-145)
--- NOTE | 2023-03-25 08:19 | ECG_ITS ---
Measurements Intervals [place] Rate: 147 P: [place]: 0 QRS: 67 QRSD: 94 T: 0 QT: 172 QTc: 269 Interpretive Statements ATRIAL FLUTTER/TACHYCARDIA WITH RAPID VENTRICULAR RESPONSE INCOMPLETE RIGHT BUNDLE BRANCH BLOCK [90+ ms QRS DURATION, TERMINAL R IN V1/V2, 40+ ms S IN I/aVL/V4/V5/V6] POSSIBLE RIGHT VENTRICULAR HYPERTROPHY [SOME/ALL OF: PROMINENT R IN V1, LATE TRANSITION, RAD, ESTER, SSS] NONSPECIFIC ST & T-WAVE ABNORMALITY COMPARED TO ECG 03/24/2023 12:41:54 NO SIGNIFICANT CHANGES Electronically Signed On 03-25-2023 13:53:47 SENIOR QUALITY ANALYST by Chelsea Alvarez M.D.
--- NOTE | 2023-03-25 08:46 | WPDMODSED ---
Moderate Sedation Note-Pt Data Patient Data Diagnosis: Atrial flutter with RVR Present Complaint: Atrial flutter with RVR Procedure to be performed/Plan: Cardioversion Allergies Allergy/AdvReac Type Severity Reaction Status Date / Time amoxicillin Allergy Mild Rash Verified 03/23/23 13:54 Home Medications Medication Instructions Recorded Confirmed Type memantine 5 mg tablet 5 mg PO QAM 06/01/19 03/23/23 History ezetimibe 10 mg tablet 10 mg PO DAILY 01/31/21 03/23/23 History empagliflozin 10 mg tablet 10 mg PO DAILY 10/26/21 03/23/23 History (Jardiance) dronedarone 400 mg tablet (Multaq) 400 mg PO DAILY 02/06/22 03/23/23 History omega-3 fatty acids 1,000 mg 1,000 mg PO DAILY 08/14/22 03/23/23 History capsule ropinirole 2 mg tablet 2 mg PO BID #180 tabs 10/28/22 03/23/23 Rx ropinirole 3 mg tablet 3 mg PO QHS #90 tabs 12/16/22 03/23/23 Rx loratadine 10 mg tablet (Allergy 10 mg PO DAILY #90 tabs 01/09/23 03/23/23 Rx Relief (loratadine)) omeprazole 20 mg capsule,delayed 20 mg PO DAILY #90 caps 01/09/23 03/23/23 Rx release alendronate 70 mg tablet 70 mg PO WEEKLY #12 tabs 01/14/23 03/23/23 Rx calcium carbonate 600 mg-vitamin 1 tablet PO BID #180 tabs 02/19/23 03/23/23 Rx D3 20 mcg (800 unit) tablet lifitegrast 5 % eye drops in a 1 drp EACH EYE BID 02/19/23 03/23/23 History dropperette (Xiidra) rosuvastatin 40 mg tablet 40 mg PO QHS 02/19/23 03/23/23 History trihexyphenidyl 2 mg tablet 2 mg PO QHS 02/19/23 03/23/23 History trihexyphenidyl 5 mg tablet 5 mg PO BID 02/19/23 03/23/23 History clonazepam 0.25 mg disintegrating 0.25 mg PO DAILY PRN Anxiety 03/23/23 03/23/23 History tablet paliperidone palm (6 month) 1,560 1,560 mg IM [id number] Schizophrenia 03/23/23 03/23/23 History mg/5 mL intramuscular syringe (Jv Montalvo) rivaroxaban 20 mg tablet (Xarelto) 20 mg PO DAILY 03/23/23 03/23/23 History Current Medications: Active Medications Acetaminophen (Acetaminophen 325 Mg Tablet) 650 mg PO Q6H PRN PRN Reason: Mild Pain (1-3) or Fever Calcium Carbonate (Calcium/Vitamin D 500 Mg Tablet) 500 mg PO BID [facility] Last Admin: 03/24/23 17:11 Dose: 500 mg Clonazepam (Clonazepam (*Crx) 0.25 Mg Tablet) 0.25 mg PO DAILY PRN PRN Reason: Anxiety Dronedarone (Dronedarone Hcl 400 Mg Tablet) 400 mg PO BIDWM [facility] Last Admin: 03/24/23 17:11 Dose: 400 mg Ezetimibe (Ezetimibe 10 Mg Tablet) 10 mg PO DAILY [facility] Last Admin: 03/24/23 09:01 Dose: 10 mg Empagliflozin (Empagliflozin 10 Mg Tablet) 10 mg PO DAILY [facility] Last Admin: 03/24/23 09:01 Dose: 10 mg Fish Oil ([place] 3 Polyunsat Fatty Acids 1 Gm Cap) 1 gm PO DAILY [facility] Last Admin: 03/24/23 09:01 Dose: 1 gm Loratadine (Loratadine 10 Mg Tablet) 10 mg PO DAILY [facility] Last Admin: 03/24/23 09:01 Dose: 10 mg Memantine (Memantine 5 Mg Tablet) 5 mg PO QAM [facility] Last Admin: 03/24/23 09:01 Dose: 5 mg Miscellaneous Information (Lifitegrast [Xiidra] 5 % Dropperette- Nonformulary. Please Obtain A Home Supply If Possibl) 0 each XX CLARIFY [facility] Stop: 04/23/23 03:14 Non-Formulary Medication (Lifitegrast [Xiidra]) 1 drop EACH EYE BID [facility] Stop: 04/23/23 08:59 Ondansetron HCl (Ondansetron Inj 4 Mg/2 Ml Vial) 4 mg IV PUSH Q4H PRN PRN Reason: Nausea Pantoprazole Sodium (Pantoprazole 40 Mg Tablet) 40 mg PO QAM [facility] Last Admin: 03/24/23 09:01 Dose: 40 mg Polyethylene Glycol (Polyethylene Glycol 3350 17 Gm Powd.Pack) 17 gm PO QAM [facility] Last Admin: 03/24/23 17:11 Dose: 17 gm Rivaroxaban (Rivaroxaban 20 Mg Tablet) 20 mg PO DAILY@1700 [facility] Last Admin: 03/24/23 17:11 Dose: 20 mg Ropinirole HCl (Ropinirole Hcl 1 Mg Tablet) 2 mg PO BID [facility] Last Admin: 03/24/23 17:11 Dose: 2 mg Ropinirole HCl (Ropinirole Hcl 1 Mg Tablet) 3 mg PO QHS [facility] Last Admin: 03/24/23 20:29 Dose: 3 mg Rosuvastatin Calcium (Rosuvastatin 10 Mg Tablet) 40 mg PO QHS [facility] Last Admin: 03/24/23 20:30 Dose: 40 mg Trihexyphenidyl HCl (Trihexyphenidyl Hcl 2 Mg Tablet) 2 mg
--- NOTE | 2023-03-25 08:47 | WPDCARDVER ---
Cardioversion Cardioversion Date of procedure: 03/25/23 Procedure: Cardioversion Pre-op diagnosis: Atrial flutter with RVR Post-op diagnosis: Other (Sinus rhythm) Indications: Atrial flutter with RVR Description of procedure: [facility]. Written informed consent obtained. Patient's respiratory status and hemodynamics were monitored throughout the procedure. Defibrillator pads placed in an AP position. Time out performed by JENNIE Cleveland. Total of Propofol 40mg IV was administered by me. Once patient was adequately sedated, synchronized electrical cardioversion was performed with 1 shock at 200 joules, which successfully converted the patient to sinus rhythm. No periprocedural complications. Sedation: Total of Propofol 40mg IV Findings: Successful cardioversion to sinus rhythm with 1 shock at 200 joules Conclusion: Successful cardioversion to sinus rhythm with 1 shock at 200 joules
--- NOTE | 2023-03-25 08:50 | PM.PNCARD ---
Progress Note: A&P Assessment and Plan (1) Atrial flutter with rapid ventricular response: Code(s): I48.92 - Unspecified atrial flutter Status: Acute Assessment and Plan: Underwent successful cardioversion to sinus rhythm with 1 shock at 200 joules. Continue Dronedarone 400mg BID. Monitor for any bradyarrhythmias post cardioversion. Continue Xarelto for anticoagulation. Outpatient follow up with her primary center receptionist. (2) Elevated troponin: Code(s): R79.89 - Other specified abnormal findings of blood chemistry Status: Acute Assessment and Plan: Mild flat troponin elevation not consistent with acute coronary syndrome most likely type 2 infarct secondary to persistent tachyarrhythmia. (3) Aortic stenosis: Code(s): I35.0 - Nonrheumatic aortic (valve) stenosis Status: Acute Assessment and Plan: History of moderate aortic stenosis asymptomatic.? Patient hemodynamically stable.? Avoid symptomatic hypotension.? She has a history preserved LV systolic function. (4) ZORAN (obstructive sleep apnea): Code(s): G47.33 - Obstructive sleep apnea (adult) (pediatric) Status: Acute Assessment and Plan: Continue compliance with CPAP for treatment of ZORAN.? Discussed importance of compliance with regards reduction risk for atrial tachyarrhythmia and or julia arrhythmias. (5) Benign essential hypertension: Code(s): I10 - Essential (primary) hypertension Status: Chronic Assessment and Plan: BP stable.? Avoid symptomatic hypotension.? I do not see that she was previously on antihypertensive therapy. 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 Subjective Date/time seen: 03/25/23 08:50 Interval history: Reason for consult: Atrial flutter with RVR HPI: Patient is a pleasant 77-year-old female significant for paroxysmal atrial flutter, reported history of tachycardia bradycardia, ZORAN on CPAP, elevated LFTs history of obvj-tt-trcaproc aorti stenosis and moderate aortic regurgitation, history of diastolic heart failure who presents emergency department with complaints of elevated heart rate.? Patient reports previously she had nausea vomiting she felt was related to viral illness which then resolved soon upon checking her blood pressure routinely found that she had elevated heart rates of present ER was found to be in atrial flutter with rapid ventricular response.? She was then started on IV amiodarone in the emergency room without much improvement in her heart rate.? She took her home Xarelto she had with her and therefore has not missed a single dose of anticoagulation for rhythm 4 weeks even know as documented she did not receive Xarelto evening of 03/23/2023 in our system.? She remains in atrial flutter with heart rate 140 beats per minute asymptomatic.? She has no other complaints.? Serial troponins mildly elevated flat, mild elevation liver function tests.? Electrolytes and renal function are stable.? Chest x-ray without acute infiltrate or pulmonary vascular congestion. Date of service 03/25: Remains in atrial flutter with RVR. Review of Systems Review of Systems: No chest pain, shortness of breath Exam Const: General: comfortable and no acute distress HENMT: Mouth: Yes moist mucous membranes Eyes: General: appearance normal, both eyes and all related structures Sclera: sclerae normal Resp: Effort & Inspection: normal respiratory effort Cardio: Rate: regular rate and tachycardic Skin: General skin exam: normal color Neuro: Speech: normal speech Psych: Mental Status: mental status grossly normal Affect: normal affect Objective Data Vital Signs Vital Signs: Vital Signs - 24 hr 03/24/23 09:02 03/24/23 09:09 03/24/23 09:09 Temperature Pulse Rate 145 H 145 H 14
--- NOTE | 2023-03-25 09:45 | ECG_ITS ---
Measurements Intervals [place] Rate: 71 P: 80 PA: 142 QRS: 56 QRSD: 99 T: 0 QT: 395 QTc: 429 Interpretive Statements SINUS RHYTHM WITH OCCASIONAL SUPRAVENTRICULAR PREMATURE COMPLEXES INCOMPLETE RIGHT BUNDLE BRANCH BLOCK [90+ ms QRS DURATION, TERMINAL R IN V1/V2, 40+ ms S IN I/aVL/V4/V5/V6] COMPARED TO ECG 03/25/2023 08:55:03 SINUS RHYTHM NOW PRESENT Electronically Signed On 03-25-2023 13:54:03 BREED TO WEAN PRODUCTION TECHNICIAN by Chelsea Alvarez M.D.
[2023-03-25] MEDS: rOPINIRole HCL 1 MG TABLET 2 MG PO (09:54)
[2023-03-25] MEDS: OMEGA 3 POLYUNSAT FATTY ACIDS 1 GM CAP PO (09:55)
[2023-03-25] MEDS: TRIHEXYPHENIDYL HCL 2 MG TABLET 4 MG PO (09:55)
[2023-03-25] MEDS: EMPAGLIFLOZIN 10 MG TABLET PO (09:56)
[2023-03-25] MEDS: LORATADINE 10 MG TABLET PO (09:56)
[2023-03-25] MEDS: EZETIMIBE 10 MG TABLET PO (09:56)
[2023-03-25] MEDS: MEMANTINE 5 MG TABLET PO (09:56)
[2023-03-25] MEDS: PANTOPRAZOLE 40 MG TABLET PO (09:56)
[2023-03-25] MEDS: polyethylene glycoL 3350 17 GM POWD.PACK PO (09:58)
[2023-03-25] MEDS: DRONEDARONE HCL 400 MG TABLET PO (10:09)
--- NOTE | 2023-03-25 10:24 | PM.DS ---
DS: Admitting Diagnosis Discharge Date 03/25/23 Admitting Diagnosis Palpitations DS: Discharge Diagnosis Discharge Diagnosis (1) Atrial flutter with rapid ventricular response: Code(s): I48.92 - Unspecified atrial flutter Status: Acute Assessment and Plan: Cardio consulted and pending Cont amio drip + home multaq (2) Elevated troponin: Code(s): R79.89 - Other specified abnormal findings of blood chemistry Status: Acute Assessment and Plan: Likely due to troponin leak, monitor (3) Obstructive sleep apnea on CPAP: Code(s): G47.33 - Obstructive sleep apnea (adult) (pediatric) Status: Acute Assessment and Plan: CPAP as needed (4) Diastolic congestive heart failure: Code(s): I50.30 - Unspecified diastolic (congestive) heart failure Status: Acute (5) Elevated LFTs: Code(s): R79.89 - Other specified abnormal findings of blood chemistry Status: Acute Assessment and Plan: Likely secondary to hypoperfusion due to rapid heart rate, monitor Plan DVT prophylaxis with Xarelto GI prophylaxis not indicated Code status full code DS: Summary Hospital Course Hospital Course: 77-year-old female with paroxysmal atrial fibrillation maintained on dronedarone on rivaroxaban for stroke prophylaxis, tachycardia bradycardia syndrome, hypertension, dyslipidemia, carotid artery disease, diastolic congestive heart failure, obstructive sleep apnea on CPAP, anemia, anxiety, schizophrenia on multiple medications causing tardive dyskinesia, and other comorbidities who presented to the emergency department for evaluation of a fast heart rate. Discussed with electrophysiology regarding overlap with short-term use of amiodarone and dronedarone given present circumstances.? At this time reasonable to discontinue amiodarone and continue with dronedarone at b.i.d. dosing and monitor QT. discussed with the patient who try to avoid overlap to minimize proarrhythmic complications, however, she has been on lower dose dronedarone and short-term amiodarone given stable ECG will continue with single agent therapy as is reasonable.? Dr. Cotter, EP, also felt this was very reasonable and a good plan of care to proceed with cardioversion. Cardioversion performed 03/25 successfully after 1 shock. Patient was monitored after the procedure and discharged in stable condition with close outpatient follow-up. Please see above and med rec for details. Time Spent with Patient Time attestation: Total time spent providing and/or coordinating discharge services: Exam Narrative: General: No acute distress, alert and oriented per baseline HEENT: Atraumatic, normocephalic, mucous membranes moist CV: Regular rate and rhythm, S1, S2 Lungs: Clear to auscultation bilaterally, no rales or crackles noted, no wheezes, good air entry Abdomen: Soft, nontender, nondistended Extremities: Normal to inspection Skin: No rashes noted, no lesions or wounds seen Psych: Euthymic, normal affect DS: Data Data Completed and Pending Labs on day of discharge: Labs from last 24 hours 03/25/23 04:42 WBC 9.5 RBC 4.35 Hgb 13.1 Hct 39.3 MCV 90.3 MCH 30.1 MCHC 33.3 RDW 13.3 Plt Count 188 MPV 9.9 Immature Gran % (Auto) 0.4 Neut % (Auto) 81.3 H Lymph % (Auto) 10.8 L Pratt % (Auto) 6.1 Eos % (Auto) 1.1 Baso % (Auto) 0.3 Lymph # (Auto) 1.02 Pratt # (Auto) 0.6 Eos # (Auto) 0.1 Baso # (Auto) 0.0 Abs Immat Gran (auto) 0.04 H Absolute Neuts (auto) 7.7 H Absolute Nucleated RBC 0.0 Nucleated RBC % 0.0 Sodium 140 Potassium 4.3 Chloride 108 H Carbon Dioxide 25 Anion Gap 7 L BUN 14 Creatinine 0.90 Estim Creat Clear Calc 34 Estimated GFR > 60 Glucose 87 Calcium 8.7 Total Bilirubin 1.3 AST 55 H ALT 66 H Alkaline Phosphatase 84 Total Protein 7.0 Albumin 3.5 Discharge Plan Discharge Attending physician on discharge:
== END 2023-03-25 11:59 | disposition home or self-care (01) | DRG 309 ==
LOC: ANHED 14:48 → ANHIMU 18:20
PROVIDERS: Internal Medicine; Physician Assistant; Student in an Organized Health Care Education/Training Program; Admitting Provider Hospitalist; Emergency Provider Emergency Medicine; PCP Family Medicine; Visit Provider Hospitalist
PROC: 5A2204Z Restoration of Cardiac Rhythm, Single (ICD-10-PCS; principal; 2023-03-25 09:00)
DX: I48.92 Unspecified atrial flutter (principal); I50.32 Chronic diastolic (congestive) heart failure; I11.0 Hypertensive heart disease with heart failure; K21.9 Gastro-esophageal reflux disease without esophagitis; G47.33 Obstructive sleep apnea (adult) (pediatric); M81.0 Age-related osteoporosis without current pathological fracture; G24.01 Drug induced subacute dyskinesia; T50.995A Adverse effect of other drugs, medicaments and biological substances, initial encounter; M85.80 Other specified disorders of bone density and structure, unspecified site; E78.5 Hyperlipidemia, unspecified; G25.81 Restless legs syndrome; I48.0 Paroxysmal atrial fibrillation; I49.5 Sick sinus syndrome; I35.0 Nonrheumatic aortic (valve) stenosis; D64.9 Anemia, unspecified; F41.9 Anxiety disorder, unspecified; F20.9 Schizophrenia, unspecified; Z85.3 Personal history of malignant neoplasm of breast; Z79.01 Long term (current) use of anticoagulants
CPT/HCPCS: 36415; 71045; 80048; 80053; 81003; 83735; 84443; 84484; 85025; 85610; 85730; 92960; 93005; 94002; 96361; 96365; 96366; 96375; 99285; A9270; G0378; J0282; J2704; J7040

== ENCOUNTER 2023-05-09 09:42 | Outpatient (CLI) | payer MEDICARE, MEDICAID, SELFPAY ==
--- NOTE | ~2023-05-09 | US_ITS ---
EXAMINATION: US carotid duplex BI DATE: 05/09/2023 11:03 INDICATION: Carotid atherosclerosis TECHNIQUE: Grayscale, color Doppler, and pulsed Doppler images of the cervical carotid arteries were obtained. The degree of vessel stenosis is placed in one of the following categories: normal, <50%, 5 0-69%, >=70% but less than near-occlusion, near-occlusion, or total occlusion. Note that percent sten osis relative to normal distal artery lumen diameter is indirectly measured from velocity measurement s as described by Christiano, et al. Radiology 2003; 229:340-346. COMPARISON: None. FINDINGS: RIGHT: The right common carotid artery (CCA) peak systolic velocity (PSV) is 103 cm/s. The right internal ca rotid artery (ICA) PSV is 85 cm/s. The right ICA end-diastolic velocity (EDV) is 17 cm/s. The right I CA/CCA PSV ratio is 0.8. Grayscale and color Doppler images yield an estimate of <50% diameter reduct ion from plaque in the ICA. The external carotid artery (ECA) PSV is 106 cm/s. There is antegrade teresa w in the right vertebral artery. LEFT: The left CCA PSV is 104 cm/s. The left ICA PSV is 71 cm/s. The left ICA EDV is 17 cm/s. The left ICA/ CCA PSV ratio is 0.7. Grayscale and color Doppler images yield an estimate of <50% diameter reduction from plaque in the ICA. The ECA PSV is 107 cm/s. There is antegrade flow in the left vertebral arter y. IMPRESSION: 1. <50% stenosis in the right internal carotid artery. 2. <50% stenosis in the left internal carotid artery. Reviewed, dictated and finalized at location A. TH SCIENCE WRITER
== END 2023-05-09 09:43 | disposition home or self-care (01) ==
PROVIDERS: PCP Family Medicine; Visit Provider Nurse Practitioner Family
DX: R09.89 Other specified symptoms and signs involving the circulatory and respiratory systems (principal); Z09 Encounter for follow-up examination after completed treatment for conditions other than malignant neoplasm; I65.23 Occlusion and stenosis of bilateral carotid arteries
CPT/HCPCS: 93880

== ENCOUNTER 2023-05-23 08:50 | Outpatient (CLI) | payer MEDICARE, MEDICAID, SELFPAY ==
--- NOTE | ~2023-05-23 | US_ITS ---
EXAMINATION: US soft tissue LE DATE: 05/23/2023 09:27 INDICATION: Pea-sized mass at the left hernandez TECHNIQUE: Multiple grayscale and Doppler ultrasound images of the region of concern at the anterior left lower leg were obtained. COMPARISON: None FINDINGS: There is a small focus of very hypoechoic likely edema tracking between a couple globular regions of subcutaneous fat at the region of concern. The region of likely edema measures approximately 7 x 5 x 4 mm. No other abnormal masses or fluid collections identified. IMPRESSION: 1. 7 x 5 x 4 mm small focus of likely subcutaneous edema within the subcutaneous fat at the region of concern which could be inflammatory in etiology. Reviewed, dictated and finalized at location A. S AND MARKETING AGENT IMPRESSION: 1. 7 x 5 x 4 mm small focus of likely subcutaneous edema within the subcutaneou s fat at the region of concern which could be inflammatory in etiology.
== END 2023-05-23 08:51 | disposition home or self-care (01) ==
LOC: ANHIMG 08:53
PROVIDERS: PCP Family Medicine; Visit Provider Nurse Practitioner Family
DX: R22.42 Localized swelling, mass and lump, left lower limb (principal)
CPT/HCPCS: 76882

== ENCOUNTER 2023-08-25 08:32 | Outpatient (CLI) | payer MEDICARE, MEDICAID, SELFPAY ==
--- NOTE | ~2023-08-25 | MM_ITS ---
EXAMINATION: MM screening jina BI w corbin HISTORY: Screening mammogram TECHNIQUE: Craniocaudal and mediolateral oblique 3-D tomosynthesis images were obtained and synthetic 2-D images were generated. CAD analysis was submitted and interpreted. COMPARISON: 06/24/2022, 06/22/2021, 05/26/2020 BREAST PARENCHYMAL COMPOSITION:Dense: The breasts are heterogeneously dense, which may obscure small masses. FINDINGS: Stable postoperative change upper, outer left breast. No suspicious mass, calcification, or architectural distortion are identified in either breast to suggest malignancy. There has been no goodwin spicious interval change. IMPRESSION: No mammographic evidence of malignancy. Recommend routine screening mammography in one year. BI-RADS Category 2: Benign finding(s). Reviewed, dictated and finalized at location .
== END 2023-08-25 08:33 | disposition home or self-care (01) ==
LOC: ANHIMG 08:34
PROVIDERS: PCP Family Medicine; Visit Provider Family Medicine
DX: Z12.31 Encounter for screening mammogram for malignant neoplasm of breast (principal)
CPT/HCPCS: 77063; 77067

== ENCOUNTER 2023-09-03 08:47 | Outpatient (CLI) | payer MEDICARE, MEDICAID, SELFPAY ==
[2023-09-03 09:41] LABS: Hematocrit 43.3 % (37.0-47.0); Hemoglobin 14.1 g/dL (12.0-15.0); Mean Corpuscular HGB Conc 32.6 g/dl (32-36); Mean Corpuscular Hemoglobin 30.7 pg (26-34); Mean Corpuscular Volume 94.3 fl (80-100); Mean Platelet Volume 10.1 fl (7.4-10.4); Platelet Count Result 180 k/mm3 (150-375); Red Blood Count 4.59 M/mm3 (4.2-5.4); Red Cell Distribution Width 13.4 % (11.5-14.5); White Blood Count 5.5 K/mm3 (4.5-10.0)
[2023-09-03 10:00] LABS: Alanine Aminotransferase 67 U/L (6-35); Alkaline Phosphatase 101 U/L (38-126); Anion Gap 4 mmol/L (4-12); Aspartate Amino Transferase 63 U/L (14-36); Blood Urea Nitrogen 22 mg/dL (7-17); Calcium 8.6 mg/dL (8.4-10.2); Carbon Dioxide 28 mmol/L (22-30); Chloride 107 mmol/L (98-107); Cholesterol 125 mg/dL (0-200); Estimated Glomerular Filt Rate 54; Glucose 101 mg/dL (65-110); HDL Direct 66 mg/dL; Potassium 4.3 mmol/L (3.4-5.0); Sodium 139 mmol/L (137-145); Triglycerides 41 mg/dL (<150)
[2023-09-03 10:11] LABS: LDL Cholesterol Direct 52 mg/dL
[2023-09-03 10:16] LABS: Vitamin D 25 Hydroxy 42.5 ng/mL
== END 2023-09-03 08:48 | disposition home or self-care (01) ==
LOC: ANHLAB 08:48
PROVIDERS: PCP Family Medicine; Visit Provider Nurse Practitioner
DX: E78.5 Hyperlipidemia, unspecified (principal); E55.9 Vitamin D deficiency, unspecified
CPT/HCPCS: 36415; 80053; 80061; 82306; 84443; 85027

== ENCOUNTER 2023-12-15 12:05 | Emergency (ER) | payer MEDICARE, MEDICAID, SELFPAY ==
[2023-12-15] VITALS (27 sets, daily range): BP systolic 123–170; BP diastolic 44–61; PULSE 53–76; RESP 13–20; TEMP 36.6–36.7; O2SAT 97–100
--- NOTE | ~2023-12-15 | XR_ITS ---
EXAMINATION: XR chest 2V DATE: 12/15/2023 14:52 INDICATION: Weakness. TECHNIQUE: Frontal and lateral views of the chest were obtained. COMPARISON: Chest single view 03/23/2023 FINDINGS: There is no pneumonia, pleural effusion, or pneumothorax. The heart size is normal. There i s internal fixation of the humeri. IMPRESSION: 1. No acute cardiopulmonary disease. Reviewed, dictated and finalized at location A.
--- NOTE | ~2023-12-15 | CT_ITS ---
EXAMINATION: CT brain wo con DATE: 12/15/2023 14:43 INDICATION: Dizziness. Weakness. TECHNIQUE: Computed tomography (CT) of the head was performed without intravenous contrast. The mA wa s adjusted according to patient size. Iterative reconstruction technique was employed. The dose-lengt h product was 681.00 mGy-cm. COMPARISON: Head CT 09/18/2021 FINDINGS: There are scattered areas of low attenuation in the cerebral white matter, which is within normal limits for the patient's age. There is no intracranial hemorrhage, acute infarction, or abnorm al intracranial mass lesion. The ventricles are normal in size. There is mucosal thickening in the pa ranasal sinuses. The orbits are normal. The mastoid air cells are normal. IMPRESSION: 1. Normal aging brain. Reviewed, dictated and finalized at location A. IMPRESSION: 1. Normal aging brain.
--- NOTE | 2023-12-15 14:06 | ECG_ITS ---
Test Date: 2023-12-15 14:21:44 Measurements Intervals [place] Rate: 59 P: 68 MA: 148 QRS: 50 QRSD: 111 T: -12 QT: 442 QTc: 439 Interpretive Statements SINUS BRADYCARDIA INCOMPLETE RIGHT BUNDLE BRANCH BLOC ST-T WAVE ABNORMALITY IN INFERIOR LEADS- CONSIDER ISCHEMIA BASELINE ARTIFACT- II, III, AVR, AVF ABNORMAL ECG No previous ECG available for comparison Electronically Signed On 12-15-2023 14:28:29 CDT by Paul Kaplan D.O.
--- NOTE | 2023-12-15 14:07 | ED.WEAKNESS ---
HPI - Weakness General Chief complaint: Weakness <Mary Rodríguez PA-C - Last Filed: 12/15/23 19:16> Stated complaint: weakness <Mary Rodríguez PA-C - Last Filed: 12/15/23 19:16> Time Seen by Provider: 12/15/23 14:07 <Mary Rodríguez PA-C - Last Filed: 12/15/23 19:16> Focused HPI: This is a 78-year-old female that presents to the emergency department for generalized weakness. Reports this has been ongoing over the last week. Reports feeling lightheaded. Denies any focal symptoms. Denies fevers, cough, vomiting, or dysuria. GENERAL: Well-appearing, well-nourished, and in no acute distress. HEAD: Normocephalic, atraumatic. CHEST: Clear to auscultation. ?No respiratory distress. HEART: Regular rate and rhythm.? NEURO: ?Alert and oriented x3. Patient screened in triage and initial orders placed.? ?Additional care and disposition to be based upon?diagnostic testing and treatment. <Mary Rodríguez PA-C - Last Filed: 12/15/23 19:16> History of Present Illness HPI Narrative: Patient is subsegmental female presents emergency department with chief complaint of generalized weakness. Patient reports symptoms been ongoing for the last week reports had no fevers cough vomiting or dysuria <Aaron Harper MD - Last Filed: 12/15/23 18:19> Related Data Home medications: Home Medications Medication Instructions Recorded Confirmed memantine 5 mg tablet 5 mg PO [facility] 06/01/19 08/27/23 ezetimibe 10 mg tablet 10 mg PO DAILY 01/31/21 08/27/23 empagliflozin 10 mg tablet 10 mg PO DAILY 10/26/21 08/27/23 (Jardiance) omega-3 fatty acids 1,000 mg 1,000 mg PO DAILY 08/14/22 06/09/23 capsule lifitegrast 5 % eye drops in a 1 drp EACH EYE BID 02/19/23 08/27/23 dropperette (Xiidra) rosuvastatin 40 mg tablet 40 mg PO QHS 02/19/23 08/27/23 trihexyphenidyl 2 mg tablet 2 mg PO QHS 02/19/23 08/27/23 trihexyphenidyl 5 mg tablet 5 mg PO BID 02/19/23 08/27/23 clonazepam 0.25 mg disintegrating 0.25 mg PO DAILY PRN Anxiety 03/23/23 08/27/23 tablet paliperidone palm (6 month) 1,560 1,560 mg IM [id number] Schizophrenia 03/23/23 08/27/23 mg/5 mL intramuscular syringe (Invega Lidiaa) rivaroxaban 20 mg tablet (Xarelto) 20 mg PO DAILY 03/23/23 08/27/23 amiodarone 200 mg tablet 100 mg PO DAILY 08/27/23 08/27/23 <Mary Rodríguez PA-C - Last Filed: 12/15/23 19:16> Allergies/Adverse reactions: Allergies Allergy/AdvReac Type Severity Reaction Status Date / Time amoxicillin Allergy Mild Rash Verified 08/27/23 08:29 <Mary Rodríguez PA-C - Last Filed: 12/15/23 19:16> Review of Systems Review of Systems: A 10 system review of systems was completed on the patient and is negative except for what is stated in the HPI. Nursing and ancillary documentation was reviewed. <Aaron Harper MD - Last Filed: 12/15/23 18:19> FOR[facility], [facility] Past Medical History Medical History: Medical History Benign essential hypertension Cognitive impairment Degenerative joint disease Depression Diastolic congestive heart failure Dyslipidemia GERD without esophagitis History of left breast cancer Humeral fracture Bilateral Mass of skin of left lower extremity Obstructive sleep apnea on CPAP Osteopenia Osteoporosis Paroxysmal atrial fibrillation Paroxysmal atrial flutter Restless leg syndrome Schizophrenia Seasonal allergies Tardive dyskinesia <Mary Rodríguez PA-C - Last Filed: 12/15/23 19:16> Surgical History Surgical History: Surgical History History of bladder surgery (Unknown) History of cardiac radiofrequency ablation (~05/2023) History of cardioversion (~03/2023) History of lumpectomy of left breast 06/2012 History of umbilical hernia (~2019) History of umbilical hernia repair Hx of cardiac cath Hx of shoulder surgery LAEN. Hx of tubal ligation (Unkn
--- NOTE | 2023-12-15 14:42 | PC.NURSE ---
Patient in imaging
[2023-12-15 15:09] LABS: Basophils Percent Auto 0.5 % (0.2-1.2); Eosinophils Absolute Auto 0.1 K/mm3 (0-0.3); Eosinophils Percent Auto 0.8 % (0-4.4); Hematocrit 42.4 % (37.0-47.0); Immature Granulocyte Absolute 0.02 K/mm3 (0.00-0.031); Immature Granulocyte Percent A 0.3 % (0-0.5); Lymphocytes Absolute Auto 1.18 K/mm3 (0.9-3.2); Lymphocytes Percent Auto 19.2 % (18.3-44.2); Mean Corpuscular Hemoglobin 31.5 pg (26-34); Mean Corpuscular Volume 95.3 fl (80-100); Monocytes Absolute Auto 0.6 K/mm3 (0.1-0.6); Monocytes Percent Auto 9.1 % (2.6-8.5); Neutrophils Absolute Auto 4.3 K/mm3 (1.3-6.7); Neutrophils Percent Auto 70.1 % (45.5-73.1); Platelet Count Result 141 k/mm3 (150-375); Red Blood Count 4.45 M/mm3 (4.2-5.4); Red Cell Distribution Width 12.9 % (11.5-14.5); White Blood Count 6.1 K/mm3 (4.5-10.0)
[2023-12-15 15:52] LABS: Add Urine Microscopic? YES; Appearance Urine Clear (Clear); Bacteria Urine None Seen /hpf; Bilirubin Urine Negative (Negative); Blood Urine Negative (Negative); Color Urine Yellow (Yellow); Glucose Urine UA 3+ mg/dL (Negative); Ketones Urine Negative (Negative); Leukocyte Esterase Ur Trace LEU/UL (Negative); Nitrate Urine Negative (Negative); Non Pathogenic Casts 0-2; Protein Urine Negative (Negative); RBC Urine 0-2 /hpf (0-2); Specific Grav Ur 1.011 (1.001-1.035); Squamous Epithelial Cell Urine None Seen /hpf (Few); Urobilinogen Urine 0.2 mg/dL (<2.0); WBC Urine 0-5 /hpf (0-3); pH Urine 6.5 (5.0-9.0)
[2023-12-15 15:54] LABS: Alanine Aminotransferase 84 U/L (6-35); Albumin Level 3.9 g/dL (3.5-5.1); Alkaline Phosphatase 89 U/L (38-126); Aspartate Amino Transferase 80 U/L (14-36); Blood Urea Nitrogen 18 mg/dL (7-17); Calcium 8.7 mg/dL (8.4-10.2); Carbon Dioxide 29 mmol/L (22-30); Estimated CRCL calculation 33 ml/min; Estimated Glomerular Filt Rate > 60; Glucose 82 mg/dL (65-110); Potassium 3.9 mmol/L (3.4-5.0); Sodium 137 mmol/L (137-145)
[2023-12-15 16:17] LABS: Anion Gap 8 mmol/L (4-12); Chloride 100 mmol/L (98-107)
== END 2023-12-15 18:31 | disposition home or self-care (01) ==
PROVIDERS: Physician Assistant; Emergency Provider Emergency Medicine; PCP Family Medicine
DX: R53.1 Weakness (principal); F32.A Depression, unspecified; I11.0 Hypertensive heart disease with heart failure; I50.9 Heart failure, unspecified; K21.9 Gastro-esophageal reflux disease without esophagitis; Z85.3 Personal history of malignant neoplasm of breast; G47.30 Sleep apnea, unspecified; I48.91 Unspecified atrial fibrillation; G25.81 Restless legs syndrome
CPT/HCPCS: 36415; 70450; 71046; 80053; 81001; 85025; 93005; 99284

== ENCOUNTER 2024-03-03 11:09 | Outpatient (CLI) | payer MEDICARE, MEDICAID, SELFPAY ==
[2024-03-03 11:44] LABS: Anion Gap 6 mmol/L (4-12); Blood Urea Nitrogen 20 mg/dL (7-17); Carbon Dioxide 26 mmol/L (22-30); Chloride 106 mmol/L (98-107); Estimated Glomerular Filt Rate > 60; Glucose 97 mg/dL (65-110); Potassium 4.5 mmol/L (3.4-5.0); Sodium 138 mmol/L (137-145)
== END 2024-03-03 11:10 | disposition home or self-care (01) ==
PROVIDERS: PCP Family Medicine; Visit Provider Internal Medicine Cardiovascular Disease
DX: I70.0 Atherosclerosis of aorta (principal); N18.2 Chronic kidney disease, stage 2 (mild); R91.1 Solitary pulmonary nodule; I48.0 Paroxysmal atrial fibrillation; G47.30 Sleep apnea, unspecified; R79.89 Other specified abnormal findings of blood chemistry; Z86.79 Personal history of other diseases of the circulatory system
CPT/HCPCS: 36415; 80048

== ENCOUNTER 2024-03-15 09:27 | Outpatient (CLI) | payer MEDICARE, SELFPAY ==
[2024-03-15 19:42] LABS: Basophils Percent Auto 0.7 % (0.2-1.2); Eosinophils Absolute Auto 0.1 K/mm3 (0-0.3); Eosinophils Percent Auto 1.8 % (0-4.4); Hematocrit 44.8 % (37.0-47.0); Hemoglobin 14.5 g/dL (12.0-15.0); Immature Granulocyte Absolute 0.01 K/mm3 (0.00-0.031); Immature Granulocyte Percent A 0.2 % (0-0.5); Lymphocytes Absolute Auto 0.74 K/mm3 (0.9-3.2); Lymphocytes Percent Auto 16.3 % (18.3-44.2); Mean Corpuscular HGB Conc 32.4 g/dl (32-36); Mean Corpuscular Hemoglobin 31.1 pg (26-34); Mean Corpuscular Volume 96.1 fl (80-100); Mean Platelet Volume 9.8 fl (7.4-10.4); Monocytes Absolute Auto 0.4 K/mm3 (0.1-0.6); Monocytes Percent Auto 7.9 % (2.6-8.5); Neutrophils Absolute Auto 3.3 K/mm3 (1.3-6.7); Neutrophils Percent Auto 73.1 % (45.5-73.1); Platelet Count Result 165 k/mm3 (150-375); Red Blood Count 4.66 M/mm3 (4.2-5.4); Red Cell Distribution Width 12.2 % (11.5-14.5); White Blood Count 4.5 K/mm3 (4.5-10.0)
[2024-03-15 20:30] LABS: Alanine Aminotransferase 57 U/L (6-35); Albumin Level 4.1 g/dL (3.5-5.1); Alkaline Phosphatase 81 U/L (38-126); Anion Gap 4 mmol/L (4-12); Aspartate Amino Transferase 58 U/L (14-36); Bilirubin,Total 1.1 mg/dL (0.2-1.3); Blood Urea Nitrogen 18 mg/dL (7-17); Calcium 9.4 mg/dL (8.4-10.2); Carbon Dioxide 31 mmol/L (22-30); Chloride 105 mmol/L (98-107); Cholesterol 139 mg/dL (0-200); Estimated Glomerular Filt Rate > 60; Glucose 88 mg/dL (65-110); HDL Direct 73 mg/dL; Potassium 4.4 mmol/L (3.4-5.0); Sodium 140 mmol/L (137-145); Triglycerides 54 mg/dL (<150)
[2024-03-15 21:06] LABS: LDL Cholesterol Direct 43 mg/dL; Vitamin D 25 Hydroxy 31.7 ng/mL
[2024-03-15 21:34] LABS: Hemoglobin A1C 5.3 % (<5.7)
== END 2024-03-15 09:28 | disposition home or self-care (01) ==
LOC: ANHGOSHLAB 09:28
PROVIDERS: PCP Family Medicine; Visit Provider Family Medicine
DX: F32.9 Major depressive disorder, single episode, unspecified (principal); I10 Essential (primary) hypertension; R73.9 Hyperglycemia, unspecified; E53.8 Deficiency of other specified B group vitamins; E55.9 Vitamin D deficiency, unspecified; I48.0 Paroxysmal atrial fibrillation; G25.81 Restless legs syndrome; E78.5 Hyperlipidemia, unspecified
CPT/HCPCS: 36415; 80053; 80061; 82306; 82607; 82728; 83036; 84443; 85025

== ENCOUNTER 2024-08-02 08:16 | Outpatient (CLI) | payer MEDICARE, SELFPAY ==
--- NOTE | ~2024-08-02 | DEXA_ITS ---
Bone Density Report Name: ERLIN TRONCOSO Age: 79 Sex: Female Ethnicity: White Date of : 1945 Indication: postmenopausal; screening for osteoporosis; Referring Provider: BRIAN SINGH Study: Bone densitometry was performed. Exam Date: August 02, 2024 Accession number: [id number] Bone Density: Region BMD T-score Z-score Classification AP Spine(L1-L4) 1.064 0.2 2.7 Normal Femoral Neck (Left) 0.554 -2.7 -0.4 Osteoporosis Total Hip (Left) 0.831 -0.9 1.0 Normal Femoral Neck (Right) 0.542 -2.8 -0.5 Osteoporosis Total Hip (Right) 0.799 -1.2 0.8 Osteopenia Total Hip Mean 0.815 -1.1 0.9 Osteopenia World Health Organization criteria for BMD impression classify patients as: Normal (T-score at or above -1.0), Osteopenia (T-score between -1.0 and -2.5), or Osteoporosis (T-score at or below -2.5). 10-year Fracture Risk: FRAX not reported because: Some T-score for Spine Total or Hip Total or Femoral Neck at or below -2.5 Previous Exams: Region Exam Age BMD T-score BMD Change BMD Change Date g/cm2 vs Baseline vs Previous AP Spine (L1-L4) 08/02/2024 79 1.064 0.2 0.029 (2.8%)* 0.047 (4.6%)* 12/28/2021 76 1.018 -0.3 -0.018 (-1.7%) -0.073 (-6.7%) 10/20/2019 74 1.091 0.4 0.055 (5.4%)* 0.055 (5.4%)* 05/02/2015 69 1.035 -0.1 Total Hip(Left) 08/02/2024 79 0.831 -0.9 -0.114 (-12.1% -0.021 (-2.5%) 12/28/2021 76 0.852 -0.7 -0.093 (-9.8%) -0.012 (-1.4%) 10/20/2019 74 0.864 -0.6 -0.080 (-8.5%) -0.080 (-8.5%) 05/02/2015 69 0.945 0.0 Total Hip(Right) 08/02/2024 79 0.799 -1.2 -0.174 (-17.9% -0.074 (-8.4%) 12/28/2021 76 0.873 -0.6 -0.100 (-10.3% -0.020 (-2.2%) 10/20/2019 74 0.892 -0.4 -0.080 (-8.3%) -0.080 (-8.3%) 05/02/2015 69 0.973 0.3 *Denotes significance at 95% confidence level, LSC for AP Spine = 0.022 g/cm2, LSC for Total Hip = 0.027 g/cm2 Clinical Information Provided by Patient: Has used the following medications: Vitamin D, Calcium Patient maximum height was 60.5 No regular weight bearing exercise Drinks caffeinated beverages Onset of menses at age 14 Number of children 2 Impression: The patient has osteoporosis, based on the Right Femoral Neck T-score. The BMD for the Total Hip(Right) decreased, changing by -8.4% since the last DXA exam. Discussion: INCREASED RISK OF FRACTURE. BONE DENSITY IS UNDESIRABLY LOW AT ONE OR MORE SKELETAL SITES, CONSISTENT WITH POSTMENOPAUSAL OSTEOPOROSIS. This patient's lowest T-score meets the World Health Organization's (WHO) criteria for osteoporosis at one or more sites (T-score -2.5 or below). In untreated patients, the risk of osteoporotic fracture increases approximately two-fold for each 1.0 SD decrease in T-score. Low bone density is not the only risk factor for fracture; also consider factors such as patient's age, frailty or poor health, risk of falling, risk of injury, previous osteoporotic fracture, family history of osteoporosis, cigarette smoking, low body weight, etc. Not everyone with low bone mineral density has osteoporosis; osteomalacia and other metabolic bone disorders should also be considered. Patients who have osteoporosis should be evaluated for specific diseases and conditions (secondary causes) that may cause or contribute to bone loss. The [employer] Association of Clinical Endocrinologists (AACE) and National Osteoporosis Foundation (NOF) recommend pharmacologic intervention for all postmenopausal women whose T-score is in this range. The patient should follow a healthful lifestyle (good nutrition with adequate calcium and vitamin D, and appropriate weight-bearing exercise). Follow-Up: Consider a repeat BMD and Vertebral Fracture Assessment (VFA) exam in 2 years or sooner if medically necessary, to reassess this patient's status. Reported by: BIJU on 08/02/2024 8:52:00 AM. Reviewed, dictated and finalized at location AJudy MAHER
--- OUTSIDE RECORDS SUMMARY | 2024-08-02 08:22 | XMS_ITS ---
Author Organization [facility] Address [address] [place] [address] Care Team Providers Care Hand Deicer Element Winder Name Role Phone Denise Makiy Primary Care Provider Toya, Briana Unavailable [phone] REASON FOR VISIT r/s from 06/18; 4 week f/u Social History Sex Assigned At : Social History Observation Description Sex Assigned At Female Encounters Encounter Location Date Provider Diagnosis [address] [address] 06/22/2024 Pradeep Maki Plan Of Treatment Next Appt Details Provider Name:Pradeep Maki, 08/20/2024 01:00:00 PM, [address] [place] [address], [address], Progress Notes * Vandana MCCARTNEYOB: (79 yo F)Acc No.[id number]:06/22/2024 UNLOCKED PROGRESS NOTE Patient: Génessi JOHANNYBernadinera Provider: Vish Maki APN :1945 A ge:79 Y S ex:Female Date:06/22/2024 Address:[address], [place], [place] Subjective: * Chief Complaints: * 1 . R/s from 06/18; 4 week f/u. * Medical History: Objective: * Vitals: Assessment: Plan: * Treatment: * * Electronic signature of Pradeep Maki on 08/02/2024 at 08:21 AM CDT Sign off status: Pending * Provider: Vish Maki APN Date: 0 06/22/2024 Generated for Isma Tello on: 0 08/02/2024 08:21 AM CDT
--- OUTSIDE RECORDS SUMMARY | 2024-08-02 08:22 | XMS_ITS | Patient Health Record ---
Author Organization [facility] Address [address] [place] [address] Care Team Providers Care Risk Modeler Name Role Phone Pradeep Maki Primary Care Provider [phone] Briana Pittman Unavailable [phone] Allergies Allergen (clinical drug ingredient) Drug/Non Drug Allergy documented on EMR Reaction Allergy Type Onset Date Status amoxicillin Amoxicillin rash Drug Allergy Act arturo Reason For Referral No Information Medications Medication SIG (Take, Route, Frequency, Duration) Notes Start Date End Date Status Xiidra 5 % 1 drop into affected eye Ophthalmic Twice a day Active Rosuvastatin Calcium 40 MG 1 tablet Orally Once a day Active clonazePAM 0.25 MG 1 tablet oral Once a day as needed for severe anxiety for 7 days 02/03/2024 Not-Taking Empagliflozin 10 MG 0.5 tablet Orally Once a day Active Amiodarone HCl 200 MG 0.5 tablet Orally Once a day Not-Taking Rivaroxaban 20 MG 1 tablet with food Orally Once a day Active Ferrous Sulfate 325 (65 Fe) MG 1 tablet Orally daily Not-Taking Ezetimibe 10 MG 1 tablet Orally Once a day Active Letrozole 2.5 MG 1 tablet Orally Once a day Not-Taking rOPINIRole HCl 3 MG 1 tablet Orally once daily at bedtime Active rOPINIRole HCl 2 MG 1 tablet Orally twice daily Active Calcium Carbonate-Vitamin D 600-10 MG-MCG 1 tablet Orally Twice a day Active Magnesium Oxide 400 MG 1 tablet as needed Orally Once a day Active Vitamin E 400 UNIT 1 tablet Orally once daily for 10 days Not-Taking Alendronate Sodium 70 MG 1 tablet Orally 1x per week Active Memantine HCl 5 MG 1 tablet Orally Once a day for 30 days Active Dike 3 1000 MG 1 capsule Orally once daily Active Trihexyphenidyl HCl 2 MG 0.5 tablet Orally once daily in the morning for 30 days 06/01/2024 Active Omeprazole 20 MG 1 capsule 1/2 to 1 hour before morning meal Orally Once a day Active Memantine HCl 5 MG 1 tablet Orally Once a day for 30 days Active clonazePAM 0.25 MG 1 tablet oral once nightly as needed ONLY at bedtime for restless legs for 30 days 07/21/2024 Active Invega Hafyera 1560 MG/5ML as directed Intramuscular every 6 months for 180 days Patient is due for next injection in 4 weeks. Thanks! Active Immunizations Vaccine Route Administration Date Status Comme nts COVID-19 Moderna 1ST IM Intramuscular 06/29/2020 Administered EUA date 0. Screening reviewed and consent signed. Patient tolerated well. COVID-19 Moderna 2nd IM Intramuscular 07/27/2020 Administered FLU VAC NO PRSV 4VAL 6 mo+ IM Intramuscular 01/25/2021 Administered Patient tolerat ed well. Social History Tobacco Use: Social History Observation Description Date Details (start date - stop date) Never Smoker NA - NA Sex Assigned At : Social History Observation Description Sex Assigned At Female Tobacco Control (Standard) Question Answer Notes Tobacco use: Nonsmoker Section Notes: [id number] 02/09/2020 02/09/2020 clonazePAM 14 14 0.25MG Tessie Raines L, Msn, [employer] - [id number] [employer] [place], [place] [address] [id number] 01/11/2020 01/11/2020 Hydrocodon-acetaminophen 20 5 5MG-325MG 20 Freeman Patino Md - [id number] [id number], [place] [id number] 10/18/2019 10/18/2019 clonazePAM 7 14 0.5 MG [facility], [facility] [id number] [employer] [place], [place] [address] [id number] 07/20/2019 07/20/2019 clonazePAM 14 14 0.25MG [id number] 02/09/2020 02/09/2020 clonazePAM 14 14 0.25MG [facility] L[facility], [facility] [id number] [employer] [place], [place] [address] [id number] 01/11/2020 01/11/2020 Hydrocodon-acetaminophen 20 5 5MG-325MG 20 Freeman Patino Md - [id number] [facility] #[id number], [place], [place] [id number] 10/18/2019 10/18/2019 clonazePAM 7 14 0.5 MG NA Tessie Becker L, Msn, [facility] - [id number] [employer] [place], [place] 1 [id number] 07/20/2019 07/20/2019 clonazePAM 14 14 0.25MG PRESCRIPTION # FILLED WRITTEN DRUG LABEL QTY DAYS STRENGTH MEDD [facility] REFILL NO. REFILLS STATE 05/14/2022 05/14/2022 clonazePAM 5.0 5 0.25 MG NA Karen Art ([facility]- ) - [id number] [employer] [place], [place] NA 0 [place] [id number] 04/11/2022 04/11/2022 clonazePAM 5.0 5 0.25 MG NA Tessie Becker L, Msn, [facility] - [id number] [employer] [place], [place] NA 0 [place] 1 [id number] 03/12/2022 03/11/2022 clonazePAM 5.0 5 0.25 MG Tessie Raines L PRESCRIPTION # FILLED WRITTEN DRUG LABEL QTY DAYS STRENGTH MEDD [facility] REFILL NO. REFILLS STATE 06/05/2022 06/05/2022 clonazePAM 5.0 5 0.25 MG NA Briana Pittman [facility] - [id number] [employer] [place], [place] NA 0 [place] 1 [id number] 05/14/2022 05/14/2022 clonazePAM 5.0 5 0.25 MG NA Karen Art ([facility]- ) - [id number] [place] 1 [id number] 04/11/2022 04/11/2022 clonazePAM 5.0 5 0.25 MG Tessie Raines, PRESCRIPTION # FILLED WRITTEN DRUG LABEL QTY DAYS STRENGTH MME [facility] REFILL NO. REFILLS STATE 07/10/2022 07/10/2022 clonazePAM 5.0 5 0.25 MG NA Toya, Briana L [employer] - [id number] [employer] [place], [place] [id number] 06/05/2022 06/05/2022 clonazePAM 5.0 5 0.25 MG NA Toya, Briana L [employer] - [id number] [employer] [place], [place] 0 [place] 1 [id number] 05/14/2022 05/14/2022 clonazePAM 5.0 5 0.25 MG NA Karen Art ([facility] [id number] 07/10/2022 07/10/2022 clonazePAM 5.0 5 0.25 MG NA Toya, Briana L [employer] - [id number] [employer] [place], [place] [address] [id number] 06/05/2022 06/05/2022 clonazePAM 5.0 5 0.25 MG NA Toya, Briana L [employer] - [id number] [employer] [place], [place] 1 [id number] 05/14/2022 05/14/2022 clonazePAM 5.0 5 0.25 MG NA Karen Art ([facility] PRESCRIPTION # FILLED WRITTEN DRUG LABEL QTY DAYS STRENGTH MME [facility] REFILL NO. REFILLS STATE 09/25/2022 09/25/2022 clonazePAM 5.0 5 0.25 MG NA Toya, Briana L [employer] - [id number] [employer] [place], [place] 1 [id number] 07/10/2022 07/10/2022 clonazePAM 5.0 5 0.25 MG NA Toya, Briana L [employer] - [id number] [employer] [place], [place] 1 [id number] 06/05/2022 06/05/2022 clonazePAM 5.0 5 0.25 MG NA Toya, Briana L [employer] - [id number] PRESCRIPTION # FILLED WRITTEN DRUG LABEL QTY DAYS STRENGTH MME [facility] REFILL NO. REFILLS STATE 09/25/2022 09/25/2022 clonazePAM 5.0 5 0.25 MG NA Toya, Briana L [employer] - [id number] [employer] [place], [place] [id number] 07/10/2022 07/10/2022 clonazePAM 5.0 5 0.25 MG NA Toya, Briana L [employer] - [id number] [facility] [place], [place] [address] [id number] 06/05/2022 06/05/2022 clonazePAM 5.0 5 0.25 MG NA Toya, Briana L [employer] - [id number] PRESCRIPTION # FILLED WRITTEN DRUG LABEL QTY DAYS STRENGTH MME [facility] REFILL NO. REFILLS STATE 12/11/2022 12/11/2022 clonazePAM 5.0 5 0.25 MG NA Toya, Briana L [employer] - [id number] [employer] [place], [place] 1 [id number] 09/25/2022 09/25/2022 clonazePAM 5.0 5 0.25 MG NA Toya, Briana L [employer] - [id number] [facility] [place], [place] 1 [id number] 07/10/2022 07/10/2022 clonazePAM 5.0 5 0.25 MG NA Toya, Briana L [employer] - [id number] PRESCRIPTION # FILLED WRITTE N DRUG LABEL QTY DAYS STRENGTH MME [facility] REFILL NO. REFILLS STATE PATIENT [id number] 06/02/2023 06/02/2023 clonazePAM 7.0 7 0.25 MG NA Toya, Briana L [employer] - [id number] [employer] [place], [place] [id number] 04/28/2023 04/28/2023 clonazePAM 7.0 7 0.25 MG NA Toya, Briana L [employer] - [id number] [employer] [place], [place] [id number] 03/05/2023 03/05/2023 clonazePAM 7.0 7 0.25 MG NA Toya, Briana L [employer] - [id number] [facility] [place], [place] [id number] 01/01/2023 01/01/2023 clonazePAM 7.0 7 0.25 MG NA Briana Pittman L [employer] - [id number] [place] [facility] [place] PRESCRIPTION # FILLED WRITTEN DRUG LABEL QTY DAYS STRENGTH MME [facility] REFILL NO. REFILLS STATE 09/25/2022 09/25/2022 clonazePAM 5.0 5 0.25 MG NA Briana Pittman L [employer] - [id number] [facility] [place], [place] 1 [id number] 07/10/2022 07/10/2022 clonazePAM 5.0 5 0.25 MG NA Briana Pittman L [employer] - [id number] PRESCRIPTION # FILLED WRITTEN DRUG LABEL QTY DAYS STRENGTH MME [facility] REFILL NO. REFILLS STATE 01/01/2023 01/01/2023 clonazePAM 7.0 7 0.25 MG NA Briana Pittman L [employer] - [id number] [facility], [place] 1 [id number] 12/11/2022 12/11/2022 clonazePAM 5.0 5 0.25 MG NA Briana Pittman L [employer] - [id number] [facility] [place], [place] 1 [id number] 09/25/2022 09/25/2022 clonazePAM 5.0 5 0.25 MG NA Toya Briana L [employer] - [id number] [facility] [place], [place] 1 [id number] 07/10/2022 07/10/2022 clonazePAM 5.0 5 0.25 MG NA Alan Pittmani L [employer] - [id number] PRESCRIPTION # FILLED WRITTE N DRUG LABEL QTY DAYS STRENGTH MME [facility] REFILL NO. REFILLS STATE PATIENT [id number] 04/28/2023 04/28/2023 clonazePAM 7.0 7 0.25 MG NA Briana Pittman [employer] - [id number] [employer] [place], [place] 0 [place] [id number] 03/05/2023 03/05/2023 clonazePAM 7.0 7 0.25 MG NA Alan Pittmani L [employer] - [id number] [employer] [place], [place] [id number] 01/01/2023 01/01/2023 clonazePAM 7.0 7 0.25 MG NA ToyaAlani L [employer] - [id number] [employer] [place], [place] [id number] 12/11/2022 12/11/2022 clonazePAM 5.0 5 0.25 MG NA Briana Pittman L [employer] - [id number] [place] Problems Problem Type SNOMED Code ICD Code Onset Dates Problem Status W/U Status Risk Notes Problem Tobacco user (582588349) Nicotine dependence, unspecified, uncomplicated (F17.200) Active confirmed Problem 71709877 Generalized anxiety disorder (F41.1) Active confirmed Problem Restless legs syndrome (94932129) Restless leg syndrome (G25.81) Active confirmed Problem 70439487 Schizophrenia, paranoid type (F20.0) Active confirmed Problem Memory impairment (151535053) Memory impairment (R41.3) Active confirmed Problem Tardive dyskinesia (593582192) Tardive dyskinesia (G24.01) Active confirmed Vital Signs Heart Rate 60 /min 07/21/2024 Temperature 98.2 degrees Fahrenheit 05/21/2024 BP laying 132/70 BP standing 134/58 Respiratory Rate 16 /min 05/21/2024 BP laying 132/70 BP standing 134/58 Oximetry 98 % 07/21/2024 Blood pressure diastolic 68 mm Hg 07/21/2024 Height 65 in 07/21/2024 Blood pressure systolic 128 mm Hg 07/21/2024 Weight 135 lbs 07/21/2024 BMI 22.46 kg/m2 07/21/2024 Encounters Encounter Location Date Provider Diagnosis [address] [address] 08/20/2023 Briana Hearti Schizophrenia, paranoid type F20.0 ; Tardive dyskinesia G24.01 and Generalized anxiety disorder F41.[address] [address] 09/24/2023 Briana Hearti Schizophrenia, paranoid type F20.0 ; Tardive dyskinesia G24.01 and Generalized anxiety disorder F41.[address] [address] 10/29/2023 Briana Hearti Schizophrenia, paranoid type F20.0 ; Tardive dyskinesia G24.01 and Generalized anxiety disorder F41.[address] [address] 12/03/2023 rBiana Pittman Patient underweight R63.6 ; Non-tobacco user Z78.9 ; Nutritional counseling Z71.3 ; Schizophrenia, paranoid type F20.0 ; Tardive dyskinesia G24.01 ; Generalized anxiety disorder F41.1 and Dizziness R42 [address] [address] 01/16/2024 Pradeep Maki Schizophrenia, paranoid type F20.0 ; Generalized anxiety disorder F41.1 and Tardive dyskinesia G24.[address] [address] 02/20/2024 Pradeep Maki Generalized anxiety disorder F41.1 ; Schizophrenia, paranoid type F20.0 ; Tardive dyskinesia G24.01 and Memory impairment R41.[address] [address] 03/19/2024 Pradeep Maki Generalized anxiety disorder F41.1 ; Schizophrenia, paranoid type F20.0 ; Tardive dyskinesia G24.01 and Memory impairment R41.[address] [address] 04/16/2024 Pradeep Maki Generalized anxiety disorder F41.1 ; Schizophrenia, paranoid type F20.0 ; Tardive dyskinesia G24.01 ; Memory impairment R41.3 and Nutritional counseling Z71.[address] [address] 05/21/2024 Pradeep Maki Generalized anxiety disorder F41.1 ; Schizophrenia, paranoid type F20.0 ; Tardive dyskinesia G24.01 ; Memory impairment R41.3 and Nutritional counseling Z71.[address] [address] 06/24/2024 Pradeep Maki Generalized anxiety disorder F41.1 ; Schizophrenia, paranoid type F20.0 ; Tardive dyskinesia G24.01 ; Memory impairment R41.3 and Nutritional counseling Z71.[address] [address] 07/21/2024 Pradeep Maki Generalized anxiety disorder F41.1 ; Schizophrenia, paranoid type F20.0 ; Tardive dyskinesia G24.01 ; Memory impairment R41.3 ; Restless leg syndrome G25.81 and Nutritional counseling Z71.[address] [address] 12/25/[address] [address] 03/19/[address] [address] 06/01/2024 Pradeep Maki Tardive dyskinesia G24.01 Assessments Encounter Date Diagnosis (ICD Code) Assessment Notes Treatment Notes Treatment Clinical Notes Section Notes 08/20/2023 Schizophrenia, paranoid type (ICD-10 - F20.0) 10/29/2023 Schizophrenia, paranoid type (ICD-10 - F20.0) 09/24/2023 Schizophrenia, paranoid type (ICD-10 - F20.0) 12/03/2023 Patient underweight (ICD-10 - R63.6) 01/16/2024 Generalized anxiety disorder (ICD-10 - F41.1) Duration (acute/chronic), stability (controlled/uncontrol led): Chronic, well controlled on current therapy Current medications/efficacy: Yes Previous medication trials: Invega Sustenna, Invega Trinza, Auestedo (worsening mood symptoms), Gabapentin (too sedating), benztropine (ineffective), Ingrezza ( spaced out ) Current/previous therapies: Follows up with therapy once weekly Examination as documented - see pertinent aspects of office visit documentation. Pertinent diagnostics: LABS MONITORED BY PCP AND SPECIALISTS RECOMMENDATIONS: Continue/modify medications as prescribed - educated patient/guardian on adverse effects, risks and benefits, as well as alternative treatments Consume well balanced diet, preferably low in saturated fats (solid at room temperature, such as butter, margarine, Crisco, etc) and low in sodium (<2,000mg per day). Consume plenty of fruits/vegetables, healthy grains/whole grains, unsaturated/healthy fats (liquid at room temperature, such as olive oil, sunflower seed oil, canola, vegetable, etc.). Exercise regularly - Develop an exercise routine. 30 minutes of moderate exercise (walking at a brisk pace) 5 times per week is recommended. You should work hard enough to cause a sweat but still be able to talk with others while exercising. Exercise improves overall health - improves blood pressure and blood sugar, helps control weight, reduces stress, and improves mood. Practice stress reduction techniques, such as guided imagery, journaling, aromatherapy, acupuncture/acupressu re, deep breathing, etc. Practice healthy sleep hygiene - maintain regular routine, no caffeine after 1PM, no exercise 1-2 hours prior to bedtime, keep bedroom dark and cool, no TV or electronics while in bed. Consider melatonin as needed. Consider cognitive behavioral therapy for insomnia (CBT-I). Consider/Continue therapy. Consider/Continue substance cessation therapy as needed - contact office if desiring medication assisted therapy. Manage co-morbid conditions. Continue monitoring symptoms - report persistent or worsening/concerning symptoms to the office or go to the ER. For mental health CRISIS, please reach out to [phone] (National Suicide and Crisis Lifeline), 911, go to the emergency department, or contact the [facility] Crisis Unit/Team. Follow up as scheduled in 5 weeks or sooner if necessary. Follow up with PCP and/or other specialists as advised. NEXT STEP: Consider medication adjustments as needed. 01/16/2024 Schizophrenia, paranoid type (ICD-10 - F20.0) Duration (acute/chronic), stability (controlled/uncontrol led): Chronic, well controlled on current therapy Current medications/efficacy: Yes Previous medication trials: Invega Sustenna, Invega Trinza, Auestedo (worsening mood symptoms), Gabapentin (too sedating), benztropine (ineffective), Ingrezza ( spaced out ) Current/previous therapies: Follows up with therapy once weekly Examination as documented - see pertinent aspects of office visit documentation. Pertinent diagnostics: LABS MONITORED BY PCP AND SPECIALISTS RECOMMENDATIONS: Continue/modify medications as prescribed - educated patient/guardian on adverse effects, risks and benefits, as well as alternative treatments Consume well balanced diet, preferably low in saturated fats (solid at room temperature, such as butter, margarine, Crisco, etc) and low in sodium (<2,000mg per day). Consume plenty of fruits/vegetables, healthy grains/whole grains, unsaturated/healthy fats (liquid at room temperature, such as olive oil, sunflower seed oil, canola, vegetable, etc.). Exercise regularly - Develop an exercise routine. 30 minutes of moderate exercise (walking at a brisk pace) 5 times per week is recommended. You should work hard enough to cause a sweat but still be able to talk with others while exercising. Exercise improves overall health - improves blood pressure and blood sugar, helps control weight, reduces stress, and improves mood. Practice stress reduction techniques, such as guided imagery, journaling, aromatherapy, acupuncture/acupressu re, deep breathing, etc. Practice healthy sleep hygiene - maintain regular routine, no caffeine after 1PM, no exercise 1-2 hours prior to bedtime, keep bedroom dark and cool, no TV or electronics while in bed. Consider melatonin as needed. Consider cognitive behavioral therapy for insomnia (CBT-I). Consider/Continue therapy. Consider/Continue substance cessation therapy as needed - contact office if desiring medication assisted therapy. Manage co-morbid conditions. Continue monitoring symptoms - report persistent or worsening/concerning symptoms to the office or go to the ER. For mental health CRISIS, please reach out to [phone] (National Suicide and Crisis Lifeline), 911, go to the emergency department, or contact the [facility] Crisis Unit/Team. Follow up as scheduled in 5 weeks or sooner if necessary. Follow up with PCP and/or other specialists as advised. NEXT STEP: Consider medication adjustments as needed. INJECTION AT UPCOMING APPOINTMENT. 02/20/2024 Generalized anxiety disorder (ICD-10 - F41.1) Duration (acute/chronic), stability (controlled/uncontrol led): Chronic, well controlled on current therapy Current medications/efficacy: Yes Previous medication trials: Invega Sustenna, Invega Trinza, Auestedo (worsening mood symptoms), Gabapentin (too sedating), benztropine (ineffective), Ingrezza ( spaced out ) Current/previous therapies: Follows up with therapy once weekly Examination as documented - see pertinent aspects of office visit documentation. Pertinent diagnostics: LABS MONITORED BY PCP AND SPECIALISTS RECOMMENDATIONS: Continue/modify medications as prescribed - educated patient/guardian on adverse effects, risks and benefits, as well as alternative treatments Consume well balanced diet, preferably low in saturated fats (solid at room temperature, such as butter, margarine, Crisco, etc) and low in sodium (<2,000mg per day). Consume plenty of fruits/vegetables, healthy grains/whole grains, unsaturated/healthy fats (liquid at room temperature, such as olive oil, sunflower seed oil, canola, vegetable, etc.). Exercise regularly - Develop an exercise routine. 30 minutes of moderate exercise (walking at a brisk pace) 5 times per week is recommended. You should work hard enough to cause a sweat but still be able to talk with others while exercising. Exercise improves overall health - improves blood pressure and blood sugar, helps control weight, reduces stress, and improves mood. Practice stress reduction techniques, such as guided imagery, journaling, aromatherapy, acupuncture/acupressu re, deep breathing, etc. Practice healthy sleep hygiene - maintain regular routine, no caffeine after 1PM, no exercise 1-2 hours prior to bedtime, keep bedroom dark and cool, no TV or electronics while in bed. Consider melatonin as needed. Consider cognitive behavioral therapy for insomnia (CBT-I). Consider/Continue therapy. Consider/Continue substance cessation therapy as needed - contact office if desiring medication assisted therapy. Manage co-morbid conditions. Continue monitoring symptoms - report persistent or worsening/concerning symptoms to the office or go to the ER. For mental health CRISIS, please reach out to [phone] (National Suicide and Crisis Lifeline), 911, go to the emergency department, or contact the [facility] Crisis Unit/Team. Follow up as scheduled in 4 weeks or sooner if necessary. Follow up with PCP and/or other specialists as advised. NEXT STEP: Consider medication adjustments as needed. 03/19/2024 Generalized anxiety disorder (ICD-10 - F41.1) Duration (acute/chronic), stability (controlled/uncontrol led): Chronic, well controlled on current therapy Current medications/efficacy: Yes Previous medication trials: Invega Sustenna, Invega Trinza, Auestedo (worsening mood symptoms), Gabapentin (too sedating), benztropine (ineffective), Ingrezza ( spaced out ) Current/previous therapies: Follows up with therapy once weekly Examination as documented - see pertinent aspects of office visit documentation. Pertinent diagnostics: LABS MONITORED BY PCP AND SPECIALISTS RECOMMENDATIONS: Continue/modify medications as prescribed - educated patient/guardian on adverse effects, risks and benefits, as well as alternative treatments Consume well balanced diet, preferably low in saturated fats (solid at room temperature, such as butter, margarine, Crisco, etc) and low in sodium (<2,000mg per day). Consume plenty of fruits/vegetables, healthy grains/whole grains, unsaturated/healthy fats (liquid at room temperature, such as olive oil, sunflower seed oil, canola, vegetable, etc.). Exercise regularly - Develop an exercise routine. 30 minutes of moderate exercise (walking at a brisk pace) 5 times per week is recommended. You should work hard enough to cause a sweat but still be able to talk with others while exercising. Exercise improves overall health - improves blood pressure and blood sugar, helps control weight, reduces stress, and improves mood. Practice stress reduction techniques, such as guided imagery, journaling, aromatherapy, acupuncture/acupressu re, deep breathing, etc. Practice healthy sleep hygiene - maintain regular routine, no caffeine after 1PM, no exercise 1-2 hours prior to bedtime, keep bedroom dark and cool, no TV or electronics while in bed. Consider melatonin as needed. Consider cognitive behavioral therapy for insomnia (CBT-I). Consider/Continue therapy. Consider/Continue substance cessation therapy as needed - contact office if desiring medication assisted therapy. Manage co-morbid conditions. Continue monitoring symptoms - report persistent or worsening/concerning symptoms to the office or go to the ER. For mental health CRISIS, please reach out to [phone] (National Suicide and Crisis Lifeline), 911, go to the emergency department, or contact the [facility] Crisis Unit/Team. Follow up as scheduled in 4 weeks or sooner if necessary. Follow up with PCP and/or other specialists as advised. NEXT STEP: Consider medication adjustments as needed. 04/16/2024 Generalized anxiety disorder (ICD-10 - F41.1) Duration (acute/chronic), stability (controlled/uncontrol led): Chronic, well controlled on current therapy Current medications/efficacy: Yes Previous medication trials: Invega Sustenna, Invega Trinza, Auestedo (worsening mood symptoms), Gabapentin (too sedating), benztropine (ineffective), Ingrezza ( spaced out ) Current/previous therapies: Follows up with therapy once weekly Examination as documented - see pertinent aspects of office visit documentation. Pertinent diagnostics: LABS MONITORED BY PCP AND SPECIALISTS RECOMMENDATIONS: Continue/modify medications as prescribed - educated patient/guardian on adverse effects, risks and benefits, as well as alternative treatments Consume well balanced diet, preferably low in saturated fats (solid at room temperature, such as butter, margarine, Crisco, etc) and low in sodium (<2,000mg per day). Consume plenty of fruits/vegetables, healthy grains/whole grains, unsaturated/healthy fats (liquid at room temperature, such as olive oil, sunflower seed oil, canola, vegetable, etc.). Exercise regularly - Develop an exercise routine. 30 minutes of moderate exercise (walking at a brisk pace) 5 times per week is recommended. You should work hard enough to cause a sweat but still be able to talk with others while exercising. Exercise improves overall health - improves blood pressure and blood sugar, helps control weight, reduces stress, and improves mood. Practice stress reduction techniques, such as guided imagery, journaling, aromatherapy, acupuncture/acupressu re, deep breathing, etc. Practice healthy sleep hygiene - maintain regular routine, no caffeine after 1PM, no exercise 1-2 hours prior to bedtime, keep bedroom dark and cool, no TV or electronics while in bed. Consider melatonin as needed. Consider cognitive behavioral therapy for insomnia (CBT-I). Consider/Continue therapy. Consider/Continue substance cessation therapy as needed - contact office if desiring medication assisted therapy. Manage co-morbid conditions. Continue monitoring symptoms - report persistent or worsening/concerning symptoms to the office or go to the ER. For mental health CRISIS, please reach out to [phone] (National Suicide and Crisis Lifeline), 911, go to the emergency department, or contact the [facility] Crisis Unit/Team. Follow up as scheduled in 4 weeks or sooner if necessary. Follow up with PCP and/or other specialists as advised. NEXT STEP: Consider medication adjustments as needed. 05/21/2024 Generalized anxiety disorder (ICD-10 - F41.1) Duration (acute/chronic), stability (controlled/uncontrol led): Chronic, well controlled on current therapy Current medications/efficacy: Yes Previous medication trials: Invega Sustenna, Invega Trinza, Auestedo (worsening mood symptoms), Gabapentin (too sedating), benztropine (ineffective), Ingrezza ( spaced out ) Current/previous therapies: Follows up with therapy once weekly Examination as documented - see pertinent aspects of office visit documentation. Pertinent diagnostics: LABS MONITORED BY PCP AND SPECIALISTS RECOMMENDATIONS: Continue/modify medications as prescribed - educated patient/guardian on adverse effects, risks and benefits, as well as alternative treatments Consume well balanced diet, preferably low in saturated fats (solid at room temperature, such as butter, margarine, Crisco, etc) and low in sodium (<2,000mg per day). Consume plenty of fruits/vegetables, healthy grains/whole grains, unsaturated/healthy fats (liquid at room temperature, such as olive oil, sunflower seed oil, canola, vegetable, etc.). Exercise regularly - Develop an exercise routine. 30 minutes of moderate exercise (walking at a brisk pace) 5 times per week is recommended. You should work hard enough to cause a sweat but still be able to talk with others while exercising. Exercise improves overall health - improves blood pressure and blood sugar, helps control weight, reduces stress, and improves mood. Practice stress reduction techniques, such as guided imagery, journaling, aromatherapy, acupuncture/acupressu re, deep breathing, etc. Practice healthy sleep hygiene - maintain regular routine, no caffeine after 1PM, no exercise 1-2 hours prior to bedtime, keep bedroom dark and cool, no TV or electronics while in bed. Consider melatonin as needed. Consider cognitive behavioral therapy for insomnia (CBT-I). Consider/Continue therapy. Consider/Continue substance cessation therapy as needed - contact office if desiring medication assisted therapy. Manage co-morbid conditions. Continue monitoring symptoms - report persistent or worsening/concerning symptoms to the office or go to the ER. For mental health CRISIS, please reach out to [phone] (National Suicide and Crisis Lifeline), 911, go to the emergency department, or contact the [facility] Crisis Unit/Team. Follow up as scheduled in 4 weeks or sooner if necessary. Follow up with PCP and/or other specialists as advised. NEXT STEP: Consider medication adjustments as needed. 06/01/2024 Tardive dyskinesia (ICD-10 - G24.01) 06/24/2024 Generalized anxiety disorder (ICD-10 - F41.1) Duration (acute/chronic), stability (controlled/uncontrol led): Chronic, well controlled on current therapy Current medications/efficacy: Yes Previous medication trials: Invega Sustenna, Invega Trinza, Auestedo (worsening mood symptoms), Gabapentin (too sedating), benztropine (ineffective), Ingrezza ( spaced out ) Current/previous therapies: Follows up with therapy once weekly Examination as documented - see pertinent aspects of office visit documentation. Pertinent diagnostics: LABS MONITORED BY PCP AND SPECIALISTS RECOMMENDATIONS: Continue/modify medications as prescribed - educated patient/guardian on adverse effects, risks and benefits, as well as alternative treatments Consume well balanced diet, preferably low in saturated fats (solid at room temperature, such as butter, margarine, Crisco, etc) and low in sodium (<2,000mg per day). Consume plenty of fruits/vegetables, healthy grains/whole grains, unsaturated/healthy fats (liquid at room temperature, such as olive oil, sunflower seed oil, canola, vegetable, etc.). Exercise regularly - Develop an exercise routine. 30 minutes of moderate exercise (walking at a brisk pace) 5 times per week is recommended. You should work hard enough to cause a sweat but still be able to talk with others while exercising. Exercise improves overall health - improves blood pressure and blood sugar, helps control weight, reduces stress, and improves mood. Practice stress reduction techniques, such as guided imagery, journaling, aromatherapy, acupuncture/acupressu re, deep breathing, etc. Practice healthy sleep hygiene - maintain regular routine, no caffeine after 1PM, no exercise 1-2 hours prior to bedtime, keep bedroom dark and cool, no TV or electronics while in bed. Consider melatonin as needed. Consider cognitive behavioral therapy for insomnia (CBT-I). Consider/Continue therapy. Consider/Continue substance cessation therapy as needed - contact office if desiring medication assisted therapy. Manage co-morbid conditions. Continue monitoring symptoms - report persistent or worsening/concerning symptoms to the office or go to the ER. For mental health CRISIS, please reach out to [phone] ([employer] Suicide and Crisis Lifeline), 911, go to the emergency department, or contact the [facility] Crisis Unit/Team. Follow up as scheduled in 4 weeks or sooner if necessary. Follow up with PCP and/or other specialists as advised. NEXT STEP: Consider medication adjustments as needed. 07/21/2024 Generalized anxiety disorder (ICD-10 - F41.1) Duration (acute/chronic), stability (controlled/uncontrol led): Chronic, well controlled on current therapy Current medications/efficacy: Yes Previous medication trials: Invega Sustenna, Invega Trinza, Auestedo (worsening mood symptoms), Gabapentin (too sedating), benztropine (ineffective), Ingrezza ( spaced out ) Current/previous therapies: Follows up with therapy once weekly Examination as documented - see pertinent aspects of office visit documentation. Pertinent diagnostics: LABS MONITORED BY PCP AND SPECIALISTS RECOMMENDATIONS: Continue/modify medications as prescribed - educated patient/guardian on adverse effects, risks and benefits, as well as alternative treatments Consume well balanced diet, preferably low in saturated fats (solid at room temperature, such as butter, margarine, Crisco, etc) and low in sodium (<2,000mg per day). Consume plenty of fruits/vegetables, healthy grains/whole grains, unsaturated/healthy fats (liquid at room temperature, such as olive oil, sunflower seed oil, canola, vegetable, etc.). Exercise regularly - Develop an exercise routine. 30 minutes of moderate exercise (walking at a brisk pace) 5 times per week is recommended. You should work hard enough to cause a sweat but still be able to talk with others while exercising. Exercise improves overall health - improves blood pressure and blood sugar, helps control weight, reduces stress, and improves mood. Practice stress reduction techniques, such as guided imagery, journaling, aromatherapy, acupuncture/acupressu re, deep breathing, etc. Practice healthy sleep hygiene - maintain regular routine, no caffeine after 1PM, no exercise 1-2 hours prior to bedtime, keep bedroom dark and cool, no TV or electronics while in bed. Consider melatonin as needed. Consider cognitive behavioral therapy for insomnia (CBT-I). Consider/Continue therapy. Consider/Continue substance cessation therapy as needed - contact office if desiring medication assisted therapy. Manage co-morbid conditions. Continue monitoring symptoms - report persistent or worsening/concerning symptoms to the office or go to the ER. For mental health CRISIS, please reach out to [phone] ([employer] Suicide and Crisis Lifeline), 911, go to the emergency department, or contact the [facility] Crisis Unit/Team. Follow up as scheduled in 4 weeks or sooner if necessary. Follow up with PCP and/or other specialists as advised. NEXT STEP: Consider medication adjustments as needed. 07/21/2024 Schizophrenia, paranoid type (ICD-10 - F20.0) Duration (acute/chronic), stability (controlled/uncontrol led): Chronic, well controlled on current therapy Current medications/efficacy: Yes Previous medication trials: Invega Sustenna, Invega Trinza, Auestedo (worsening mood symptoms), Gabapentin (too sedating), benztropine (ineffective), Ingrezza ( spaced out ) Current/previous therapies: Follows up with therapy once weekly Examination as documented - see pertinent aspects of office visit documentation. Pertinent diagnostics: LABS MONITORED BY PCP AND SPECIALISTS RECOMMENDATIONS: CONTINUE low dose trihexyphenidyl due to reported noticeable improvement in TD with medication and NO adverse effects - educated patient/guardian on adverse effects, risks and benefits, as well as alternative treatments CONTINUE clonazepam 0.25mg once nightly only at bedtime to assist with RLS - educated patient/guardian on adverse effects, risks and benefits, as well as alternative treatments Continue/modify other medications as prescribed - educated patient/guardian on adverse effects, risks and benefits, as well as alternative treatments Consume well balanced diet, preferably low in saturated fats (solid at room temperature, such as butter, margarine, Crisco, etc) and low in sodium (<2,000mg per day). Consume plenty of fruits/vegetables, healthy grains/whole grains, unsaturated/healthy fats (liquid at room temperature, such as olive oil, sunflower seed oil, canola, vegetable, etc.). Exercise regularly - Develop an exercise routine. 30 minutes of moderate exercise (walking at a brisk pace) 5 times per week is recommended. You should work hard enough to cause a sweat but still be able to talk with others while exercising. Exercise improves overall health - improves blood pressure and blood sugar, helps control weight, reduces stress, and improves mood. Practice stress reduction techniques, such as guided imagery, journaling, aromatherapy, acupuncture/acupressu re, deep breathing, etc. Practice healthy sleep hygiene - maintain regular routine, no caffeine after 1PM, no exercise 1-2 hours prior to bedtime, keep bedroom dark and cool, no TV or electronics while in bed. Consider melatonin as needed. Consider cognitive behavioral therapy for insomnia (CBT-I). Consider/Continue therapy. Consider/Continue substance cessation therapy as needed - contact office if desiring medication assisted therapy. Manage co-morbid conditions. Continue monitoring symptoms - report persistent or worsening/concerning symptoms to the office or go to the ER. For mental health CRISIS, please reach out to [phone] ([employer] Suicide and Crisis Lifeline), 911, go to the emergency department, or contact the [facility] Crisis Unit/Team. Follow up as scheduled in 4 weeks or sooner if necessary. Follow up with PCP and/or other specialists as advised. NEXT STEP: Consider medication adjustments as needed. 06/24/2024 Schizophrenia, paranoid type (ICD-10 - F20.0) Duration (acute/chronic), stability (controlled/uncontrol led): Chronic, well controlled on current therapy Current medications/efficacy: Yes Previous medication trials: Invega Sustenna, Invega Trinza, Auestedo (worsening mood symptoms), Gabapentin (too sedating), benztropine (ineffective), Ingrezza ( spaced out ) Current/previous therapies: Follows up with therapy once weekly Examination as documented - see pertinent aspects of office visit documentation. Pertinent diagnostics: LABS MONITORED BY PCP AND SPECIALISTS RECOMMENDATIONS: STOP gabapentin as discussed due to inefficacy - educated patient/guardian on adverse effects, risks and benefits, as well as alternative treatments CONTINUE low dose trihexyphenidyl due to reported noticeable improvement in TD with medication and NO adverse effects - educated patient/guardian on adverse effects, risks and benefits, as well as alternative treatments CONTINUE clonazepam 0.25mg once nightly only at bedtime to assist with RLS - educated patient/guardian on adverse effects, risks and benefits, as well as alternative treatments Continue/modify other medications as prescribed - educated patient/guardian on adverse effects, risks and benefits, as well as alternative treatments Consume well balanced diet, preferably low in saturated fats (solid at room temperature, such as butter, margarine, Crisco, etc) and low in sodium (<2,000mg per day). Consume plenty of fruits/vegetables, healthy grains/whole grains, unsaturated/healthy fats (liquid at room temperature, such as olive oil, sunflower seed oil, canola, vegetable, etc.). Exercise regularly - Develop an exercise routine. 30 minutes of moderate exercise (walking at a brisk pace) 5 times per week is recommended. You should work hard enough to cause a sweat but still be able to talk with others while exercising. Exercise improves overall health - improves blood pressure and blood sugar, helps control weight, reduces stress, and improves mood. Practice stress reduction techniques, such as guided imagery, journaling, aromatherapy, acupuncture/acupressu re, deep breathing, etc. Practice healthy sleep hygiene - maintain regular routine, no caffeine after 1PM, no exercise 1-2 hours prior to bedtime, keep bedroom dark and cool, no TV or electronics while in bed. Consider melatonin as needed. Consider cognitive behavioral therapy for insomnia (CBT-I). Consider/Continue therapy. Consider/Continue substance cessation therapy as needed - contact office if desiring medication assisted therapy. Manage co-morbid conditions. Continue monitoring symptoms - report persistent or worsening/concerning symptoms to the office or go to the ER. For mental health CRISIS, please reach out to [phone] (National Suicide and Crisis Lifeline), 911, go to the emergency department, or contact the [facility] Crisis Unit/Team. Follow up as scheduled in 4 weeks or sooner if necessary. Follow up with PCP and/or other specialists as advised. NEXT STEP: Consider medication adjustments as needed. 05/21/2024 Schizophrenia, paranoid type (ICD-10 - F20.0) Duration (acute/chronic), stability (controlled/uncontrol led): Chronic, well controlled on current therapy Current medications/efficacy: Yes Previous medication trials: Invega Sustenna, Invega Trinza, Auestedo (worsening mood symptoms), Gabapentin (too sedating), benztropine (ineffective), Ingrezza ( spaced out ) Current/previous therapies: Follows up with therapy once weekly Examination as documented - see pertinent aspects of office visit documentation. Pertinent diagnostics: LABS MONITORED BY PCP AND SPECIALISTS - ORTHOSTATIC VITALS IN OFFICE TODAY NEGATIVE Patient and provider discussed TD management - provider noted that patient's symptoms seemed less severe today in office. Provider wonders if patient's gabapentin is contributing to improvements in TD/restless leg. Provider discussed repeating orthostatic vitals in office today to ensure patient's blood pressure is not dropping inappropriately with standing. Provider discussed holding off on restarting medication for TD since symptoms seem improved today and symptoms do not interfere with ADLs. Patient verbalized understanding and agreement with all of the above. RECOMMENDATIONS: INCREASE gabapentin as prescribed to assist further with restless leg syndrome - educated patient/guardian on adverse effects, risks and benefits, as well as alternative treatments Continue/modify other medications as prescribed - educated patient/guardian on adverse effects, risks and benefits, as well as alternative treatments Consume well balanced diet, preferably low in saturated fats (solid at room temperature, such as butter, margarine, Crisco, etc) and low in sodium (<2,000mg per day). Consume plenty of fruits/vegetables, healthy grains/whole grains, unsaturated/healthy fats (liquid at room temperature, such as olive oil, sunflower seed oil, canola, vegetable, etc.). Exercise regularly - Develop an exercise routine. 30 minutes of moderate exercise (walking at a brisk pace) 5 times per week is recommended. You should work hard enough to cause a sweat but still be able to talk with others while exercising. Exercise improves overall health - improves blood pressure and blood sugar, helps control weight, reduces stress, and improves mood. Practice stress reduction techniques, such as guided imagery, journaling, aromatherapy, acupuncture/acupressu re, deep breathing, etc. Practice healthy sleep hygiene - maintain regular routine, no caffeine after 1PM, no exercise 1-2 hours prior to bedtime, keep bedroom dark and cool, no TV or electronics while in bed. Consider melatonin as needed. Consider cognitive behavioral therapy for insomnia (CBT-I). Consider/Continue therapy. Consider/Continue substance cessation therapy as needed - contact office if desiring medication assisted therapy. Manage co-morbid conditions. Continue monitoring symptoms - report persistent or worsening/concerning symptoms to the office or go to the ER. For mental health CRISIS, please reach out to [phone] (National Suicide and Crisis Lifeline), 911, go to the emergency department, or contact the [facility] Crisis Unit/Team. Follow up as scheduled in 4 weeks or sooner if necessary. Follow up with PCP and/or other specialists as advised. NEXT STEP: Consider medication adjustments as needed. Consider restarting low dose trihexyphenydil pending continued stability. of orthostatic vitals and exacerbation/worsenin g of TD. 04/16/2024 Schizophrenia, paranoid type (ICD-10 - F20.0) Duration (acute/chronic), stability (controlled/uncontrol led): Chronic, well controlled on current therapy Current medications/efficacy: Yes Previous medication trials: Invega Sustenna, Invega Trinza, Auestedo (worsening mood symptoms), Gabapentin (too sedating), benztropine (ineffective), Ingrezza ( spaced out ) Current/previous therapies: Follows up with therapy once weekly Examination as documented - see pertinent aspects of office visit documentation. Pertinent diagnostics: LABS MONITORED BY PCP AND SPECIALISTS TD reportedly at baseline, no acute changes since last appointment. 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 Patient no longer having dizziness with standing/walking, see HPI. However, provider and patient agree to postponse restarting low dose trihexyphenydil for TD until repeat orthostatic vitals can be obtained. DETAILS FROM PREVIOUS APPOINTMENT: Orthostatic vitals repeated today, LAYLA Koehler to enter results - no orthostatsis noted, will repeat at 1 month follow up - if contniued stability at follow up, will consider restarting low dose trihexyphenydil to assist with TD. RECOMMENDATIONS: Continue/modify medications as prescribed - educated patient/guardian on adverse effects, risks and benefits, as well as alternative treatments Consume well balanced diet, preferably low in saturated fats (solid at room temperature, such as butter, margarine, Crisco, etc) and low in sodium (<2,000mg per day). Consume plenty of fruits/vegetables, healthy grains/whole grains, unsaturated/healthy fats (liquid at room temperature, such as olive oil, sunflower seed oil, canola, vegetable, etc.). Exercise regularly - Develop an exercise routine. 30 minutes of moderate exercise (walking at a brisk pace) 5 times per week is recommended. You should work hard enough to cause a sweat but still be able to talk with others while exercising. Exercise improves overall health - improves blood pressure and blood sugar, helps control weight, reduces stress, and improves mood. Practice stress reduction techniques, such as guided imagery, journaling, aromatherapy, acupuncture/acupressu re, deep breathing, etc. Practice healthy sleep hygiene - maintain regular routine, no caffeine after 1PM, no exercise 1-2 hours prior to bedtime, keep bedroom dark and cool, no TV or electronics while in bed. Consider melatonin as needed. Consider cognitive behavioral therapy for insomnia (CBT-I). Consider/Continue therapy. Consider/Continue substance cessation therapy as needed - contact office if desiring medication assisted therapy. Manage co-morbid conditions. Continue monitoring symptoms - report persistent or worsening/concerning symptoms to the office or go to the ER. For mental health CRISIS, please reach out to [phone] ([employer] Suicide and Crisis Lifeline), 911, go to the emergency department, or contact the [facility] Crisis Unit/Team. Follow up as scheduled in 4 weeks or sooner if necessary. Follow up with PCP and/or other specialists as advised. NEXT STEP: Consider medication adjustments as needed. REPEAT ORTHOSTATIC VITALS at follow up - consider restarting low dose trihexyphenydil pending continued stability. 03/19/2024 Schizophrenia, paranoid type (ICD-10 - F20.0) Duration (acute/chronic), stability (controlled/uncontrol led): Chronic, well controlled on current therapy Current medications/efficacy: Yes Previous medication trials: Invega Sustenna, Invega Trinza, Auestedo (worsening mood symptoms), Gabapentin (too sedating), benztropine (ineffective), Ingrezza ( spaced out ) Current/previous therapies: Follows up with therapy once weekly Examination as documented - see pertinent aspects of office visit documentation. Pertinent diagnostics: LABS MONITORED BY PCP AND SPECIALISTS TD reportedly at baseline, no acute changes since last appointment. 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 Patient no longer having dizziness with standing/walking, see HPI. However, provider and patient agree to postponse restarting low dose trihexyphenydil for TD until repeat orthostatic vitals can be obtained. DETAILS FROM PREVIOUS APPOINTMENT: Orthostatic vitals repeated today, LAYLA Koehler to enter results - no orthostatsis noted, will repeat at 1 month follow up - if contniued stability at follow up, will consider restarting low dose trihexyphenydil to assist with TD. RECOMMENDATIONS: Continue/modify medications as prescribed - educated patient/guardian on adverse effects, risks and benefits, as well as alternative treatments Consume well balanced diet, preferably low in saturated fats (solid at room temperature, such as butter, margarine, Crisco, etc) and low in sodium (<2,000mg per day). Consume plenty of fruits/vegetables, healthy grains/whole grains, unsaturated/healthy fats (liquid at room temperature, such as olive oil, sunflower seed oil, canola, vegetable, etc.). Exercise regularly - Develop an exercise routine. 30 minutes of moderate exercise (walking at a brisk pace) 5 times per week is recommended. You should work hard enough to cause a sweat but still be able to talk with others while exercising. Exercise improves overall health - improves blood pressure and blood sugar, helps control weight, reduces stress, and improves mood. Practice stress reduction techniques, such as guided imagery, journaling, aromatherapy, acupuncture/acupressu re, deep breathing, etc. Practice healthy sleep hygiene - maintain regular routine, no caffeine after 1PM, no exercise 1-2 hours prior to bedtime, keep bedroom dark and cool, no TV or electronics while in bed. Consider melatonin as needed. Consider cognitive behavioral therapy for insomnia (CBT-I). Consider/Continue therapy. Consider/Continue substance cessation therapy as needed - contact office if desiring medication assisted therapy. Manage co-morbid conditions. Continue monitoring symptoms - report persistent or worsening/concerning symptoms to the office or go to the ER. For mental health CRISIS, please reach out to [phone] (National Suicide and Crisis Lifeline), 911, go to the emergency department, or contact the [facility] Crisis Unit/Team. Follow up as scheduled in 4 weeks or sooner if necessary. Follow up with PCP and/or other specialists as advised. NEXT STEP: Consider medication adjustments as needed. REPEAT ORTHOSTATIC VITALS at follow up - consider restarting low dose trihexyphenydil pending continued stability. 02/20/2024 Schizophrenia, paranoid type (ICD-10 - F20.0) Duration (acute/chronic), stability (controlled/uncontrol led): Chronic, well controlled on current therapy Current medications/efficacy: Yes Previous medication trials: Invega Sustenna, Invega Trinza, Auestedo (worsening mood symptoms), Gabapentin (too sedating), benztropine (ineffective), Ingrezza ( spaced out ) Current/previous therapies: Follows up with therapy once weekly Examination as documented - see pertinent aspects of office visit documentation. Pertinent diagnostics: LABS MONITORED BY PCP AND SPECIALISTS Orthostatic vitals repeated today, LAYLA Koehler to enter results - no orthostatsis noted, will repeat at 1 month follow up - if contniued stability at follow up, will consider restarting low dose trihexyphenydil to assist with TD. RECOMMENDATIONS: Continue/modify medications as prescribed - educated patient/guardian on adverse effects, risks and benefits, as well as alternative treatments Consume well balanced diet, preferably low in saturated fats (solid at room temperature, such as butter, margarine, Crisco, etc) and low in sodium (<2,000mg per day). Consume plenty of fruits/vegetables, healthy grains/whole grains, unsaturated/healthy fats (liquid at room temperature, such as olive oil, sunflower seed oil, canola, vegetable, etc.). Exercise regularly - Develop an exercise routine. 30 minutes of moderate exercise (walking at a brisk pace) 5 times per week is recommended. You should work hard enough to cause a sweat but still be able to talk with others while exercising. Exercise improves overall health - improves blood pressure and blood sugar, helps control weight, reduces stress, and improves mood. Practice stress reduction techniques, such as guided imagery, journaling, aromatherapy, acupuncture/acupressu re, deep breathing, etc. Practice healthy sleep hygiene - maintain regular routine, no caffeine after 1PM, no exercise 1-2 hours prior to bedtime, keep bedroom dark and cool, no TV or electronics while in bed. Consider melatonin as needed. Consider cognitive behavioral therapy for insomnia (CBT-I). Consider/Continue therapy. Consider/Continue substance cessation therapy as needed - contact office if desiring medication assisted therapy. Manage co-morbid conditions. Continue monitoring symptoms - report persistent or worsening/concerning symptoms to the office or go to the ER. For mental health CRISIS, please reach out to [phone] (National Suicide and Crisis Lifeline), 911, go to the emergency department, or contact the [facility] Crisis Unit/Team. Follow up as scheduled in 4 weeks or sooner if necessary. Follow up with PCP and/or other specialists as advised. NEXT STEP: Consider medication adjustments as needed. REPEAT ORTHOSTATIC VITALS at follow up - consider restarting low dose trihexyphenydil pending continued stability. 01/16/2024 Tardive dyskinesia (ICD-10 - G24.01) Duration (acute/chronic), stability (controlled/uncontrol led): Chronic, uncontrolled, has failed numerous medications in the past, see below - trihexiphenydil recently decreased due to orthostatic hypotension despite this agent having been helpful in decreasing severity of TD, patient completely discontinued medication, see HPI Current medications/efficacy: N/A - patient completely discontinued trihexiphenydil, see HPI Previous medication trials: Invega Sustenna, Invega Trinza, Auestedo (worsening mood symptoms), Gabapentin (too sedating), benztropine (ineffective), Ingrezza ( spaced out ) Current/previous therapies: Follows up with therapy once weekly Examination as documented - see pertinent aspects of office visit documentation. Pertinent diagnostics: LABS MONITORED BY PCP AND SPECIALISTS - orthostatic vital signs in office again positive, although slightly improved compared to previous measurements RECOMMENDATIONS: Discussed delaying restarting trihexiphenydil until orthostatic hypotension is well managed due to increased risk of falls and associated risks for intracranial hemorrhage and hip fracture - patient seeing cardiology for management of orthostatic hypotension and heart condition - will consider reintroducing trihexiphenydil at a low dose pending control of orthostatic hypotension - patient's tardive dyskinesia is overall mild and doesn't cause impairment in functioning at this time, so patient and case management verbalized understanding and agreement with plan This provider also advocated for patient to follow up with PCP to see if ropinirole could be increased to see if this helps with restless legs at night - patient and case management verbalized understanding and agreement with plan Continue/modify medications as prescribed - educated patient/guardian on adverse effects, risks and benefits, as well as alternative treatments Consume well balanced diet, preferably low in saturated fats (solid at room temperature, such as butter, margarine, Crisco, etc) and low in sodium (<2,000mg per day). Consume plenty of fruits/vegetables, healthy grains/whole grains, unsaturated/healthy fats (liquid at room temperature, such as olive oil, sunflower seed oil, canola, vegetable, etc.). Exercise regularly - Develop an exercise routine. 30 minutes of moderate exercise (walking at a brisk pace) 5 times per week is recommended. You should work hard enough to cause a sweat but still be able to talk with others while exercising. Exercise improves overall health - improves blood pressure and blood sugar, helps control weight, reduces stress, and improves mood. Practice stress reduction techniques, such as guided imagery, journaling, aromatherapy, acupuncture/acupressu re, deep breathing, etc. Practice healthy sleep hygiene - maintain regular routine, no caffeine after 1PM, no exercise 1-2 hours prior to bedtime, keep bedroom dark and cool, no TV or electronics while in bed. Consider melatonin as needed. Consider cognitive behavioral therapy for insomnia (CBT-I). Consider/Continue therapy. Consider/Continue substance cessation therapy as needed - contact office if desiring medication assisted therapy. Manage co-morbid conditions. Continue monitoring symptoms - report persistent or worsening/concerning symptoms to the office or go to the ER. For mental health CRISIS, please reach out to [phone] (National Suicide and Crisis Lifeline), 911, go to the emergency department, or contact the [facility] Crisis Unit/Team. Follow up as scheduled in 5 weeks or sooner if necessary. Follow up with PCP and/or other specialists as advised. NEXT STEP: Consider medication adjustments as needed. 12/03/2023 Non-tobacco user (ICD-10 - Z78.9) 09/24/2023 Tardive dyskinesia (ICD-10 - G24.01) Bentropine-ineffectiv e, Austedo-intolerable side effects, Ingrezza-intolerable side effects, Gabapentin-too sedating 07/21/2024 Tardive dyskinesia (ICD-10 - G24.01) See assessment and plan for schizophrenia 10/29/2023 Tardive dyskinesia (ICD-10 - G24.01) Bentropine-ineffectiv e, Austedo-intolerable side effects, Ingrezza-intolerable side effects, Gabapentin-too sedating Increase Trihexyphenidyl to 2mg TID with breakfast, lunch, and dinner. 08/20/2023 Tardive dyskinesia (ICD-10 - G24.01) Bentropine-ineffectiv e, Austedo-intolerable side effects, Ingrezza-intolerable side effects, Gabapentin-too sedating 08/20/2023 Generalized anxiety disorder (ICD-10 - F41.1) PDMP queued. Use discussed. She is using appropriately as needed for severe symptoms. No falls reported. Benzodiazepines are not recommended for long-term use due to potent and dangerous side effects that include increased drowsiness, memory impairment, increased irritability, mood changes, and worsening of PTSD symptoms. Benzodiazepines increase respiratory depression which can aggravate conditions such as sleep apnea and COPD leading to possible . They should also never be combined with alcohol, pain medications (especially opioids), or street drugs because this can lead to overdose and possible . If you are under the influence of benzodiazepines while operating a motor vehicle and are involved in a car accident you can be charged with driving while intoxicated. Benzodiazepine use increases unsteady gait thereby increasing the risk of falls, broken bones, and concussions. Benzodiazepine use is intended for short-term use, up to 3 weeks at most. Long-term use of benzos can lead to dependence, rebound anxiety/agitation, and withdrawal symptoms that include sleep disturbance, irritability, increased tension She wishes to continue with monthly follow ups for support. She will continue with social activities and weight loss. Client/Patient/G uardian is agreeable to above treatment plan and or changes and verbalized understanding. Continue all medication as prescribed. Provided informed consent with understanding of side effects, adverse effects, risks and benefits as well as alternative treatments as previously discussed with the above recommended medication and other aspects of the treatment programs. Discussed off label uses of medication. Agrees to return sooner if symptoms worsen or suicidal or homicidal ideations occur. Client verbalized understanding of information and is agreeable to plan of care. Questions addressed. 09/24/2023 Generalized anxiety disorder (ICD-10 - F41.1) PDMP queued. Use discussed. She is using appropriately as needed for severe symptoms. No falls reported. Benzodiazepines are not recommended for long-term use due to potent and dangerous side effects that include increased drowsiness, memory impairment, increased irritability, mood changes, and worsening of PTSD symptoms. Benzodiazepines increase respiratory depression which can aggravate conditions such as sleep apnea and COPD leading to possible . They should also never be combined with alcohol, pain medications (especially opioids), or street drugs because this can lead to overdose and possible . If you are under the influence of benzodiazepines while operating a motor vehicle and are involved in a car accident you can be charged with driving while intoxicated. Benzodiazepine use increases unsteady gait thereby increasing the risk of falls, broken bones, and concussions. Benzodiazepine use is intended for short-term use, up to 3 weeks at most. Long-term use of benzos can lead to dependence, rebound anxiety/agitation, and withdrawal symptoms that include sleep disturbance, irritability, increased tension She wishes to continue with monthly follow ups for support. She will continue with social activities and weight loss. Client/Patient/G uardian is agreeable to above treatment plan and or changes and verbalized understanding. Continue all medication as prescribed. Provided informed consent with understanding of side effects, adverse effects, risks and benefits as well as alternative treatments as previously discussed with the above recommended medication and other aspects of the treatment programs. Discussed off label uses of medication. Agrees to return sooner if symptoms worsen or suicidal or homicidal ideations occur. Client verbalized understanding of information and is agreeable to plan of care. Questions addressed. 10/29/2023 Generalized anxiety disorder (ICD-10 - F41.1) PDMP queued. Use discussed. She is using appropriately as needed for severe symptoms. No falls reported. Benzodiazepines are not recommended for long-term use due to potent and dangerous side effects that include increased drowsiness, memory impairment, increased irritability, mood changes, and worsening of PTSD symptoms. Benzodiazepines increase respiratory depression which can aggravate conditions such as sleep apnea and COPD leading to possible . They should also never be combined with alcohol, pain medications (especially opioids), or street drugs because this can lead to overdose and possible . If you are under the influence of benzodiazepines while operating a motor vehicle and are involved in a car accident you can be charged with driving while intoxicated. Benzodiazepine use increases unsteady gait thereby increasing the risk of falls, broken bones, and concussions. Benzodiazepine use is intended for short-term use, up to 3 weeks at most. Long-term use of benzos can lead to dependence, rebound anxiety/agitation, and withdrawal symptoms that include sleep disturbance, irritability, increased tension She wishes to continue with monthly follow ups for support. She will continue with social activities and weight loss. Client/Patient/G salbadorpasqualeian is agreeable to above treatment plan and or changes and verbalized understanding. Continue all medication as prescribed. Provided informed consent with understanding of side effects, adverse effects, risks and benefits as well as alternative treatments as previously discussed with the above recommended medication and other aspects of the treatment programs. Discussed off label uses of medication. Agrees to return sooner if symptoms worsen or suicidal or homicidal ideations occur. Client verbalized understanding of information and is agreeable to plan of care. Questions addressed. 12/03/2023 Nutritional counseling (ICD-10 - Z71.3) 02/20/2024 Tardive dyskinesia (ICD-10 - G24.01) Duration (acute/chronic), stability (controlled/uncontrol led): Chronic, uncontrolled, has failed numerous medications in the past, see below - trihexyphenydil reportedly helpful with TD movements (primarily oral movements); however, agent discontinued previously due to orthostatic hypotension, see previous notes Current medications/efficacy: N/A - patient completely discontinued trihexiphenydil, see HPI Previous medication trials: Invega Sustenna, Invega Trinza, Auestedo (worsening mood symptoms), Gabapentin (too sedating), benztropine (ineffective), Ingrezza ( spaced out ) Current/previous therapies: Follows up with therapy once weekly Examination as documented - see pertinent aspects of office visit documentation. Pertinent diagnostics: LABS MONITORED BY PCP AND SPECIALISTS Orthostatic vitals repeated today, LAYLA Koehler to enter results - no orthostatsis noted, will repeat at 1 month follow up - if contniued stability at follow up, will consider restarting low dose trihexyphenydil to assist with TD. RECOMMENDATIONS: Continue/modify medications as prescribed - educated patient/guardian on adverse effects, risks and benefits, as well as alternative treatments Consume well balanced diet, preferably low in saturated fats (solid at room temperature, such as butter, margarine, Crisco, etc) and low in sodium (<2,000mg per day). Consume plenty of fruits/vegetables, healthy grains/whole grains, unsaturated/healthy fats (liquid at room temperature, such as olive oil, sunflower seed oil, canola, vegetable, etc.). Exercise regularly - Develop an exercise routine. 30 minutes of moderate exercise (walking at a brisk pace) 5 times per week is recommended. You should work hard enough to cause a sweat but still be able to talk with others while exercising. Exercise improves overall health - improves blood pressure and blood sugar, helps control weight, reduces stress, and improves mood. Practice stress reduction techniques, such as guided imagery, journaling, aromatherapy, acupuncture/acupressu re, deep breathing, etc. Practice healthy sleep hygiene - maintain regular routine, no caffeine after 1PM, no exercise 1-2 hours prior to bedtime, keep bedroom dark and cool, no TV or electronics while in bed. Consider melatonin as needed. Consider cognitive behavioral therapy for insomnia (CBT-I). Consider/Continue therapy. Consider/Continue substance cessation therapy as needed - contact office if desiring medication assisted therapy. Manage co-morbid conditions. Continue monitoring symptoms - report persistent or worsening/concerning symptoms to the office or go to the ER. For mental health CRISIS, please reach out to [phone] ([employer] Suicide and Crisis Lifeline), 911, go to the emergency department, or contact the [facility] Crisis Unit/Team. Follow up as scheduled in 4 weeks or sooner if necessary. Follow up with PCP and/or other specialists as advised. NEXT STEP: Consider medication adjustments as needed. REPEAT ORTHOSTATIC VITALS at follow up - consider restarting low dose trihexyphenydil pending continued stability. 03/19/2024 Tardive dyskinesia (ICD-10 - G24.01) Duration (acute/chronic), stability (controlled/uncontrol led): Chronic, uncontrolled, has failed numerous medications in the past, see below - trihexyphenydil reportedly helpful with TD movements (primarily oral movements); however, agent discontinued previously due to orthostatic hypotension, see previous notes Current medications/efficacy: N/A - patient completely discontinued trihexiphenydil, see HPI Previous medication trials: Invega Sustenna, Invega Trinza, Auestedo (worsening mood symptoms), Gabapentin (too sedating), benztropine (ineffective), Ingrezza ( spaced out ) Current/previous therapies: Follows up with therapy once weekly Examination as documented - see pertinent aspects of office visit documentation. Pertinent diagnostics: LABS MONITORED BY PCP AND SPECIALISTS TD reportedly at baseline, no acute changes since last appointment. 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 Patient no longer having dizziness with standing/walking, see HPI. However, provider and patient agree to postponse restarting low dose trihexyphenydil for TD until repeat orthostatic vitals can be obtained. DETAILS FROM PREVIOUS APPOINTMENT: Orthostatic vitals repeated today, LAYLA Koehler to enter results - no orthostatsis noted, will repeat at 1 month follow up - if contniued stability at follow up, will consider restarting low dose trihexyphenydil to assist with TD. RECOMMENDATIONS: Continue/modify medications as prescribed - educated patient/guardian on adverse effects, risks and benefits, as well as alternative treatments Consume well balanced diet, preferably low in saturated fats (solid at room temperature, such as butter, margarine, Crisco, etc) and low in sodium (<2,000mg per day). Consume plenty of fruits/vegetables, healthy grains/whole grains, unsaturated/healthy fats (liquid at room temperature, such as olive oil, sunflower seed oil, canola, vegetable, etc.). Exercise regularly - Develop an exercise routine. 30 minutes of moderate exercise (walking at a brisk pace) 5 times per week is recommended. You should work hard enough to cause a sweat but still be able to talk with others while exercising. Exercise improves overall health - improves blood pressure and blood sugar, helps control weight, reduces stress, and improves mood. Practice stress reduction techniques, such as guided imagery, journaling, aromatherapy, acupuncture/acupressu re, deep breathing, etc. Practice healthy sleep hygiene - maintain regular routine, no caffeine after 1PM, no exercise 1-2 hours prior to bedtime, keep bedroom dark and cool, no TV or electronics while in bed. Consider melatonin as needed. Consider cognitive behavioral therapy for insomnia (CBT-I). Consider/Continue therapy. Consider/Continue substance cessation therapy as needed - contact office if desiring medication assisted therapy. Manage co-morbid conditions. Continue monitoring symptoms - report persistent or worsening/concerning symptoms to the office or go to the ER. For mental health CRISIS, please reach out to [phone] (National Suicide and Crisis Lifeline), 911, go to the emergency department, or contact the [facility] Crisis Unit/Team. Follow up as scheduled in 4 weeks or sooner if necessary. Follow up with PCP and/or other specialists as advised. NEXT STEP: Consider medication adjustments as needed. REPEAT ORTHOSTATIC VITALS at follow up - consider restarting low dose trihexyphenydil pending continued stability. 04/16/2024 Tardive dyskinesia (ICD-10 - G24.01) Duration (acute/chronic), stability (controlled/uncontrol led): Chronic, uncontrolled, has failed numerous medications in the past, see below - trihexyphenydil reportedly helpful with TD movements (primarily oral movements); however, agent discontinued previously due to orthostatic hypotension, see previous notes Current medications/efficacy: N/A - patient completely discontinued trihexiphenydil, see HPI Previous medication trials: Invega Sustenna, Invega Trinza, Auestedo (worsening mood symptoms), Gabapentin (too sedating), benztropine (ineffective), Ingrezza ( spaced out ) Current/previous therapies: Follows up with therapy once weekly Examination as documented - see pertinent aspects of office visit documentation. Pertinent diagnostics: LABS MONITORED BY PCP AND SPECIALISTS TD reportedly at baseline, no acute changes since last appointment. 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 Patient no longer having dizziness with standing/walking, see HPI. However, provider and patient agree to postponse restarting low dose trihexyphenydil for TD until repeat orthostatic vitals can be obtained. DETAILS FROM PREVIOUS APPOINTMENT: Orthostatic vitals repeated today, LAYLA Koehler to enter results - no orthostatsis noted, will repeat at 1 month follow up - if contniued stability at follow up, will consider restarting low dose trihexyphenydil to assist with TD. RECOMMENDATIONS: Continue/modify medications as prescribed - educated patient/guardian on adverse effects, risks and benefits, as well as alternative treatments Consume well balanced diet, preferably low in saturated fats (solid at room temperature, such as butter, margarine, Crisco, etc) and low in sodium (<2,000mg per day). Consume plenty of fruits/vegetables, healthy grains/whole grains, unsaturated/healthy fats (liquid at room temperature, such as olive oil, sunflower seed oil, canola, vegetable, etc.). Exercise regularly - Develop an exercise routine. 30 minutes of moderate exercise (walking at a brisk pace) 5 times per week is recommended. You should work hard enough to cause a sweat but still be able to talk with others while exercising. Exercise improves overall health - improves blood pressure and blood sugar, helps control weight, reduces stress, and improves mood. Practice stress reduction techniques, such as guided imagery, journaling, aromatherapy, acupuncture/acupressu re, deep breathing, etc. Practice healthy sleep hygiene - maintain regular routine, no caffeine after 1PM, no exercise 1-2 hours prior to bedtime, keep bedroom dark and cool, no TV or electronics while in bed. Consider melatonin as needed. Consider cognitive behavioral therapy for insomnia (CBT-I). Consider/Continue therapy. Consider/Continue substance cessation therapy as needed - contact office if desiring medication assisted therapy. Manage co-morbid conditions. Continue monitoring symptoms - report persistent or worsening/concerning symptoms to the office or go to the ER. For mental health CRISIS, please reach out to [phone] (National Suicide and Crisis Lifeline), 911, go to the emergency department, or contact the [facility] Crisis Unit/Team. Follow up as scheduled in 4 weeks or sooner if necessary. Follow up with PCP and/or other specialists as advised. NEXT STEP: Consider medication adjustments as needed. REPEAT ORTHOSTATIC VITALS at follow up - consider restarting low dose trihexyphenydil pending continued stability. 07/21/2024 Memory impairment (ICD-10 - R41.3) Duration (acute/chronic), stability (controlled/uncontrol led): Chronic, has reportedly been receiving memantine through psych services at [facility], this provider agreeable to continuing medication since patient has been tolerating well without complication or complaint Current medications/efficacy: Yes Previous medication trials: memantine Current/previous therapies: Follows up with therapy once weekly Examination as documented - see pertinent aspects of office visit documentation. Pertinent diagnostics: LABS MONITORED BY PCP AND SPECIALISTS Differential diagnoses: RECOMMENDATIONS: Continue/modify other medications as prescribed - educated patient/guardian on adverse effects, risks and benefits, as well as alternative treatments Consume well balanced diet, preferably low in saturated fats (solid at room temperature, such as butter, margarine, Crisco, etc) and low in sodium (<2,000mg per day). Consume plenty of fruits/vegetables, healthy grains/whole grains, unsaturated/healthy fats (liquid at room temperature, such as olive oil, sunflower seed oil, canola, vegetable, etc.). Exercise regularly - Develop an exercise routine. 30 minutes of moderate exercise (walking at a brisk pace) 5 times per week is recommended. You should work hard enough to cause a sweat but still be able to talk with others while exercising. Exercise improves overall health - improves blood pressure and blood sugar, helps control weight, reduces stress, and improves mood. Practice stress reduction techniques, such as guided imagery, journaling, aromatherapy, acupuncture/acupressu re, deep breathing, etc. Practice healthy sleep hygiene - maintain regular routine, no caffeine after 1PM, no exercise 1-2 hours prior to bedtime, keep bedroom dark and cool, no TV or electronics while in bed. Consider melatonin as needed. Consider cognitive behavioral therapy for insomnia (CBT-I). Consider/Continue therapy. Consider/Continue substance cessation therapy as needed - contact office if desiring medication assisted therapy. Manage co-morbid conditions. Continue monitoring symptoms - report persistent or worsening/concerning symptoms to the office or go to the ER. For mental health CRISIS, please reach out to [phone] (National Suicide and Crisis Lifeline), 911, go to the emergency department, or contact the [facility] Crisis Unit/Team. Follow up as scheduled or sooner if necessary. Follow up with PCP and/or other specialists as advised. NEXT STEP: Consider medication adjustments as needed. 05/21/2024 Tardive dyskinesia (ICD-10 - G24.01) See assessment and plan for schizophrenia 06/24/2024 Tardive dyskinesia (ICD-10 - G24.01) See assessment and plan for schizophrenia 07/21/2024 Restless leg syndrome (ICD-10 - G25.81) See above assessment and plans 05/21/2024 Memory impairment (ICD-10 - R41.3) Duration (acute/chronic), stability (controlled/uncontrol led): Chronic, has reportedly been receiving memantine through psych services at [facility], this provider agreeable to continuing medication since patient has been tolerating well without complication or complaint Current medications/efficacy: Yes Previous medication trials: memantine Current/previous therapies: Follows up with therapy once weekly Examination as documented - see pertinent aspects of office visit documentation. Pertinent diagnostics: LABS MONITORED BY PCP AND SPECIALISTS Differential diagnoses: RECOMMENDATIONS: Continue/modify other medications as prescribed - educated patient/guardian on adverse effects, risks and benefits, as well as alternative treatments Consume well balanced diet, preferably low in saturated fats (solid at room temperature, such as butter, margarine, Crisco, etc) and low in sodium (<2,000mg per day). Consume plenty of fruits/vegetables, healthy grains/whole grains, unsaturated/healthy fats (liquid at room temperature, such as olive oil, sunflower seed oil, canola, vegetable, etc.). Exercise regularly - Develop an exercise routine. 30 minutes of moderate exercise (walking at a brisk pace) 5 times per week is recommended. You should work hard enough to cause a sweat but still be able to talk with others while exercising. Exercise improves overall health - improves blood pressure and blood sugar, helps control weight, reduces stress, and improves mood. Practice stress reduction techniques, such as guided imagery, journaling, aromatherapy, acupuncture/acupressu re, deep breathing, etc. Practice healthy sleep hygiene - maintain regular routine, no caffeine after 1PM, no exercise 1-2 hours prior to bedtime, keep bedroom dark and cool, no TV or electronics while in bed. Consider melatonin as needed. Consider cognitive behavioral therapy for insomnia (CBT-I). Consider/Continue therapy. Consider/Continue substance cessation therapy as needed - contact office if desiring medication assisted therapy. Manage co-morbid conditions. Continue monitoring symptoms - report persistent or worsening/concerning symptoms to the office or go to the ER. For mental health CRISIS, please reach out to [phone] (National Suicide and Crisis Lifeline), 911, go to the emergency department, or contact the [facility] Crisis Unit/Team. Follow up as scheduled or sooner if necessary. Follow up with PCP and/or other specialists as advised. NEXT STEP: Consider medication adjustments as needed. 06/24/2024 Memory impairment (ICD-10 - R41.3) Duration (acute/chronic), stability (controlled/uncontrol led): Chronic, has reportedly been receiving memantine through psych services at [facility], this provider agreeable to continuing medication since patient has been tolerating well without complication or complaint Current medications/efficacy: Yes Previous medication trials: memantine Current/previous therapies: Follows up with therapy once weekly Examination as documented - see pertinent aspects of office visit documentation. Pertinent diagnostics: LABS MONITORED BY PCP AND SPECIALISTS Differential diagnoses: RECOMMENDATIONS: Continue/modify other medications as prescribed - educated patient/guardian on adverse effects, risks and benefits, as well as alternative treatments Consume well balanced diet, preferably low in saturated fats (solid at room temperature, such as butter, margarine, Crisco, etc) and low in sodium (<2,000mg per day). Consume plenty of fruits/vegetables, healthy grains/whole grains, unsaturated/healthy fats (liquid at room temperature, such as olive oil, sunflower seed oil, canola, vegetable, etc.). Exercise regularly - Develop an exercise routine. 30 minutes of moderate exercise (walking at a brisk pace) 5 times per week is recommended. You should work hard enough to cause a sweat but still be able to talk with others while exercising. Exercise improves overall health - improves blood pressure and blood sugar, helps control weight, reduces stress, and improves mood. Practice stress reduction techniques, such as guided imagery, journaling, aromatherapy, acupuncture/acupressu re, deep breathing, etc. Practice healthy sleep hygiene - maintain regular routine, no caffeine after 1PM, no exercise 1-2 hours prior to bedtime, keep bedroom dark and cool, no TV or electronics while in bed. Consider melatonin as needed. Consider cognitive behavioral therapy for insomnia (CBT-I). Consider/Continue therapy. Consider/Continue substance cessation therapy as needed - contact office if desiring medication assisted therapy. Manage co-morbid conditions. Continue monitoring symptoms - report persistent or worsening/concerning symptoms to the office or go to the ER. For mental health CRISIS, please reach out to [phone] (National Suicide and Crisis Lifeline), 911, go to the emergency department, or contact the [facility] Crisis Unit/Team. Follow up as scheduled or sooner if necessary. Follow up with PCP and/or other specialists as advised. NEXT STEP: Consider medication adjustments as needed. 04/16/2024 Memory impairment (ICD-10 - R41.3) Duration (acute/chronic), stability (controlled/uncontrol led): Chronic, has reportedly been receiving memantine through psych services at [facility], this provider agreeable to continuing medication since patient has been tolerating well without complication or complaint Current medications/efficacy: Yes Previous medication trials: memantine Current/previous therapies: Follows up with therapy once weekly Examination as documented - see pertinent aspects of office visit documentation. Pertinent diagnostics: LABS MONITORED BY PCP AND SPECIALISTS Differential diagnoses: RECOMMENDATIONS: Continue/modify other medications as prescribed - educated patient/guardian on adverse effects, risks and benefits, as well as alternative treatments Consume well balanced diet, preferably low in saturated fats (solid at room temperature, such as butter, margarine, Crisco, etc) and low in sodium (<2,000mg per day). Consume plenty of fruits/vegetables, healthy grains/whole grains, unsaturated/healthy fats (liquid at room temperature, such as olive oil, sunflower seed oil, canola, vegetable, etc.). Exercise regularly - Develop an exercise routine. 30 minutes of moderate exercise (walking at a brisk pace) 5 times per week is recommended. You should work hard enough to cause a sweat but still be able to talk with others while exercising. Exercise improves overall health - improves blood pressure and blood sugar, helps control weight, reduces stress, and improves mood. Practice stress reduction techniques, such as guided imagery, journaling, aromatherapy, acupuncture/acupressu re, deep breathing, etc. Practice healthy sleep hygiene - maintain regular routine, no caffeine after 1PM, no exercise 1-2 hours prior to bedtime, keep bedroom dark and cool, no TV or electronics while in bed. Consider melatonin as needed. Consider cognitive behavioral therapy for insomnia (CBT-I). Consider/Continue therapy. Consider/Continue substance cessation therapy as needed - contact office if desiring medication assisted therapy. Manage co-morbid conditions. Continue monitoring symptoms - report persistent or worsening/concerning symptoms to the office or go to the ER. For mental health CRISIS, please reach out to [phone] (National Suicide and Crisis Lifeline), 911, go to the emergency department, or contact the [facility] Crisis Unit/Team. Follow up as scheduled or sooner if necessary. Follow up with PCP and/or other specialists as advised. NEXT STEP: Consider medication adjustments as needed. 02/20/2024 Memory impairment (ICD-10 - R41.3) Duration (acute/chronic), stability (controlled/uncontrol led): Chronic, has reportedly been receiving memantine through psych services at [facility], this provider agreeable to continuing medication since patient has been tolerating well without complication or complaint Current medications/efficacy: Yes Previous medication trials: memantine Current/previous therapies: Follows up with therapy once weekly Examination as documented - see pertinent aspects of office visit documentation. Pertinent diagnostics: LABS MONITORED BY PCP AND SPECIALISTS Differential diagnoses: RECOMMENDATIONS: Continue/modify other medications as prescribed - educated patient/guardian on adverse effects, risks and benefits, as well as alternative treatments Consume well balanced diet, preferably low in saturated fats (solid at room temperature, such as butter, margarine, Crisco, etc) and low in sodium (<2,000mg per day). Consume plenty of fruits/vegetables, healthy grains/whole grains, unsaturated/healthy fats (liquid at room temperature, such as olive oil, sunflower seed oil, canola, vegetable, etc.). Exercise regularly - Develop an exercise routine. 30 minutes of moderate exercise (walking at a brisk pace) 5 times per week is recommended. You should work hard enough to cause a sweat but still be able to talk with others while exercising. Exercise improves overall health - improves blood pressure and blood sugar, helps control weight, reduces stress, and improves mood. Practice stress reduction techniques, such as guided imagery, journaling, aromatherapy, acupuncture/acupressu re, deep breathing, etc. Practice healthy sleep hygiene - maintain regular routine, no caffeine after 1PM, no exercise 1-2 hours prior to bedtime, keep bedroom dark and cool, no TV or electronics while in bed. Consider melatonin as needed. Consider cognitive behavioral therapy for insomnia (CBT-I). Consider/Continue therapy. Consider/Continue substance cessation therapy as needed - contact office if desiring medication assisted therapy. Manage co-morbid conditions. Continue monitoring symptoms - report persistent or worsening/concerning symptoms to the office or go to the ER. For mental health CRISIS, please reach out to [phone] (National Suicide and Crisis Lifeline), 911, go to the emergency department, or contact the [facility] Crisis Unit/Team. Follow up as scheduled or sooner if necessary. Follow up with PCP and/or other specialists as advised. NEXT STEP: Consider medication adjustments as needed. 03/19/2024 Memory impairment (ICD-10 - R41.3) Duration (acute/chronic), stability (controlled/uncontrol led): Chronic, has reportedly been receiving memantine through psych services at [facility], this provider agreeable to continuing medication since patient has been tolerating well without complication or complaint Current medications/efficacy: Yes Previous medication trials: memantine Current/previous therapies: Follows up with therapy once weekly Examination as documented - see pertinent aspects of office visit documentation. Pertinent diagnostics: LABS MONITORED BY PCP AND SPECIALISTS Differential diagnoses: RECOMMENDATIONS: Continue/modify other medications as prescribed - educated patient/guardian on adverse effects, risks and benefits, as well as alternative treatments Consume well balanced diet, preferably low in saturated fats (solid at room temperature, such as butter, margarine, Crisco, etc) and low in sodium (<2,000mg per day). Consume plenty of fruits/vegetables, healthy grains/whole grains, unsaturated/healthy fats (liquid at room temperature, such as olive oil, sunflower seed oil, canola, vegetable, etc.). Exercise regularly - Develop an exercise routine. 30 minutes of moderate exercise (walking at a brisk pace) 5 times per week is recommended. You should work hard enough to cause a sweat but still be able to talk with others while exercising. Exercise improves overall health - improves blood pressure and blood sugar, helps control weight, reduces stress, and improves mood. Practice stress reduction techniques, such as guided imagery, journaling, aromatherapy, acupuncture/acupressu re, deep breathing, etc. Practice healthy sleep hygiene - maintain regular routine, no caffeine after 1PM, no exercise 1-2 hours prior to bedtime, keep bedroom dark and cool, no TV or electronics while in bed. Consider melatonin as needed. Consider cognitive behavioral therapy for insomnia (CBT-I). Consider/Continue therapy. Consider/Continue substance cessation therapy as needed - contact office if desiring medication assisted therapy. Manage co-morbid conditions. Continue monitoring symptoms - report persistent or worsening/concerning symptoms to the office or go to the ER. For mental health CRISIS, please reach out to [phone] (National Suicide and Crisis Lifeline), 911, go to the emergency department, or contact the [facility] Crisis Unit/Team. Follow up as scheduled or sooner if necessary. Follow up with PCP and/or other specialists as advised. NEXT STEP: Consider medication adjustments as needed. 12/03/2023 Schizophrenia, paranoid type (ICD-10 - F20.0) 12/03/2023 Tardive dyskinesia (ICD-10 - G24.01) Bentropine-ineffectiv e, Austedo-intolerable side effects, Ingrezza-intolerable side effects, Gabapentin-too sedating Decrease Trihexyphenidyl to 2mg TID with breakfast, lunch, and dinner 12/03/2023 Generalized anxiety disorder (ICD-10 - F41.1) PDMP queued. Use discussed. She is using appropriately as needed for severe symptoms. No falls reported. Benzodiazepines are not recommended for long-term use due to potent and dangerous side effects that include increased drowsiness, memory impairment, increased irritability, mood changes, and worsening of PTSD symptoms. Benzodiazepines increase respiratory depression which can aggravate conditions such as sleep apnea and COPD leading to possible . They should also never be combined with alcohol, pain medications (especially opioids), or street drugs because this can lead to overdose and possible . If you are under the influence of benzodiazepines while operating a motor vehicle and are involved in a car accident you can be charged with driving while intoxicated. Benzodiazepine use increases unsteady gait thereby increasing the risk of falls, broken bones, and concussions. Benzodiazepine use is intended for short-term use, up to 3 weeks at most. Long-term use of benzos can lead to dependence, rebound anxiety/agitation, and withdrawal symptoms that include sleep disturbance, irritability, increased tension She wishes to continue with monthly follow ups for support. She will continue with social activities and weight loss. Client/Patient/G uardian is agreeable to above treatment plan and or changes and verbalized understanding. Continue all medication as prescribed. Provided informed consent with understanding of side effects, adverse effects, risks and benefits as well as alternative treatments as previously discussed with the above recommended medication and other aspects of the treatment programs. Discussed off label uses of medication. Agrees to return sooner if symptoms worsen or suicidal or homicidal ideations occur. Client verbalized understanding of information and is agreeable to plan of care. Questions addressed. 04/16/2024 Nutritional counseling (ICD-10 - Z71.3) 06/24/2024 Nutritional counseling (ICD-10 - Z71.3) 05/21/2024 Nutritional counseling (ICD-10 - Z71.3) 07/21/2024 Nutritional counseling (ICD-10 - Z71.3) 12/03/2023 Dizziness (ICD-10 - R42) Orthostatics today: Laying 168/70 Sitting 150/74 Standing 158/58 Trihexyphenidyl dose was lowered today, pt instructed to monitor symptoms. Cinthia has appt with her sandwich hand 12/17/2023 12/03/2023 Other Patient was edu cated on diagnosis and symptoms. Discussed the treatment plan, patient is agreeable and accepting of treatment plan. Patient denies further questions or concerns currently. Discussed sleep hygiene and caffeine intake. Encouraged to improve diet, get regular exercise, daily relaxation, and work on managing stress levels.Return to clinic 4 weeks.Labs are up to date. Encouraged counseling.The Patient/Guardian is aware of the need to contact the office or return for an earlier appointment if any problems or concerns arise. May also contact the 24-hour crisis hotline (R), refer to the closest emergency room or call 911 if new symptoms arise of existing symptoms worsen; the Patient/Guardian is aware that this would apply to symptoms such as: suicidal ideation, homicidal ideation, high risk behaviors, manic symptoms, psychotic symptoms, physical symptoms, or any other symptoms that may be dangerous to self or others.Greater than 50% of time spent on coordination and counseling where psychopharmacology as well as psychotherapeutic interventions were discussed along with review of treatments in the past.Patient/Guardian was educated about treatments including benefits and risks, alternatives, potential medication side effects, black box warning, and risks of failure if not treated. The Patient/Guardian asked appropriate questions, appeared to understand the answers, and decided to accept the treatment and continue being followed.Discussed the importance of compliance with medications due to the risk of relapse of symptoms.Discussed the risks of taking psychotropic medication when combined with substance use/abuse and/or drinking alcohol. Plan Of Treatment Next Appt Details Provider Name:Pradeep Maki, 08/20/2024 01:00:00 PM, [address], [place], [address], Insurance Providers Payer Name Payer Address Payer Phone Subscriber Number Group Number Insured Name Patient Relationship to Insured Coverage Start Date Coverage End Date [facility] Medicare Assure [address] [address] [place] [phone] [id number] Cinthia Mccartney Self - patient is the insured 4 MEDICAID [address] [place] [address] [id number] Cinthia Mccartney Self - patient is the insured 4 Medications Administered Medication Instructions Date of Administration Dosage Notes Jv Montalvo 08/20/2023 1560 mg Patient to lerated well Invega Sustenna 04/11/2017 234 mg Editorial Project Manager: Cloudary Patient tolerated well. Invega Sustenna 04/18/2017 156 mg Exp: 07/2018 Lot: [id number] Editorial Project Manager: Cloudary Pt tolerated injection well and verbalizes no questions or concerns at this time. Invega Sustenna 05/16/2017 234 mg Exp: 11/2018 Lot: [id number] Editorial Project Manager: Cloudary Patient tolerated injection well. She denies questions or concerns at this time. Invega Sustenna 06/17/2017 234 mg Manufact Otilia, pt tolerated well. Invega Sustenna 07/18/2017 234 mg Manufact Cloudary, pt tolerated well. Invega Sustenna 08/06/2017 234 mg Manufact Otilia, pt tolerated well. Invega Sustenna 09/05/2017 234 mg Manufact Otilia, pt tolerated well. Invega Sustenna 09/30/2017 234 mg Manufact Otilia, pt tolerated well. Invega Sustenna 10/30/2017 234 mg Manufact Cloudary, pt tolerated well. Invega Sustenna 12/04/2017 234 mg Editorial Project Manager-Cloudary Patient tolerated well. Invega Sustenna 01/01/2018 234 mg Manufact Cloudary, pt tolerated well. Invega Sustenna 02/04/2018 234 mg Manufactu rer: Cloudary. Pt tolerated well. Questions or concerns denied. Invega Sustenna 03/05/2018 234 mg Manufact Otilia, pt tolerated well. Invega Sustenna 04/03/2018 234 mg Manufact Otilia, pt tolerated well. Invega Sustenna 05/01/2018 234 mg Manufact Cloudary, pt tolerated well. Invega Sustenna 05/28/2018 234 mg Editorial Project Manager: Cloudary Pt tolerated the injection well and denies questions or concerns at this time. Invega Sustenna 06/17/2019 234 mg Manufact by Cloudary Pt edward well. Invega Sustenna 06/23/2019 156 mg Manufact by Cloudary Pt edward well. Invega Sustenna 07/20/2019 234 mg Editorial Project Manager-Giferent Pt tolerated injection well. Voiced no questions or concerns Invega Sustenna 08/20/2019 234 mg rental sales agent-Cloudary Pt tolerated injection well. Voiced no questions or concerns Invega Sustenna 09/22/2019 234 mg Manufact by Cloudary Pt edward well. Invega Sustenna 10/20/2019 234 mg Manufact by Cloudary Pt edward well. Invega Sustenna 11/18/2019 234 mg Manufact by Cloudary Pt edward well. Invega Sustenna 12/16/2019 156 mg Invega Sustenna 01/13/2020 156 mg Manufact by Cloudary Pt edward well. Invega Sustenna 02/09/2020 156 mg Manufact [facility], patient tolerated well. Invega Sustenna 03/16/2020 156 mg Editorial Project Manager-Cloudary Pt tolerated injection well. Voiced no questions or concerns. Invega Sustenna 04/13/2020 156 mg Manufact by Cloudary Pt edward well. Invega Sustenna 05/18/2020 156 mg Editorial Project Manager- Giferent Pt tolerated injection well. Voiced no questions or concerns. Invega Sustenna 06/15/2020 156 mg Editorial Project ManagerCloudary Pt tolerated injection well. Voiced no questions or concerns. Invega Sustenna 07/13/2020 156 mg Patient t olerated well. Invega Sustenna 08/10/2020 156 mg Pt tolera nini injection well. Pt voiced no questions or concerns. Invega Sustenna 09/07/2020 156 mg Patient t olerated well. Invega Sustenna 10/12/2020 156 mg Patient t olerated well. Invega Sustenna 11/20/2020 234 mg Patient t olerated well. Invega Sustenna 12/21/2020 234 mg PT TOLERA NINI WELL Invega Sustenna 01/25/2021 234 mg Patient t olerated well. Invega Sustenna 02/22/2021 234 mg 2 client identifiers verified,denied previous side effects,tolerated injection well. Invega Sustenna 03/22/2021 234 mg Denied pr evious side effects,tolerted injection well. Invega Sustenna 04/19/2021 234 mg Denied pr evios side effects, tolerated injection well. Invega Sustenna 06/14/2021 234 mg Denied pr evious side effects, tolerated injection well. Invega Sustenna 07/12/2021 234 mg Denied an y previous effects. Tolerated injections well. Invega Sustenna 08/09/2021 234 mg Patient t olerated well. Invega Trinza 06/25/2018 819 mg Editorial Project Manager: Cloudary Pt tolerated the injection well and denies questions or concerns at this time. Invega Trinza 09/21/2018 410 mg Editorial Project Manager: Cloudary Pt tolerated well. No questions or concerns verbalized. Invega Trinza 12/22/2018 273 mg Manufact Tomy warren, pt tolerated well. Invega Trinza 09/05/2021 819 mg Pt edward well . Invega Trinza 12/05/2021 819 mg Patient edward erated well. Invega Trinza 03/07/2022 819 mg Patient edward erated well Invega Trinza 06/05/2022 819 mg Patient edward erated well waisted 1ml Invenga Hafyera 09/04/2022 1560 mg Patient t olerated well Invenga Hafyera 03/06/2023 1560 mg Patient t olerated well Invenga Hafyera 02/20/2024 1560 mg Patient t olerated well Perseris (Risperidone XR) 03/17/2019 90 mg Editorial Project Manager: Indivior Given subcutaneously to the right abdomen. Pt tolerated the injection well. Medical (General) History Medical History History ICD Code Schizophrenia, paranoid type Generalized anxiety disorder HTN Surgical History Surgery Date(Month/Year) repaired to ruptured navel 01/2020 cardiac cath Hospitalization History Reason Date(Month/Year) 2 Atrial fibrillation [facility] 09/2021
--- OUTSIDE RECORDS SUMMARY | 2024-08-02 08:22 | XMS_ITS ---
Author Organization [facility] Address [address] [place] [address] Phone Care Team Providers Care Sucker Machine Operator Name Role Phone Jeff Camarillo MD Primary Care Provider Lynn Arora NP Unavailable [phone] Ismael Matson MD Unavailable [phone] Active Problems Problem Noted Date Diagnosed Date Atrial fibrillation and flutter 05/29/2023 SVT (supraventricular tachycardia) 04/25/2023 Malignant neoplasm of centra l portion of left breast in female, estrogen receptor positive 09/18/2017 Current Treatment and Therapy Plans No current plan information found. Past Treatment and Therapy Plans No past plan information found. Lifetime Dose Tracking * Chemical Lifetime Dose Automatic Entry Manual Entr y Air kerma at the reference point (Ka,r) 97 mGy 0 mGy 97 mGy
--- OUTSIDE RECORDS SUMMARY | 2024-08-02 08:22 | XMS_ITS | Clinical Summary ---
Author Organization [facility] Address [address] [place] [address] Phone Care Team Providers Care Intellectual Property Legal Assistant Name Role Phone Jeff Camarillo MD Primary Care Provider Lynn Arora NP Unavailable [phone] Ismael Matson MD Unavailable [phone] Allergies Active Allergy Reactions Criticality Noted Date Comments Amoxicillin Itching,Rash Medium 09/09/2017 Sacubitril-Valsartan Agitation,Anxiety Low 09/28/19 23 Medications alendronate (FOSAMAX) 70 mg tablet Take 1 tablet (70 mg total) by mouth every 7 days 8 Active benztropine (COGENTIN) 1 mg tablet 2 tablets (2 mg total) 8 Active meloxicam (MOBIC) 15 mg tablet 8 Active omeprazole (PriLOSEC) 20 mg capsule Take 1 capsule (20 mg total) by mouth daily 1 Active Jardiance 10 mg tablet Take 1 tablet (10 mg total) by mouth daily 2 Active ezetimibe (ZETIA) 10 mg tablet Take 1 tablet (10 mg total) by mouth daily 2 Active Xarelto 20 mg tablet Take 1 tablet (20 mg total) by mouth daily with dinner 2 Active rosuvastatin (CRESTOR) 40 mg tablet Take 1 tablet (40 mg total) by mouth daily 2 Active loratadine (CLARITIN) 10 mg tablet Take 1 tablet (10 mg total) by mouth daily Active memantine (NAMENDA) 5 mg tablet Take 1 tablet (5 mg total) by mouth daily Active omega-3 fatty acids-fish oil 300-1,000 mg capsule Take 3 capsules (3 g total) by mouth daily Active rOPINIRole (REQUIP) 2 mg tablet Take 1 tablet (2 mg total) by mouth 2 (two) times a day Active rOPINIRole (REQUIP) 3 mg tablet Take 1 tablet (3 mg total) by mouth nightly Active trihexyphenidyL (ARTANE) 2 mg tablet Take 1 tablet (2 mg total) by mouth nightly Active ferrous sulfate 325 mg (65 mg of elemental iron) tablet Take 1 tablet (325 mg total) by mouth daily with breakfast Active lifitegrast (Xiidra) 5 % dropperette Administer 0.1 each (1 drop total) into affected eye(s) bedtime Active trihexyphenidyL (ARTANE) 5 mg tablet Take 1 tablet (5 mg total) by mouth 2 (two) times a day with meals 4 Active calcium carbonate-vitamin D3 1,500 mg (600mg elemental) -800 unit per tablet Take 1 tablet by mouth 2 (two) times a day Active clonazePAM (KlonoPIN) 0.25 mg disintegrating tablet Take 1 tablet (0.25 mg total) by mouth daily as needed for anxiety 4 Active Invega Hafyera 1,560 mg/5 mL syringe Inject 1,560 mg into the muscle as instructed every 6 (six) months 3 Active cyclobenzaprine (FLEXERIL) 5 mg tablet Take 1 tablet (5 mg total) by mouth every 12 hours Active vitamin E acid succinate (vitamin E succinate) 268 mg (400 unit) tablet Take 400 Units by mouth daily Active amiodarone (PACERONE) 200 mg tablet Take 1 tablet (200 mg total) by mouth 2 (two) times a day 60 tablet 4 Active magnesium oxide (MAG-OX) 400 mg (241.3 mg elemental magnesium) tabletIndications: hypomagnesemia Take 1 tablet (400 mg total) by mouth 2 (two) times a day 60 tablet 11 4 Active Hospital, Clinic, or Other Facility Administered Medication Ordered Dose Route Frequency Start Date End Date Status magnesium oxide (MAG-OX) tablet 400 mgIndications:hypomagnese ranjeet 400 mg oral 2 times daily 05/30/2023 Active Active Problems Problem Noted Date Diagnosed Date Atrial fibrillation and flutter 05/29/2023 SVT (supraventricular tachycardia) 04/25/2023 Malignant neoplasm of centra l portion of left breast in female, estrogen receptor positive 09/18/2017 Immunizations Immunization Administration Dates Next Due Influenza, Trivalent, High D ose, Split, Preservative Free, Intramuscular 12/04/2017 Influenza, Unspecified 01/05/2017 Moderna SARS-CoV-2 Monovalent Vaccination (12+ Y RS) 07/27/2020,06/29/2020 Pneumococcal Polysaccharide PPV23 03/09/2018 Pneumococcal, Unspecified 01/05/2017 Tdap 11/18/2017 ZOSTER Recombinant 01/20/2018,11/18/2017 Surgical History Surgery Date Site/Laterality Comments BREAST BIOPSY BREAST LUMPECTOMY COLONOSCOPY Medical History Medical History Date Comments Breast cancer (HCC) Arrhythmia A-fib (HCC) Sleep apnea Social History Tobacco Use Types Packs/Day Years Used Date Smoking Tobacco: Never Smokeless Tobacco: Never Alcohol Use Standard Drinks/Week Comments No 0 (1 standard drink = 0.6 oz pur e alcohol) [facility] Utilities Answer Date Recorded In the past 12 months has [employer], gas, oil, or water [employer] threatened to shut off services in your home? No 05/29/2023 Social Connection and Isolation Panel [NHANES] A nswer Date Recorded In a typical week, how many times do you talk on the phone with family, friends, or neighbors? Three times a week 05/29/19 How often do you get togethe r with friends or relatives? Three times a week 05/29/2023 How often do you attend chur ch or shinto services? 1 to 4 times per year 05/29/2023 Do you belong to any clubs o r organizations such as scientologist groups, unions, fraternal or athletic groups, or school groups? Yes 05/29/2023 How often do you attend meet ings of the clubs or organizations you belong to? 1 to 4 times per year 05/29/2023 Are you , , di vorced, , never , or living with a partner? 05/29/2023 AUDIT-C Answer Date Recorded Q1: How often do you have a drink containing alcohol? Never 05/29/2023 Q2: How many drinks containi ng alcohol do you have on a typical day when you are drinking? Patient does not drink Q3: How often do you have si x or more drinks on one occasion? Never 05/29/2023 Overall Financial Resource Strain (CARDIA) Answe r Date Recorded How hard is it for you to pa y for the very basics like food, housing, medical care, and heating? Not hard at all 05/29/2023 Hunger Vital Sign Answer Date Recorded Within the past 12 months, y ou worried that your food would run out before you got the money to buy more. Never true 05/29/19 24 Within the past 12 months, t he food you bought just didn't last and you didn't have money to get more. Never true 05/29/2023 PRAPARE - Transportation Answer Date Re corded In the past 12 months, has l ack of transportation kept you from medical appointments or from getting medications? No 05/09 In the past 12 months, has l ack of transportation kept you from meetings, work, or from getting things needed for daily living? No 05/29/2023 Housing Stability Vital Sign Answer Clay e Recorded In the last 12 months, was t here a time when you were not able to pay the mortgage or rent on time? No 05/29/2023 Number of Places Lived in the Last Year Not on f ile 05/29/2023 In the last 12 months, was t here a time when you did not have a steady place to sleep or slept in a usp (including now)? No 05/29/2023 Personal Safety Answer Date Recorded Have you ever been in or are you currently in a harmful physical or emotional relationship or is someone making you feel afraid or unsafe? Denies 05/29/2023 Comments Unknown Sex and Gender Information Value Date Recorded Sex Assigned at Not on file Legal Sex Female 8:35 AM ASSOCIATE PROFESSOR OF PSYCHOLOGY Gender Identity Not on file Sexual Orientation Not on file Obstetrics History Last Filed Vital Signs Vital Sign Reading Time Taken Comments Blood Pressure 149/53 05/30/2023 12:32 PM ASSOCIATE PROFESSOR OF PSYCHOLOGY Pulse 62 05/30/2023 12:32 PM ASSOCIATE PROFESSOR OF PSYCHOLOGY Temperature 37 C (98.6 F) 05/30/2023 12:32 PM ASSOCIATE PROFESSOR OF PSYCHOLOGY Respiratory Rate 18 05/30/2023 12:32 PM ASSOCIATE PROFESSOR OF PSYCHOLOGY Oxygen Saturation 98% 05/30/2023 12:32 PM ASSOCIATE PROFESSOR OF PSYCHOLOGY Inhaled Oxygen Concentration - - Weight 52.8 kg (116 lb 8 oz) 05/29/2023 6:45 AM ASSOCIATE PROFESSOR OF PSYCHOLOGY Height 152.4 cm (5') 05/29/2023 6:45 AM ASSOCIATE PROFESSOR OF PSYCHOLOGY Body Mass Index 22.75 05/29/2023 6:45 AM ASSOCIATE PROFESSOR OF PSYCHOLOGY Plan of Treatment Health Maintenance Due Date Last Done Comments Depression Screening 1945 Hepatitis C Screening 1945 Osteoporosis Screening-Bone Density Scan 1945 Hepatitis B Screening 1964 Well Visit 65+ 06/21/2011 Pneumococcal vaccine 65+ (2 of 2 - PCV) 03/09/2019 1 05/10/2017, 01/05/2017 Covid-19 Vaccine ( season) 2023, 06/29/2020 Influenza Vaccine (#1) 2023 12/04/2017, 2016 Fall Risk Assessment 05/30/2024 05/30/2023 DTaP/Tdap/Td Vaccine (2 - Td or Tdap) 11/19/2027 Zoster Vaccine Completed 01/20/2018, 11/18/2017 Insurance [facility] MEDIC[facility] ADVANT[facility] Care Teams Intellectual Property Legal Assistant Relationship Specialty Start Date End Date Jeff Camarillo MD PCP - General Family Practice 09/20/20 Lynn Arora NP [facility] [address] Nurse Practitioner Medical Oncology 09/19/22 Ismael Matson MD [address] [place] [address] Consulting Physician Cardiology 05/30/23
--- OUTSIDE RECORDS SUMMARY | 2024-08-02 08:22 | XMS_ITS | Clinical Summary ---
Author Organization [facility] Address [facility] [place] [address] Care Team Providers Care Radar Engineer Name Role Phone Sg Steven MD Primary Care Provider [phone] Allergies Active Allergy Reactions Criticality Noted Date Comments Amoxicillin Unknown 12/24/2016 Sacubitril-Valsartan Anxiety Low 09/27/2022 Medications vitamin D3, cholecalciferol, 5000 UNITS capsule Active ROPINIROLE HYDROCHLORIDE 3 MG Tab 02/20/20 18 Active CPAP DME DEVICE ILIndications:Obs tructive sleep apnea 1 Device by Apply to Face route daily. CPAP of 10 cm, please replace Supplies as needed 1 Device 06/20/19 19 Active alendronate 70 MG tablet 06/26/19 17 Active amlodipine 5 MG tablet 03/19/20 19 Active benztropine 2 MG Tab tablet 03/19/20 19 Active gabapentin 300 MG capsule 03/19/20 19 Active letrozole 2.5 MG tablet 03/19/20 19 Active meloxicam 15 MG tablet 03/19/20 19 Active memantine 5 MG tablet 03/19/20 19 Active vitamin E 400 UNIT capsule Active aspirin EC (ASPIRIN EC) 81 MG tablet Take 1 tablet (81 mg total) by mouth daily. Active CPAP DEVICE, DME,Indications:O bstructive sleep apnea 1 Device by Does not apply route nightly at bedtime. Replace CPAP @ 10 cm with heated humidity and supplies as needed. 1 Device 1 08/28/19 22 Active JARDIANCE 10 MG tablet 03/10/20 23 Active INVEGA HAFYERA 1560 MG/5ML Suspension Prefilled Syringe as directed Intramuscular every 6 months for 180 days Active rosuvastatin (CRESTOR) 40 MG tablet 03/10/20 23 Active ezetimibe (ZETIA) 10 MG tablet 03/10/20 23 Active MULTAQ 400 MG tablet 03/10/20 23 Active metoprolol tartrate (LOPRESSOR) 25 MG tablet Take 0.5 tablets (12.5 mg total) by mouth 2 (two) times daily. Active XARELTO 20 MG Tab tablet 03/10/20 23 Active omeprazole (PRILOSEC) 20 MG capsule 03/10/20 23 Active Active Problems Problem Noted Date Diagnosed Date Malignant neoplasm of centra l portion of left breast in female, estrogen receptor positive ([facility]) 09/18/2017 CPAP (continuous positive airway pressure) depen denazra 12/24/2016 Obstructive sleep apnea 12/24/2016 Immunizations Immunization Administration Dates Next Due Flucelvax 6 Months+ (Prefill ed Syringe) 01/12/2019 Fluzone High Dose - >Age 65 (Prefilled Syringe) 12/03/2017,01/28/2017,12/19/2015,2014 Influenza (Generic) 03/09/2018,01/05/2017 Influenza Adult (Generic) 04/13/2019,06/2017,12/04/2017,2013 Pneumococcal (Generic) 01/05/2017 Pneumococcal (Pneumovax 23) 03/09/2018,1 ,04/07/2016,2014 Pneumococcal (Prevnar 13) 02/28/2015 Shingrix 01/19/2018,11/17/2017 Tdap (Generic) 11/17/2017,12/31/2012 Zoster (Zostavax) [address]308 Unt/0.65Ml 04/02/2015 Family History Medical History Relation Comments Lung Cancer Father Heart Disease Mother Relation Status Comments Father Mother Social History Tobacco Use Types Packs/Day Years Used Date Smoking Tobacco: Never Smokeless Tobacco: Never Tobacco Cessation:Counseling Given: Yes Alcohol Use Standard Drinks/Week Comments No 0 (1 standard drink = 0.6 oz pur e alcohol) AUDIT-C Answer Date Recorded Frequency of Alcohol Consumption Never 03/09/2018 Average Number of Drinks Not on file 018 Frequency of Binge Drinking Not on file 06/2017 PHQ-2 Answer Date Recorded PHQ-2 Score - If the patient scores above 3, please move on to questions 3-9 0 06/04/2021 Comments Unknown Sex and Gender Information Value Date Recorded Sex Assigned at Not on file Legal Sex Female 4:49 PM CDT Gender Identity Not on file Sexual Orientation Not on file Last Filed Vital Signs Vital Sign Reading Time Taken Comments Blood Pressure 139/57 03/17/2024 8:52 AM BUSINESS DATABASE ANALYST Pulse 80 03/17/2024 8:52 AM BUSINESS DATABASE ANALYST Temperature 36.1 C (97 F) 03/17/2024 8:52 AM BUSINESS DATABASE ANALYST Respiratory Rate 18 03/17/2024 8:52 AM BUSINESS DATABASE ANALYST Oxygen Saturation 99% 03/17/2024 8:52 AM BUSINESS DATABASE ANALYST RA Inhaled Oxygen Concentration - - Weight 60.8 kg (134 lb) 03/17/2024 8:52 AM BUSINESS DATABASE ANALYST Height 152.4 cm (5') 03/17/2024 8:52 AM BUSINESS DATABASE ANALYST Body Mass Index 26.17 03/17/2024 8:52 AM BUSINESS DATABASE ANALYST Plan of Treatment Upcoming Encounters Date Type Department Care Team (Late st Contact Info) Description 03/18/2025 10:00 AM BUSINESS DATABASE ANALYST Office Visit [facility] - [facility] [address] [place] [id number] Redd Lamas MD [address] [place] [address] Health Maintenance Due Date Last Done Comments Hepatitis C 1963 Annual Medicare Wellness Visit 06/21/2011 Dexa Scan (General) 06/21/2011 RSV Immunization or 60+ Years (1 - 1-dose 75+ series) 2021 COVID-19 Vaccine ( - season) 2023 07/27/2020, 06/29/2020 PHQ-2 (Physician [place]) 04/07/2024 DTaP, Tdap and Td Vaccines (3 - Td or Tdap) 11/18/2027 11/17/2017, 12/31/2012 Zoster Vaccines Completed 01/19/2018, 11/05, 04/02/2015 Pneumococcal Vaccine: 50+ Years Completed 03/09/2018, 01/28/2017, 04/07/2016, Additional history exists Meningococcal B Vaccine Aged Out No l onger eligible based on patient's age to complete this topic Meningococcal Vaccine Aged Out No mitul cherry eligible based on patient's age to complete this topic RSV Immunizations Under 20 Months Aged Out No longer eligible based on patient's age to complete this topic Insurance MEDICAID DEPT [employer] [address] Care Teams Radar Engineer Relationship Specialty Start Date End Date Sg Steven MD [address] [place] [address] PCP - General FAMILY PRACTICE 01/15/18
--- OUTSIDE RECORDS SUMMARY | 2024-08-02 08:22 | XMS_ITS | Referral Summary ---
Author Organization [facility] Address [address] [place] [address] Phone Care Team Providers Care Window Glazier Name Role Phone Jeff Camarillo MD Primary Care Provider Lynn Arora NP Unavailable [phone] Ismael Matson MD Unavailable [phone] Allergies Active Allergy Reactions Criticality Noted Date [...] Unspecified 01/05/2017 Tdap 11/18/2017 ZOSTER Recombinant 01/20/2018,11/18/2017 Social History Tobacco Use Types Packs/Day Years Used Date Smoking Tobacco: Never Smokeless Tobacco: Never Alcohol Use Standard Drinks/Week Comments No 0 (1 standard drink = 0.6 oz pur e alcohol) [facility] Utilities Answer Date Recorded In the past 12 months has [employer] electric, gas, oil, or water company threatened to shut off services in your [...] 05/29/2023 How often do you attend chur or confucianism services? 1 to 4 times per year 05/29/2023 Do you belong to any clubs o r organizations such as anabaptist groups, unions, fraternal or athletic groups, or [...] place to sleep or slept in a senior living (including now)? No 05/29/2023 Personal Safety Answer Date Recorded Have you ever been in or are you currently in a harmful physical or emotional relationship or is someone making you feel afraid or unsafe? Denies 05/29/2023 Comments Unknown Sex and Gender Information Value Date Recorded Sex Assigned at Not on file Legal Sex Female 8:35 AM CHARGE HISTOTECHNOLOGIST Gender Identity Not on file Sexual Orientation Not on file Last Filed Vital Signs Vital Sign Reading Time Taken Comments Blood Pressure 149/53 05/30/2023 12:32 PM CHARGE HISTOTECHNOLOGIST Pulse 62 05/30/2023 12:32 PM CHARGE HISTOTECHNOLOGIST Temperature 37 C (98.6 F) 05/30/2023 12:32 PM CHARGE HISTOTECHNOLOGIST Respiratory Rate 18 05/30/2023 12:32 PM CHARGE HISTOTECHNOLOGIST Oxygen Saturation 98% 05/30/2023 12:32 PM CHARGE HISTOTECHNOLOGIST Inhaled Oxygen Concentration - - Weight 52.8 kg (116 lb 8 oz) 05/29/2023 6:45 AM CHARGE HISTOTECHNOLOGIST Height 152.4 cm (5') 05/29/2023 6:45 AM CHARGE HISTOTECHNOLOGIST Body Mass Index 22.75 05/29/2023 6:45 AM CHARGE HISTOTECHNOLOGIST Plan of Treatment Not on file Insurance [facility] MEDICARE ADVANTAGE [facility] MEDIC[facility] ADVANTAGE Care Teams Window Glazier Relationship Specialty Start Date End Date Jeff Camarillo MD PCP - General Family Practice 09/20/20 [place] [address] [place] [id number] Nurse Practitioner Medical Oncology 09/19/22 Ismael Matson MD [address] [place] [address] Consulting Physician Cardiology 05/30/23
--- OUTSIDE RECORDS SUMMARY | 2024-08-02 08:22 | XMS_ITS | Continuity of Care Document ---
Author Organization [facility] Address [address] [place] [address] [address] [place] [address] Insurance Providers Payer Plan Claims Address Claims Phone Policy Number Group Number Relation Employer Guarantor Name Guarantor Guarantor Address [place]or [place] [id number] Self Cinthia Mccartney 1945 [address], [place] [id number] [place] [id number] [place] st[place] [id number] Self Cinthia Mccartney 1945 [address] [place], [place] [id number] Medica re Railro ad Medic are Railr oad [id number] Self Cinthia Mccartney 1945 [address] [place] [address] Problems Condition ICD9 code ICD10 code SNOMED code Start Date End Date S tatus Encounter for general adult medical examination without abnormal findings Z00.00 Admitti ng Other specified abnormal findings of blood chemistry R79.89 Admitting Deficiency of other specified B group vitamins E53.8 Admitting Vitamin D deficiency, unspecified E55.9 Admitting Hyperlipidemia, unspecified E78.5 Admitting Unspecified atrial fibrillation I48.91 Admitting Encounter for general adult medical examination without abnormal findings Z00.00 Final Other hyperlipidemia E78.49 Fin al Other specified abnormal findings of blood chemistry R79.89 Final Deficiency of other specified B group vitamins E53.8 Final Vitamin D deficiency, unspecified E55.9 Final Hyperlipidemia, unspecified E78.5 Final Major depressive disorder, single episode, unspecified F32.9 Lucia l Restless legs syndrome G25.81 F inal Essential (primary) hypertension I10 Final Unspecified atrial fibrillation I48.91 Final Unspecified atrial flutter I48.92 Working Other specified abnormal findings of blood chemistry R79.89 Working Unspecified diastolic (congestive) heart failure I50.30 Working Unspecified atrial flutter I48.92 Final Other specified abnormal findings of blood chemistry R79.89 Final Obstructive sleep apnea (adult) (pediatric) G47.33 Final Unspecified diastolic (congestive) heart failure I50.30 Final Nonrheumatic aortic (valve) stenosis I35.0 Final Essential (primary) hypertension I10 Final intermediate (current) use of anticoagulants Z79.01 Fin al Other specified symptoms and signs involving the circulatory and respiratory systems R09.89 Admit ting Other specified symptoms and signs involving the circulatory and respiratory systems R09.89 Final Encounter for follow-up examination after completed treatment for conditions other than malignant neoplasm Z09 Final Localized swelling, mass and lump, left lower limb R22.42 Final Encounter for other screening for malignant neoplasm of breast Z12.39 Final Hyperlipidemia, unspecified E78.5 Admitting Vitamin D deficiency, unspecified E55.9 Admitting Encounter for general adult medical examination without abnormal findings Z00.00 Admitti ng Hyperlipidemia, unspecified E78.5 Final Vitamin D deficiency, unspecified E55.9 Final Encounter for general adult medical examination without abnormal findings Z00.00 Final Hyperglycemia, unspecified R73.9 Deficiency of other specified B group vitamins E53.8 Vitamin D deficiency, unspecified E55.9 Encounter for general adult medical examination without abnormal findings Z00.00 Essential (primary) hypertension I10 Paroxysmal atrial fibrillation I48.0 Hyperlipidemia, unspecified E78.5 Results No Results Allergies, adverse reactions, alerts No known allergies and adverse reactions Immunizations Vaccine Route Date Status influenza 01/07/2023 Completed Medications No administered medications reported Vital Signs Date Vital Result Comment 09/09/2022 Inhaled Oxygen Concentration 21.0 % N Faces Pain Scale 0.0 N Oxygen Saturation 98 % N Respiratory Rate 18 /min N Heart Rate 76 /min N Blood Pressure Systolic 114 mm[Hg] N Blood Pressure Diastolic 70 mm[Hg] N Body Height 60 [in_i] N Body Weight 114 [lb_av] N Body Mass Index 22.3 kg/m2 N 01/07/2023 Inhaled Oxygen Concentration 21.0 % N Temperature 97.3 [degF] N Oxygen Saturation 96 % N Respiratory Rate 18 /min N Heart Rate 53 /min N Blood Pressure Systolic 118 mm[Hg] N Blood Pressure Diastolic 54 mm[Hg] N Body Height 60 [in_i] N 04/08/2023 Inhaled Oxygen Concentration 21.0 % N Temperature 97.7 [degF] N Oxygen Saturation 98 % N Respiratory Rate 18 /min N Heart Rate 77 /min N Blood Pressure Systolic 120 mm[Hg] N Blood Pressure Diastolic 70 mm[Hg] N Body Height 60 [in_i] N Body Weight 117 [lb_av] N Body Mass Index 22.8 kg/m2 N 06/03/2023 Inhaled Oxygen Concentration 21.0 % N Faces Pain Scale 0.0 N Oxygen Saturation 97 % N Respiratory Rate 20 /min N Heart Rate 68 /min N Blood Pressure Systolic 142 mm[Hg] N Blood Pressure Diastolic 82 mm[Hg] N Body Height 60 [in_i] N Body Weight 115 [lb_av] N Body Mass Index 22.5 kg/m2 N 10/10/2023 Inhaled Oxygen Concentration 21.0 % N Faces Pain Scale 0.0 N Oxygen Saturation 98 % N Respiratory Rate 20 /min N Heart Rate 60 /min N Blood Pressure Systolic 132 mm[Hg] N Blood Pressure Diastolic 76 mm[Hg] N Body Height 60 [in_i] N Body Weight 127 [lb_av] N Body Mass Index 24.8 kg/m2 N 02/03/2024 Inhaled Oxygen Concentration 21.0 % N Faces Pain Scale 0.0 N Temperature 98.1 [degF] N Oxygen Saturation 96 % N Respiratory Rate 16 /min N Heart Rate 64 /min N Blood Pressure Systolic 118 mm[Hg] N Blood Pressure Diastolic 68 mm[Hg] N Body Height 60 [in_i] N Body Weight 128 [lb_av] N Body Mass Index 25 kg/m2 N 06/22/2024 Inhaled Oxygen Concentration 21.0 % N Temperature 98.2 [degF] N Oxygen Saturation 99 % N Respiratory Rate 15 /min N Heart Rate 80 /min N Blood Pressure Systolic 128 mm[Hg] N Blood Pressure Diastolic 75 mm[Hg] N Body Height 60 [in_i] N Body Weight 131 [lb_av] N Body Mass Index 25.6 kg/m2 N Social History No smoking Hx information available Functional Status Category Condition Date Problem (Feeding: Independent) Feeding: Independ ent 06/03/2023 Problem (Bathing: Independen t (or in shower)) Bathing: Independent (or in shower) 06/03/2023 Problem (Grooming: Independe nt face/hair/teeth/ shaving (implements provided)) Grooming: Independent face/hair/teeth/ shaving (implements provided) 06/03/2023 Problem (Dressing: Independe nt (including buttons, zips, laces, etc.)) Dressing: Independent (including buttons, zips, laces, etc.) 06/03/2023 Problem (Bowels: Continent) Bowels: Continent Problem (Bladder: Occasional accident) Bladder: Occasional accident 06/03/2023 Problem (Toilet use: Indepen dent (on and off, dressing, wiping)) Toilet use: Independent (on and off, dressing, wiping) 06/03/2023 Problem (Transfers (bed to c hair and back): Independent) Transfers (bed to chair and back): Independent 06/03/2023 Problem (Mobility (on level surfaces): Independent (but may use any aid; for example, stick) >50 yards) Mobility (on level surfaces): Independent (but may use any aid; for example, stick) >50 yards 06/03/2023 Problem (Stairs: Independent) Stairs: Independen t 06/03/2023 Problem (Total score: 95) Total score: 95 2023 Problem (Feeding: Independent) Feeding: Independ ent 10/10/2023 Problem (Bathing: Independen t (or in shower)) Bathing: Independent (or in shower) 10/10/2023 Problem (Grooming: Independe nt face/hair/teeth/ shaving (implements provided)) Grooming: Independent face/hair/teeth/ shaving (implements provided) 10/10/2023 Problem (Dressing: Independe nt (including buttons, zips, laces, etc.)) Dressing: Independent (including buttons, zips, laces, etc.) 10/10/2023 Problem (Bowels: Continent) Bowels: Continent Problem (Bladder: Continent) Bladder: Continent 10/10/2023 Problem (Toilet use: Indepen dent (on and off, dressing, wiping)) Toilet use: Independent (on and off, dressing, wiping) 10/10/2023 Problem (Transfers (bed to c hair and back): Independent) Transfers (bed to chair and back): Independent 10/10/2023 Problem (Mobility (on level surfaces): Independent (but may use any aid; for example, stick) >50 yards) Mobility (on level surfaces): Independent (but may use any aid; for example, stick) >50 yards 10/10/2023 Problem (Stairs: Independent) Stairs: Independen t 10/10/2023 Problem (Total score: 100) Total score: 100 08/2023 Mental Status Category Condition Date Cognitive function Normal 09/09/2022 Cognitive function Normal 02/03/2024
== END 2024-08-02 08:17 | disposition home or self-care (01) ==
PROVIDERS: PCP Family Medicine; Visit Provider Family Medicine
DX: M81.0 Age-related osteoporosis without current pathological fracture (principal); M85.88 Other specified disorders of bone density and structure, other site; Z78.0 Asymptomatic menopausal state
CPT/HCPCS: 77080

== ENCOUNTER 2024-08-31 08:37 | Outpatient (CLI) | payer MEDICARE, MEDICAID, SELFPAY ==
--- OUTSIDE RECORDS SUMMARY | 2024-08-31 08:42 | XMS_ITS ---
Author Organization [facility] Address [address] [place] [address] Care Team Providers Care Book Solicitor Name Role Phone Denise Makiy Primary Care Provider Briana Pittman Unavailable [phone] REASON FOR VISIT LM to R/S -[facility] 1 month psych follow up/med refill and INJECTION Social History Sex Assigned At : Social History Observation Description Sex Assigned At Female Encounters Encounter Location Date Provider Diagnosis [address] [address] 08/20/2024 Pradeep Maki Plan Of Treatment No Information Progress Notes * CATRACHOSABIVandana ASHLEYOB: 7 (79 yo F)Acc No.[id number]:08/20/2024 UNLOCKED PROGRESS NOTE Patient: Cinthia VALERIO Provider: Vish Maki APN :1945 A ge:79 Y S ex:Female Date:08/20/2024 Address:[address] [facility], [place], [id number] Subjective: * Chief Complaints: * 1 . LM to R/S -[facility] 1 month psych follow up/med refill and INJECTION. * Medical History: Objective: * Vitals: Assessment: Plan: * Treatment: * * Electronic signature of Pradeep Maki on 08/31/2024 at 08:42 AM CDT Sign off status: Pending * Provider: Vish Maki APN Date: 0 08/20/2024 Generated for Isma jiménez/Josi/Grzegorz on: 0 08/31/2024 08:42 AM CDT
--- OUTSIDE RECORDS SUMMARY | 2024-08-31 08:43 | XMS_ITS | Referral Summary ---
Author Organization [facility] Address [address] [place] [address] Phone Care Team Providers Care Environmental Planning Engineer Name Role Phone Jeff Camarillo MD Primary Care Provider Lynn Arora NP Unavailable [phone] Ismael Matson MD Unavailable [phone] Allergies Active Allergy Reactions Criticality Noted Date [...] drink = 0.6 oz pur e alcohol) [facility] Utilities Answer Date Recorded In the past 12 months has [employer], gas, oil, or water company threatened [...] How often do you attend chur or scientologist services? 1 to 4 times per year 05/29/2023 Do you belong to any clubs o r organizations such as yarsanism groups, unions, fraternal or athletic groups, or [...] place to sleep or slept in a residential (including now)? No 05/29/2023 Personal Safety Answer Date Recorded Have you ever been in or are you currently in a harmful physical or emotional relationship or is someone making you feel afraid or unsafe? Denies 05/29/2023 Comments Unknown Sex and Gender Information Value Date Recorded Sex Assigned at Not on file Legal Sex Female 8:35 AM TRAINING ANALYST Gender Identity Not on file Sexual Orientation Not on file Last Filed Vital Signs Vital Sign Reading Time Taken Comments Blood Pressure 149/53 05/30/2023 12:32 PM TRAINING ANALYST Pulse 62 05/30/2023 12:32 PM TRAINING ANALYST Temperature 37 C (98.6 F) 05/30/2023 12:32 PM TRAINING ANALYST Respiratory Rate 18 05/30/2023 12:32 PM TRAINING ANALYST Oxygen Saturation 98% 05/30/2023 12:32 PM TRAINING ANALYST Inhaled Oxygen Concentration - - Weight 52.8 kg (116 lb 8 oz) 05/29/2023 6:45 AM TRAINING ANALYST Height 152.4 cm (5') 05/29/2023 6:45 AM TRAINING ANALYST Body Mass Index 22.75 05/29/2023 6:45 AM TRAINING ANALYST Plan of Treatment Not on file Insurance [facility] MEDICARE ADVANTAGE [facility] MEDICARE ADVANTAGE Care Teams Environmental Planning Engineer Relationship Specialty Start Date End Date Jeff Camarillo MD PCP - General Family Practice 09/20/20 [place] [address] [place] [address] Nurse Practitioner Medical Oncology 09/19/22 Ismael Matson MD [address] [place] [address] Consulting Physician Cardiology 05/30/23
--- OUTSIDE RECORDS SUMMARY | 2024-08-31 08:43 | XMS_ITS ---
Author Organization [facility] Address [address] [place] [address] Phone Care Team Providers Care Ecommerce Project Manager Name Role Phone Jeff Camarillo MD Primary Care Provider Lynn Arora NP Unavailable [phone] Ismael Matson MD Unavailable [phone] Active Problems Problem Noted Date Diagnosed Date [...]
--- OUTSIDE RECORDS SUMMARY | 2024-08-31 08:43 | XMS_ITS | Clinical Summary ---
Author Organization [facility] Address [address] [place] [address] Phone Care Team Providers Care Car Repairer Name Role Phone Jeff Camarillo MD Primary Care Provider Lynn Arora NP Unavailable [phone] Ismael Matson MD Unavailable [phone] Allergies Active Allergy Reactions Criticality Noted Date [...] drink = 0.6 oz pur e alcohol) [facility] Utilities Answer Date Recorded In the past 12 months has [employer], gas, oil, or water [employer] threatened to shut off services in your [...] often do you attend chur ch or tenriism services? 1 to 4 times per year 05/29/2023 Do you belong to any clubs o r organizations such as advent groups, unions, fraternal or athletic groups, or [...] place to sleep or slept in a jail (including now)? No 05/29/2023 Personal Safety Answer Date Recorded Have you ever been in or are you currently in a harmful physical or emotional relationship or is someone making you feel afraid or unsafe? Denies 05/29/2023 Comments Unknown Sex and Gender Information Value Date Recorded Sex Assigned at Not on file Legal Sex Female 8:35 AM CREATIVE ASSISTANT Gender Identity Not on file Sexual Orientation Not on file Obstetrics History Last Filed Vital Signs Vital Sign Reading Time Taken Comments Blood Pressure 149/53 05/30/2023 12:32 PM CREATIVE ASSISTANT Pulse 62 05/30/2023 12:32 PM CREATIVE ASSISTANT Temperature 37 C (98.6 F) 05/30/2023 12:32 PM CREATIVE ASSISTANT Respiratory Rate 18 05/30/2023 12:32 PM CREATIVE ASSISTANT Oxygen Saturation 98% 05/30/2023 12:32 PM CREATIVE ASSISTANT Inhaled Oxygen Concentration - - Weight 52.8 kg (116 lb 8 oz) 05/29/2023 6:45 AM CREATIVE ASSISTANT Height 152.4 cm (5') 05/29/2023 6:45 AM CREATIVE ASSISTANT Body Mass Index 22.75 05/29/2023 6:45 AM CREATIVE ASSISTANT Plan of Treatment Health Maintenance Due Date Last Done Comments Depression Screening 1945 Hepatitis C Screening 1945 Osteoporosis Screening-Bone Density Scan 1945 Hepatitis B Screening 1963 Well Visit 65+ 06/21/2011 Pneumococcal vaccine 65+ (2 of 2 - PCV) 03/09/2019 1 05/10/2017, 01/05/2017 Covid-19 Vaccine ( season) 2023, 06/29/2020 Fall Risk Assessment 05/30/2024 05/30/2023 Influenza Vaccine (Season Ended) 2024 12/05/19 18, 01/05/2017 DTaP/Tdap/Td Vaccine (2 - Td or Tdap) 11/19/2027 Zoster Vaccine Completed 01/20/2018, 11/18/2017 Insurance [facility] MEDICARE ADVANTAGE [facility] Address: [address] [address] [place] [address] [employer] [facility] MEDICARE ADVANTAGE [facility] Address: [address] [address] [place] [address] Care Teams Car Repairer Relationship Specialty Start Date End Date Jeff Camarillo MD PCP - General Family Practice 09/20/20 Lynn Arora NP [facility] [address] Nurse Practitioner Medical Oncology 09/19/22 Ismael Matson MD [address] [place] [address] Consulting Physician Cardiology 05/30/23
--- OUTSIDE RECORDS SUMMARY | 2024-08-31 08:43 | XMS_ITS | Patient Health Record ---
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 Name Role Phone Pradeep Maki Primary Care Provider Briana Pittman Unavailable [phone] Allergies Allergen (clinical drug ingredient) Drug/Non Drug Allergy documented on EMR Reaction Allergy Type Onset Date Status amoxicillin Amoxicillin rash Drug Allergy Act arturo Reason For Referral No Information Medications Medication SIG (Take, Route, Frequency, Duration) Notes Start Date End Date Status Letrozole 2.5 MG 1 tablet Orally Once a day Not-Taking Magnesium Oxide 400 MG 1 tablet as needed Orally Once a day Active Empagliflozin 10 MG 0.5 tablet Orally Once a day Active rOPINIRole HCl 3 MG 1 tablet Orally once daily at bedtime Active rOPINIRole HCl 2 MG 1 tablet Orally twice daily Active Alendronate Sodium 70 MG 1 tablet Orally 1x per week Active Invega Hafyera 1560 MG/5ML as directed Intramuscular every 6 months for 180 days Patient is due for next injection in 4 weeks. Thanks! Active Rivaroxaban 20 MG 1 tablet with food Orally Once a day Active Amiodarone HCl 200 MG 0.5 tablet Orally Once a day Not-Taking clonazePAM 0.25 MG 1 tablet oral once nightly as needed ONLY at bedtime for restless legs for 30 days 08/20/2024 Active Omeprazole 20 MG 1 capsule 1/2 to 1 hour before morning meal Orally Once a day Active clonazePAM 0.25 MG 1 tablet oral Once a day as needed for severe anxiety for 7 days 02/03/2024 Not-Taking Trihexyphenidyl HCl 2 MG 0.5 tablet Orally once daily in the morning for 30 days Active Rosuvastatin Calcium 40 MG 1 tablet Orally Once a day Active Memantine HCl 5 MG 1 tablet Orally Once a day for 30 days Active Ezetimibe 10 MG 1 tablet Orally Once a day Active Vitamin E 400 UNIT 1 tablet Orally once daily for 10 days Not-Taking Xiidra 5 % 1 drop into affected eye Ophthalmic Twice a day Active Ferrous Sulfate 325 (65 Fe) MG 1 tablet Orally daily Not-Taking Calcium Carbonate-Vitamin D 600-10 MG-MCG 1 tablet Orally Twice a day Active Memantine HCl 5 MG 1 tablet Orally Once a day for 30 days Active Mathews 3 1000 MG 1 capsule Orally once daily Active Immunizations Vaccine Route Administration Date Status Comme nts FLU VAC NO PRSV 4VAL 6 mo+ IM Intramuscular 01/25/2021 Administered Patient tolerat ed well. COVID-19 Moderna 2nd IM Intramuscular 07/27/2020 Administered COVID-19 Moderna 1ST IM Intramuscular 06/29/2020 Administered EUA date 0. Screening reviewed and consent signed. Patient tolerated well. Social History Tobacco Use: Social History Observation Description Date Details (start date - stop date) Never Smoker NA - NA Sex Assigned At : Social History Observation Description Sex Assigned At Female Tobacco Control (Standard) Question Answer Notes Tobacco use: Nonsmoker Section Notes: [id number] 02/09/2020 02/09/2020 clonazePAM 14 14 0.25MG NA Tessie Becker L, Msn, [facility] - [id number] [place], [place] [address] [id number] 01/11/2020 01/11/2020 Hydrocodon-acetaminophen 20 5 5MG-325MG 20 Freeman Patino Md - [id number] [id number], [place] [address] [id number] 10/18/2019 10/18/2019 clonazePAM 7 14 0.5 MG NA Tessie Becker L, Msn, [facility] - [id number] [place], [place] [address] [id number] 07/20/2019 07/20/2019 clonazePAM 14 14 0.25MG [id number] 02/09/2020 02/09/2020 clonazePAM 14 14 0.25MG [facility] [id number] [place], [place] [address] [id number] 01/11/2020 01/11/2020 Hydrocodon-acetaminophen 20 5 5MG-325MG 20 Freeman Patino Md - [id number] [id number] [address] [id number] 10/18/2019 10/18/2019 clonazePAM 7 14 0.5 MG NA Tessie Becker L, Msn, [facility] - [id number] [place], [place] [address] [id number] 07/20/2019 07/20/2019 clonazePAM 14 14 0.25MG PRESCRIPTION # FILLED WRITTEN DRUG LABEL QTY DAYS STRENGTH MEDD PRESCRIBER PHARMACY REFILL NO. REFILLS STATE 05/14/2022 05/14/2022 clonazePAM 5.0 5 0.25 MG NA Karen Art ([facility]) - [id number] [place], [place] NA 0 [place] 1 [id number] 04/11/2022 04/11/2022 clonazePAM 5.0 5 0.25 MG NA Tessie Becker L, Msn, [facility] - [id number] [employer] [place], [place] NA 0 [place] [id number] 03/12/2022 03/11/2022 clonazePAM 5.0 5 0.25 MG Tessie Raines L PRESCRIPTION # FILLED WRITTEN DRUG LABEL QTY DAYS STRENGTH MEDD PRESCRIBER PHARMACY REFILL NO. REFILLS STATE 06/05/2022 06/05/2022 clonazePAM 5.0 5 0.25 MG NA Briana Pittman [facility] - [id number] [employer] [place] [address] [id number] 05/14/2022 05/14/2022 clonazePAM 5.0 5 0.25 MG NA Karen Art ([facility]) - [id number] [place] 1 [id number] 04/11/2022 04/11/2022 clonazePAM 5.0 5 0.25 MG Tessie Raines, PRESCRIPTION # FILLED WRITTEN DRUG LABEL QTY DAYS STRENGTH MME PRESCRIBER PHARMACY REFILL NO. REFILLS STATE 07/10/2022 07/10/2022 clonazePAM 5.0 5 0.25 MG NA Toya, Briana L Drug Clerk - [id number] [place], [place] NA 0 [place] 1 [id number] 06/05/2022 06/05/2022 clonazePAM 5.0 5 0.25 MG NA Toya, Briana L Drug Clerk - [id number] [employer] [place] 1 [id number] 05/14/2022 05/14/2022 clonazePAM 5.0 5 0.25 MG NA Karen Art J (Drug Clerk-b [id number] 07/10/2022 07/10/2022 clonazePAM 5.0 5 0.25 MG NA Toya, Briana L Drug Clerk - [id number] [employer], [place] NA 0 [place] 1 [id number] 06/05/2022 06/05/2022 clonazePAM 5.0 5 0.25 MG NA Toya, Briana L Drug Clerk - [id number] [employer], [place] NA 0 [place] 1 [id number] 05/14/2022 05/14/2022 clonazePAM 5.0 5 0.25 MG NA Karen Art J (Drug Clerk PRESCRIPTION # FILLED WRITTEN DRUG LABEL QTY DAYS STRENGTH MME PRESCRIBER PHARMACY REFILL NO. REFILLS STATE 09/25/2022 09/25/2022 clonazePAM 5.0 5 0.25 MG NA Toya, Briana L Drug Clerk - [id number] [place], [place] NA 0 [place] 1 [id number] 07/10/2022 07/10/2022 clonazePAM 5.0 5 0.25 MG NA Toya, Briana L Drug Clerk - [id number] [place], [place] NA 0 [place] 1 [id number] 06/05/2022 06/05/2022 clonazePAM 5.0 5 0.25 MG NA Toya, Briana L Drug Clerk - [id number] PRESCRIPTION # FILLED WRITTEN DRUG LABEL QTY DAYS STRENGTH MME PRESCRIBER PHARMACY REFILL NO. REFILLS STATE 09/25/2022 09/25/2022 clonazePAM 5.0 5 0.25 MG NA Toya, Briana L Drug Clerk - [id number] [facility] [place] [id number] 07/10/2022 07/10/2022 clonazePAM 5.0 5 0.25 MG NA Toya, Briana L Drug Clerk - [id number] [facility] [place] 1 [id number] 06/05/2022 06/05/2022 clonazePAM 5.0 5 0.25 MG NA Toya, Briana L Drug Clerk - [id number] PRESCRIPTION # FILLED WRITTEN DRUG LABEL QTY DAYS STRENGTH MME PRESCRIBER PHARMACY REFILL NO. REFILLS STATE 12/11/2022 12/11/2022 clonazePAM 5.0 5 0.25 MG NA Toya, Briana L Drug Clerk - [id number] [place] [address] [id number] 09/25/2022 09/25/2022 clonazePAM 5.0 5 0.25 MG NA Toya, Briana L Drug Clerk - [id number] [place] 1 [id number] 07/10/2022 07/10/2022 clonazePAM 5.0 5 0.25 MG NA Toya, Briana L Drug Clerk - [id number] PRESCRIPTION # FILLED WRITTE N DRUG LABEL QTY DAYS STRENGTH MME PRESCRIBER PHARMACY REFILL NO. REFILLS STATE PATIENT [id number] 06/02/2023 06/02/2023 clonazePAM 7.0 7 0.25 MG NA Toya, Briana L Drug Clerk - [id number] [facility] 0 [place] [id number] 04/28/2023 04/28/2023 clonazePAM 7.0 7 0.25 MG NA Toya, Briana L Drug Clerk - [id number] [facility] [place] 0 [place] [id number] 03/05/2023 03/05/2023 clonazePAM 7.0 7 0.25 MG NA Toya, Briana L Drug Clerk - [id number] [employer] [place] 0 [place] [id number] 01/01/2023 01/01/2023 clonazePAM 7.0 7 0.25 MG NA Briana Pittman Drug Clerk - [id number] [place] PRESCRIPTION # FILLED WRITTEN DRUG LABEL QTY DAYS STRENGTH MME PRESCRIBER PHARMACY REFILL NO. REFILLS STATE 09/25/2022 09/25/2022 clonazePAM 5.0 5 0.25 MG NA Briana Pittman Drug Clerk - [id number] [facility] 1 [id number] 07/10/2022 07/10/2022 clonazePAM 5.0 5 0.25 MG NA Briana Pittman Drug Clerk - [id number] PRESCRIPTION # FILLED WRITTEN DRUG LABEL QTY DAYS STRENGTH MME PRESCRIBER PHARMACY REFILL NO. REFILLS STATE 01/01/2023 01/01/2023 clonazePAM 7.0 7 0.25 MG NA Briana Pittman Drug Clerk - [id number] [facility] 1 [id number] 12/11/2022 12/11/2022 clonazePAM 5.0 5 0.25 MG NA Briana Pittman Drug Clerk - [id number] [facility] 1 [id number] 09/25/2022 09/25/2022 clonazePAM 5.0 5 0.25 MG NA Briana Pittman L Drug Clerk - [id number] [facility] 1 [id number] 07/10/2022 07/10/2022 clonazePAM 5.0 5 0.25 MG NA Briana Pittman L Drug Clerk - [id number] PRESCRIPTION # FILLED WRITTE N DRUG LABEL QTY DAYS STRENGTH MME PRESCRIBER PHARMACY REFILL NO. REFILLS STATE PATIENT [id number] 04/28/2023 04/28/2023 clonazePAM 7.0 7 0.25 MG NA Briana Pittman Drug Clerk - [id number] [place], [place] NA 0 [place] [id number] 03/05/2023 03/05/2023 clonazePAM 7.0 7 0.25 MG NA ToyaAlani L Drug Clerk - [id number] [place], [place] NA 0 [place] [id number] 01/01/2023 01/01/2023 clonazePAM 7.0 7 0.25 MG NA ToyaAlani L Drug Clerk - [id number] [place], [place] NA 0 [place] [id number] 12/11/2022 12/11/2022 clonazePAM 5.0 5 0.25 MG NA Briana Pittman L Drug Clerk - [id number] [place] Problems Problem Type SNOMED Code ICD Code Onset Dates Problem Status W/U Status Risk Notes Problem Tobacco user (070426027) Nicotine dependence, unspecified, uncomplicated (F17.200) Active confirmed Problem 34822938 Generalized anxiety disorder (F41.1) Active confirmed Problem Restless leg syndrome (G25.81) Active confirmed Problem [id number] Schizophrenia, paranoid type (F20.0) Active confirmed Problem Memory impairment (987120073) Memory impairment (R41.3) Active confirmed Problem Tardive dyskinesia (984447833) Tardive dyskinesia (G24.01) Active confirmed Vital Signs Heart Rate 82 /min 08/13/2024 Temperature 98.2 degrees Fahrenheit 05/21/2024 BP laying 132/70 BP standing 134/58 Respiratory Rate 16 /min 08/13/2024 Oximetry 97 % 08/13/2024 Blood pressure diastolic 66 mm Hg 08/13/2024 Height 65 in 08/13/2024 Blood pressure systolic 124 mm Hg 08/13/2024 Weight 136 lbs 08/13/2024 BMI 22.63 kg/m2 08/13/2024 Encounters Encounter Location Date Provider Diagnosis [address] [place] [address] 09/24/2023 Briana Hearti Schizophrenia, paranoid type F20.0 ; Tardive dyskinesia G24.01 and Generalized anxiety disorder F41.[address] [address] 10/29/2023 Briana Pittman Schizophrenia, paranoid type F20.0 ; Tardive dyskinesia G24.01 and Generalized anxiety disorder F41.[address] [address] 12/03/2023 Briana Pittman Patient underweight R63.6 ; Non-tobacco user Z78.9 ; Nutritional counseling Z71.3 ; Schizophrenia, paranoid type F20.0 ; Tardive dyskinesia G24.01 ; Generalized anxiety disorder F41.1 and Dizziness R42 [address] [address] 01/16/2024 Pradeep Maki Schizophrenia, paranoid type F20.0 ; Generalized anxiety disorder F41.1 and Tardive dyskinesia G24.[address] [place] [address] 02/20/2024 Pradeep Maki Generalized anxiety disorder F41.1 ; Schizophrenia, paranoid type F20.0 ; Tardive dyskinesia G24.01 and Memory impairment R41.[address] [address] 03/19/2024 Pradeep Maki Generalized anxiety disorder F41.1 ; Schizophrenia, paranoid type F20.0 ; Tardive dyskinesia G24.01 and Memory impairment R41.[address] [address] 04/16/2024 Pradeep Maki Generalized anxiety disorder F41.1 ; Schizophrenia, paranoid type F20.0 ; Tardive dyskinesia G24.01 ; Memory impairment R41.3 and Nutritional counseling Z71.[address] [address] 05/21/2024 Pradeep Maki Generalized anxiety disorder F41.1 ; Schizophrenia, paranoid type F20.0 ; Tardive dyskinesia G24.01 ; Memory impairment R41.3 and Nutritional counseling Z71.[address] [address] 06/24/2024 Pradeep Maki Generalized anxiety disorder F41.1 ; Schizophrenia, paranoid type F20.0 ; Tardive dyskinesia G24.01 ; Memory impairment R41.3 and Nutritional counseling Z71.[address] [address] 07/21/2024 Pradeep Maki Generalized anxiety disorder F41.1 ; Schizophrenia, paranoid type F20.0 ; Tardive dyskinesia G24.01 ; Memory impairment R41.3 ; Restless leg syndrome G25.81 and Nutritional counseling Z71.[address] [address] 08/13/2024 Pradeep Maki Generalized anxiety disorder F41.1 ; Schizophrenia, paranoid type F20.0 ; Tardive dyskinesia G24.01 ; Memory impairment R41.3 ; Restless leg syndrome G25.81 and Nutritional counseling Z71.[address] [address] 12/25/[address] [address] 03/19/[address] [address] 06/01/2024 Pradeep Maki Tardive dyskinesia G24.01 Assessments Encounter Date Diagnosis (ICD Code) Assessment Notes Treatment Notes Treatment Clinical Notes Section Notes 10/29/2023 Schizophrenia, paranoid type (ICD-10 - F20.0) 09/24/2023 Schizophrenia, paranoid type (ICD-10 - F20.0) 12/03/2023 Patient underweight (ICD-10 - R63.6) 01/16/2024 Generalized anxiety disorder (ICD-10 - F41.1) Duration (acute/chronic), stability (controlled/uncontrol led): Chronic, well controlled on current therapy Current medications/efficacy: Yes Previous medication trials: Invega Sustenna, Invega Trinza, Auestedo (worsening mood symptoms), Gabapentin (too sedating), benztropine (ineffective), Ingrezza (spaced out) Current/previous therapies: Follows up with therapy once [...] to the emergency department, or contact the [facility] Crisis Unit/Team. Follow up as scheduled in [...] symptoms), Gabapentin (too sedating), benztropine (ineffective), Ingrezza (spaced out) Current/previous therapies: Follows up with therapy once [...] to the emergency department, or contact the [facility] Crisis Unit/Team. Follow up as scheduled in [...] symptoms), Gabapentin (too sedating), benztropine (ineffective), Ingrezza (spaced out) Current/previous therapies: Follows up with therapy once [...] to the emergency department, or contact the [facility] Crisis Unit/Team. Follow up as scheduled in [...] symptoms), Gabapentin (too sedating), benztropine (ineffective), Ingrezza (spaced out) Current/previous therapies: Follows up with therapy once [...] to the emergency department, or contact the [facility] Crisis Unit/Team. Follow up as scheduled in [...] symptoms), Gabapentin (too sedating), benztropine (ineffective), Ingrezza (spaced out) Current/previous therapies: Follows up with therapy once [...] to the emergency department, or contact the [facility] Crisis Unit/Team. Follow up as scheduled in [...] symptoms), Gabapentin (too sedating), benztropine (ineffective), Ingrezza (spaced out) Current/previous therapies: Follows up with therapy once [...] to the emergency department, or contact the [facility] Crisis Unit/Team. Follow up as scheduled in [...] symptoms), Gabapentin (too sedating), benztropine (ineffective), Ingrezza (spaced out) Current/previous therapies: Follows up with therapy once [...] health CRISIS, please reach out to [phone] ([employer] Suicide and Crisis Lifeline), 911, go to the emergency department, or contact the [facility] Crisis Unit/Team. Follow up as scheduled in [...] symptoms), Gabapentin (too sedating), benztropine (ineffective), Ingrezza (spaced out) Current/previous therapies: Follows up with therapy once [...] health CRISIS, please reach out to [phone] ([employer] Suicide and Crisis Lifeline), 911, go to the emergency department, or contact the [facility] Crisis Unit/Team. Follow up as scheduled in 4 weeks or sooner if necessary. Follow up with PCP and/or other specialists as advised. NEXT STEP: Consider medication adjustments as needed. 08/13/2024 Generalized anxiety disorder (ICD-10 - F41.1) Duration (acute/chronic), stability (controlled/uncontrol led): Chronic, well controlled on current therapy Current medications/efficacy: Yes Previous medication trials: Invega Sustenna, Invega Trinza, Auestedo (worsening mood symptoms), Gabapentin (too sedating), benztropine (ineffective), Ingrezza (spaced out) Current/previous therapies: Follows up with therapy once [...] health CRISIS, please reach out to [phone] ([employer] Suicide and Crisis Lifeline), 911, go to the emergency department, or contact the [facility] Crisis Unit/Team. Follow up as scheduled in 4 weeks or sooner if necessary. Follow up with PCP and/or other specialists as advised. NEXT STEP: Consider medication adjustments as needed. 07/21/2024 Tardive dyskinesia (ICD-10 - G24.01) See assessment and plan for schizophrenia 08/13/2024 Schizophrenia, paranoid type (ICD-10 - F20.0) Duration (acute/chronic), stability (controlled/uncontrol led): Chronic, well controlled on current therapy Current medications/efficacy: Yes Previous medication trials: Invega Sustenna, Invega Trinza, Auestedo (worsening mood symptoms), Gabapentin (too sedating), benztropine (ineffective), Ingrezza (spaced out) Current/previous therapies: Follows up with therapy once [...] health CRISIS, please reach out to [phone] ([employer] Suicide and Crisis Lifeline), 911, go to the emergency department, or contact the [facility] Crisis Unit/Team. Follow up as scheduled in 4 weeks or sooner if necessary. Follow up with PCP and/or other specialists as advised. NEXT STEP: Consider medication adjustments as needed. Next Invega Hajeniseyera injection due approximately 02/2025. 07/21/2024 Schizophrenia, paranoid type (ICD-10 - F20.0) Duration (acute/chronic), stability (controlled/uncontrol led): Chronic, well controlled on current therapy Current medications/efficacy: Yes Previous medication trials: Invega Sustenna, Invega Trinza, Auestedo (worsening mood symptoms), Gabapentin (too sedating), benztropine (ineffective), Ingrezza (spaced out) Current/previous therapies: Follows up with therapy once [...] to the emergency department, or contact the [facility] Crisis Unit/Team. Follow up as scheduled in [...] symptoms), Gabapentin (too sedating), benztropine (ineffective), Ingrezza (spaced out) Current/previous therapies: Follows up with therapy once [...] to the emergency department, or contact the [facility] Crisis Unit/Team. Follow up as scheduled in [...] symptoms), Gabapentin (too sedating), benztropine (ineffective), Ingrezza (spaced out) Current/previous therapies: Follows up with therapy once [...] health CRISIS, please reach out to [phone] ([employer] Suicide and Crisis Lifeline), 911, go to the emergency department, or contact the [facility] Crisis Unit/Team. Follow up as scheduled in [...] symptoms), Gabapentin (too sedating), benztropine (ineffective), Ingrezza (spaced out) Current/previous therapies: Follows up with therapy once weekly Examination as documented - see pertinent aspects of office visit documentation. Pertinent diagnostics: LABS MONITORED BY PCP AND SPECIALISTS TD reportedly at baseline, no acute changes since last appointment. Patient not able to make it to office due to case assembler's vehicle requiring repairs today. Patient no longer [...] to the emergency department, or contact the [facility] Crisis Unit/Team. Follow up as scheduled in [...] symptoms), Gabapentin (too sedating), benztropine (ineffective), Ingrezza (spaced out) Current/previous therapies: Follows up with therapy once weekly Examination as documented - see pertinent aspects of office visit documentation. Pertinent diagnostics: LABS MONITORED BY PCP AND SPECIALISTS TD reportedly at baseline, no acute changes since last appointment. Patient not able to make it to office due to case assembler's vehicle requiring repairs today. Patient no longer [...] to the emergency department, or contact the [facility] Crisis Unit/Team. Follow up as scheduled in [...] symptoms), Gabapentin (too sedating), benztropine (ineffective), Ingrezza (spaced out) Current/previous therapies: Follows up with therapy once [...] health CRISIS, please reach out to [phone] ([employer] Suicide and Crisis Lifeline), 911, go to the emergency department, or contact the [facility] Crisis Unit/Team. Follow up as scheduled in [...] symptoms), Gabapentin (too sedating), benztropine (ineffective), Ingrezza (spaced out) Current/previous therapies: Follows up with therapy once [...] to the emergency department, or contact the [facility] Crisis Unit/Team. Follow up as scheduled in 5 weeks or sooner if necessary. Follow up with PCP and/or other specialists as advised. NEXT STEP: Consider medication adjustments as needed. 12/03/2023 Non-tobacco user (ICD-10 - Z78.9) 09/24/2023 Tardive dyskinesia (ICD-10 - G24.01) Bentropine-ineffectiv e, Austedo-intolerable side effects, Ingrezza-intolerable side effects, Gabapentin-too sedating 10/29/2023 Tardive dyskinesia (ICD-10 - G24.01) Bentropine-ineffectiv e, Austedo-intolerable side effects, Ingrezza-intolerable side effects, Gabapentin-too sedating Increase Trihexyphenidyl to 2mg TID with breakfast, lunch, and dinner. 09/24/2023 Generalized anxiety disorder (ICD-10 - F41.1) [...] symptoms), Gabapentin (too sedating), benztropine (ineffective), Ingrezza (spaced out) Current/previous therapies: Follows up with therapy once [...] to the emergency department, or contact the [facility] Crisis Unit/Team. Follow up as scheduled in [...] symptoms), Gabapentin (too sedating), benztropine (ineffective), Ingrezza (spaced out) Current/previous therapies: Follows up with therapy once weekly Examination as documented - see pertinent aspects of office visit documentation. Pertinent diagnostics: LABS MONITORED BY PCP AND SPECIALISTS TD reportedly at baseline, no acute changes since last appointment. Patient not able to make it to office due to case assembler's vehicle requiring repairs today. Patient no longer [...] mental health CRISIS, please reach out to [phone] ([employer] Suicide and Crisis Lifeline), 911, go to the emergency department, or contact the [facility] Crisis Unit/Team. Follow up as scheduled in [...] symptoms), Gabapentin (too sedating), benztropine (ineffective), Ingrezza (spaced out) Current/previous therapies: Follows up with therapy once weekly Examination as documented - see pertinent aspects of office visit documentation. Pertinent diagnostics: LABS MONITORED BY PCP AND SPECIALISTS TD reportedly at baseline, no acute changes since last appointment. Patient not able to make it to office due to case assembler's vehicle requiring repairs today. Patient no longer [...] to the emergency department, or contact the [facility] Crisis Unit/Team. Follow up as scheduled in [...] been receiving memantine through psych services at [place], this provider agreeable to continuing medication since [...] to the emergency department, or contact the [facility] Crisis Unit/Team. Follow up as scheduled or sooner if necessary. Follow up with PCP and/or other specialists as advised. NEXT STEP: Consider medication adjustments as needed. 05/21/2024 Tardive dyskinesia (ICD-10 - G24.01) See assessment and plan for schizophrenia 06/24/2024 Tardive dyskinesia (ICD-10 - G24.01) See assessment and plan for schizophrenia 08/13/2024 Tardive dyskinesia (ICD-10 - G24.01) See assessment and plan for schizophrenia 08/13/2024 Memory impairment (ICD-10 - R41.3) Duration (acute/chronic), stability (controlled/uncontrol led): Chronic, has reportedly been receiving memantine through psych services at [place], this provider agreeable to continuing medication since [...] health CRISIS, please reach out to [phone] ([employer] [facility]), 911, go to the emergency department, or contact the [facility] Crisis Unit/Team. Follow up as scheduled or sooner if necessary. Follow up with PCP and/or other specialists as advised. NEXT STEP: Consider medication adjustments as needed. 07/21/2024 Restless leg syndrome (ICD-10 - G25.81) See above assessment and plans 05/21/2024 Memory impairment (ICD-10 - R41.3) Duration (acute/chronic), stability (controlled/uncontrol led): Chronic, has reportedly been receiving memantine through psych services at [place], this provider agreeable to continuing medication since [...] health CRISIS, please reach out to [phone] ([employer] [facility]), 911, go to the emergency department, or contact the [facility] Crisis Unit/Team. Follow up as scheduled or sooner if necessary. Follow up with PCP and/or other specialists as advised. NEXT STEP: Consider medication adjustments as needed. 06/24/2024 Memory impairment (ICD-10 - R41.3) Duration (acute/chronic), stability (controlled/uncontrol led): Chronic, has reportedly been receiving memantine through psych services at [place], this provider agreeable to continuing medication since [...] health CRISIS, please reach out to [phone] ([employer] [facility]), 911, go to the emergency department, or contact the [facility] Crisis Unit/Team. Follow up as scheduled or sooner if necessary. Follow up with PCP and/or other specialists as advised. NEXT STEP: Consider medication adjustments as needed. 04/16/2024 Memory impairment (ICD-10 - R41.3) Duration (acute/chronic), stability (controlled/uncontrol led): Chronic, has reportedly been receiving memantine through psych services at [place], this provider agreeable to continuing medication since [...] health CRISIS, please reach out to [phone] ([employer] [facility]), 911, go to the emergency department, or contact the [facility] Crisis Unit/Team. Follow up as scheduled or sooner if necessary. Follow up with PCP and/or other specialists as advised. NEXT STEP: Consider medication adjustments as needed. 02/20/2024 Memory impairment (ICD-10 - R41.3) Duration (acute/chronic), stability (controlled/uncontrol led): Chronic, has reportedly been receiving memantine through psych services at [place], this provider agreeable to continuing medication since [...] health CRISIS, please reach out to [phone] ([employer] [facility]), 911, go to the emergency department, or contact the [facility] Crisis Unit/Team. Follow up as scheduled or sooner if necessary. Follow up with PCP and/or other specialists as advised. NEXT STEP: Consider medication adjustments as needed. 03/19/2024 Memory impairment (ICD-10 - R41.3) Duration (acute/chronic), stability (controlled/uncontrol led): Chronic, has reportedly been receiving memantine through psych services at [place], this provider agreeable to continuing medication since [...] mental health CRISIS, please reach out to [phone] ([employer] [facility]), 911, go to the emergency department, or contact the [facility] Crisis Unit/Team. Follow up as scheduled or [...] with social activities and weight loss. Client/Patient/G toniian is agreeable to above treatment plan and [...] Z71.3) 07/21/2024 Nutritional counseling (ICD-10 - Z71.3) 08/13/2024 Restless leg syndrome (ICD-10 - G25.81) See above assessment and plans 08/13/2024 Nutritional counseling (ICD-10 - Z71.3) 12/03/2023 Dizziness (ICD-10 - R42) Orthostatics today: Laying 168/70 Sitting 150/74 Standing 158/58 Trihexyphenidyl dose was lowered today, pt instructed to monitor symptoms. Cinthia has appt with her oncology navigator 12/17/2023 12/03/2023 Other Patient was edu cated [...] use/abuse and/or drinking alcohol. Plan Of Treatment No Information Insurance Providers Payer Name Payer Address Payer Phone Subscriber Number Group Number Insured Name Patient Relationship to Insured Coverage Start Date Coverage End Date [facility] Medicare Assure [address] [address] [place] [address] [id number] Cinthia Mccartney Self - patient is the insured 4 MEDICAID [address] [place] [address] [id number] Cinthia Mccartney Self - patient is the insured 4 Medications Administered Medication Instructions Date of Administration Dosage Notes [facility]23 1560 mg Patient to lerated well Invega Hafyera 08/13/2024 1560 mg Invega Sustenna 04/11/2017 234 mg International Organizer: Otilia Patient tolerated well. Invega Sustenna 04/18/2017 156 mg Exp: 07/2018 Lot: [id number] International Organizer: Otilia Pt tolerated injection well and verbalizes no questions or concerns at this time. Invega Sustenna 05/16/2017 234 mg Exp: 11/2018 Lot: [id number] International Organizer: Otilia Patient tolerated injection well. She denies questions or concerns at this time. Invega Sustenna 06/17/2017 234 mg Manufact Otilia pt tolerated well. Invega Sustenna 07/18/2017 234 mg Manufact Otilia pt tolerated well. Invega Sustenna 08/06/2017 234 mg Manufact Otilia pt tolerated well. Invega Sustenna 09/05/2017 234 mg Manufact Otilia, pt tolerated well. Invega Sustenna 09/30/2017 234 mg Manufact Otilia, pt tolerated well. Invega Sustenna 10/30/2017 234 mg Manufact Otilia, pt tolerated well. Invega Sustenna 12/04/2017 234 mg International Organizer-Roamler Patient tolerated well. Invega Sustenna 01/01/2018 234 mg Manufact Otilia, pt tolerated well. Invega Sustenna 02/04/2018 234 mg Manufactu rer: Roamler. Pt tolerated well. Questions or concerns denied. Invega Sustenna 03/05/2018 234 mg Manufact Otilia, pt tolerated well. Invega Sustenna 04/03/2018 234 mg Manufact Roamler, pt tolerated well. Invega Sustenna 05/01/2018 234 mg Manufact Roamler, pt tolerated well. Invega Sustenna 05/28/2018 234 mg International Organizer: Roamler Pt tolerated the injection well and denies questions or concerns at this time. Invega Sustenna 06/17/2019 234 mg Manufact by Roamler Pt edward well. Invega Sustenna 06/23/2019 156 mg Manufact by Roamler Pt edward well. Invega Sustenna 07/20/2019 234 mg International Organizer-Stereomood Pt tolerated injection well. Voiced no questions or concerns Invega Sustenna 08/20/2019 234 mg packing attendant-Roamler Pt tolerated injection well. Voiced no questions or concerns Invega Sustenna 09/22/2019 234 mg Manufact by Roamler Pt edward well. Invega Sustenna 10/20/2019 234 mg Manufact by Roamler Pt edward well. Invega Sustenna 11/18/2019 234 mg Manufact by Roamler Pt edward well. Invega Sustenna 12/16/2019 156 mg Invega Sustenna 01/13/2020 156 mg Manufact by Roamler Pt edward well. Invega Sustenna 02/09/2020 156 mg Manufact Otilia, patient tolerated well. Invega Sustenna 03/16/2020 156 mg International Organizer-Roamler Pt tolerated injection well. Voiced no questions or concerns. Invega Sustenna 04/13/2020 156 mg Manufact by Roamler Pt edward well. Invega Sustenna 05/18/2020 156 mg International Organizer- Stereomood Pt tolerated injection well. Voiced no questions or concerns. Invega Sustenna 06/15/2020 156 mg International Organizer-Roamler Pt tolerated injection well. Voiced no questions [...] olerated well. Invega Trinza 06/25/2018 819 mg International Organizer: Roamler Pt tolerated the injection well and denies questions or concerns at this time. Invega Trinza 09/21/2018 410 mg International Organizer: Roamler Pt tolerated well. No questions or concerns [...] well Perseris (Risperidone XR) 03/17/2019 90 mg International Organizer: Indivior Given subcutaneously to the right abdomen. Pt tolerated the injection well. Medical (General) History Medical History History ICD Code Schizophrenia, paranoid type Generalized anxiety disorder HTN Surgical History Surgery Date(Month/Year) repaired to ruptured navel 01/2020 cardiac cath Hospitalization History Reason Date(Month/Year) Atrial fibrillation Chirag 09/2021 2
--- OUTSIDE RECORDS SUMMARY | 2024-08-31 08:43 | XMS_ITS | CONTINUITY OF CARE DOCUMENT ---
Author Name raulser, almas Address Unknown Organization [facility] Address [address] [place] [address] Phone [phone] Care Team Providers Care First Aid Director Name Role Phone Gene RAMIRES, Jose G Unavailable Rabia RAMIRES, Jeff Unavailable Rabia RAMIRES, Jeff Unavailable PROBLEMS Condition Status Date Provider Notes Aortic atherosclerosis active Jose G Mills MD Pulmonary hypertension active Jose G Mills MD Hyperlipidemia;NEG CRP,lpa 3xx active Jose G Mills MD Anemia, iron deficiency active Jose G olmstead MD neg b12 and foate HTN essential;neg duplex active Jose G garcia MD Breast cancer active Jose G Mills MD in [facility] 2012 Adenomatous colonic polyp active Jose G paul MD FAMILY HISTORY OF HEART DISEASE active Jose G Mills MD cad and congeti al heart dz IRBBB active Jose G Mills MD Schizophrenia, chronic active Jose G Mills MD Tardive dyskinesia active Jose G Mills MD Anxiety disorder active Jose G Mills MD Dizziness completed - Jose G Mills MD covid 19;2020;HAD VACCINE active Jose G paul MD Overweight completed - Jose G Mills MD Screening active Jose G Mills MD cannot g et to [facility] to get francesca scor e Diastolic CHF active Jose G Mills MD ON JA RDICNE, Tachy julia syndrome WITH PAF;NML TSH completed - Jose G Mills MD Carotid artery disease;mild active Jose G Mills MD AORTIC REGURGITATION completed - Jose G Mills MD Other disorders of brain in diseases classified elsewhere completed - Jose G Mills MD Valvular heart disease active Jose G Mills MD Hypertension completed - Jose G Mills MD Cardiac murmur completed - Jose G Mills MD Elevated LFT's active Jose G Mills MD SLEEP APNEA;on rx active Jose G Mills MD Palpitations completed - Jose G Mills MD AV paroxysmal tachycardia (PSVT) (not billable after 01/05/2023) completed - Jose G Mills MD Renal disease, chronic, mild;neg duplex and us active Jose G Mills MD \ Atrial fibrillation, paroxysmal;nml tsh;has julia and tachy/svt active Jose G Mills MD had ablaton 2023, has had cardioveorn, Pulmonary nodule active Jose G Mills MD no n smoker benigh per rads SVT, paroxysmal;nml tsh completed - Jose G Mills MD ENCOUNTERS Date Type Provider Location Encounter Diag nosis - In-person encounter Office Visit Jose G Mills MD [facility] Diastolic CHF - In-person encounter Office Visit Jose G Mills MD [facility] ScreeningAtrial fibrillation, paroxysmal;nml tsh;has julia and tachy/svtPulmonary noduleSVT, paroxysmal;nml tsh - In-person encounter Office Visit Jose G Mills MD [facility] Renal disease, chron ic, mild;neg duplex and us - In-person encounter Office Visit Ismael Matson MD [facility] SVT, paroxysmal;nml tsh - In-person encounter Office Visit Jose G Mills MD [facility] covid 19;2020;HAD VACCINETachy julia syndrome WITH PAF;NML TSHRenal disease, chronic, mild;neg duplex and usAtrial fibrillation, paroxysmal;nml tsh;has julia and tachy/svtPulmonary nodule - In-person encounter Office Visit Ismael Matson MD [facility] Atrial fibrillation, paroxysmal;nml tsh;has julia and tachy/svt - In-person encounter Office Visit Jose G Mills MD [facility] PalpitationsAV paroxysmal tachycardia (PSVT) (not billable after 01/05/2023) - In-person encounter Office Visit Ismael Matson MD [facility] - In-person encounter Office Visit Jose G Mills MD [facility] - In-person encounter Office Visit Jose G Mills MD [place] [facility] - In-person encounter Office Visit Jose G Mills MD [facility] - In-person encounter Office Visit Jose G Mills MD [facility] ScreeningDiastolic CHF - In-person encounter Office Visit Jose G Mills MD [facility] Breast cancer - In-person encounter Office Visit Jose G Mills MD [facility] - In-person encounter Office Visit Jose G Mills MD [facility] OverweightDiastolic CHFElevated LFT'sSLEEP APNEA;on rx - In-person encounter Office Visit Jose G Mills MD [facility] HypertensionCardiac murmur - In-person encounter Office Visit Libia Cortez MD [facility] - In-person encounter Office Visit Jose G Mills MD [facility] - In-person encounter Office Visit Jose G Mills MD [facility] AORTIC REGURGITATIONOther disorders of brain in diseases classified elsewhereValvular heart disease - In-person encounter Office Visit Jose G Mills MD [facility] Dizzinesscovid ;HAD VACCINETachy julia syndrome WITH PAF;NML TSHCarotid artery disease;mild - In-person encounter Office Visit Jose G Mills MD [facility] HTN essential;neg duplexBreast cancerAdenomatous colonic polypFAMILY HISTORY OF HEART DISEASEIRBBBSchizophrenia, chronicTardive dyskinesiaAnxiety disordercovid ;HAD VACCINEOverweight VITAL SIGNS Date Observation Value Provider Body Mass Index (Ratio) 26.56 kg/m2 Nabila Mills MD blood pressure, diastolic 64 mm[Hg] Gladis Lopes blood pressure, systolic 127 mm[Hg] Micheline Lopes oxygen saturation, oximetry 97 % Farzaneh Lopes pulse rate 87 /min Farzaneh Lopes respiratory rate E&M 12 /min Farzaneh Lopes weight E&M 136 [lb_av] Farzaneh Lopes height E&M 60 [in_i] Farzaneh Lopes blood pressure, cuff size regular Gladis Lopes Body Mass Index (Ratio) 25.43 kg/m2 Nabila Mills MD blood pressure, diastolic 66 mm[Hg] Soila nkLogic blood pressure, systolic 122 mm[Hg] Sakina kLogic blood pressure, diastolic 66 mm[Hg] Dann ramseyn Whitlock blood pressure, systolic 122 mm[Hg] Beverley alba Whitlock oxygen saturation, oximetry 99 % Dannaron Whitlock pulse rate 84 /min [facility] blood pressure, cuff size regular Dann aline Whitlock weight E&M 130.2 [lb_av] Glorian Whitlock height E&M 60 [in_i] [facility] Body Mass Index (Ratio) 24.61 kg/m2 Nabila Mills MD blood pressure, cuff size regular Fadi reagan Sanchez blood pressure, diastolic 78 mm[Hg] Ta tez Sanchez blood pressure, systolic 110 mm[Hg] Tab [facility] pulse rate 73 /min Nicole Sanchez oxygen saturation, oximetry 99 % Nicole Sanchez respiratory rate E&M 12 /min Nicole Sanchez weight E&M 126 [lb_av] Nicole Sanchez height E&M 60 [in_i] Nicole Sanchez Body Mass Index (Ratio) 23.82 kg/m2 Dontrell Hernandez blood pressure, diastolic 61 mm[Hg] Soila nkLogic blood pressure, systolic 144 mm[Hg] Sakina kLogic blood pressure, cuff size regular Ja rret blood pressure, diastolic 61 mm[Hg] Ja rret blood pressure, systolic 144 mm[Hg] Jar ret pulse rate 57 /min Edmund y oxygen saturation, oximetry 98 % Edmund respiratory rate E&M 14 /min Edmund /03 weight E&M 122 [lb_av] Edmund height E&M 60 [in_i] Edmund Body Mass Index (Ratio) 22.85 kg/m2 Nabila Mills MD blood pressure, cuff size regular Ja et blood pressure, diastolic 55 mm[Hg] Ja et blood pressure, systolic 137 mm[Hg] Sindi ret pulse rate 56 /min Edmund oxygen saturation, oximetry 96 % Edmund respiratory rate E&M 16 /min Edmund weight E&M 117 [lb_av] Edmund height E&M 60 [in_i] Edmund y Body Mass Index (Ratio) 23.24 kg/m2 [facility] blood pressure, cuff size regular Ke rri Gruenenfelder blood pressure, diastolic 70 mm[Hg] Ke rri Gruenenfelder blood pressure, systolic 134 mm[Hg] Ker ri Gruenenfelder oxygen saturation, oximetry 98 % Melanie Gruenenfelder respiratory rate E&M 12 /min Melanie G ruenenfelder pulse rate 75 /min Melanie Gruenenfe er weight E&M 119 [lb_av] Melanie Gruenenfe lder height E&M 60 [in_i] Melanie Gruenenfe er Body Mass Index (Ratio) 23.24 kg/m2 Nabila Mills MD Body Mass Index (Ratio) 23.24 kg/m2 Dontrell Hernandez blood pressure, cuff size regular Ke rri Gruenenfelder blood pressure, diastolic 70 mm[Hg] Mihir barajasi Joannenenfeld blood pressure, systolic 130 mm[Hg] Estela [facility] oxygen saturation, oximetry 98 % [facility] E&M 12 /min [facility] pulse rate 70 /min Melanie Taylor weight E&M 119 [lb_av] Melanie Baxtere height E&M 60 [in_i] Melanie Baxtere blood pressure, diastolic 56 mm[Hg] Li nkLogic blood pressure, systolic 144 mm[Hg] Sakina kLogic blood pressure, cuff size regular Ja rret blood pressure, diastolic 56 mm[Hg] Ja rret blood pressure, systolic 144 mm[Hg] Jar ret pulse rate 61 /min Edmund oxygen saturation, oximetry 100 % Edmund respiratory rate E&M 16 /min weight E&M 119 [lb_av] Edmund y height E&M 60 [in_i] Edmund y Body Mass Index (Ratio) 23.63 kg/m2 Nabila Mills MD blood pressure, cuff size regular Ja rret blood pressure, diastolic 56 mm[Hg] Ja rret blood pressure, systolic 121 mm[Hg] Jar ret pulse rate 68 /min Edmund y respiratory rate E&M 12 /min Edmund oxygen saturation, oximetry 94 % weight E&M 121 [lb_av] Edmund Damon y height E&M 60 [in_i] Edmund Damon y Body Mass Index (Ratio) 22.85 kg/m2 Nabila Mills MD blood pressure, diastolic 74 mm[Hg] Li nkLogic blood pressure, systolic 160 mm[Hg] Sakina kLogic blood pressure, cuff size regular Te martita Kuo RN blood pressure, diastolic 55 mm[Hg] Te martita Kuo RN blood pressure, systolic 120 mm[Hg] Ter edvin Kuo RN oxygen saturation, oximetry 98 % Lashon Kuo RN respiratory rate E&M 16 /min Lashon Kuo RN weight E&M 117 [lb_av] Lashon Kuo R N height E&M 60 [in_i] Lashon Kuo R N Body Mass Index (Ratio) 23.04 kg/m2 Nabila Mills MD weight E&M 118 [lb_av] Jose G Sims pulse rate 59 /min Jose G Sims blood pressure, diastolic 46 mm[Hg] Amador Mills MD blood pressure, systolic 120 mm[Hg] Dandre Mills MD Body Mass Index (Ratio) 23.43 kg/m2 Nabila Mills MD pulse rate 55 /min Cathy Martinez blood pressure, diastolic 60 mm[Hg] Josue Martinez blood pressure, systolic 141 mm[Hg] Loan Martinez respiratory rate E&M 20 /min Cathy Martinez oxygen saturation, oximetry 98 % Cathy Martinez weight E&M 120 [lb_av] Cathy Martinez height E&M 60 [in_i] Cathy Martinez blood pressure, cuff size regular Josue Martinez Body Mass Index (Ratio) 22.71 kg/m2 Nabila Mills MD respiratory rate E&M 20 /min Cathy Martinez pulse rate 57 /min Cathy Martinez blood pressure, diastolic 49 mm[Hg] amna Martinez blood pressure, systolic 111 mm[Hg] She jarad Martinez oxygen saturation, oximetry 98 % Cathy Martinez blood pressure, cuff size regular amna Martinez weight E&M 116.3 [lb_av] Cathy Martinez height E&M 60 [in_i] Cathy Martinez Body Mass Index (Ratio) 22.46 kg/m2 Nabila Mills MD blood pressure, diastolic 57 mm[Hg] [facility] blood pressure, systolic 102 mm[Hg] [facility] oxygen saturation, oximetry 99 % Erma Goddard pulse rate 83 /min Erma sims weight E&M 115 [lb_av] Erma sims respiratory rate E&M 16 /min Meggan bosch Goddard blood pressure, cuff size large Ma ellen Goddard height E&M 60 [in_i] Erma sims Body Mass Index (Ratio) 23.04 kg/m2 Nabila Mills MD blood pressure, cuff size regular rri Gruenenfsher blood pressure, diastolic 82 mm[Hg] Ke rri Gruenenfsher blood pressure, systolic 120 mm[Hg] Ker ri Ralphuenearam oxygen saturation, oximetry 95 % Melanie Joannenearam respiratory rate E&M 14 /min Melanie G leoncio pulse rate 59 /min Melanie Brandon cabaer weight E&M 118 [lb_av] Melanie Taylor lder height E&M 60 [in_i] Melanie Taylor lder Body Mass Index (Ratio) 25.97 kg/m2 Nabila Mills MD blood pressure, diastolic 52 mm[Hg] Sa ra Salcedo blood pressure, systolic 123 mm[Hg] Jean Claude a Salcedo oxygen saturation, oximetry 99 % Franca Salcedo respiratory rate E&M 18 /min Franca Si ms pulse rate 76 /min Franca Salcedo blood pressure, cuff size regular Sa ra Salcedo weight E&M 133 [lb_av] Franca Salcedo height E&M 60 [in_i] Franca Salcedo Body Mass Index (Ratio) 26.75 kg/m2 Marisa Cortez MD blood pressure, diastolic 55 mm[Hg] Li nkLogic blood pressure, systolic 134 mm[Hg] Sakina kLogic blood pressure, cuff size regular Ca therine Bill blood pressure, diastolic 55 mm[Hg] Ca therine Bill blood pressure, systolic 134 mm[Hg] Cat herine Bill oxygen saturation, oximetry 98 % Violetta Hagerhill pulse rate 85 /min Violetta Hagerhill respiratory rate E&M 14 /min Catheri ne Hagerhill weight E&M 137 [lb_av] Violetta Hagerhill height E&M 60 [in_i] Violetta Hagerhill Body Mass Index (Ratio) 27.73 kg/m2 Nabila Mills MD blood pressure, cuff size regular Ke rri Gruenenfeldhseela blood pressure, diastolic 70 mm[Hg] Ke rri Gruenenfeldsheela blood pressure, systolic 122 mm[Hg] Ker ri Gruenenfelder oxygen saturation, oximetry 98 % Melanie Gruenenfelder respiratory rate E&M 16 /min Melanie G ruenenfelder pulse rate 76 /min Melanie Gruenenfe lder weight E&M 142 [lb_av] Melanie Gruenenfe lder height E&M 60 [in_i] Melanie Gruenenfe er Body Mass Index (Ratio) 28.90 kg/m2 Nabila Mills MD blood pressure, resting Yes [place] kapoor O'Angel Luis blood pressure, diastolic 60 mm[Hg] Radha [facility] O'Angel Luis blood pressure, systolic 130 mm[Hg] [facility] O'Angel Luis oxygen saturation, oximetry 95 % [facility] O'Angel Luis respiratory rate E&M 16 /min Allie O'Angel Luis pulse rate 83 /min [facility] O'Angel Luis weight E&M 148 [lb_av] Allie O'Angel Luis height E&M 60 [in_i] [facility] O'Angel Luis Body Mass Index (Ratio) 30.27 kg/m2 Nabila Mills MD blood pressure, cuff size regular Ke rri Gruenenfelder blood pressure, diastolic 70 mm[Hg] Ke rri Gruenenfelder blood pressure, systolic 150 mm[Hg] Estela ri Gruenenfelder oxygen saturation, oximetry 96 % Melanie Ralphuenenfelder respiratory rate E&M 16 /min Melanie G mikeenenfelder pulse rate 79 /min Melanie Gruenenfe lder weight E&M 155 [lb_av] Melanie Gruenenfe lder height E&M 60 [in_i] Melanie Gruenenfe rosaleser weight E&M 157 [lb_av] Ros Garvey Body Mass Index (Ratio) 30.66 kg/m2 Nabila Mills MD blood pressure, diastolic 73 mm[Hg] Fe ramon Abel blood pressure, systolic 150 mm[Hg] Fel icia Abel oxygen saturation, oximetry 100 % Erinn Abel respiratory rate E&M 18 /min Erinn Abel pulse rate 65 /min Erinn Abel temperature E&M 97.1 [degF] Erinn Abel weight E&M 157 [lb_av] Erinn Abel height E&M 60 [in_i] Erinn Abel ALLERGIES Allergy Name Onset Date Reaction Criticality Status AMIODARONE HCL julia Low Criticality activ e ENTRESTO soft bp Low Criticality active AMOXICILLIN High Criticality active RESULTS Date Observation Value Provider Reference Range Interpretation Location folate, serum >20.0 ng/mL LinkLogic >3.0 lipoprotein, beta, serum, point, quantitative, calculated 59 mg/dL Link[facility] 0-99 HDL cholesterol, serum 73 mg/dL Link[facility]ic >39 triglyceride, serum, random 66 mg/dL Link[facility] 0-149 cholesterol, serum 145 mg/dL [facility] [phone]/07/ 15 calcium, serum 9.0 mg/dL [facility] 8.7-10.3 carbon dioxide, venous blood 21 mmol/L [facility] 20-29 chloride, serum 105 mmol/L [facility] 96-106 potassium, serum 4.7 mmol/L [facility] 3.5-5.2 sodium, serum 141 mmol/L [facility] 074-180 4537/07/ 15 urea nitrogen/creatinine ratio, serum 11 Link[facility] 12-28 Low eGFR if 73 mL/min/{1.7 3_m2} Link[facility] >59 eGFR if not 63 mL/min/{1.7 3_m2} Link[facility] >59 creatinine, serum 0.90 mg/dL [facility] 0.57-1.00 urea nitrogen, blood 10 mg/dL [facility] 8-27 blood glucose, random 94 mg/dL [facility] 65-99 prothrombin time (patient) 10.3 s Link[facility] 9.1-12.0 international normalized ratio (INR) 1.0 [facility] 0.9-1.2 basophil count, absolute 0.0 x10E3/uL Link[facility] 0.0-0.2 Eosinophil Absolute Count 0.2 X10E3/UL LinkLog[facility] 0.0-0.4 monocyte count, blood, automated 0.4 X10E3/UL Link[facility] 0.1-0.9 lymphocyte count, blood, automated 0.8 X10E3/UL [facility] 0.7-3.1 Absolute Neutrophils 3.0 X10E3/UL [facility] 1.4-7.0 basophils as percent of blood leukocytes 0 % Link[facility]ic Not Estab. eosinophils as percent of blood leukocytes 4 % Link[facility]ic Not Estab. monocytes as percent of blood leukocytes 10 % LinkLogic Not Estab. lymphocytes as percent of blood leukocytes 18 % LinkLogic Not Estab. neutrophils as percent of blood leukocytes 67 % Link[facility]ic Not Estab. platelet count 225 X10E3/UL Link[facility] 103-959 3080/07/ 15 red blood cell distribution width 12.5 % Link[facility]ic 11.7-15.4 mean corpuscular hemoglobin concentration, RBC 32.8 G/DL [facility] 31.5-35.7 mean corpuscular hemoglobin, RBC 29.8 pg [facility] 26.6-33.0 mean corpuscular volume, RBC 91 fL [facility] 79-97 hematocrit, blood 33.5 % [facility] 34.0-46.6 Low hemoglobin, blood 11.0 g/dL [facility] 11.1-15.9 Low erythrocyte (RBC) count 3.69 X10E6/UL [facility] 3.77-5.28 Low leukocyte count, blood 4.4 X10E3/UL [facility] 3.4-10.8 rapid plasma reagin antibody screen Non Reactive LinkLog Non Reactive ferritin, serum 115 ng/mL [facility] 15-150 pro brain natriuretic peptide 494 pg/mL Link[facility] 0-301 High c-reactive protein, quantitative, serum 0.86 mg/L [facility] 0.00-3.00 iron saturation percent, serum 18 % [facility] 15-55 iron, serum 59 ug/dL [facility] 27-139 iron binding capacity, unsaturated 273 ug/dL [facility] [phone]/03/ 11 iron binding capacity, total 332 ug/dL [facility] [phone]/03/ 11 free thyroxine index 1.7 [facility] 1.2-4.9 triiodothyronine resin uptake 28 % [facility] 24-39 thyroxine, serum, total 6.0 ug/dL [facility] 4.5-12.0 thyroid stimulating hormone, serum 3.820 u[IU]/mL Link[facility] 0.450-4.500 lipoprotein, beta, serum, point, quantitative, calculated 141 mg/dL [facility] 0-99 High HDL cholesterol, serum 81 mg/dL Link[facility]ic >39 triglyceride, serum, random 65 mg/dL [facility] 0-149 cholesterol, serum 233 mg/dL [facility] 100-199 High B-12, serum 574 pg/mL Link[facility]ic [phone] hemoglobin A1C, blood, as % of total hemoglobin 5.4 % Link[facility]ic 4.8-5.6 basophil count, absolute 0.0 x10E3/uL Link[facility]ic 0.0-0.2 Eosinophil Absolute Count 0.1 X10E3/UL LinkLogic 0.0-0.4 monocyte count, blood, automated 0.3 X10E3/UL Link[facility] 0.1-0.9 lymphocyte count, blood, automated 0.9 X10E3/UL Link[facility]ic 0.7-3.1 Absolute Neutrophils 4.5 X10E3/UL LinkLogic 1.4-7.0 basophils as percent of blood leukocytes 1 % LinkLogic Not Estab. eosinophils as percent of blood leukocytes 2 % Link[facility]ic Not Estab. monocytes as percent of blood leukocytes 5 % LinkLogic Not Estab. lymphocytes as percent of blood leukocytes 15 % LinkLogic Not Estab. neutrophils as percent of blood leukocytes 77 % Link[facility]ic Not Estab. platelet count 228 X10E3/UL [facility] 182-321 7564/03/ 11 red blood cell distribution width 13.1 % [facility] 11.7-15.4 mean corpuscular hemoglobin concentration, RBC 33.6 G/DL [facility] 31.5-35.7 mean corpuscular hemoglobin, RBC 29.1 pg Link[facility]ic 26.6-33.0 mean corpuscular volume, RBC 87 fL [facility] 79-97 hematocrit, blood 37.2 % [facility] 34.0-46.6 hemoglobin, blood 12.5 g/dL [facility] 11.1-15.9 erythrocyte (RBC) count 4.30 X10E6/UL Link[facility] 3.77-5.28 leukocyte count, blood 5.8 X10E3/UL [facility] 3.4-10.8 alanine aminotransferase (SGPT), serum 18 1/L Link[facility]ic 0-32 aspartate aminotransferase (SGOT), serum 29 1/L Link[facility]ic 0-40 alkaline phosphatase, serum 84 1/L [facility] 39-117 bilirubin, serum, total 0.4 mg/dL LinkLogic 0.0-1.2 albumin/globulin ratio, serum 1.4 [facility] 1.2-2.2 globulin, serum 2.9 LinkLogic 1.5-4.5 albumin, serum 4.2 g/dL LinkLogic 3.7-4.7 protein, total, serum 7.1 g/dL Link[facility]ic 6.0-8.5 calcium, serum 9.5 mg/dL Link[facility] 8.7-10.3 carbon dioxide, venous blood 22 mmol/L Link[facility]ic 20-29 chloride, serum 106 mmol/L [facility]ic 96-106 potassium, serum 5.0 mmol/L LinkLogic 3.5-5.2 sodium, serum 144 mmol/L Link[facility] 634-435 0331/03/ 11 urea nitrogen/creatinine ratio, serum 18 Link[facility] 12-28 eGFR if 70 mL/min/{1.7 3_m2} Link[facility]ic >59 eGFR if not 60 mL/min/{1.7 3_m2} LinkLogic >59 creatinine, serum 0.94 mg/dL [facility] 0.57-1.00 urea nitrogen, blood 17 mg/dL Link[facility]ic 8-27 blood glucose, random 93 mg/dL [facility] 65-99 HISTORY OF MEDICATION USE Medication Status Instructions Dates Provider Indications Com ments Xarelto 20 mg tablet active TAKE 1 TABLET BY MOUTH DAILY AT 5PM Fawn Morrison FeroSul 325 mg (65 mg iron) tablet active TAKE 1 TABLET BY MOUTH DAILY Dalia Meyers ezetimibe 10 mg tablet active Take 1 tablet by mouth once a day Melanie Laguna gabapentin 100 mg capsule active TAKE BY MOUTH ONCE AT BEDTIME Angeline Whitlock ezetimibe 10 mg tablet completed TAKE 1 TABLET BY MOUTH DAILY - Melanie Laguna cyclobenzaprine 5 mg tablet active Jose G Mills MD Xarelto 20 mg tablet completed Take 1 tablet by mouth once a day AT 5PM - Fawn Morrison rosuvastatin 40 mg tablet active TAKE 1 TABLET BY MOUTH DAILY Neelam Sanchez RN amiodarone 200 mg tablet completed TAKE 1/2 TABLET BY MOUTH EVERY DAY - Jose G Mills MD meloxicam 15 mg tablet active Jose G Mills MD clonazepam 0.25 mg tablet,disintegra ting active daily as needed for anxiety Breanna Malave NP calcium carbonate-vit D3-min 600 mg calcium- 200 unit tablet active twice a day Breanna Malave NP benztropine 1 mg tablet active 2 tablets daily Breanna Malave NP magnesium oxide 400 mg magnesium tablet active Take 1 tablet by mouth twice a day Melanie Laguna amiodarone 200 mg tablet completed TAKE 1 TABLET BY MOUTH EVERY DAY - Dontrell Hernandez magnesium 200 mg tablet completed 1 tablet by mouth twice a day - Breanna Malave NP ezetimibe 10 mg tablet completed Take 1 tablet by mouth once a day - Fabiola Goodrich ropinirole 2 mg tablet active 2mg twice a day and 3mg at bedtime Breanna Malave NP trihexyphenidyl 5 mg tablet completed 5mg twice a day and 2mg at bedtime - Jose G Mills MD trihexyphenidyl 2 mg tablet completed 5mg twice a day and 2mg at bedtime - Jose G Mills MD omeprazole 20 mg capsule,delayed release(/EC) active daily Breanna Malave NP FeroSul 325 mg (65 mg iron) tablet completed Take 1 tablet by mouth once a day - Dalia Meyers Invega Hafyera 1,560 mg/5 mL syringe active Lo Jones NP Xiidra 5% dropperette active Lo Jones NP clonazepam 0.25 mg tablet,disintegra ting completed - Jose G Mills MD rosuvastatin 40 mg tablet completed Take 1 tablet by mouth once a day - Edmund Rocha Multaq 400 mg tablet completed Take 1 tablet by mouth twice a day - Breanna Malave NP loratadine 10 mg tablet active once a day Jose G Mills MD metoprolol tartrate 25 mg tablet completed Take 1/4 tablet by mouth twice a day - Neelam Sanchez RN Xarelto 20 mg tablet completed Take 1 tablet by mouth once a day - Melanie Laguna rosuvastatin 40 mg tablet completed TAKE 1 TABLET BY MOUTH DAILY - Melanie Laguna ezetimibe 10 mg tablet completed TAKE 1 TABLET BY MOUTH DAILY - Melanie Laguna Entresto 24-26 mg tablet completed Take 1 tablet by mouth twice a day - Lo Jones NP Jardiance 10 mg tablet active Take 1/2 tablet by mouth once a day (directions per PCP Zena Amanuel Entresto 24-26 mg tablet completed Take 1 tablet by mouth once a day - Jose G Mills MD Aspirin Childrens 81 mg tablet,chewable completed - Jose G Mills MD rosuvastatin 40 mg tablet completed once a day - Violetta Bill ezetimibe 10 mg tablet completed once a day - Violetta Hagerhill Zetia 10 mg tablet completed 1 tablet once a day - Jose G Mills MD Crestor 40 mg tablet completed 1 tablet once a day - Jose G Mills MD ASPIRIN 81 81 MG TBEC completed 1 tablet by mouth once a day - Jose G Mills MD losartan 50 mg tablet completed Take 1 tablet once a day - Jose G Mills MD ferrous sulfate 325 mg (65 mg iron) tablet completed once a day - Jose G Mills MD terbinafine HCl 250 mg tablet completed Take 1 tablet by mouth once a day - Jose G Mills MD #90, 90 days supply, Prescribed by ARIANNE GILBERT, Filled 07/13/2020 ropinirole 2 mg tablet completed once a day - Jose G Mills MD #56, 28 days supply, Prescribed by DEVIN TRUJILLO, Filled 06/07/2020 ropinirole 3 mg tablet active 2mg twice a day and 3mg at bedtime Breanna Malave NP #28, 28 days supply, Prescribed by DEVIN TRUJILLO, Filled 06/07/2020 memantine 5 mg tablet active once a day Melanie Laguna #28, 28 days supply, Prescribed by RAJENDRA ALCANTARA, Filled 06/07/2020 meloxicam 15 mg tablet completed once a day - Jose G Mills MD #28, 28 days supply, Prescribed by DEVIN TRUJILLO, Filled 06/07/2020 letrozole 2.5 mg tablet completed once a day - Jose G Mills MD #28, 28 days supply, Prescribed by JENNIFER AMATO, Filled 06/07/2020 gabapentin 300 mg capsule completed Take 1 every night - Jose G Mills MD #28, 28 days supply, Prescribed by RAJENDRA ALCANTARA, Filled 06/07/2020 benztropine 2 mg tablet completed Take 1.5 once a day - Jose G Mills MD #42, 28 days supply, Prescribed by RAJENDRA ALCANTARA, Filled 06/07/2020 amlodipine 5 mg tablet completed once a day - Melanie Laguna #28, 28 days supply, Prescribed by DEVIN TRUJILLO, Filled 06/07/2020 alendronate 70 mg tablet active Take 1 once a week Melanie Laguna #4, 28 days supply, Prescribed by DEVIN TRUJILLO, Filled 06/07/2020 omeprazole 20 mg capsule,delayed release(/EC) completed Take 1 twice a day - Jose G Mills MD #56, 28 days supply, Prescribed by GLORIA SINGH, Filled 06/09/2020 SOCIAL HISTORY Date Observation Value Provider personal history of marijuana use no Jose G Mills MD drug use no Jose G Sims alcohol use no Jose G Serota M Carol smoking status Never smoker Jose G Mills MD personal history of marijuana use no Jose G Mills MD drug use no Jose G Serotaysha Sims alcohol use no Jose G Serota M Carol smoking status Never smoker Jose G Mills MD personal history of marijuana use no Jose G Mills MD drug use no Jose G Sims alcohol use no Jose G Serotaysha Sims smoking status Never smoker Jose G Mills MD number of grandchildren Ismael Huyen Hernandez personal history of marijuana use no Dontrell Zamoranoinga drug use no Dontrell Zamoranoinga alcohol use no Dontrell Zamoranoinga smoking status Never smoker Dontrell Heckcece personal history of marijuana use no Jose G Mills MD drug use no Jose G Serota M D alcohol use no Jose G Serota M D smoking status Never smoker Jose G Mills MD personal history of marijuana use no Breanna Sueror CUTTER GRIND [employer]OL TECHNICIAN drug use no Breanna Fendle r CUTTER GRIND TOOL TECHNICIAN alcohol use no Breanna Fendle r CUTTER GRIND TOOL TECHNICIAN smoking status Never smoker Breanna Sabrina alva CUTTER GRIND TOOL TECHNICIAN Exercise counseling Yes Breanna Malave CUTTER GRIND TOOL TECHNICIAN drug use no Jose G Sims alcohol use no Jose G Mills M Carol smoking status Never smoker Jose G Mills MD personal history of marijuana use no Mamiecheikh Jones CUTTER GRIND TOOL TECHNICIAN drug use no Lo Bonareri CUTTER GRIND TOOL TECHNICIAN alcohol use no Mamiecheikh Paezreri CUTTER GRIND TOOL TECHNICIAN smoking status Never smoker Lo Paezharoon xiong CUTTER GRIND TOOL TECHNICIAN drug use no Jose G Serota M D alcohol use no Jose G Sims smoking status Never smoker Jose G Mills MD drug use no Lashon Kuo R N alcohol use no Lashon Kuo R N smoking status Never smoker Lashon Kuo RN social history E&M Smoking Histo ry: Sina deleon has never smoked. Jose G Mills MD social history reviewed E&M revi ewed - no changes required Jose G Mills MD social history E&M S moking History: Sina apncho has never smoked. Jose G Mills MD social history reviewed E&M revi ewed - no changes required Jose G Mills MD smoking status Never smoker Cathy Martinez social history reviewed E&M revi ewed - no changes required Lo Robert CUTTER GR[employer] TOOL TECHNICIAN social history E&M S moking History: Sina deleon has never smoked. Lo Paezlisa CUTTER GRIND TOOL TECHNICIAN drug use no Lo Jones CUTTER GRIND TOOL TECHNICIAN alcohol use no Lo Hamptonri CUTTER GRIND TOOL TECHNICIAN smoking status Never smoker Cathy Martinez social history E&M S moking History: Sina deleon has never smoked. Jose G Mills MD social history reviewed E&M revi ewed - no changes required Jose G Mills MD smoking status Never smoker Erma Lev and social history E&M S moking History: Sina deleon has never smoked. oJse G Mills MD social history reviewed E&M revi ewed - no changes required Jose G Mills MD smoking status Never smoker Melanie braden social history E&M Smoking Histo ry: Sina deleon has never smoked. Jose G Mills MD social history reviewed E&M revi ewed - no changes required Jose G Mills MD number of grandchildren Libia Cortez MD smoking status Never smoker Libia smith MD social history E&M S moking History: Sina deleon has never smoked. Libia Cortez MD social history reviewed E&M revi ewed - no changes required Libia Cortez MD smoking status Never smoker Melanie Elizabeth braden social history E&M S moking History: Sina deleon has never smoked. Jose G Mills MD social history reviewed E&M revi ewed - no changes required Jose G Mills MD smoking status Never smoker Allie Daigle social history E&M S moking History: Sina deleon has never smoked. Jose G Mills MD social history reviewed E&M revi ewed - no changes required Jose G Mills MD smoking status Never smoker Melanie braden social history E&M S moking History: Sina deleon has never smoked. Jose G Mills MD social history reviewed E&M revi ewed - no changes required Jose G Mills MD smoking status Never smoker Erinn Abel INSURANCE PROVIDERS Payer name Policy type / Coverage type Velpen red democrat ID [facility] COMPLETE CARE [id number] (PPO C-SNP) Commercial insurance [facility] [id number] [facility] Medicaid 1 [id number] ADVANCE DIRECTIVES Name Date DISCUSSED - NO DECISION MADE TREATMENT PLAN Date Name Performer [id number],B,BETTER WITH Bridgette Mills MD [id number],S, 4 6 by c and 37 by echo 23 Jose G Mills MD [id number],S, m od ai by cath echo mild to mod as and mod ai, mod tr with pap 37, mild mr Jose G Mills MD [id number],S, n eg egfr and uacr n eg cor angio and neg stres and neg rpr and a1c Jose G Mills MD [id number],S, H er updated medication list for this problem includes: Rosuvastatin 40 Mg Tablet (Rosuvastatin) ..... Take 1 tablet by mouth once a day Ezetimibe 10 Mg Tablet (Ezetimibe) ..... Take 1 tablet by mouth daily C HOL: 145 (12/14/2020) HDL: 73 (12/14/2020) Jose G Mills MD [id number],S, 1 420 Jose G Mills MD [id number],S, Jose G olmstead MD [id number],C, n eg us and hep panel Jose G Mills MD [id number],B, u p tot date on colon Jose G Mills MD [id number],S, a ve 53 no afib on last holter, only med gto stop is multq Jose G Mills MD [id number],S, T he patient is using CPAP on a regular basis. The patient has been benefiting from therapy and should continue use. Jose G Mills MD [id number],C,ave 53 no xu b on last holter Jose G Mills MD [id number],S, Jose G olmstead MD [id number],S, W ill order Holter monitor for December. er updated medication list for this problem includes: Multaq 400 Mg Tablet (Dronedarone) ..... Take 1 tablet by mouth once a day Metoprolol Tartrate 25 Mg Tablet (Metoprolol tartrate) ..... Take 1/4 tablet by mouth twice a day Jose G Mills MD [id number],B, u p tot date on colon Jose G Mills MD [id number],S, n eg us and hep panel Jose G Mills MD [id number],S,n eg egfr and uacr n eg cor angio and neg stres and neg rpa and a1c Jose G Mills MD [id number],S, Jose G olmstead MD [id number],S, 1 420 Jose G Mills MD [id number],S, 4 6 by rhc and 37 by echo 23 Jose G Mills MD [id number],S, m od ai by cath echo mild to mod as and mod ai, mod tr with pap 37, mild mr Jose G Mills MD [id number],C,46 by rhc and 37 by echo 23 Jose G Mills MD [id number],C,m od ai by cath echo mild to mod as and mod ai, mod tr with pap 37, mild mr Jose G Gene RAMIRES [id number],C,neg us and he p panel Jose G Mills MD [id number],C,1420 Jose G rosario MD [id number],C,W ill order Holter monitor for December. er updated medication list for this problem includes: Multaq 400 Mg Tablet (Dronedarone) ..... Take 1 tablet by mouth once a day Metoprolol Tartrate 25 Mg Tablet (Metoprolol tartrate) ..... Take 1/4 tablet by mouth twice a day Lo Jones NP [id number],C,U ltrasound negative. W ill check Hepatitis Panel and recheck LFTs Lo Jones NP [id number],C, 4 6 by [facility] Lo Jones NP [id number],C,T he patient is using CPAP on a regular basis. The patient has been benefiting from therapy and should continue use. Lo Jones NP [id number],C,R PM Avg BP 106/39, HR 60 H er updated medication list for this problem includes: Metoprolol Tartrate 25 Mg Tablet (Metoprolol tartrate) ..... Take 1/4 tablet by mouth twice a day BP today: 111/49 P rior BP: 102/57 (12/19/2021) Labs Reviewed: C reat: 0.90 (10/19/2020) C hol: 145 (12/14/2020) HDL: 73 (12/14/2020) Lo Jones NP [id number],C,E KG in office today shows SR mika IRBBB H er updated medication list for this problem includes: Multaq 400 Mg Tablet (Dronedarone) ..... Take 1 tablet by mouth once a day Metoprolol Tartrate 25 Mg Tablet (Metoprolol tartrate) ..... Take 1/4 tablet by mouth twice a day Mamiecheikh Paezlisa ALEXIS [id number],C,W ill check echo and labs. H er updated medication list for this problem includes: Entresto 24-26 Mg Tablet (Sacubitril-valsartan) ..... Take 1 tablet by mouth twice a day Multaq 400 Mg Tablet (Dronedarone) ..... Take 1 tablet by mouth once a day Metoprolol Tartrate 25 Mg Tablet (Metoprolol tartrate) ..... Take 1/4 tablet by mouth twice a day Lo Paezlisa ALEXIS [id number],C,T ri 66, HDL 73, LDL 59 (12/2020) W ill repeat labs. H er updated medication list for this problem includes: Rosuvastatin 40 Mg Tablet (Rosuvastatin) ..... Take 1 tablet by mouth once a day Ezetimibe 10 Mg Tablet (Ezetimibe) ..... Take 1 tablet by mouth daily Lo Paezlisa ALEIXS [id number],C,C ONCLUSIONS: Carotid duplex 06/2020 1 . Mild plaque with less than 50% stenosis of the internal carotid arteries bilaterally. 2 . Vertebral flow is antegrade bilaterally. Lo Jones NP [id number],C, m od ai by ed , no as by ed raines idl to mod as and ai, mild mr and mod to severe tr with pap 46 and midl pr b y marzena ai is mod and tr is mild to mod Lo Jones NP [id number],C,neg us Jose G Mills MD [id number],S, m od ai by cath , no as by ed raines idl to mod as and ai, mild mr and mod to severe tr with pap 46 and midl pr b y marzena ai is mod and tr is mild to mod Jose G Mills MD [id number],S, 4 6 by [facility] Jose G Mills MD [id number],S, Jose G olmstead MD [id number],B, H er updated medication list for this problem includes: Rosuvastatin 40 Mg Tablet (Rosuvastatin) ..... Take 1 tablet by mouth daily Ezetimibe 10 Mg Tablet (Ezetimibe) ..... Take 1 tablet by mouth daily C HOL: 145 (12/14/2020) HDL: 73 (12/14/2020) Jose G Mills MD [id number],S, n eg cor angio and neg stres and neg rpa and a1c Jose G Mills MD [id number],B, Jose G olmstead MD [id number],S, Jose G olmstead MD [id number],S, Jose G Serot aysha RAMIRES [id number],B, Jose G Serot aysha RAMIRES [id number],S, Jose G Serot aysha RAMIRES [id number],B,10 years Nabila Mills MD [id number],B, u p tot date on colon Jose G Mills MD [id number],B,fu neg on mul zackery Jose G Mills MD [id number],S, Jose G olmstead MD [id number],B, Jose G Serot aysha RAMIRES [id number],S, T he following medications were removed from the medication list: Aspirin Childrens 81 Mg Tablet,chewable (Aspirin) Her updated medication list for this problem includes: Metoprolol Tartrate 25 Mg Tablet (Metoprolol tartrate) ..... Take 1/4 tablet by mouth twice a day BP today: 120/82 P rior BP: 123/52 (09/12/2021) Labs Reviewed: C reat: 0.90 (10/19/2020) C hol: 145 (12/14/2020) HDL: 73 (12/14/2020) Jose G Mills MD [id number],SJose G MD [id number],S, Jose G olmstead MD [id number],S, m od ai by ed , no as by ed m idl to mod as and ai, mild mr and mod to severe tr with pap 46 and midl pr b y marzena ai is mod and tr is mild to mod Jose G Mills MD [id number],S, n eg cor angio and neg stres and neg rpa and a1c Jose G Mills MD [id number],S, 4 6 by [facility] Jose G Mills MD [id number],B, Jose G olmstead MD [id number],B, 4 94, lvedp 20 Jose G Mills MD [id number],SJose G MD [id number],S, u p tot date on colon Jose G Mills MD [id number],S, Jose G olmstead MD [id number],S, Jose G olmstead MD [id number],B, T he following medications were removed from the medication list: Zetia 10 Mg Tablet (Ezetimibe) ..... 1 tablet once a day Crestor 40 Mg Tablet (Rosuvastatin) ..... 1 tablet once a day Her updated medication list for this problem includes: Rosuvastatin 40 Mg Tablet (Rosuvastatin) ..... Once a day Ezetimibe 10 Mg Tablet (Ezetimibe) ..... Once a day C HOL: 145 (12/14/2020) HDL: 73 (12/14/2020) Jose G Mills MD [id number],S, Jose G olmstead MD [id number],W, T he following medications were removed from the medication list: Amlodipine 5 Mg Tablet (Amlodipine) ..... Once a day Losartan 50 Mg Tablet (Losartan) ..... Take 1 tablet once a day Her updated medication list for this problem includes: Aspirin Childrens 81 Mg Tablet,chewable (Aspirin) BP today: 123/52 P rior BP: 134/55 (08/22/2021) & #13;Labs Reviewed: C reat: 0.90 (10/19/2020) C hol: 145 (12/14/2020) HDL: 73 (12/14/2020) Jose G Mills MD [id number],S, Jose G olmstead MD [id number],B, u p tot date on colon Jose G Mills MD [id number],S, m od ai by cath , no as by cath m idl to mod as and ai, mild mr and mod to severe tr with pap 46 and midl pr b y marzena ai is mod and tr is mild to mod Jose G Mills MD [id number],S, 4 94, lvedp 20 Jose G Mills MD [id number],S,n eg cor angio and neg stres and neg rpa and a1c Jose G Mills MD [id number],B, u p tot date on colon Jose G Mills MD [id number],S, 4 6 by [facility] Jose G Mills MD [id number],S, C ONCLUSION: 1 . Normal coronary arteries. 2 . Absence of mitral regurgitation 3 . 2+ aortic regurgitation. 4 . Mild pulmonary hypertension. 5 . Elevated left and right heart filling pressures. 6 . Normal ejection fraction of 55%. Libia Cortez MD [id number],C, m od ai by cath m idl to mod as and ai, mild mr and mod to severe tr with pap 46 and midl pr CONCLUSIONS: 1 . Normal left ventricular systolic function. Normal left ventricular size. Normal left ventricular wall thickness. Normal left v entricular diastolic function. E/E': 8.8 Left ventricular ejection fraction is measured at 60 %. 2 . Mild mitral annular calcification. There is non-specific thickening of the mitral valve leaflets. Mild mitral valve r egurgitation. 3 . Mild to moderate aortic stenosis. Aortic valve leaflets appear structurally normal. Mild to moderate aortic valve r egurgitation. Peak AV velocity: 2.20 m/s The Aortic Valve Peak Gradient is 19.30 mmHg The Aortic Valve Mean Gradient is 1 0.38 mmHg The SILVIO is 1.45 cm2. 4. Normal appearing tricuspid valve leaflets. There is moderate to severe tricuspid regurgitation. Right ventricular systolic p ressure is consistent with mild pulmonary hypertension. IVC is normal in size with normal respiratory response. The RA p ressure is estimated at 3.0 mmHg Estimated peak pulmonary artery systolic pressure is 46.0 mmHg. 5 . Pulmonic valve leaflets appear structurally normal. Normal pulmonic valve velocities by Doppler. There is mild pulmonic r egurgitation. Libia Cortez MD [id number],C,C HOL: 145 (12/14/2020) HDL: 73 (12/14/2020) H er updated medication list for this problem includes: Zetia 10 Mg Tablet (Ezetimibe) ..... 1 tablet once a day Crestor 40 Mg Tablet (Rosuvastatin) ..... 1 tablet once a day Libia Cortez MD [id number],C,C ONCLUSIONS: 1 . Normal left ventricular systolic function. Normal left ventricular size. Normal left ventricular wall thickness. Normal left v entricular diastolic function. E/E': 8.8 Left ventricular ejection fraction is measured at 60 %. 2 . Mild mitral annular calcification. There is non-specific thickening of the mitral valve leaflets. Mild mitral valve r egurgitation. 3 . Mild to moderate aortic stenosis. Aortic valve leaflets appear structurally normal. Mild to moderate aortic valve r egurgitation. Peak AV velocity: 2.20 m/s The Aortic Valve Peak Gradient is 19.30 mmHg The Aortic Valve Mean Gradient is 1 0.38 mmHg The SILVIO is 1.45 cm2. 4 . Normal appearing tricuspid valve leaflets. There is moderate to severe tricuspid regurgitation. Right ventricular systolic p ressure is consistent with mild pulmonary hypertension. IVC is normal in size with normal respiratory response. The RA p ressure is estimated at 3.0 mmHg Estimated peak pulmonary artery systolic pressure is 46.0 mmHg. 5 . Pulmonic valve leaflets appear structurally normal. Normal pulmonic valve velocities by Doppler. There is mild pulmonic r egurgitation. Libia Cortez MD [id number],S,B lood pressure is running low. She is on a diet where she has lost 10 lbs. Will discontinue her Norvasc. Libia Cortez MD [id number],C,46 Jose G paul MD [id number],C,m od ai by cath m idl to mod as and ai, mild mr and mod to severe tr with pap 46 and midl pr Jose G Mills MD [id number],C,47 due to hgh lvedp 20 Jose G Mills MD [id number],C,494, lvedp 20 Jose G Mills MD [id number],C,n eg stres and neg cor ango, neg rpr and a1x Jose G Mills MD [id number],C,mod ai by cat h Jose G Mills MD [id number],C,ai and tr mil d to mod by marzena Jose G Mills MD [id number],S, Jose G olmstead MD [id number],S, Jose G olmstead MD [id number],C,up tot date o n colon Jose G Mills MD [id number],S, 4 94 Jose G Mills MD [id number],S, m od with mils as and sevre tr, pap39 Jose G Mills MD [id number],S, n eg stress n eg rpr and a1c Jose G Mills MD [id number],S, Jose G Serot a [id number],S,C HOL: 233 (06/15/2020) HDL: 81 (06/15/2020) Jose G Mills MD [id number],S, m od with mils as Jose G Mills MD [id number],S, Jose G Mills MD [id number],B, Jose G Serot aysha RAMIRES Cardiology Jose G Serotaysha RAMIRES Cardiology Jose G Serotaysha RAMIRES Cardiology: n eg heppanle and us Jose G Mills MD Cardiology Jose G Serotaysha RAMIRES Cardiology Jose G Serotaysha RAMIRES Cardiology Jose G Serotaysha RAMIRES Cardiology: 1 420 ef 60 Jose G Mills MD Cardiology: a ve 52 low 41 on amio l ast seen 03/2023 on holtere Jose G Mills MD Cardiology: b enign per radiaonly Jose G Mills MD Cardiology: n eg aaa neg cor angio and neg stres and neg rpr and a1c Jose G Mills MD Cardiology Jose G Serotaysha RAMIRES Cardiology: u p to 60 Jose G Mills MD :up to 60 Jose G Mills MD Cardiology;renal us pending: n eg hepp[place]le and us oJse G Mills MD Cardiology;renal us pending:neg aaa neg cor angio and neg stres and neg rpr and a1c Jose G Mills MD Cardiology;renal us pendin 1 years Jose G Mills MD Cardiology;renal us pendin 420 ef 60 Jose G Mills MD Cardiology;renal us pending Nabila Mills MD Cardiology;renal us pending: m ild tr and midl as and mod ar and mild mr Jose G Mills MD Cardiology;renal us pending Nabila Mills MD Cardiology;renal us pendin 6 by echo 24 4 6 by rhc and 37 by echo 23 Jose G Mills MD Cardiology;renal us pending: b enign per radiaonly Jose G Mills MD Cardiology;renal us pendin 4 Jose G Mills MD Cardiology;renal us pending Nabila Mills MD Cardiology;renal us pending Nabila Mills MD Cardiology: u p tot date on colon Jose G Mills MD Cardiology Jose G Mills MD Cardiology:neg heppanle and us H heather Mills MD Cardiology:benign per radiaonly Jose G Mills MD Cardiology Jose G Mills MD Cardiology: neg cor angio and neg stres and neg rpr and a1c Jose G Mills MD Cardiology: m ild tr and midl as and mod ar and mild mr Jose G Mills MD Cardiology:ave 52 lo w 41 on amio l ast seen 03/2023 on holtere Jose G Mills MD Cardiology: 5 4 Jose G Mills MD Cardiology:36 by ech o 24 4 6 by rhc and 37 by echo 23 Jose G Mills MD Cardiology: 1 420 ef 60 Jose G Mills MD :mild tr and midl as and mod ar and mild mr Jose G Mills MD :1420 ef 60 Jose G Mills MD :54 Jose G Mills MD Electrophysiology: B P today: 144/61 P rior BP: 137/55 (06/18/2023) Labs Reviewed: C reat: 0.90 (10/19/2020) C hol: 145 (12/14/2020) HDL: 73 (12/14/2020) LDL: 59 (12/14/2020) T (12/14/2020) Dontrell Hernandez Electrophysiology:Echo EF 62% Dontrell Hernandez Electrophysiology: H er updated medication list for this problem includes: Rosuvastatin 40 Mg Tablet (Rosuvastatin) ..... Take 1 tablet by mouth once a day Ezetimibe 10 Mg Tablet (Ezetimibe) ..... Take 1 tablet by mouth once a day Dontrell Hernandez Electrophysiology:will continue current Medrx Dontrell Hernandez Electrophysiology:No AFIB recurrence s/p ablation. Will decrease Amiodarone to 100 mg once daily and have her stop the medication once her current fill has run out, would not recommend beta blockers or CCB at this time, will consider tikosyn in the future. Dontrell Hernandez Cardiology Jose G Mills MD Cardiology: n eg egfr and uacr n eg cor angio and neg stres and neg rpr and a1c Jose G Mills MD Cardiology: m od ai by cath echo mild to mod as and mod ai, mod tr with pap 37, mild mr Jose G Mills MD Cardiology Jose G Mills MD Cardiology: B P today: 137/55 P rior BP: 134/70 (06/06/2023) Labs Reviewed: C reat: 0.90 (10/19/2020) C hol: 145 (12/14/2020) HDL: 73 (12/14/2020) LDL: 59 (12/14/2020) T (12/14/2020) Jose G Mills MD Cardiology: u p tot date on colon Jose G Mills MD Cardiology Jose G Mills MD Cardiology: 1 420 Jose G Mills MD Cardiology Jose G Mills MD Cardiology: 5 8 Jose G Mills MD Cardiology: 4 6 by rhc and 37 by echo 23 Jose G Mills MD Cardiology Jose G Mills MD Electrophysiology:s/ p EP study s/p AFIB/flutter ablation 05/29. discharged 05/30. pt was suppose to be discharged on amio 200mg BID and mag ox 400mg BID. pt states. pt reports issues with medications at pharmacy. she called into office and amio 200mg daily and mag ox 200mg daily was sent to pharmacy. EKG today SR. will continue amio at 200mg daily. WILL HAVE PT HOLD FOSAMAX FOR 2 MONTHS, SO WE CAN GIVE MAGNESIUM OXIDE 400MG BID. in 2 months at follow up will clear pt to restart fosamax and decrease magensium back to 200mg daily. will arrange for 1 week monitor prior to next visit in 2 months. Breanna Malave CUTTER GR[employer] TOOL TECHNICIAN :58 Jose G Mills MD Cardiology: 4 6 by rhc and 37 by echo 23 Jose G Mills MD Cardiology Jose G Mills MD Cardiology Jose G Mills MD Cardiology Jose G Mills MD Cardiology: u p tot date on colon Jose G Mills MD Cardiology Jose G Mills MD Cardiology: m od ai by cath echo mild to mod as and mod ai, mod tr with pap 37, mild mr Jose G Mills MD Cardiology Jose G Mills MD Cardiology: 1 420 Jose G Mills MD Cardiology: n eg egfr and uacr n eg cor angio and neg stres and neg rpr and a1c Jose G Mills MD Cardiology: n eg us and hep panel Jose G Mills MD Cardiology Jose G Mills MD Electrophysiology: H eart monitor 03/14-03/21/2023 S inus Rhythm with conversion to Atrial Flutter, rare Ventricular ectopics, and o ccasional Supraventricular ectopics. Sinus: AvgHR 67bpm, MaxHR 132bpm, MinHR 4 6bpm. AFL: AvgHR 147bpm, MaxHR 190bpm, MinHR 105bpm, AFL burden 29%. V E?s were documented as isolated beats. SVE?s were documented as triplets, c ouplets, and isolated beats with a burden of 2.05%. PSVT was present with the l ongest event having 23 beats and a maxHR of 194bpm. Lo Robert ALEXIS Electrophysiology: R PM BP Avg 123/62 HR 100 Lo Robert ALEXIS Electrophysiology:He art monitor 03/14-03/21/2023 S inus Rhythm with conversion to Atrial Flutter, rare Ventricular ectopics, and o ccasional Supraventricular ectopics. Sinus: AvgHR 67bpm, MaxHR 132bpm, MinHR 4 6bpm. AFL: AvgHR 147bpm, MaxHR 190bpm, MinHR 105bpm, AFL burden 29%. V E?s were documented as isolated beats. SVE?s were documented as triplets, c ouplets, and isolated beats with a burden of 2.05%. PSVT was present with the l ongest event having 23 beats and a maxHR of 194bpm. Lo Jones NP Electrophysiology: E KG in office today shows SR mika Jones NP Electrophysiology: T he patient is using CPAP on a regular basis. The patient has been benefiting from therapy and should continue use. Lo Jones NP Electrophysiology: H er updated medication list for this problem includes: Multaq 400 Mg Tablet (Dronedarone) ..... Take 1 tablet by mouth twice a day O n OAC with Xarelto with no bleeding issues/concerms Heart monitor 03/14-03/21/2023 S inus Rhythm with conversion to Atrial Flutter, rare Ventricular ectopics, and o ccasional Supraventricular ectopics. Sinus: AvgHR 67bpm, MaxHR 132bpm, MinHR 4 6bpm. AFL: AvgHR 147bpm, MaxHR 190bpm, MinHR 105bpm, AFL burden 29%. V E?s were documented as isolated beats. SVE?s were documented as triplets, c ouplets, and isolated beats with a burden of 2.05%. PSVT was present with the l ongest event having 23 beats and a maxHR of 194bpm. Will plan for ablation and will a CT scan prior to ablation. Lo Jones NP Cardiology Jose G Mills MD Cardiology Jose G Mills MD Cardiology Jose G Mills MD Cardiology: 1 420 Jose G Mills MD Cardiology Jose G Mills MD Cardiology Jose G Mills MD Cardiology: m od ai by cath echo mild to mod as and mod ai, mod tr with pap 37, mild mr Jose G Mills MD Cardiology:was in [facility] and got cardioveorn m ujtaq was increaszed to twcie a day Jose G Mills MD Cardiology Jose G Mills MD Cardiology: 4 6 by rhc and 37 by echo 23 Jose G Mills MD Cardiology: n eg us and hep panel Jose G Mills MD Cardiology Jose G Mills MD Cardiology Jose G Mills MD Cardiology Jose G Mills MD Cardiology Jose G Mills MD Cardiology Jose G Mills MD Cardiology: 1 420 Jose G Mills MD Cardiology: n eg egfr and uacr n eg cor angio and neg stres and neg rpr and a1c Jose G Mills MD Cardiology: u p tot date on colon Jose G Mills MD Cardiology: a ve 54 no afib on last holter, only med gto stop is multq Jose G Mills MD Cardiology: m od ai by cath echo mild to mod as and mod ai, mod tr with pap 37, mild mr Jose G Mills MD Cardiology: 4 6 by rhc and 37 by echo 23 Jose G Mills MD Cardiology: n eg us and hep panel Jose G Mills MD Cardiology: T he patient is using CPAP on a regular basis. The patient has been benefiting from therapy and should continue use. Jose G Mills MD TeleHealth:BETTER WITH ANA Jose G Mills MD TeleHealth: 4 6 by rhc and 37 by echo 23 Jose G Mills MD TeleHealth: m od ai by cath echo mild to mod as and mod ai, mod tr with pap 37, mild mr Jose G Mills MD TeleHealth: n eg egfr and uacr n eg cor angio and neg stres and neg rpr and a1c Jose G Mills MD TeleHealth: H er updated medication list for this problem includes: Rosuvastatin 40 Mg Tablet (Rosuvastatin) ..... Take 1 tablet by mouth once a day Ezetimibe 10 Mg Tablet (Ezetimibe) ..... Take 1 tablet by mouth daily C HOL: 145 (12/14/2020) HDL: 73 (12/14/2020) Jose G Mills MD TeleHealth: 1 420 Jose G Mills MD TeleHealth Jose G Mills MD TeleHealth: n eg us and hep panel Jose G Mills MD TeleHealth: u p tot date on colon Jose G Mills MD TeleHealth: a ve 54 no afib on last holter, only med gto stop is multq Jose G Mills MD TeleHealth: T he patient is using CPAP on a regular basis. The patient has been benefiting from therapy and should continue use. Jose G Mills MD :ave 54 no afib on last holter H heather Mills MD Cardiology Jose G Mills MD Cardiology: W [facility] order Holter monitor for December. H er updated medication list for this problem includes: Multaq 400 Mg Tablet (Dronedarone) ..... Take 1 tablet by mouth once a day Metoprolol Tartrate 25 Mg Tablet (Metoprolol tartrate) ..... Take 1/4 tablet by mouth twice a day Jose G Mills MD Cardiology: u p tot date on colon Jose G Mills MD Cardiology: n eg us and hep panel Jose G Mills MD Cardiology:neg egfr and uacr n eg cor angio and neg stres and neg rpa and a1c Jose G Mills MD Cardiology Jose G Mills MD Cardiology: 1 420 Jose G Mills MD Cardiology: 4 6 by rhc and 37 by echo 23 Jose G Mills MD Cardiology: m od ai by cath echo mild to mod as and mod ai, mod tr with pap 37, mild mr Jose G Mills MD :46 by rhc and 37 by echo 23 Dandre yogi Mills MD :mod ai by cath echo mild to mod as and mod ai, mod tr with pap 37, mild mr Jose G Mills MD :neg us and hep panel Jose G paul MD :1420 Jose G Mills MD Cardiology-seen with CUTTER GRIND TOOL TECHNICIAN:Will order Holter monitor for December. H er updated medication list for this problem includes: Multaq 400 Mg Tablet (Dronedarone) ..... Take 1 tablet by mouth once a day Metoprolol Tartrate 25 Mg Tablet (Metoprolol tartrate) ..... Take 1/4 tablet by mouth twice a day Lo Jones NP Cardiology-seen with CUTTER GRIND TOOL TECHNICIAN:Ultrasound negative. W ill check Hepatitis Panel and recheck LFTs Lo Jones NP Cardiology-seen with CUTTER GRIND TOOL TECHNICIAN: 4 6 by [facility] Lo Jones NP Cardiology-seen with CUTTER GRIND TOOL TECHNICIAN:The patient is using CPAP on a regular basis. The patient has been benefiting from therapy and should continue use. Lo Jones NP Cardiology-seen with CUTTER GRIND TOOL TECHNICIAN:RPM Avg BP 106/39, HR 60 H er updated medication list for this problem includes: Metoprolol Tartrate 25 Mg Tablet (Metoprolol tartrate) ..... Take 1/4 tablet by mouth twice a day BP today: 111/49 P rior BP: 102/57 (12/19/2021) Labs Reviewed: C reat: 0.90 (10/19/2020) C hol: 145 (12/14/2020) HDL: 73 (12/14/2020) Lo Jones NP Cardiology-seen with CUTTER GRIND TOOL TECHNICIAN:EKG in office today shows SR witth IRBBB H er updated medication list for this problem includes: Multaq 400 Mg Tablet (Dronedarone) ..... Take 1 tablet by mouth once a day Metoprolol Tartrate 25 Mg Tablet (Metoprolol tartrate) ..... Take 1/4 tablet by mouth twice a day Lo Jones NP Cardiology-seen with CUTTER GRIND TOOL TECHNICIAN:Will check echo and labs. H er updated medication list for this problem includes: Entresto 24-26 Mg Tablet (Sacubitril-valsartan) ..... Take 1 tablet by mouth twice a day Multaq 400 Mg Tablet (Dronedarone) ..... Take 1 tablet by mouth once a day Metoprolol Tartrate 25 Mg Tablet (Metoprolol tartrate) ..... Take 1/4 tablet by mouth twice a day Lo Jones NP Cardiology-seen with CUTTER GRIND TOOL TECHNICIAN:Tri 66, HDL 73, LDL 59 (12/2020) W ill repeat labs. H er updated medication list for this problem includes: Rosuvastatin 40 Mg Tablet (Rosuvastatin) ..... Take 1 tablet by mouth once a day Ezetimibe 10 Mg Tablet (Ezetimibe) ..... Take 1 tablet by mouth daily Lo Jones NP Cardiology-seen with CUTTER GRIND TOOL TECHNICIAN:CONCLUSIONS: Carotid duplex 06/2020 1 . Mild plaque with less than 50% stenosis of the internal carotid arteries bilaterally. 2 . Vertebral flow is antegrade bilaterally. Lo Jones NP Cardiology-seen with CUTTER GRIND TOOL TECHNICIAN: m od ai by cath , no as by cath m idl to mod as and ai, mild mr and mod to severe tr with pap 46 and midl pr b y marzena ai is mod and tr is mild to mod Lo Paezlisa CUTTER GRIND TOOL TECHNICIAN :neg us Jose G Mills MD Cardiology: m od ai by cath , no as by cath m idl to mod as and ai, mild mr and mod to severe tr with pap 46 and midl pr b y marzena ai is mod and tr is mild to mod Jose G Mills MD Cardiology: 4 6 by [facility] Jose G Mills MD Cardiology Jose G Mills MD Cardiology: H er updated medication list for this problem includes: Rosuvastatin 40 Mg Tablet (Rosuvastatin) ..... Take 1 tablet by mouth daily Ezetimibe 10 Mg Tablet (Ezetimibe) ..... Take 1 tablet by mouth daily C HOL: 145 (12/14/2020) HDL: 73 (12/14/2020) Jose G Mills MD Cardiology: n eg cor angio and neg stres and neg rpa and a1c Jose G Mills MD Cardiology Jose G Mills MD Cardiology Jose G Mills MD Cardiology Jose G Mills MD Cardiology Jose G Mills MD Cardiology Jose G Mills MD Cardiology:10 years Jose G olmstead MD Cardiology: u p tot date on colon Jose G Mills MD Cardiology:fu neg on multay Nabila Mills MD Cardiology Jose G Mills MD Cardiology Jose G Mills MD Cardiology: T he following medications were removed from the medication list: Aspirin Childrens 81 Mg Tablet,chewable (Aspirin) Her updated medication list for this problem includes: Metoprolol Tartrate 25 Mg Tablet (Metoprolol tartrate) ..... Take 1/4 tablet by mouth twice a day BP today: 120/82 P rior BP: 123/52 (09/12/2021) Labs Reviewed: C reat: 0.90 (10/19/2020) C hol: 145 (12/14/2020) HDL: 73 (12/14/2020) Jose G Mills MD Cardiology Jose G Mills MD Cardiology Jose G Mills MD Cardiology: m od ai by cath , no as by cath m idl to mod as and ai, mild mr and mod to severe tr with pap 46 and midl pr b y marzena ai is mod and tr is mild to mod Jose G Mills MD Cardiology: n eg cor angio and neg stres and neg rpa and a1c Jose G Mills MD Cardiology: 4 6 by [facility] Jose G Mills MD Cardiology Jose G Mills MD Cardiology: 4 94, lvedp 20 Jose G Mills MD Cardiology Jose G Mills MD Cardiology: u p tot date on colon Jose G Mills MD Cardiology Jose G Mills MD Cardiology Jose G Mills MD Cardiology: T he following medications were removed from the medication list: Zetia 10 Mg Tablet (Ezetimibe) ..... 1 tablet once a day Crestor 40 Mg Tablet (Rosuvastatin) ..... 1 tablet once a day Her updated medication list for this problem includes: Rosuvastatin 40 Mg Tablet (Rosuvastatin) ..... Once a day Ezetimibe 10 Mg Tablet (Ezetimibe) ..... Once a day C HOL: 145 (12/14/2020) HDL: 73 (12/14/2020) Jose G Mills MD Cardiology Jose G Mills MD Cardiology: T he following medications were removed from the medication list: Amlodipine 5 Mg Tablet (Amlodipine) ..... Once a day Losartan 50 Mg Tablet (Losartan) ..... Take 1 tablet once a day Her updated medication list for this problem includes: Aspirin Childrens 81 Mg Tablet,chewable (Aspirin) BP today: 123/52 P rior BP: 134/55 (08/22/2021) Labs Reviewed: C reat: 0.90 (10/19/2020) C hol: 145 (12/14/2020) HDL: 73 (12/14/2020) Jose G Mills MD Cardiology Jose G Mills MD Cardiology: u p tot date on colon Jose G Mills MD Cardiology: m od ai by cath , no as by cath m idl to mod as and ai, mild mr and mod to severe tr with pap 46 and midl pr b y marzena ai is mod and tr is mild to mod Jose G Mills MD Cardiology: 4 94, lvedp 20 Jose G Mills MD Cardiology:neg cor a ngio and neg stres and neg rpa and a1c Jose G Mills MD Cardiology: u p tot date on colon Jose G Mills MD Cardiology: 4 6 by rhc Jose G Mills MD Cardiology: C ONCLUSION: 1 . Normal coronary arteries. 2 . Absence of mitral regurgitation 3 . 2+ aortic regurgitation. 4 . Mild pulmonary hypertension. 5 . Elevated left and right heart filling pressures. 6 . Normal ejection fraction of 55%. Libia Cortez MD Cardiology: m od ai by cath m idl to mod as and ai, mild mr and mod to severe tr with pap 46 and midl pr CONCLUSIONS: 1 . Normal left ventricular systolic function. Normal left ventricular size. Normal left ventricular wall thickness. Normal left v entricular diastolic function. E/E': 8.8 Left ventricular ejection fraction is measured at 60 %. 2 . Mild mitral annular calcification. There is non-specific thickening of the mitral valve leaflets. Mild mitral valve r egurgitation. 3 . Mild to moderate aortic stenosis. Aortic valve leaflets appear structurally normal. Mild to moderate aortic valve r egurgitation. Peak AV velocity: 2.20 m/s The Aortic Valve Peak Gradient is 19.30 mmHg The Aortic Valve Mean Gradient is 1 0.38 mmHg The SILVIO is 1.45 cm2. 4 . Normal appearing tricuspid valve leaflets. There is moderate to severe tricuspid regurgitation. Right ventricular systolic p ressure is consistent with mild pulmonary hypertension. IVC is normal in size with normal respiratory response. The RA p ressure is estimated at 3.0 mmHg Estimated peak pulmonary artery systolic pressure is 46.0 mmHg. 5 . Pulmonic valve leaflets appear structurally normal. Normal pulmonic valve velocities by Doppler. There is mild pulmonic r egurgitation. Libia Cortez MD Cardiology:CHOL: 145 (12/14/2020) HDL: 73 (12/14/2020) H er updated medication list for this problem includes: Zetia 10 Mg Tablet (Ezetimibe) ..... 1 tablet once a day Crestor 40 Mg Tablet (Rosuvastatin) ..... 1 tablet once a day Libia Cortez MD Cardiology:CONCLUSIO NS: 1 . Normal left ventricular systolic function. Normal left ventricular size. Normal left ventricular wall thickness. Normal left v entricular diastolic function. E/E': 8.8 Left ventricular ejection fraction is measured at 60 %. 2 . Mild mitral annular calcification. There is non-specific thickening of the mitral valve leaflets. Mild mitral valve r egurgitation. 3. Mild to moderate aortic stenosis. Aortic valve leaflets appear structurally normal. Mild to moderate aortic valve r egurgitation. Peak AV velocity: 2.20 m/s The Aortic Valve Peak Gradient is 19.30 mmHg The Aortic Valve Mean Gradient is 1 0.38 mmHg The SILVIO is 1.45 cm2. 4 . Normal appearing tricuspid valve leaflets. There is moderate to severe tricuspid regurgitation. Right ventricular systolic p ressure is consistent with mild pulmonary hypertension. IVC is normal in size with normal respiratory response. The RA p ressure is estimated at 3.0 mmHg Estimated peak pulmonary artery systolic pressure is 46.0 mmHg. 5 . Pulmonic valve leaflets appear structurally normal. Normal pulmonic valve velocities by Doppler. There is mild pulmonic r egurgitation. Libia Cortez MD Cardiology:Blood pre ssure is running low. She is on a diet where she has lost 10 lbs. Will discontinue her Norvasc. Libia Cortez MD :46 Jose G Mills MD :mod ai by cath m idl to mod as and ai, mild mr and mod to severe tr with pap 46 and midl pr Jose G Mills MD :47 due to hgh lvedp 20 Jose G rosario MD :494, lvedp 20 Jose G Mills MD :neg stres and neg cor ango, neg rpr and a1x Jose G Mills MD :mod ai by cath Jose G Mills MD :ai and tr mild to mod by marzena Amador Mills MD Cardiology Jose G Mills MD Cardiology Jose G Mills MD Cardiology:up tot date on colon Jose G Mills MD Cardiology: 4 94 Jose G Mills MD Cardiology: m od with mils as and sevre tr, pap39 Jose G Mills MD Cardiology: n eg stress n eg rpr and a1c Jose G Mills MD Cardiology Jose G Mills MD Cardiology:CHOL: 233 (06/15/2020 ) HDL: 81 (06/15/2020) Jose G Mills MD Cardiology: m od with mils karly Mills MD Cardiology Jose G Mills MD Cardiology Jose G Mills MD Cardiology Follow up Jos eG garcia MD Cardiology Follow up Jose G garcia MD Cardiology Follow up Jose G garcia MD Cardiology Follow up :neg stress n eg rpr and a1c Jose G Mills MD Cardiology Follow up Jose G garcia MD Cardiology Follow up : 4 94 Jose G Mills MD Cardiology Follow up Jose G garcia MD Cardiology Follow up :CHOL: 233 (06/15/2020) HDL: 81 (06/15/2020) Jose G Mills MD Cardiology Follow up :mod with m ils as Jose G Mills MD :494 Jose G Mills MD :neg rpr and tsh and a1c Jose G Mills MD Cardiology Jose G Mills MD Cardiology Jose G Mills MD Cardiology Jose G Mills MD Cardiology Jose G Mills MD Cardiology Jose G Mills MD Cardiology Jose G Mills MD Cardiology: H er updated medication list for this problem includes: Amlodipine Besylate 5 Mg Oral Tablet (Amlodipine besylate) BP today: 150/73 Jose G Mills MD Date Name Complete Echo Monitor - Telemetry (Mobile Cardiac) EKG BASIC METABOLIC PANE L W/EGFR Monitor - Telemetry (Mobile Cardiac) Complete Echo Complete Echo Renal Artery Duplex Kidney Ultrasound Monitor - Telemetry (Mobile Cardiac) MAGNESIUM TSH, free T4, total T3 COMPREHENSIVE METABO LIC PANEL, W/EGFR CXR- PA/Lat DLCO - 79978 FRC - 30285 FVC - [address] Chest without con trast Monitor - Telemetry (Mobile Cardiac) Holter Monitor 24 Hr Complete Echo CBC (INCLUDES DIFF/P LT) URINALYSIS, COMPLETE W/REFLEX TO CULTURE PROTHROMBIN TIME WIT H INR COMPREHENSIVE METABO LIC PANEL W/EGFR CT Cardiac with cont rast (Pre-Ablation) ABLATION w/ Anesthes ia Complete Echo Monitor - Telemetry (Mobile Cardiac) Complete Echo Holter Monitor 24 Hr FERRITIN IRON AND TOTAL IRON BINDING CAPACITY Holter Monitor 24 Hr Complete Echo HEPATITIS PANEL Microalb/Creatinine Urine, Random COMPREHENSIVE METABO LIC PANEL, W/EGFR LIPID PANEL Lipoprotein (a) PROBNP, N TERMINAL Holter Monitor 24 Hr Complete Echo COMPREHENSIVE METABO LIC PANEL, W/EGFR PROBNP, N TERMINAL CBC (INCLUDES DIFF/P LT) IRON AND TOTAL IRON BINDING CAPACITY FERRITIN HEPATITIS PANEL Abdominal US Complete Echo Holter Monitor 24 Hr RPM (remote patient monitoring) Abdominal US HEPATITIS PANEL Holter Monitor 24 Hr IRON AND TOTAL IRON BINDING CAPACITY FERRITIN CBC (INCLUDES DIFF/P LT) BASIC METABOLIC PANE L W/EGFR PROBNP, N TERMINAL Complete Echo RPM (remote patient monitoring) Holter Monitor 24 Hr PROBNP, N TERMINAL BASIC METABOLIC PANE L W/EGFR IRON AND TOTAL IRON BINDING CAPACITY FERRITIN CBC (INCLUDES DIFF/P LT) Complete Echo FOLATE, SERUM LIPID PANEL Holter Monitor 24 Hr Complete Echo PROTHROMBIN TIME WIT H INR CBC (INCLUDES DIFF/P LT) BASIC METABOLIC PANE L W/EGFR Cardiac Cath - L/R- [facility] - [facility] Complete Echo Holter Monitor [address], Coronary Calcium Score Complete Echo Holter Monitor 24 Hr RPR (MONITOR) W/REFL TITER HEMOGLOBIN A1c TSH, free T4, total T3 PROBNP, N TERMINAL CT, Coronary Calcium Score Stress Routine VITAMIN B12 COVID19 High Affinit y Antibodies (LC) IRON AND TOTAL IRON BINDING CAPACITY FERRITIN CBC (INCLUDES DIFF/P LT) C-REACTIVE PROTEIN LIPID PANEL COMPREHENSIVE METABO LIC PANEL, W/EGFR Monitor - Telemetry (Mobile Cardiac) Carotid Duplex Bilat eral Complete Echo HISTORY OF PROCEDURES Procedure Date Procedure Name Provider Procedure Notes S tatus Complex e/m visit add on Jose G Mills MD completed Complex e/m visit add on Jose G Mills MD completed Complex e/m visit add on Jose G Mills MD completed EKG Ismael Matson MD comp leted Schedule Followup Ismael Matson MD [address] MATSON completed EKG Ismael Matson MD comp leted EKG Ismael Matson MD comp leted EKG Jose G Mills MD complete d EKG Libia Cortez MD compl eted Mobile Cardiac Telemetry - Tech Jose G Mills MD completed Mobile Cardiac Telemetry - Prof Jose G Mills MD completed EKG Jose G Mills MD complete d
[2024-08-31 09:33] LABS: Iron 76 ug/dL (37-170)
[2024-08-31 09:50] LABS: Percent Iron Saturation 21 % (20-50)
== END 2024-08-31 08:38 | disposition home or self-care (01) ==
LOC: ANHLAB 08:41
PROVIDERS: PCP Family Medicine; Visit Provider Psychiatry & Neurology Neurology
DX: K75.4 Autoimmune hepatitis (principal); G25.81 Restless legs syndrome
CPT/HCPCS: 36415; 82728; 83540; 83550

== ENCOUNTER 2024-09-10 08:27 | Outpatient (CLI) | payer MEDICARE, MEDICAID, SELFPAY ==
--- NOTE | ~2024-09-10 | MM_ITS ---
EXAMINATION: MM screening [facility] BI w corbin HISTORY: Screening TECHNIQUE: Craniocaudal and mediolateral oblique 3-D tomosynthesis images were obtained and synthetic 2-D images were generated. CAD analysis was submitted and interpreted. COMPARISON: 03/01/2015. BREAST PARENCHYMAL COMPOSITION: Breast composed of scattered areas of fibroglandular density. FINDINGS: Benign calcifications in the left breast. There is no evidence of suspicious mass, calcific ation, or architectural distortion to suggest malignancy in either breast. Biopsy clip in the left br east. There has been no suspicious interval change. IMPRESSION: 1. No mammographic evidence of malignancy. 2. Recommend routine screening mammography in one year. BI-RADS Category 2: Benign finding(s). Reviewed, dictated and finalized at location B.
--- OUTSIDE RECORDS SUMMARY | 2024-09-10 08:33 | XMS_ITS | Referral Summary ---
Author Organization [facility] Address [address] [place] [address] Phone Care Team Providers Care Granite Setter Name Role Phone Jeff Camarillo MD Primary Care Provider Lynn Arora NP Unavailable [phone] Ismael Matson MD Unavailable Allergies Active Allergy Reactions Criticality Noted Date [...] drink = 0.6 oz pur e alcohol) [facility] Utilities Answer Date Recorded In the past 12 months has [employer] electric, gas, oil, or water company threatened [...] How often do you attend chur or tenriism services? 1 to 4 times per year 05/29/2023 Do you belong to any clubs o r organizations such as spiritism groups, unions, fraternal or athletic groups, or [...] place to sleep or slept in a fpc (including now)? No 05/29/2023 Personal Safety Answer Date Recorded Have you ever been in or are you currently in a harmful physical or emotional relationship or is someone making you feel afraid or unsafe? Denies 05/29/2023 Comments Unknown Sex and Gender Information Value Date Recorded Sex Assigned at Not on file Legal Sex Female 8:35 AM JOINER HELPER Gender Identity Not on file Sexual Orientation Not on file Last Filed Vital Signs Vital Sign Reading Time Taken Comments Blood Pressure 149/53 05/30/2023 12:32 PM JOINER HELPER Pulse 62 05/30/2023 12:32 PM JOINER HELPER Temperature 37 C (98.6 F) 05/30/2023 12:32 PM JOINER HELPER Respiratory Rate 18 05/30/2023 12:32 PM JOINER HELPER Oxygen Saturation 98% 05/30/2023 12:32 PM JOINER HELPER Inhaled Oxygen Concentration - - Weight 52.8 kg (116 lb 8 oz) 05/29/2023 6:45 AM JOINER HELPER Height 152.4 cm (5') 05/29/2023 6:45 AM JOINER HELPER Body Mass Index 22.75 05/29/2023 6:45 AM JOINER HELPER Plan of Treatment Not on file Insurance [employer] [facility] [employer] [facility] Address: [address] [address] [place] [address] [employer] [facility] MEDICARE [employer] [facility] Address: [address] [address] [place] [address] Care Teams Granite Setter Relationship Specialty Start Date End Date Jeff Camarillo MD PCP - General Family Practice 09/20/20 [place] [address] [place] [id number] Nurse Practitioner Medical Oncology 09/19/22 Ismael Matson MD [address] [place] [address] Consulting Physician Cardiology 05/30/23
--- OUTSIDE RECORDS SUMMARY | 2024-09-10 08:33 | XMS_ITS | Patient Health Record ---
Author Organization [facility] Address [address] [place] [address] Care Team Providers Care Home Theater Installer Name Role Phone Pradeep Maki Primary Care Provider Briana Pittman Unavailable [phone] Allergies Allergen (clinical drug ingredient) Drug/Non Drug Allergy documented on EMR Reaction Allergy Type Onset Date Status amoxicillin Amoxicillin rash Drug Allergy Act arturo Reason For Referral No Information Medications Medication SIG (Take, Route, Frequency, Duration) Notes Start Date End Date Status Ezetimibe 10 MG 1 tablet Orally Once a day Active Rivaroxaban 20 MG 1 tablet with food Orally Once a day Active Empagliflozin 10 MG 1 tablet Orally Once a day Active Rosuvastatin Calcium 40 MG 1 tablet Orally Once a day Active Invega Hafyera 1560 MG/5ML as directed Intramuscular every 6 months for 180 days Active Trihexyphenidyl HCl 2 MG 0.5 tablet Oral ly once daily in the morning for 30 days Active Omeprazole 20 MG 1 capsule 1/2 to 1 h our before morning meal Orally Once a day Active Memantine HCl 5 MG 1 tablet Orally Once a day for 30 days Active Lincroft 3 1000 MG 1 capsule Orally onc e daily Active Xiidra 5 % 1 drop into affected eye Ophthalmic Twice a day Active Pregabalin 50 MG 1 capsule Orally 3 times a day Active Alendronate Sodium 70 MG 1 tablet Orally 1x per week Not-Taking Magnesium Oxide 400 MG 1 tablet as neede d Orally Once a day Active clonazePAM 0.25 MG 1 tablet oral once nightly as needed ONLY at bedtime for restless legs for 30 days 09/16/2024 Active Calcium Carbonate-Vitamin D 600-10 MG-MCG 1 tablet Orally Twice a day Active Memantine HCl 5 MG 1 tablet Orally Once a day for 30 days Active rOPINIRole HCl 3 MG 1 tablet Orally once daily at bedtime Active Immunizations Vaccine Route Administration Date Status [...] Answer Notes Tobacco use: Nonsmoker Section Notes: [id number] 02/09/2020 02/09/2020 clonazePAM 14 14 0.25MG NA Tessie Becker L, Msn, [facility] [id number] [place], [place] [address] [id number] 01/11/2020 01/11/2020 Hydrocodon-acetaminophen 20 5 5MG-325MG 20 Freeman Patino Md - [id number] [id number], [place], [place] [id number] 10/18/2019 10/18/2019 clonazePAM 7 14 0.5 MG Tessie Raines L, Msn, [facility] - [id number] [place] [place], [place] 1 [id number] 07/20/2019 07/20/2019 clonazePAM 14 14 0.25MG [id number] 02/09/2020 02/09/2020 clonazePAM 14 14 0.25MG Tessie Raines L, Msn, [facility] - [id number] [place] [place], [place] [address] [id number] 01/11/2020 01/11/2020 Hydrocodon-acetaminophen 20 5 5MG-325MG 20 Freeman Patino Md - [id number] [facility] #85[address], [place], [place] [id number] 10/18/2019 10/18/2019 clonazePAM 7 14 0.5 MG Tessie Raines L, Msn, [facility] - [id number] [place], [place] 1 [id number] 07/20/2019 07/20/2019 clonazePAM 14 14 0.25MG PRESCRIPTION # FILLED WRITTEN DRUG LABEL QTY DAYS STRENGTH MEDD PRESCRIBER PHARMACY REFILL NO. REFILLS STATE 05/14/2022 05/14/2022 clonazePAM 5.0 5 0.25 MG NA Karen Art ([facility] ) - [id number] [place], [place] 0 [place] [id number] 04/11/2022 04/11/2022 clonazePAM 5.0 5 0.25 MG NA Tessie Becker L, Msn, [facility] - [id number] [place], [place] 0 [place] [id number] 03/12/2022 03/11/2022 clonazePAM 5.0 5 0.25 MG NA Tessie Becker, L PRESCRIPTION # FILLED WRITTEN DRUG LABEL QTY DAYS STRENGTH MEDD PRESCRIBER PHARMACY REFILL NO. REFILLS STATE 06/05/2022 06/05/2022 clonazePAM 5.0 5 0.25 MG NA Briana Pittman [facility] - [id number] [place], [place] 0 [place] [id number] 05/14/2022 05/14/2022 clonazePAM 5.0 5 0.25 MG NA Karen Art ([facility]- ) - [id number] [place] 1 [id number] 04/11/2022 04/11/2022 clonazePAM 5.0 5 0.25 MG NA Tessie Becker, PRESCRIPTION # FILLED WRITTEN DRUG LABEL QTY DAYS STRENGTH MME PRESCRIBER PHARMACY REFILL NO. REFILLS STATE 07/10/2022 07/10/2022 clonazePAM 5.0 5 0.25 MG NA Briana Pittman [facility] - [id number] [place], [place] 0 [place] 1 [id number] 06/05/2022 06/05/2022 clonazePAM 5.0 5 0.25 MG NA Briana Pittman [facility] - [id number] [employer], [place], [place] NA 0 [place] 1 [id number] 05/14/2022 05/14/2022 clonazePAM 5.0 5 0.25 MG NA Karen Art ([employer]-b [id number] 07/10/2022 07/10/2022 clonazePAM 5.0 5 0.25 MG NA Toya, Briana L [employer] - [id number] [place] [address] [id number] 06/05/2022 06/05/2022 clonazePAM 5.0 5 0.25 MG NA Toya, Briana L [employer] - [id number] [place] [id number] 05/14/2022 05/14/2022 clonazePAM 5.0 5 0.25 MG NA Karen Art ([employer] Test Consultant PRESCRIPTION # FILLED WRITTEN DRUG LABEL QTY DAYS STRENGTH MME PRESCRIBER PHARMACY REFILL NO. REFILLS STATE 09/25/2022 09/25/2022 clonazePAM 5.0 5 0.25 MG NA Toya, Briana L [employer] Test Consultant - [id number] [place] [id number] 07/10/2022 07/10/2022 clonazePAM 5.0 5 0.25 MG NA Toya, Briana L [employer] Test [employer]ant - [id number] [place] 1 [id number] 06/05/2022 06/05/2022 clonazePAM 5.0 5 0.25 MG NA Toya, Briana L [employer] Test Consultant - [id number] PRESCRIPTION # FILLED WRITTEN DRUG LABEL QTY DAYS STRENGTH MME PRESCRIBER PHARMACY REFILL NO. REFILLS STATE 09/25/2022 09/25/2022 clonazePAM 5.0 5 0.25 MG NA Toya, Briana L [employer]ant - [id number] [place] 1 [id number] 07/10/2022 07/10/2022 clonazePAM 5.0 5 0.25 MG NA Toya, Briana L [employer] Test Consultant - [id number] [place] 1 [id number] 06/05/2022 06/05/2022 clonazePAM 5.0 5 0.25 MG NA Toya Briana L [employer] Test Consultant - [id number] PRESCRIPTION # FILLED WRITTEN DRUG LABEL QTY DAYS STRENGTH MME PRESCRIBER PHARMACY REFILL NO. REFILLS STATE 12/11/2022 12/11/2022 clonazePAM 5.0 5 0.25 MG NA Toya, Briana L [employer] Test Consultant - [id number] [place] [id number] 09/25/2022 09/25/2022 clonazePAM 5.0 5 0.25 MG NA Toya, Briana L [employer] Test Consultant - [id number] [place] 1 [id number] 07/10/2022 07/10/2022 clonazePAM 5.0 5 0.25 MG NA Toya, Briana L [employer] Test Consultant - [id number] PRESCRIPTION # FILLED WRITTE N DRUG LABEL QTY DAYS STRENGTH MME PRESCRIBER PHARMACY REFILL NO. REFILLS STATE PATIENT [id number] 06/02/2023 06/02/2023 clonazePAM 7.0 7 0.25 MG NA Toya, Briana L [employer] Test Consultant - [id number] [place] [id number] 04/28/2023 04/28/2023 clonazePAM 7.0 7 0.25 MG NA Toya, Briana L [employer] - [id number] [place] [id number] 03/05/2023 03/05/2023 clonazePAM 7.0 7 0.25 MG NA Toya, Briana L [employer] Test [employer] - [id number] [place] [id number] 01/01/2023 01/01/2023 clonazePAM 7.0 7 0.25 MG NA Toya, Briana L [employer] Test Consultant - [id number] [place] PRESCRIPTION # FILLED WRITTEN DRUG LABEL QTY DAYS STRENGTH MME PRESCRIBER PHARMACY REFILL NO. REFILLS STATE 09/25/2022 09/25/2022 clonazePAM 5.0 5 0.25 MG NA Toya, Briana L [employer] Test Consultant - [id number] [place] 1 [id number] 07/10/2022 07/10/2022 clonazePAM 5.0 5 0.25 MG NA Toya, Briana L Performance Test Consultant - [id number] PRESCRIPTION # FILLED WRITTEN DRUG LABEL QTY DAYS STRENGTH MME PRESCRIBER PHARMACY REFILL NO. REFILLS STATE 01/01/2023 01/01/2023 clonazePAM 7.0 7 0.25 MG NA Toya, Briana L Performance Test Consultant - [id number] [place] 1 [id number] 12/11/2022 12/11/2022 clonazePAM 5.0 5 0.25 MG NA Toya, Briana L Performance Test Consultant - [id number] [place] 1 [id number] 09/25/2022 09/25/2022 clonazePAM 5.0 5 0.25 MG NA Toya, Briana L Performance Test Consultant - [id number] [place] [address] [id number] 07/10/2022 07/10/2022 clonazePAM 5.0 5 0.25 MG NA Toya, Briana L Performance Test Consultant - [id number] PRESCRIPTION # FILLED WRITTE N DRUG LABEL QTY DAYS STRENGTH MME PRESCRIBER PHARMACY REFILL NO. REFILLS STATE PATIENT [id number] 04/28/2023 04/28/2023 clonazePAM 7.0 7 0.25 MG NA Toya, Briana L Performance Test Consultant - [id number] [place] [id number] 03/05/2023 03/05/2023 clonazePAM 7.0 7 0.25 MG NA Toya, Briana L Performance Test Consultant - [id number] [place], [place] NA 0 [place] [id number] 01/01/2023 01/01/2023 clonazePAM 7.0 7 0.25 MG NA Briana Pittman Performance Test Consultant - [id number] [facility], [place], [place] NA 0 [place] [id number] 12/11/2022 12/11/2022 clonazePAM 5.0 5 0.25 MG NA Briana Pittman [employer] - [id number] [place] Problems Problem Type SNOMED Code ICD Code Onset Dates Problem Status W/U Status Risk Notes Problem Tobacco user (716251397) Nicotine dependence, unspecified, uncomplicated (F17.200) Active confirmed Problem 91179752 Generalized anxiety disorder (F41.1) Active confirmed Problem Restless legs syndrome (83879206) Restless leg syndrome (G25.81) Active confirmed Problem 04459800 Schizophrenia, paranoid type (F20.0) Active confirmed Problem Memory impairment (217398720) Memory impairment (R41.3) Active confirmed Problem Tardive dyskinesia (974941713) Tardive dyskinesia (G24.01) Active confirmed Vital Signs Heart Rate 82 /min 08/13/2024 Temperature 98.2 degrees Fahrenheit 05/21/2024 BP laying 132/70 BP standing 134/58 Respiratory Rate 16 /min 08/13/2024 Oximetry 97 % 08/13/2024 Blood pressure diastolic 66 mm Hg 08/13/2024 Height 65 in 09/09/2024 Blood pressure systolic 124 mm Hg 08/13/2024 Weight 136 lbs 09/09/2024 BMI 22.63 kg/m2 09/09/2024 Encounters Encounter Location Date Provider Diagnosis [address] [place] [address] 09/24/2023 Briana Pittman Schizophrenia, paranoid type F20.0 ; Tardive dyskinesia G24.01 and Generalized anxiety disorder F41.[address] [place] [address] 10/29/2023 Briana Pittman Schizophrenia, paranoid type F20.0 ; Tardive dyskinesia G24.01 and Generalized anxiety disorder F41.[address] [place] [address] 12/03/2023 Briana Pittman Patient underweight R63.6 ; Non-tobacco user Z78.9 ; Nutritional counseling Z71.3 ; Schizophrenia, paranoid type F20.0 ; Tardive dyskinesia G24.01 ; Generalized anxiety disorder F41.1 and Dizziness R42 [address] [place] [address] 01/16/2024 Pradeep Maki Schizophrenia, paranoid type F20.0 ; Generalized anxiety disorder F41.1 and Tardive dyskinesia G24.[address] [place] [address] 02/20/2024 Pradeep Maki Generalized anxiety disorder F41.1 ; Schizophrenia, paranoid type F20.0 ; Tardive dyskinesia G24.01 and Memory impairment R41.[address] [place] [address] 03/19/2024 Pradeep Maki Generalized anxiety disorder F41.1 ; Schizophrenia, paranoid type F20.0 ; Tardive dyskinesia G24.01 and Memory impairment R41.[address] [place] [address] 04/16/2024 Pradeep Maki Generalized anxiety disorder F41.1 ; Schizophrenia, paranoid type F20.0 ; Tardive dyskinesia G24.01 ; Memory impairment R41.3 and Nutritional counseling Z71.[address] [place] [address] 05/21/2024 Pradeep Maki Generalized anxiety disorder F41.1 ; Schizophrenia, paranoid type F20.0 ; Tardive dyskinesia G24.01 ; Memory impairment R41.3 and Nutritional counseling Z71.[address] [place] [address] 06/24/2024 Pradeep Maki Generalized anxiety disorder F41.1 ; Schizophrenia, paranoid type F20.0 ; Tardive dyskinesia G24.01 ; Memory impairment R41.3 and Nutritional counseling Z71.[address] [address] 07/21/2024 Pradeep Maki Generalized anxiety disorder F41.1 ; Schizophrenia, paranoid type F20.0 ; Tardive dyskinesia G24.01 ; Memory impairment R41.3 ; Restless leg syndrome G25.81 and Nutritional counseling Z71.[address] [address] 08/13/2024 Pradeep Maki Generalized anxiety disorder F41.1 ; Schizophrenia, paranoid type F20.0 ; Tardive dyskinesia G24.01 ; Memory impairment R41.3 ; Restless leg syndrome G25.81 and Nutritional counseling Z71.[address] [address] 09/09/2024 Pradeep Maki Generalized anxiety disorder F41.1 ; Schizophrenia, paranoid type F20.0 ; Tardive dyskinesia G24.01 ; Memory impairment R41.3 ; Restless leg syndrome G25.81 and Nutritional counseling Z71.[address] [address] 09/09/[address] [address] 12/25/[address] [address] 03/19/[address] [address] 06/01/2024 Pradeep Maki Tardive dyskinesia G24.01 Assessments [...] the emergency department, or contact the [facility] Crisis Unit/Team. Follow up as scheduled in [...] mental health CRISIS, please reach out to [phone] (National Suicide and Crisis Lifeline), 911, go to the emergency department, or contact the [facility] Crisis Unit/Team. Follow up as scheduled [...] to the emergency department, or contact the [facility] Crisis Unit/Team. Follow up as scheduled [...] to the emergency department, or contact the [facility] Crisis Unit/Team. Follow up as scheduled [...] to the emergency department, or contact the [facility] Crisis Unit/Team. Follow up as scheduled [...] health CRISIS, please reach out to [phone] ([employer] Suicide and Crisis Lifeline), 911, go to the emergency department, or contact the [facility] Crisis Unit/Team. Follow up as scheduled [...] health CRISIS, please reach out to 988 ([employer] Suicide and Crisis Lifeline), 911, go to the emergency department, or contact the [facility] Crisis Unit/Team. Follow up as scheduled [...] health CRISIS, please reach out to 988 ([employer] Suicide and Crisis Lifeline), 911, go to the emergency department, or contact the [facility] Crisis Unit/Team. Follow up as scheduled [...] health CRISIS, please reach out to 988 ([employer] Suicide and Crisis Lifeline), 911, go to the emergency department, or contact the [facility] Crisis Unit/Team. Follow up as scheduled in 4 weeks or sooner if necessary. Follow up with PCP and/or other specialists as advised. NEXT STEP: Consider medication adjustments as needed. 09/09/2024 Generalized anxiety disorder (ICD-10 - F41.1) Duration [...] health CRISIS, please reach out to [phone] ([employer] Suicide and Crisis Lifeline), 911, go to the emergency department, or contact the [facility] Crisis Unit/Team. Follow up as scheduled in 4 weeks or sooner if necessary. Follow up with PCP and/or other specialists as advised. NEXT STEP: Consider medication adjustments as needed. 09/09/2024 Schizophrenia, paranoid type (ICD-10 - F20.0) Duration [...] to the emergency department, or contact the [facility] Crisis Unit/Team. Follow up as scheduled in 4 weeks or sooner if necessary. Follow up with PCP and/or other specialists as advised. NEXT STEP: Consider medication adjustments as needed. Next Invega Hafyera injection due approximately 02/2025. 07/21/2024 Tardive dyskinesia (ICD-10 - G24.01) See [...] to the emergency department, or contact the [facility] Crisis Unit/Team. Follow up as scheduled in 4 weeks or sooner if necessary. Follow up with PCP and/or other specialists as advised. NEXT STEP: Consider medication adjustments as needed. Next Invega Hafyera injection due approximately 02/2025. 07/21/2024 Schizophrenia, paranoid [...] to the emergency department, or contact the [facility] Crisis Unit/Team. Follow up as scheduled [...] health CRISIS, please reach out to [phone] ([employer] Suicide and Crisis Lifeline), 911, go to the emergency department, or contact the [facility] Crisis Unit/Team. Follow up as scheduled [...] to the emergency department, or contact the [facility] Crisis Unit/Team. 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 Patient no longer [...] to the emergency department, or contact the [facility] Crisis Unit/Team. 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 Patient no longer [...] health CRISIS, please reach out to [phone] ([employer] Suicide and Crisis Lifeline), 911, go to the emergency department, or contact the [facility] Crisis Unit/Team. Follow up as scheduled [...] to the emergency department, or contact the [facility] Crisis Unit/Team. Follow up as scheduled [...] health CRISIS, please reach out to 988 ([employer] Suicide and Crisis Lifeline), 911, go to the emergency department, or contact the [facility] Crisis Unit/Team. Follow up as scheduled [...] health CRISIS, please reach out to 988 ([employer] Suicide and Crisis Lif[facility]), 911, go to the emergency department, or contact the [facility] Crisis Unit/Team. 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 Patient no longer [...] to the emergency department, or contact the [facility] Crisis Unit/Team. 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 Patient no longer [...] health CRISIS, please reach out to [phone] ([employer] Suicide and Crisis Lifeline), 911, go to the emergency department, or contact the [facility] Crisis Unit/Team. Follow up as scheduled [...] been receiving memantine through psych services at [place], this provider agreeable to continuing medication since [...] health CRISIS, please reach out to 988 ([employer] Suicide and Crisis Lifeline), 911, go to the emergency department, or contact the [facility] Crisis Unit/Team. Follow up as scheduled or sooner if necessary. Follow up with PCP and/or other specialists as advised. NEXT STEP: Consider medication adjustments as needed. 05/21/2024 Tardive dyskinesia (ICD-10 - G24.01) See assessment and plan for schizophrenia 06/24/2024 Tardive dyskinesia (ICD-10 - G24.01) See assessment and plan for schizophrenia 08/13/2024 Tardive dyskinesia (ICD-10 - G24.01) See assessment and plan for schizophrenia 09/09/2024 Tardive dyskinesia (ICD-10 - G24.01) See assessment and plan for schizophrenia 09/09/2024 Memory impairment (ICD-10 - R41.3) Duration (acute/chronic), stability (controlled/uncontrol led): Chronic, has reportedly been receiving memantine through psych services at [place], this provider agreeable to continuing medication since [...] to the emergency department, or contact the [facility] Crisis Unit/Team. Follow up as scheduled or sooner if necessary. Follow up with PCP and/or other specialists as advised. NEXT STEP: Consider medication adjustments as needed. 08/13/2024 Memory impairment (ICD-10 - R41.3) Duration (acute/chronic), stability (controlled/uncontrol led): Chronic, has reportedly been receiving memantine through psych services at [place], this provider agreeable to continuing medication since [...] to the emergency department, or contact the [facility] Crisis Unit/Team. Follow up as scheduled or sooner if necessary. Follow up with PCP and/or other specialists as advised. NEXT STEP: Consider medication adjustments as needed. 07/21/2024 Restless leg syndrome (ICD-10 - G25.81) See above assessment and plans 05/21/2024 Memory impairment (ICD-10 - R41.3) Duration (acute/chronic), stability (controlled/uncontrol led): Chronic, has reportedly been receiving memantine through psych services at [place], this provider agreeable to continuing medication since [...] to the emergency department, or contact the [facility] Crisis Unit/Team. Follow up as scheduled or sooner if necessary. Follow up with PCP and/or other specialists as advised. NEXT STEP: Consider medication adjustments as needed. 06/24/2024 Memory impairment (ICD-10 - R41.3) Duration (acute/chronic), stability (controlled/uncontrol led): Chronic, has reportedly been receiving memantine through psych services at [place], this provider agreeable to continuing medication since [...] to the emergency department, or contact the [facility] Crisis Unit/Team. Follow up as scheduled or sooner if necessary. Follow up with PCP and/or other specialists as advised. NEXT STEP: Consider medication adjustments as needed. 04/16/2024 Memory impairment (ICD-10 - R41.3) Duration (acute/chronic), stability (controlled/uncontrol led): Chronic, has reportedly been receiving memantine through psych services at [place], this provider agreeable to continuing medication since [...] to the emergency department, or contact the [facility] Crisis Unit/Team. Follow up as scheduled or sooner if necessary. Follow up with PCP and/or other specialists as advised. NEXT STEP: Consider medication adjustments as needed. 02/20/2024 Memory impairment (ICD-10 - R41.3) Duration (acute/chronic), stability (controlled/uncontrol led): Chronic, has reportedly been receiving memantine through psych services at [place], this provider agreeable to continuing medication since [...] to the emergency department, or contact the [facility] Crisis Unit/Team. Follow up as scheduled or sooner if necessary. Follow up with PCP and/or other specialists as advised. NEXT STEP: Consider medication adjustments as needed. 03/19/2024 Memory impairment (ICD-10 - R41.3) Duration (acute/chronic), stability (controlled/uncontrol led): Chronic, has reportedly been receiving memantine through psych services at [place], this provider agreeable to continuing medication since [...] to the emergency department, or contact the [facility] Crisis Unit/Team. Follow up as scheduled [...] - G25.81) See above assessment and plans 09/09/2024 Restless leg syndrome (ICD-10 - G25.81) See above assessment and plans 09/09/2024 Nutritional counseling (ICD-10 - Z71.3) 08/13/2024 Nutritional counseling (ICD-10 - Z71.3) 12/03/2023 Dizziness (ICD-10 - R42) Orthostatics today: Laying 168/70 Sitting 150/74 Standing 158/58 Trihexyphenidyl dose was lowered today, pt instructed to monitor symptoms. Cinthia has appt with her dining room attendant cafeteria 12/17/2023 12/03/2023 Other Patient was edu cated [...] Insured Coverage Start Date Coverage End Date [facility] Medicare Assure [address] [address] [place] [address] [id number] Cinthia Mccartney Self - patient is the insured 4 MEDICAID [address] [place] [address] [id number] Cinthia Mccartney Self - patient is the insured 4 Medications Administered Medication Instructions Date of Administration Dosage Notes Invega Selvin 08/20/2023 1560 mg Patient to lerated well Invega Remyyera 08/13/2024 1560 mg Invega Sustenna 04/11/2017 234 mg Graduate Student Instructor: [employer] Patient tolerated well. Invega Sustenna 04/18/2017 156 mg Exp: 07/2018 Lot: [id number] Graduate Student Instructor: [employer] Pt tolerated injection well and verbalizes no questions or concerns at this time. Invega Sustenna 05/16/2017 234 mg Exp: 11/2018 Lot: [id number] Graduate Student Instructor: [employer] Patient tolerated injection well. She denies questions or concerns at this time. Invega Sustenna 06/17/2017 234 mg Manufact Otil[employer], pt tolerated well. Invega Sustenna 07/18/2017 234 mg Manufact [employer], pt tolerated well. Invega Sustenna 08/06/2017 234 mg Manufact [employer], pt tolerated well. Invega Sustenna 09/05/2017 234 mg Manufact Otilia, pt tolerated well. Invega Sustenna 09/30/2017 234 mg Manufact [employer], pt tolerated well. Invega Sustenna 10/30/2017 234 mg Manufact [employer], pt tolerated well. Invega Sustenna 12/04/2017 234 mg Graduate Student Instructor-[employer] Patient tolerated well. Invega Sustenna 01/01/2018 234 mg Manufact [employer], pt tolerated well. Invega Sustenna 02/04/2018 234 mg Manufactu rer: [employer]. Pt tolerated well. Questions or concerns denied. Invega Sustenna 03/05/2018 234 mg Manufact O[employer], pt tolerated well. Invega Sustenna 04/03/2018 234 mg Manufact [employer], pt tolerated well. Invega Sustenna 05/01/2018 234 mg Manufact [employer], pt tolerated well. Invega Sustenna 05/28/2018 234 mg Graduate Student Instructor: [employer] Pt tolerated the injection well and denies questions or concerns at this time. Invega Sustenna 06/17/2019 234 mg Manufact by [employer] Pt edward well. Invega Sustenna 06/23/2019 156 mg Manufact by [employer] Pt edward well. Invega Sustenna 07/20/2019 234 mg Graduate Student Instructor-[employer] Pt tolerated injection well. Voiced no questions or concerns Invega Sustenna 08/20/2019 234 mg production control analyst-[employer] Pt tolerated injection well. Voiced no questions or concerns Invega Sustenna 09/22/2019 234 mg Manufact by [facility] Pt edward well. Invega Sustenna 10/20/2019 234 mg Manufact by [employer] Pt edward well. Invega Sustenna 11/18/2019 234 mg Manufact by [facility] Pt edward well. Invega Sustenna 12/16/2019 156 mg Invega Sustenna 01/13/2020 156 mg Manufact by [employer] Pt edward well. Invega Sustenna 02/09/2020 156 mg Manufact Otilia, patient tolerated well. Invega Sustenna 03/16/2020 156 mg Graduate Student Instructor-[employer] Pt tolerated injection well. Voiced no questions or concerns. Invega Sustenna 04/13/2020 156 mg Manufact by [employer] Pt edward well. Invega Sustenna 05/18/2020 156 mg Graduate Student Instructor- [employer] Pt tolerated injection well. Voiced no questions or concerns. Invega Sustenna 06/15/2020 156 mg Graduate Student [employer] Pt tolerated injection well. Voiced no questions [...] olerated well. 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 Pt tolerated the injection well. Medical (General) History Medical History History ICD Code Schizophrenia, paranoid type Generalized anxiety disorder HTN Surgical History Surgery Date(Month/Year) repaired to ruptured navel 01/2020 cardiac cath Hospitalization History Reason Date(Month/Year) 2 Atrial fibrillation Chirag 09/2021
--- OUTSIDE RECORDS SUMMARY | 2024-09-10 08:33 | XMS_ITS ---
Author Organization [facility] Address [address] [place] [address] Phone Care Team Providers Care Maintenance And Utilities Supervisor Name Role Phone Jeff Camarillo MD Primary Care Provider Lynn Arora NP Unavailable [phone] Ismael Matson MD Unavailable [phone] Active Problems Problem Noted Date Diagnosed Date [...]
--- OUTSIDE RECORDS SUMMARY | 2024-09-10 08:33 | XMS_ITS ---
Author Organization [facility] Address [address] [place] [address] Care Team Providers Care Manufacturing Executive Name Role Phone Denise Makiy Primary Care Provider Briana Pittman Unavailable [phone] REASON FOR VISIT LM to R/S -mlr 1 month psych follow up/med refill and INJECTION Social History Sex Assigned At : Social History Observation Description Sex Assigned At Female Encounters Encounter Location Date Provider Diagnosis [address] [address] 08/20/2024 Pradeep Maki Plan Of Treatment No Information Progress Notes * CATRACHOSABIVandana ASHLEYOB: (79 yo F)Acc No.[id number]:08/20/2024 UNLOCKED PROGRESS NOTE Patient: Cinthia VALERIO Provider: Vish Maki APN :1945 A ge:79 Y S ex:Female Date:08/20/2024 Address:[address], [place], [id number] Subjective: * Chief Complaints: * 1 . LM to R/S -mlr 1 month psych follow up/med refill and INJECTION. * Medical History: Objective: * Vitals: Assessment: Plan: * Treatment: * * Electronic signature of Pradeep Maki on 09/10/2024 at 08:32 AM CDT Sign off status: Pending * Provider: Vish Maki APN Date: 0 08/20/2024 Generated for Isma jiménez/Josi/Grzegorz on: 0 09/10/2024 08:32 AM CDT
--- OUTSIDE RECORDS SUMMARY | 2024-09-10 08:33 | XMS_ITS ---
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 Name Role Phone Pradeep Maki Primary Care Provider [phone] Toya, Briana Unavailable [phone] REASON FOR VISIT 4 week F/U Medications Medication SIG (Take, Route, Frequency, Duration) Notes Start Date End Date Status Trihexyphenidyl HCl 2 MG 0.5 tablet Oral ly once daily in the morning for 30 days Active Memantine HCl 5 MG 1 tablet Orally Once a day for 30 days Active Pregabalin 50 MG 1 capsule Orally 3 times a day Active Calcium Carbonate-Vitamin D 600-10 MG-MCG 1 tablet Orally Twice a day Active rOPINIRole HCl 3 MG 1 tablet Orally once daily at bedtime Active Invega Hafyera 1560 MG/5ML as directed Intramuscular every 6 months for 180 days Active clonazePAM 0.25 MG 1 tablet oral once nightly as needed ONLY at bedtime for restless legs for 30 days 09/16/2024 Active Memantine HCl 5 MG 1 tablet Orally Once a day for 30 days Active Ezetimibe 10 MG 1 tablet Orally Once a day Active Empagliflozin 10 MG 1 tablet Orally Once a day Active Rosuvastatin Calcium 40 MG 1 tablet Orally Once a day Active Alendronate Sodium 70 MG 1 tablet Orally 1x per week Not-Taking Magnesium Oxide 400 MG 1 tablet as neede d Orally Once a day Active Rivaroxaban 20 MG 1 tablet with food Orally Once a day Active Omeprazole 20 MG 1 capsule 1/2 to 1 h our before morning meal Orally Once a day Active Joiner 3 1000 MG 1 capsule Orally onc e daily Active Xiidra 5 % 1 drop into affected eye Ophthalmic Twice a day Active Social History Tobacco Use: Social History Observation Description Date Details (start date - stop date) Never Smoker NA - NA Sex Assigned At : Social History Observation Description Sex Assigned At Female Tobacco Control (Standard) Question Answer Notes Tobacco use: Nonsmoker Section Notes: Reveowed [place] PDMP Vital Signs Weight 136 lbs 09/09/2024 Height 65 in 09/09/2024 BMI 22.63 kg/m2 09/09/2024 Encounters Encounter Location Date Provider Diagnosis [address] [place] [address] 09/09/2024 Pradeep Maki Generalized anxiety disorder F41.1 ; Schizophrenia, paranoid type F20.0 ; Tardive dyskinesia G24.01 ; Memory impairment R41.3 ; Restless leg syndrome G25.81 and Nutritional counseling Z71.3 Assessments Encounter Date Diagnosis (ICD Code) Assessment Notes Treatment Notes Treatment Clinical Notes Section Notes 09/09/2024 Generalized anxiety disorder (ICD-10 - F41.1) Duration (acute/chronic), stability (controlled/uncontr olled): Chronic, well controlled on current therapy Current medications/efficac y: Yes Previous medication trials: Invega Sustenna, Invega [...] techniques, such as guided imagery, journaling, aromatherapy, acupuncture/acupres sure, deep breathing, etc. Practice healthy sleep hygiene [...] Continue monitoring symptoms - report persistent or worsening/concernin g symptoms to the office or go to the ER. For mental health CRISIS, please reach out to [phone] ([employer] Suicide and Crisis Lifeline), 911, go to the emergency department, or contact the [facility] Crisis Unit/Team. Follow up as scheduled in 4 weeks or sooner if necessary. Follow up with PCP and/or other specialists as advised. NEXT STEP: Consider medication adjustments as needed. 09/09/2024 Schizophrenia, paranoid type (ICD-10 - F20.0) Duration (acute/chronic), stability (controlled/uncontr olled): Chronic, well controlled on current therapy Current medications/efficac y: Yes Previous medication trials: Invega Sustenna, Invega [...] techniques, such as guided imagery, journaling, aromatherapy, acupuncture/acupres sure, deep breathing, etc. Practice healthy sleep hygiene [...] Continue monitoring symptoms - report persistent or worsening/concernin g symptoms to the office or go to the ER. For mental health CRISIS, please reach out to [phone] (National Suicide and Crisis Lifeline), 911, go to the emergency department, or contact the [facility] Crisis Unit/Team. Follow up as scheduled in 4 weeks or sooner if necessary. Follow up with PCP and/or other specialists as advised. NEXT STEP: Consider medication adjustments as needed. Next Invega Hafyera injection due approximately 02/2025. 09/09/2024 Tardive dyskinesia (ICD-10 - G24.01) See assessment and plan for schizophrenia 09/09/2024 Memory impairment (ICD-10 - R41.3) Duration (acute/chronic), stability (controlled/uncontr olled): Chronic, has reportedly been receiving memantine through psych services at [facility], this provider agreeable to continuing medication since patient has been tolerating well without complication or complaint Current medications/efficac y: Yes Previous medication trials: memantine Current/previous therapies: [...] techniques, such as guided imagery, journaling, aromatherapy, acupuncture/acupres sure, deep breathing, etc. Practice healthy sleep hygiene [...] Continue monitoring symptoms - report persistent or worsening/concernin g symptoms to the office or go to the ER. For mental health CRISIS, please reach out to [phone] (National Suicide and Crisis Lifeline), 911, go to the emergency department, or contact the [facility] Crisis Unit/Team. Follow up as scheduled or sooner if necessary. Follow up with PCP and/or other specialists as advised. NEXT STEP: Consider medication adjustments as needed. 09/09/2024 Restless leg syndrome (ICD-10 - G25.81) See above assessment and plans 09/09/2024 Nutritional counseling (ICD-10 - Z71.3) Plan Of Treatment Medication Medication Name Sig Start Date Stop Date Notes Trihexyphenidyl HCl 2 MG 0.5 tablet Oral ly once daily in the morning for 30 days Memantine HCl 5 MG 1 tablet Orally Once a day for 30 days Invega Hafyera 1560 MG/5ML as directed I ntramuscular every 6 months for 180 days clonazePAM 0.25 MG 1 tablet oral once n ightly as needed ONLY at bedtime for restless legs for 30 days 09/16/2024 Treatment Notes Assessment Notes Generalized anxiety disorder Duration (acute/chronic), stability (controlled/uncontrolled): Chronic, well controlled on current therapy Current [...] techniques, such as guided imagery, journaling, aromatherapy, acupuncture/acupressure, deep breathing, etc. Practice healthy sleep hygiene [...] mental health CRISIS, please reach out to [phone] (National Suicide and Crisis Lifeline), 911, go to the emergency department, or contact the [facility] Crisis Unit/Team. Follow up as scheduled in 4 weeks or sooner if necessary. Follow up with PCP and/or other specialists as advised. NEXT STEP: Consider medication adjustments as needed. Schizophrenia, paranoid type Duration (acute/chronic), stability (controlled/uncontrolled): Chronic, well controlled on current therapy Current [...] techniques, such as guided imagery, journaling, aromatherapy, acupuncture/acupressure, deep breathing, etc. Practice healthy sleep hygiene [...] to the emergency department, or contact the [facility] Crisis Unit/Team. Follow up as scheduled in 4 weeks or sooner if necessary. Follow up with PCP and/or other specialists as advised. NEXT STEP: Consider medication adjustments as needed. Next Invega Hafyera injection due approximately 02/2025. Tardive dyskinesia See assessment and p maria m for schizophrenia Memory impairment Duration (acute/chronic), stability (controlled/uncontrolled): Chronic, has reportedly been receiving memantine through psych services at [facility], this provider agreeable to continuing medication since [...] techniques, such as guided imagery, journaling, aromatherapy, acupuncture/acupressure, deep breathing, etc. Practice healthy sleep hygiene [...] health CRISIS, please reach out to [phone] ([employer] Suicide and Crisis Lifeline), 911, go to the emergency department, or contact the [facility] Crisis Unit/Team. Follow up as scheduled or sooner if necessary. Follow up with PCP and/or other specialists as advised. NEXT STEP: Consider medication adjustments as needed. Restless leg syndrome See above assessme nt and plans Next Appt Details Follow Up: 4 weeks OR SOONER IF NECESSARY - TELEPHONE or IN PERSON, Reason: 4 week psych follow up/med refill Progress Notes * Vandana MCCARTNEYOB: 7 (79 yo F)Acc No.[id number]:09/09/2024 Patient: Cinthia VALERIO Provider: Vish Maki APN :1945 A ge:79 Y S ex:Female Date:09/09/2024 Address:[address] [place], [place] [id number] Subjective: * Chief Complaints: * 4 week F/U * HPI: S ummary: History of Presenting Illness: Patient is presenting for 4 week follow up. Mood and psychotic symptoms continue to be well controlled with current medication regimen TD continues to be well controlled with low dose trihexiphenidyl - no othostatic dizziness or other side effects noted/reported RLS continues to be well controlled with c lonazepam 0.25mg once nightly at bedtime - no longer taking gabapentin due to inefficacy Denies dizziness, impaired gait, falls or other neurologic abnormalities since starting clonazepam 0.25mg once nightly for RLS Patient agreeable to continuing medications as prescribed. Agreeable to following up in 4 weeks, sooner if necessary - patient prefers following up once monthly. PERTINENT HPI DETAILS FROM PREVIOUS APPOINTMENT: Patient is presenting for 4 week follow up. Mood and psychotic symptoms continue to be well controlled with current medication regimen TD continues to be well controlled with low dose trihexiphenidyl - no othostatic dizziness or other side effects noted/reported RLS continues to be well controlled with c lonazepam 0.25mg once nightly at bedtime - no longer taking gabapentin due to inefficacy Denies dizziness, impaired gait, falls or other neurologic abnormalities since starting clonazepam 0.25mg once nightly for RLS Patient agreeable to continuing medications as prescribed - agreeable to receiving Jv Montalvo injection today in office. A greeable to following up in 4 weeks, sooner if necessary - patient prefers following up once monthly. -Medications Effectiveness: Yes -Medication Adherence: Yes -Side effects: Denies -Previous Medication Trials: I clarita Simmons, Invega Trinza, Auestedo (worsening mood symptoms), Gabapentin (too sedating), benztropine (ineffective), Ingrezza (spaced out) -Sleep: Subjectively well controlled/improved with low dose clonazepam at bedtime for RLS - previously reported It's okay, except it takes a while for me to go to sleep due to my legs bothering me. Right leg cannot sit still. -Nightmares/Night terrors: Intermittent, nothing regularly, nothing distressing -Appetite: Fine. -Mood: Subjectively well controlled, no change from baseline - previously reported I'm doing fine. - previously reported It's been fine. It's normal. - previously reported Happy. It's fine. -Anxiety Rating (10/10 being the worst): S ubjectively well controlled, no change from baseline - previously reported I haven't been having any anxiety - previously reported No, not all of the time. 0/10 on average, I don't have it that often. Reportedly has anxiety about once monthly, no identifiable trigger -Depression Rating (10/10 being the worst): S ubjectively well controlled, no change from baseline - previously reported No. - previously reported Denies -Anger/Irritability Rating (10/10 being the worst): Denies -Suicidal ideation: Denies -Thoughts of Self-Harm: Denies -Homicidal ideation: Denies -Concentration/attention: Fine. -Psychotic Symptoms/Behaviors (hallucinations, delusions, paranoia, etc.): Denies current or previous hallucinations - previously had thoughts that landlord and other tenants were going to conspire to get her kicked out, not an issue since being on Invega -Manic Behaviors: Denies -Obsessive/Compulsive Behaviors: Denies -Panic/PTSD: Denies -Coping strategies: I take the medicine when it gets bad. I just try to calm myself down. Distraction with reading or focusing on something else Goals: Stay healthy, continue following up with therapy Social Activities: Substance Use: -Caffeine - 1-2 cups of coffee daily -Nicotine - Denies current use - tried smoking when she was teenager -Alcohol - Denies current use, reports previous intermittent use, never heavy - has conumsed alcohol in a long time -Marijuana - Denies current or previous use -Other Substances - Denies current or previous use Medical concerns or hospitalizations: afib, CAD, heart murmur, restless leg syndrome, tardive dyskinesia Therapy: Follows up with therapy once weekly - It really helps me. Labs: MONITORED BY PCP AND OTHER SPECIALISTS. D epression Screening: PHQ-9 L ittle interest or pleasure in doing things?Not at all F eeling down, depressed, or hopeless N ot at all T rouble falling or staying asleep, or sleeping too much N ot at all F eeling tired or having little energy N ot at all P oor appetite or overeating N ot at all F eeling bad about yourself or that you are a failure, or have let yourself or your family down N ot at all T rouble concentrating on things, such as reading the newspaper or watching television N ot at all M oving or speaking so slowly that other people could have noticed; or the opposite, being so fidgety or restless that you have been moving around a lot more than usual N ot at all T houghts that you would be better off or of hurting yourself in some way N ot at all T otal Score 0 S creening: [place] Suicide Severity Rating Scale (LF) D o you want to initiate with S creener form 1 . Wish to be : Have you wished you were or wished you could go to sleep and not wake up? N o 2 . Suicidal Thoughts: Have you actually had any thoughts of killing yourself? N o 6 . Suicide Behavior Question: Have you ever done anything,started to do anything, or prepared to end your life? N o I nterpretation: L ow Risk C SSRS Interpretation and Follow Up Plan: CSSRS Interpretation and Follow Up Plan C SSRS Screen documented using SF Y es R isk Disposition from L ow - No Follow Up Plan Required F ollow Up Plan N o Follow Up Plan required at this time. T imeframe of Screening T kevin * ROS: P sych ROS: Constitutional A ll systems negative unless indicated otherwise.. P sych D enies AH/VH and delusions, Denies SI/HI. * PSYCH ROS2: mood swings D enies mood lability. I nattention D enies attention deficits. C ompulsive behavior D enies compusive/impulsive behaviors. D epression D enies. M christopher D enies symptoms of radha. A ppetite N ormal. C oncentration D enies concentration deficits. S ubstance use D enies. P anic attacks?Denies. A nxiety/Worry D enies. I rritability D enies. S elf-Harm D enies.?Sleep E ndorses sleep difficulties - related to legs bothering me. C omments T D much improved since starting low dose trihexyphenidyl, clonazepam 0.25mg at bedtime helps with RLS without adverse effects (gabapentin ineffective) - See HPI for details. * Medical History: * Surgical History: r epaired to ruptured navel 01/2020cardiac cath * Hospitalization/Major Diagno stic Procedure: A trial fibrillation Chirag * Family History: D aughter(s): alive. F ather: . S on(s): alive. M other: alive. 1 son(s) , 1 daughter(s) - healthy. . * Social History: P rimary Social History: L iving Arrangement L iving Arrangement: I ndependent Living Alcohol Use A lcohol Use Frequency: N ever Illicit Substance Usage I llicit Substance Usage: N o Employment Status E mployment Status: U nemployed Retired Leisure: hoahaoism activities, working out. T obacco Use: T obacco Control (Standard) T obacco use: N onsmoker R eveowed [place] PDMP. * Medications: T akingPregabalin 50 MG Capsule 1 capsule Orally 3 times a day rOPINIRole HCl 3 MG Tablet 1 tablet Orally once daily at bedtime Calcium Carbonate-Vitamin D 600-10 MG-MCG Tablet 1 tablet Orally Twice a day Xiidra 5 % Solution 1 drop into affected eye Ophthalmic Twice a day Joiner 3 1000 MG Capsule 1 capsule Orally once daily Omeprazole 20 MG Capsule Delayed Release 1 capsule 1/2 to 1 hour before morning meal Orally Once a day Rivaroxaban 20 MG Tablet 1 tablet with food Orally Once a day Ezetimibe 10 MG Tablet 1 tablet Orally Once a day Rosuvastatin Calcium 40 MG Tablet 1 tablet Orally Once a day Empagliflozin 10 MG Tablet 1 tablet Orally Once a day Magnesium Oxide 400 MG Tablet 1 tablet as needed Orally Once a day Memantine HCl 5 MG Tablet 1 tablet Orally Once a day clonazePAM 0.25 MG Tablet Disintegrating 1 tablet oral once nightly as needed ONLY at bedtime for restless legs Invega Hafyera 1560 MG/5ML Suspension Prefilled Syringe as directed Intramuscular every 6 months , Notes to Pharmacist: Patient is due for next injection in 4 weeks. Thanks!Trihexyphenidyl HCl 2 MG Tablet 0.5 tablet Orally once daily in the morning Taking Pregabalin 50 MG Capsule 1 capsule Orally 3 times a day Taking rOPINIRole HCl 3 MG Tablet 1 tablet Orally once daily at bedtime Taking Calcium Carbonate-Vitamin D 600-10 MG-MCG Tablet 1 tablet Orally Twice a day Taking Xiidra 5 % Solution 1 drop into affected eye Ophthalmic Twice a day Taking Joiner 3 1000 MG Capsule 1 capsule Orally once daily Taking Omeprazole 20 MG Capsule Delayed Release 1 capsule 1/2 to 1 hour before morning meal Orally Once a day Taking Rivaroxaban 20 MG Tablet 1 tablet with food Orally Once a day Taking Ezetimibe 10 MG Tablet 1 tablet Orally Once a day Taking Rosuvastatin Calcium 40 MG Tablet 1 tablet Orally Once a day Taking Empagliflozin 10 MG Tablet 1 tablet Orally Once a day Taking Magnesium Oxide 400 MG Tablet 1 tablet as needed Orally Once a day Taking Memantine HCl 5 MG Tablet 1 tablet Orally Once a day Taking clonazePAM 0.25 MG Tablet Disintegrating 1 tablet oral once nightly as needed ONLY at bedtime for restless legs Taking Invega Hafyera 1560 MG/5ML Suspension Prefilled Syringe as directed Intramuscular every 6 months , Notes to Pharmacist: Patient is due for next injection in 4 weeks. Thanks!Taking Trihexyphenidyl HCl 2 MG Tablet 0.5 tablet Orally once daily in the morning Not-TakingAlendronate Sodium 70 MG Tablet 1 tablet Orally 1x per week Not-Taking Alendronate Sodium 70 MG Tablet 1 tablet Orally 1x per week DiscontinuedrOPINIRole HCl 2 MG Tablet 1 tablet Orally twice daily Memantine HCl 5 MG Tablet 1 tablet Orally Once a day Ferrous Sulfate 325 (65 Fe) MG Tablet 1 tablet Orally daily Letrozole 2.5 MG Tablet 1 tablet Orally Once a day clonazePAM 0.25 MG Tablet Disintegrating 1 tablet oral Once a day as needed for severe anxiety Amiodarone HCl 200 MG Tablet 0.5 tablet Orally Once a day Vitamin E 400 UNIT Tablet 1 tablet Orally once daily Medication List reviewed and reconciled with the patientDiscontinued rOPINIRole HCl 2 MG Tablet 1 tablet Orally twice daily Discontinued Memantine HCl 5 MG Tablet 1 tablet Orally Once a day Discontinued Ferrous Sulfate 325 (65 Fe) MG Tablet 1 tablet Orally daily Discontinued Letrozole 2.5 MG Tablet 1 tablet Orally Once a day Discontinued clonazePAM 0.25 MG Tablet Disintegrating 1 tablet oral Once a day as needed for severe anxiety Discontinued Amiodarone HCl 200 MG Tablet 0.5 tablet Orally Once a day Discontinued Vitamin E 400 UNIT Tablet 1 tablet Orally once daily Medication List reviewed and reconciled with the patient Objective: * Vitals: I nitials: CJP, Wt:136, Ht: 65, BMI:22.63, LMP: N/A, Pain scale:0. * Examination: M ental Status Exam: SENSORIUM AND COGNITION A lert, Oriented to Person, Oriented to Place, Oriented to Time, Oriented to Situation . ATTENTION AND CONCENTRATION N o deficits . APPEARANCE U nable to assess due to telephone communication - previously documented Appropriate . ATTITUDE AND BEHAVIOR C ooperative. MEMORY G rossly intact . EYE CONTACT U nable to assess due to telephone communication - previously documented G ood. AFFECT U nable to assess due to telephone communication - inferred to be at baseline - p reviously documented M ildly blunted, baseline. MOOD U nable to assess due to telephone communication - subjectively well controlled, previously documented Normal.. SPEECH QUANTITY A ppropriate. SPEECH QUALITY S pontaneous, Appropriate volume. THOUGHT PROCESS C oherent and goal directed. THOUGHT CONTENT A ppropriate - WNL. LANGUAGE A ppropriate- WNL. MOTOR ACTIVITY U nable to assess due to telephone communication - previously documented T ardive dyskinetic movements reportedly resolved since starting low dose trihexyphenidyl, see HPI.? SUICIDAL IDEATION D enies suicidal ideation . HOMICIDAL IDEATION D enies homicidal ideation . HALLUCINATIONS D enies hallucinations. INSIGHT G ood. JUDGMENT G ood. G eneral Examination: GENERAL APPEARANCE: n ormal, pleasant, in no acute distress. HEAD: n ormocephalic, atraumatic. EYES: B OTH EYES, normal, extraocular movement intact (EOMI), pupils equal, round, reactive to light and accommodation. LUNGS: r espirations regular and easy. NEUROLOGIC: c ranial nerves 2-12 grossly intact, alert and oriented, gait normal, no tremor, tic or rigidity - minimal/mild perioral TD movements. ? Assessment: * Assessment: 1. G eneralized anxiety disorder - F41.1 2 . S chizophrenia, paranoid type - F20.0 (Primary) 3 . T ardive dyskinesia - G24.01 4 . M chhaya impairment - R41.3 5 . R estless leg syndrome - G25.81 6 .?Nutritional counseling - Z71.3 Plan: * Treatment: 2. G eneralized anxiety disorder Refill clonazePAM Tablet Disintegrating, 0.25 MG, 1 tablet, oral, once nightly as needed ONLY at bedtime for restless legs, 30 days, 30, Refills 0. Notes: Duration (acute/chronic), stability (controlled/uncontrolled): Chronic, well controlled on current therapy Current [...] techniques, such as guided imagery, journaling, aromatherapy, acupuncture/acupressure, deep breathing, etc. Practice healthy sleep hygiene [...] to the emergency department, or contact the [facility] Crisis Unit/Team. Follow up as scheduled in 4 weeks or sooner if necessary. Follow up with PCP and/or other specialists as advised. NEXT STEP: Consider medication adjustments as needed. 3. T ardive dyskinesia Continue Trihexyphenidyl HCl Tablet, 2 MG, 0.5 tablet, Orally, once daily in the morning, 30 days, 30, Refills 1. Notes: See assessment and plan for schizophrenia 4. M chhaya impairment Continue Memantine HCl Tablet, 5 MG, 1 tablet, Orally, Once a day, 30 days, 30, Refills 2. ? Notes: Duration (acute/chronic), stability (controlled/uncontrolled): Chronic, has reportedly been receiving memantine through psych services at [facility], this provider agreeable to continuing medication since [...] techniques, such as guided imagery, journaling, aromatherapy, acupuncture/acupressure, deep breathing, etc. Practice healthy sleep hygiene [...] health CRISIS, please reach out to [phone] ([employer] Suicide and Crisis Lifeline), 911, go to the emergency department, or contact the [facility] Crisis Unit/Team. Follow up as scheduled or sooner if necessary. Follow up with PCP and/or other specialists as advised. NEXT STEP: Consider medication adjustments as needed. 5. R estless leg syndrome Notes: See above assessment and plans * Procedure Codes: G 2024 [facility] EST PATIENT VISIT * Follow Up: 4 weeks OR SOONER IF NECESSARY - TELEPHONE or IN PERSON (Reason: 4 week psych follow up/med refill) * * Sign off status: Completed true * Provider: Vish Maki APN Date: 09/09/2024 Generated for Isma jiménez/Josi/Grzegorz on: 09/10/2024 08:33 AM CDT History and Physical Notes * HPI (History of Present Illness) Category Sub-Category Detail Notes Category Not es Depression Screening PHQ-9 Little inte rest or pleasure in doing things: Not at all Feeling down, depressed, or hopeless: No t at all Trouble falling or staying asleep, or sl eeping too much: Not at all Feeling tired or having little energy: N ot at all Poor appetite or overeating: Not at all Feeling bad about yourself o r that you are a failure, or have let yourself or your family down: Not at all Trouble concentrating on thi ngs, such as reading the newspaper or watching television: Not at all Moving or speaking so slowly that other people could have noticed; or the opposite, being so fidgety or restless that you have been moving around a lot more than usual: Not at all Thoughts that you would be b lulu off or of hurting yourself in some way: Not at all Total Score: 0 Screening [place] Suicide Sev erity Rating Scale (LF) Do you want to initiate with: Screener form 1. Wish to be : Have you wished you were or wished you could go to sleep and not wake up?: No 2. Suicidal Thoughts: Have you actually had any thoughts of killing yourself?: No 6. Suicide Behavior Question: Have you ever done anything,started to do anything, or prepared to end your life?: No Interpretation:: Low Risk CSSRS Interpretation and Follow Up Plan CSSRS Interpretation and Follow Up Plan CSSRS Screen documented using SF: Yes Risk Disposition from SF: Low - No Follo w Up Plan Required Follow Up Plan: No Follow Up Plan requir ed at this time. Timeframe of Screening: Today Examination Category Sub-Category Detail Notes Category Not es General Examination GENERAL APPEARANCE: normal, pleasant, in no acute distress HEAD: normocephalic, atrau matic EYES: BOTH EYES, normal, e xtraocular movement intact (EOMI), pupils equal, round, reactive to light and accommodation LUNGS: respirations regular and easy NEUROLOGIC: cranial nerves 2-12 grossly intact, alert and oriented, gait normal, no tremor, tic or rigidity - minimal/mild perioral TD movements Mental Status Exam SENSORIUM AND COGNITION Alert , Oriented to Person, Oriented to Place, Oriented to Time, Oriented to Situation ATTENTION AND CONCENTRATION No deficits APPEARANCE Unable to assess due to telephone communication - previously documented Appropriate ATTITUDE AND BEHAVIOR Cooperative MEMORY Grossly intact EYE CONTACT Unable to assess due to telephone communication - previously documented Good AFFECT Unable to assess due to telephone communication - inferred to be at baseline - previously documented Mildly blunted, baseline MOOD Unable to assess due to telephone communication - subjectively well controlled, previously documented Normal. 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
--- OUTSIDE RECORDS SUMMARY | 2024-09-10 08:34 | XMS_ITS | Clinical Summary ---
Author Organization [facility] Address [address] [place] [address] Phone Care Team Providers Care Index Editor Name Role Phone Jeff Camarillo MD Primary Care Provider Lynn Arora NP Unavailable [phone] Ismael Matson MD Unavailable [phone] Allergies Active Allergy Reactions Criticality Noted Date [...] = 0.6 oz pur e alcohol) [facility] Utilities Answer Date Recorded In the past 12 months has [employer], gas, oil, or water [employer] threatened to shut off services in your [...] often do you attend chur ch or catholic services? 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 Gender Identity Not on file Sexual Orientation Not on file Obstetrics History Last Filed Vital Signs Vital Sign Reading Time Taken Comments Blood Pressure 149/53 05/30/2023 12:32 PM [employer]IONAL ACCOUNT MANAGER Pulse 62 05/30/2023 12:32 PM [employer]IONAL ACCOUNT MANAGER Temperature 37 C (98.6 F) 05/30/2023 12:32 PM REGIONAL ACCOUNT MANAGER Respiratory Rate 18 05/30/2023 12:32 PM REGIONAL ACCOUNT MANAGER Oxygen Saturation 98% 05/30/2023 12:32 PM REGIONAL ACCOUNT MANAGER Inhaled Oxygen Concentration - - Weight 52.8 kg (116 lb 8 oz) 05/29/2023 6:45 AM REGIONAL ACCOUNT MANAGER Height 152.4 cm (5') 05/29/2023 6:45 AM REGIONAL ACCOUNT MANAGER Body Mass Index 22.75 05/29/2023 6:45 AM REGIONAL ACCOUNT MANAGER Plan of Treatment Health Maintenance Due Date [...] Zoster Vaccine Completed 01/20/2018, 11/18/2017 Insurance [employer] MEDICARE ADVANTAGE [employer] [facility] MEDICARE ADVANTAGE Care Teams Index Editor Relationship Specialty Start Date End Date Jeff Camarillo MD PCP - General Family Practice 09/20/20 Lynn Arora NP [facility] [address] Nurse Practitioner Medical Oncology 09/19/22 Ismael Matson MD [address] [place] [address] Consulting Physician Cardiology 05/30/23
--- OUTSIDE RECORDS SUMMARY | 2024-09-10 08:34 | XMS_ITS | CONTINUITY OF CARE DOCUMENT ---
Author Name almas, almas Address Unknown Organization [facility] Address [address] [address] [place] [address] Phone [phone] Care Team Providers Care Armored Vehicle Officer Name Role Phone Gene RAMIRES, Jose G Unavailable Rabia RAMIRES, Jeff Unavailable Jeff Camarillo MD Unavailable PROBLEMS Condition Status Date Provider Notes Aortic atherosclerosis active Jose G Mills MD Pulmonary hypertension active Jose G Mills MD Hyperlipidemia;NEG CRP,lpa 3xx active Jos eG Mills MD Anemia, iron deficiency active Jose G olmstead MD neg b12 and foate HTN essential;neg duplex active Jose G garcia MD Tachy julia syndrome WITH PAF;NML TSH completed - Jose G Mills MD Atrial fibrillation, paroxysmal;nml tsh;has julia and tachy/svt active Jose G Mills MD had ablaton 2023, has had cardioveorn, SVT, paroxysmal;nml tsh completed - Jose G Mills MD Pulmonary nodule active Jose G Mills MD no n smoker benigh per rads Renal disease, chronic, mild;neg duplex and us active Jose G Mills MD \ AV paroxysmal tachycardia (PSVT) (not billable after 01/05/2023) completed - Jose G Mills MD Palpitations completed - Jose G Mills MD SLEEP APNEA;on rx active Jose G Mills MD Elevated LFT's active Jose G Mills MD Cardiac murmur completed - Jose G Mills MD Hypertension completed - Jose G Mills MD Valvular heart disease active Jose G Mills MD Other disorders of brain in diseases classified elsewhere completed - Jose G Mills MD AORTIC REGURGITATION completed - Jose G Mills MD Carotid artery disease;mild active Jose G Mills MD Diastolic CHF active Jose G Mills MD ON JA MEENUICNE, Screening active Jose G Mills MD cannot g et to [facility] to get francesca scor e Overweight completed - Jose G Mills MD covid 19;2020;HAD VACCINE active Jose G paul MD Dizziness completed - Jose G Mills MD Anxiety disorder active Jose G Mills MD Tardive dyskinesia active Jose G Mills MD Schizophrenia, chronic active Jose G Mills MD IRBBB active Jose G Mills MD FAMILY HISTORY OF HEART DISEASE active Jose G Mills MD cad and [place] al heart dz Adenomatous colonic polyp active Jose G paul MD Breast cancer active Jose G Mills MD in [facility] 2012 ENCOUNTERS Date Type Provider Location Encounter Diag nosis - In-person encounter Office Visit Jose G Mills MD [facility] Diastolic CHF - In-person encounter Office Visit Jose G Mills MD [facility] ScreeningAtrial fibrillation, paroxysmal;nml tsh;has julia and tachy/svtPulmonary noduleSVT, paroxysmal;nml tsh - In-person encounter Office Visit Jose G Mills MD [facility] Renal disease, chron ic, mild;neg duplex and us - In-person encounter Office Visit Ismael Matson MD [facility] SVT, paroxysmal;nml tsh - In-person encounter Office Visit Jose G Mills MD [facility] covid 19;2020;HAD VACCINETachy julia syndrome WITH PAF;NML TSHRenal disease, chronic, mild;neg duplex and usAtrial fibrillation, paroxysmal;nml tsh;has julia and tachy/svtPulmonary nodule - In-person encounter Office Visit Ismael Matson MD [facility] Atrial fibrillation, paroxysmal;nml tsh;has julia and tachy/svt - In-person encounter Office Visit Jose G Mills MD [facility] PalpitationsAV paroxysmal tachycardia (PSVT) (not billable after 01/05/2023) - In-person encounter Office Visit Ismael Matson MD [facility] - In-person encounter Office Visit Jose G Mills MD [facility] - In-person encounter Office Visit Jose G Mills MD [facility] - In-person encounter Office Visit Jose G Mills MD [facility] - In-person encounter Office Visit Jose G Mills MD [facility] ScreeningDiastolic CHF - In-person encounter Office Visit Jose G Mills MD [facility] Breast cancer - In-person encounter Office Visit Jose G Mills MD [facility] - In-person encounter Office Visit Jose G Mills MD [facility] OverweightDiastolic CHFElevated LFT'sSLEEP APNEA;on rx - In-person encounter Office Visit Jose G Mills MD [facility] HypertensionCardiac murmur - In-person encounter Office Visit Libia Cortez MD [facility] - In-person encounter Office Visit Jose G Mills MD [facility] - In-person encounter Office Visit Jose G Mills MD [facility] AORTIC REGURGITATIONOther disorders of brain in diseases classified elsewhereValvular heart disease - In-person encounter Office Visit Jose G Mills MD [facility] Dizzinesscovid ;HAD VACCINETachy julia syndrome WITH PAF;NML TSHCarotid artery disease;mild - In-person encounter Office Visit Jose G Mills MD [facility] HTN essential;neg duplexBreast cancerAdenomatous colonic polypFAMILY [...] % Dannaron [place] pulse rate 84 /min [facility] blood pressure, cuff size regular Dann aline [place] weight E&M 130.2 [lb_av] Glorian [place] height E&M 60 [in_i] [facility] [place] Body Mass Index (Ratio) 24.61 kg/m2 Nabila Mills MD blood pressure, cuff size regular Fadi reagan Sanchez blood pressure, diastolic 78 mm[Hg] Ta tez Sacnhez blood pressure, systolic 110 mm[Hg] Tab [facility] Sanchez pulse rate 73 /min Nicole [...] Body Mass Index (Ratio) 23.24 kg/m2 [facility] blood pressure, cuff size regular Ke [...] Joannenenfeld blood pressure, systolic 130 mm[Hg] Estela [facility] oxygen saturation, oximetry 98 % [facility] respiratory rate E&M 12 /min [facility] pulse rate 70 /min Melanie Taylor [...] blood pressure, cuff size regular Te martita Uko RN blood pressure, diastolic 55 mm[Hg] Te [...] Mills MD blood pressure, diastolic 57 mm[Hg] [facility] blood pressure, systolic 102 mm[Hg] [facility] oxygen saturation, oximetry 99 % Erma Goddard pulse rate 83 /min Erma sims weight E&M 115 [lb_av] Erma sims respiratory rate E&M 16 /min Meggan bosch Ogddard blood pressure, cuff size large Sc ellen Goddard height E&M 60 [in_i] Erma [...] Bill oxygen saturation, oximetry 98 % Violetta Ozark pulse rate 85 /min Violetta Ozark respiratory rate E&M 14 /min Catheri ne Ozark weight E&M 137 [lb_av] Violetta Ozark height E&M 60 [in_i] Violetta Ozark Body Mass Index (Ratio) 27.73 kg/m2 Nabila Mills MD blood pressure, cuff size regular Ke rri Gruenenfeldsheela blood pressure, diastolic 70 mm[Hg] Ke rri [...] Nabila Mills MD blood pressure, resting Yes Union kapoor O'Angel Luis blood pressure, diastolic 60 mm[Hg] Rad[facility] O'Angel Luis blood pressure, systolic 130 mm[Hg] [facility] O'Angel Luis oxygen saturation, oximetry 95 % [facility] O'Angel Luis respiratory rate E&M 16 /min Allie O'Angel Luis pulse rate 83 /min [facility] O'Angel Luis weight E&M 148 [lb_av] Allie O'Angel Luis height E&M 60 [in_i] [facility] O'Angel Luis Body Mass Index (Ratio) [...] LinkLogic 0-149 cholesterol, serum 145 mg/dL [employer] 156-861 3763/07/ 15 calcium, serum 9.0 mg/dL [employer] 8.7-10.3 carbon dioxide, venous blood 21 mmol/L [employer] 20-29 chloride, serum 105 mmol/L [employer] 96-106 potassium, serum 4.7 mmol/L [employer]Log[employer] 3.5-5.2 sodium, serum 141 mmol/L [employer] 185-647 3815/07/ 15 urea nitrogen/creatinine ratio, serum 11 LinkLogic [...] Not Estab. platelet count 225 X10E3/UL LinkLog[employer] [phone]/07/ 15 red blood cell distribution width 12.5 [...] iron binding capacity, unsaturated 273 ug/dL [employer] 521-108 1516/03/ 11 iron binding capacity, total 332 ug/dL [employer] 221-456 1175/03/ 11 free thyroxine index 1.7 LinkLogic 1.2-4.9 [...] Not Estab. platelet count 228 X10E3/UL [employer] 416-517 3784/03/ 11 red blood cell distribution width 13.1 [...] LinkLogic 3.5-5.2 sodium, serum 144 mmol/L [employer] 408-532 3579/03/ 11 urea nitrogen/creatinine ratio, serum 18 LinkLogic [...] tablet completed once a day - Violetta Ozark Zetia 10 mg tablet completed 1 tablet [...] #56, 28 days supply, Prescribed by GLORIA CAMARILLO, Filled 06/09/2020 SOCIAL HISTORY Date Observation Value Provider personal history of marijuana use no Jose G Milsl MD drug use no Jose G Sims [...] history of marijuana use no Breanna Sueror LOG RIDER drug use no Breanna Fendle r LOG RIDER alcohol use no Breanna Fendle r LOG RIDER smoking status Never smoker Breanna Sabrina alva LOG RIDER Exercise counseling Yes Breanna Malave LOG RIDER drug use no Jose G Sims alcohol use no Jose G Mills M Carol smoking status Never smoker Jose G Mills MD personal history of marijuana use no Mamiecheikh Jones LOG RIDER drug use no Lo Bonareri LOG RIDER alcohol use no Mamiecheikh Paezreri LOG RIDER smoking status Never smoker Lo Paezharoon xiong LOG RIDER drug use no Jose G Serota M [...] social history E&M S moking History: Sina pancho has never smoked. Jose G Mills MD social history reviewed E&M revi ewed - no changes required Jose G Mills MD smoking status Never smoker Cathy Martinez social history reviewed E&M revi ewed - no changes required Lo Robert LOG RIDER social history E&M S moking History: Sina deleon has never smoked. Lo Paezlisa LOG RIDER drug use no Lo Jones LOG RIDER alcohol use no Lo Hamptonri LOG RIDER smoking status Never smoker Cathy Martinez social [...] Payer name Policy type / Coverage type Jericho red democrat ID [facility] COM[facility]TE [id number] (PPO C-SNP) Commercial insurance Built [place] [id number] [facility] Medicaid 1 [id number] ADVANCE DIRECTIVES Name Date DISCUSSED - NO DECISION MADE TREATMENT PLAN Date Name Performer [id number],B,BETTER WITH Bridgette Mills MD [id number],S, 4 6 by c and 37 by echo 23 Jose G Mills MD [id number],S, m od ai by cath echo mild to mod as and mod ai, mod tr with pap 37, mild mr Jose G Mills MD [id number],S, n eg egfr and uacr n eg cor angio and neg stres and neg rpr and a1c Jose G Mills MD [id number],S, H er updated medication list for this problem includes: Rosuvastatin 40 Mg Tablet (Rosuvastatin) ..... Take 1 tablet by mouth once a day Ezetimibe 10 Mg Tablet (Ezetimibe) ..... Take 1 tablet by mouth daily C HOL: 145 (12/14/2020) HDL: 73 (12/14/2020) Jose G Mills MD [id number],S, 1 420 Jose G Mills MD [id number],S, Jose G olmstead MD [id number],C, n eg us and hep panel Jose G Mills MD [id number],B, u p tot date on colon Jose G Mills MD [id number],S, a ve 54 no afib on last holter, only med gto stop is multq Jose G Mills MD [id number],S, T he patient is using CPAP on a regular basis. The patient has been benefiting from therapy and should continue use. Jose G Mills MD [id number],C,ave 53 no xu b on last holter Jose G Mills MD [id number],S, Jose G olmstead MD [id number],S, W ill order Holter monitor for December. er updated medication list for this problem includes: Multaq 400 Mg Tablet (Dronedarone) ..... Take 1 tablet by mouth once a day Metoprolol Tartrate 25 Mg Tablet (Metoprolol tartrate) ..... Take 1/4 tablet by mouth twice a day Jose G Mills MD [id number],B, u p tot date on colon Jose G Mills MD [id number],S, n eg us and hep panel Jose G Mills MD [id number],S,n eg egfr and uacr n eg cor angio and neg stres and neg rpa and a1c Jose G Mills MD [id number],S, Jose G olmstead MD [id number],S, 1 420 Jose G Mills MD [id number],S, 4 6 by rhc and 37 by echo 23 Jose G Mills MD [id number],S, m od ai by cath echo mild to mod as and mod ai, mod tr with pap 37, mild mr Jose G Mills MD [id number],C,46 by rhc and 37 by echo 23 Jose G Mills MD [id number],C,m od ai by cath echo mild to mod as and mod ai, mod tr with pap 37, mild mr Jose G Gene RAMIRES [id number],C,neg us and he p panel Jose G Mills MD [id number],C,1420 Jose G rosario MD [id number],C,W ill order Holter monitor for December. er updated medication list for this problem includes: Multaq 400 Mg Tablet (Dronedarone) ..... Take 1 tablet by mouth once a day Metoprolol Tartrate 25 Mg Tablet (Metoprolol tartrate) ..... Take 1/4 tablet by mouth twice a day Lo Jones NP [id number],C,U ltrasound negative. W ill check Hepatitis Panel and recheck LFTs Lo Jones NP [id number],C, 4 6 by [facility] Lo Jones NP [id number],C,T he patient is using CPAP on a regular basis. The patient has been benefiting from therapy and should continue use. Lo Jones NP [id number],C,R PM Avg BP 106/39, HR 60 H er updated medication list for this problem includes: Metoprolol Tartrate 25 Mg Tablet (Metoprolol tartrate) ..... Take 1/4 tablet by mouth twice a day BP today: 111/49 P rior BP: 102/57 (12/19/2021) Labs Reviewed: C reat: 0.90 (10/19/2020) C hol: 145 (12/14/2020) HDL: 73 (12/14/2020) Lo Jones NP [id number],C,E KG in office today shows SR mika IRBBB H er updated medication list for this problem includes: Multaq 400 Mg Tablet (Dronedarone) ..... Take 1 tablet by mouth once a day Metoprolol Tartrate 25 Mg Tablet (Metoprolol tartrate) ..... Take 1/4 tablet by mouth twice a day Mamiecheikh Paezlisa ALEXIS [id number],C,W ill check echo and labs. H er updated medication list for this problem includes: Entresto 24-26 Mg Tablet (Sacubitril-valsartan) ..... Take 1 tablet by mouth twice a day Multaq 400 Mg Tablet (Dronedarone) ..... Take 1 tablet by mouth once a day Metoprolol Tartrate 25 Mg Tablet (Metoprolol tartrate) ..... Take 1/4 tablet by mouth twice a day Lo Paezlisa ALEXIS [id number],C,T ri 66, HDL 73, LDL 59 (12/2020) W ill repeat labs. H er updated medication list for this problem includes: Rosuvastatin 40 Mg Tablet (Rosuvastatin) ..... Take 1 tablet by mouth once a day Ezetimibe 10 Mg Tablet (Ezetimibe) ..... Take 1 tablet by mouth daily Lo Paezlisa ALEXIS [id number],C,C ONCLUSIONS: Carotid duplex 06/2020 1 . Mild plaque with less than 50% stenosis of the internal carotid arteries bilaterally. 2 . Vertebral flow is antegrade bilaterally. Lo Jones NP [id number],C, m od ai by ed , no as by ed raines idl to mod as and ai, mild mr and mod to severe tr with pap 46 and midl pr b y marzena ai is mod and tr is mild to mod Lo Jones NP [id number],C,neg us Jose G Mills MD [id number],S, m od ai by cath , no as by ed arines idl to mod as and ai, mild mr and mod to severe tr with pap 46 and midl pr b y marzena ai is mod and tr is mild to mod Jose G Mills MD [id number],S, 4 6 by [facility] Jose G Mills MD [id number],S, Jose G olmstead MD [id number],B, H er updated medication list for this problem includes: Rosuvastatin 40 Mg Tablet (Rosuvastatin) ..... Take 1 tablet by mouth daily Ezetimibe 10 Mg Tablet (Ezetimibe) ..... Take 1 tablet by mouth daily C HOL: 145 (12/14/2020) HDL: 73 (12/14/2020) Jose G Mills MD [id number],S, n eg cor angio and neg stres and neg rpa and a1c Jose G Mills MD [id number],B, Jose G olmstead MD [id number],S, Jose G olmstead MD [id number],S, Jose G Serot aysha RAMIRES [id number],B, Jose G Serot aysha RAMIRES [id number],S, Jose G Serot aysha RAMIRES [id number],B,10 years Nabila Mills MD [id number],B, u p tot date on colon Jose G Mills MD [id number],B,fu neg on mul zackery Jose G Mills MD [id number],S, Jose G olmstead MD [id number],B, Jose G Serot aysha RAMIRES [id number],S, T he following medications were removed from [...] HDL: 73 (12/14/2020) Jose G Mills MD [id number],SJose G MD [id number],S, Jose G olmstead MD [id number],S, m od ai by ed , no as by ed m idl to mod as and ai, mild mr and mod to severe tr with pap 46 and midl pr b y marzena ai is mod and tr is mild to mod Jose G Mills MD [id number],S, n eg cor angio and neg stres and neg rpa and a1c Jose G Mills MD [id number],S, 4 6 by [facility] Jose G Mills MD [id number],B, Jose G olmstead MD [id number],B, 4 94, lvedp 20 Jose G Mills MD [id number],SJose G MD [id number],S, u p tot date on colon Jose G Mills MD [id number],S, Jose G olmstead MD [id number],S, Jose G olmstead MD [id number],B, T he following medications were removed from [...] HDL: 73 (12/14/2020) Jose G Mills MD [id number],S, Jose G olmstead MD [id number],W, T he following medications were removed from [...] HDL: 73 (12/14/2020) Jose G Mills MD [id number],S, Jose G olmstead MD [id number],B, u p tot date on colon Jose G Mills MD [id number],S, m od ai by cath , no as by cath m idl to mod as and ai, mild mr and mod to severe tr with pap 46 and midl pr b y marzena ai is mod and tr is mild to mod Jose G Mills MD [id number],S, 4 94, lvedp 20 Jose G Mills MD [id number],S,n eg cor angio and neg stres and neg rpa and a1c Jose G Mills MD [id number],B, u p tot date on colon Jose G Mills MD [id number],S, 4 6 by [facility] Jose G Mills MD [id number],S, C ONCLUSION: 1 . Normal coronary arteries. 2 . Absence of mitral regurgitation 3 . 2+ aortic regurgitation. 4 . Mild pulmonary hypertension. 5 . Elevated left and right heart filling pressures. 6 . Normal ejection fraction of 55%. Libia Cortez MD [id number],C, m od ai by cath m idl [...] mild pulmonic r egurgitation. Libia Cortez MD [id number],C,C HOL: 145 (12/14/2020) HDL: 73 (12/14/2020) H er updated medication list for this problem includes: Zetia 10 Mg Tablet (Ezetimibe) ..... 1 tablet once a day Crestor 40 Mg Tablet (Rosuvastatin) ..... 1 tablet once a day Libia Cortez MD [id number],C,C ONCLUSIONS: 1 . Normal left ventricular systolic [...] mild pulmonic r egurgitation. Libia Cortez MD [id number],S,B lood pressure is running low. She is on a diet where she has lost 10 lbs. Will discontinue her Norvasc. Libia Cortez MD [id number],C,46 Jose G paul MD [id number],C,m od ai by cath m idl to mod as and ai, mild mr and mod to severe tr with pap 46 and midl pr Jose G Mills MD [id number],C,47 due to hgh lvedp 20 Jose G Mills MD [id number],C,494, lvedp 20 Jose G Mills MD [id number],C,n eg stres and neg cor ango, neg rpr and a1x Jose G Mills MD [id number],C,mod ai by cat h Jose G Mills MD [id number],C,ai and tr mil d to mod by marzena Jose G Mills MD [id number],S, Jose G olmstead MD [id number],S, Jose G olmstead MD [id number],C,up tot date o n colon Jose G Mills MD [id number],S, 4 94 Jose G Mills MD [id number],S, m od with mils as and sevre tr, pap39 Jose G Mills MD [id number],S, n eg stress n eg rpr and a1c Jose G Mills MD [id number],S, Jose G Serot a [id number],S,C HOL: 233 (06/15/2020) HDL: 81 (06/15/2020) Jose G Mills MD [id number],S, m od with mils as Jose G Mills MD [id number],S, Jose G Mills MD [id number],B, Jose G Serot aysha RAMIRES Cardiology Jose [...] us pending: n eg heppanle and us Jose G Mills MD Cardiology;renal us pending:neg aaa [...] next visit in 2 months. Breanna Malave LOG RIDER :59 Jose G Mills MD Cardiology: 4 [...] Jose G Mills MD Cardiology: 1 420 oJse G Mills MD Cardiology Jose G Mills MD Cardiology Jose G Mills MD Cardiology: m od ai by cath echo mild to mod as and mod ai, mod tr with pap 37, mild mr Jose G Mills MD Cardiology:[facility] in [facility] and got cardioveorn m ujtaq [...] C HOL: 145 (12/14/2020) HDL: 73 (12/14/2020) JoseG Mills MD TeleHealth: 1 420 Jose G [...] Cardiology Jose G Mills MD Cardiology: W [facility] order Holter monitor for December. H er [...] :1420 Jose G Mills MD Cardiology-seen with LOG RIDER:Will order Holter monitor for December. H er updated medication list for this problem includes: Multaq 400 Mg Tablet (Dronedarone) ..... Take 1 tablet by mouth once a day Metoprolol Tartrate 25 Mg Tablet (Metoprolol tartrate) ..... Take 1/4 tablet by mouth twice a day Lo Jones NP Cardiology-seen with LOG RIDER:Ultrasound negative. W ill check Hepatitis Panel and recheck LFTs Lo Jones NP Cardiology-seen with LOG RIDER: 4 6 by [facility] Lo Jones NP Cardiology-seen with LOG RIDER:The patient is using CPAP on a regular basis. The patient has been benefiting from therapy and should continue use. Lo Jones NP Cardiology-seen with LOG RIDER:RPM Avg BP 106/39, HR 60 H er updated medication list for this problem includes: Metoprolol Tartrate 25 Mg Tablet (Metoprolol tartrate) ..... Take 1/4 tablet by mouth twice a day BP today: 111/49 P rior BP: 102/57 (12/19/2021) Labs Reviewed: C reat: 0.90 (10/19/2020) C hol: 145 (12/14/2020) HDL: 73 (12/14/2020) Lo Jones NP Cardiology-seen with LOG RIDER:EKG in office today shows SR witth IRBBB H er updated medication list for this problem includes: Multaq 400 Mg Tablet (Dronedarone) ..... Take 1 tablet by mouth once a day Metoprolol Tartrate 25 Mg Tablet (Metoprolol tartrate) ..... Take 1/4 tablet by mouth twice a day Lo Jones NP Cardiology-seen with LOG RIDER:Will check echo and labs. H er updated medication list for this problem includes: Entresto 24-26 Mg Tablet (Sacubitril-valsartan) ..... Take 1 tablet by mouth twice a day Multaq 400 Mg Tablet (Dronedarone) ..... Take 1 tablet by mouth once a day Metoprolol Tartrate 25 Mg Tablet (Metoprolol tartrate) ..... Take 1/4 tablet by mouth twice a day Lo Jones NP Cardiology-seen with LOG RIDER:Tri 66, HDL 73, LDL 59 (12/2020) W ill repeat labs. H er updated medication list for this problem includes: Rosuvastatin 40 Mg Tablet (Rosuvastatin) ..... Take 1 tablet by mouth once a day Ezetimibe 10 Mg Tablet (Ezetimibe) ..... Take 1 tablet by mouth daily Lo Jones NP Cardiology-seen with LOG RIDER:CONCLUSIONS: Carotid duplex 06/2020 1 . Mild plaque with less than 50% stenosis of the internal carotid arteries bilaterally. 2 . Vertebral flow is antegrade bilaterally. Lo Jones NP Cardiology-seen with LOG RIDER: m od ai by cath , no as by cath m idl to mod as and ai, mild mr and mod to severe tr with pap 46 and midl pr b y marzena ai is mod and tr is mild to mod Lo Paezlisa LOG RIDER :neg us Jose G Mills MD Cardiology: m od ai by cath , no as by cath m idl to mod as and ai, mild mr and mod to severe tr with pap 46 and midl pr b y marzena ai is mod and tr is mild to mod Jose G Mills MD Cardiology: 4 6 by [facility] Jose G Mills MD Cardiology Jose G [...] G Mills MD Cardiology: 4 6 by [facility] Jose G Mills MD Cardiology Jose G Mills MD Cardiology: 4 94, lvedp 20 Jose G Mills MD Cardiology Jose G Mills MD Cardiology: u p tot date on colon Jose G Mills MD Cardiology Jos eG Mills MD Cardiology Jose G Mills MD [...] LIC PANEL, W/EGFR CXR- PA/Lat DLCO - 29907 FRC - 55278 FVC - [address] Chest without con trast [...]
== END 2024-09-10 08:28 | disposition home or self-care (01) ==
LOC: ANHIMG 08:29
PROVIDERS: PCP Family Medicine; Visit Provider Family Medicine
DX: Z12.31 Encounter for screening mammogram for malignant neoplasm of breast (principal)
CPT/HCPCS: 77063; 77067

== ENCOUNTER 2024-09-15 09:18 | Outpatient (CLI) | payer MEDICARE, MEDICAID, SELFPAY ==
--- OUTSIDE RECORDS SUMMARY | 2024-09-15 10:06 | XMS_ITS | Referral Summary ---
Author Organization [facility] Address [address] [place] [address] Phone Care Team Providers Care Community Support Professional Name Role Phone Jeff Camarillo MD Primary Care Provider Lynn Arora NP Unavailable [phone] Ismael Matson MD Unavailable [phone] Allergies Active Allergy Reactions Criticality Noted Date [...] drink = 0.6 oz pur e alcohol) [facility] Utilities Answer Date Recorded In the past 12 months has [employer], gas, oil, or water company threatened [...] How often do you attend chur or evangelical services? 1 to 4 times per year 05/29/2023 Do you belong to any clubs o r organizations such as cheondoism groups, unions, fraternal or athletic groups, or [...] place to sleep or slept in a retirement (including now)? No 05/29/2023 Personal Safety Answer Date Recorded Have you ever been in or are you currently in a harmful physical or emotional relationship or is someone making you feel afraid or unsafe? Denies 05/29/2023 Comments Unknown Sex and Gender Information Value Date Recorded Sex Assigned at Not on file Legal Sex Female 8:35 AM APPLICATION SUPPORT CONSULTANT Gender Identity Not on file Sexual Orientation Not on file Last Filed Vital Signs Vital Sign Reading Time Taken Comments Blood Pressure 149/53 05/30/2023 12:32 PM APPLICATION SUPPORT CONSULTANT Pulse 62 05/30/2023 12:32 PM APPLICATION SUPPORT CONSULTANT Temperature 37 C (98.6 F) 05/30/2023 12:32 PM APPLICATION SUPPORT CONSULTANT Respiratory Rate 18 05/30/2023 12:32 PM APPLICATION SUPPORT CONSULTANT Oxygen Saturation 98% 05/30/2023 12:32 PM APPLICATION SUPPORT CONSULTANT Inhaled Oxygen Concentration - - Weight 52.8 kg (116 lb 8 oz) 05/29/2023 6:45 AM APPLICATION SUPPORT CONSULTANT Height 152.4 cm (5') 05/29/2023 6:45 AM APPLICATION SUPPORT CONSULTANT Body Mass Index 22.75 05/29/2023 6:45 AM APPLICATION SUPPORT CONSULTANT Plan of Treatment Not on file Insurance [employer] [facility] MEDICARE ADVANTAGE [facility] Address: [address] [address] [place] [address] [employer] [facility] MEDICARE ADVANTAGE [facility] Address: [address] [address] [place] [address] Care Teams Community Support Professional Relationship Specialty Start Date End Date Jeff Camarillo MD PCP - General Family Practice 09/20/20 [place] [address] [place] [id number] Nurse Practitioner Medical Oncology 09/19/22 Ismael Matson MD [address] [place] [address] Consulting Physician Cardiology 05/30/23
--- OUTSIDE RECORDS SUMMARY | 2024-09-15 10:06 | XMS_ITS | Clinical Summary ---
Author Organization [facility] Address [address] [place] [address] Phone Care Team Providers Care Police Crime Scene Technician Name Role Phone Jeff Camarillo MD Primary Care Provider Lynn Arora NP Unavailable [phone] Ismael Matson MD Unavailable [phone] Allergies Active Allergy Reactions Criticality Noted Date [...] drink = 0.6 oz pur e alcohol) [facility] Utilities Answer Date Recorded In the past 12 months has [employer], gas, oil, or water [employer] threatened to shut off services in your [...] often do you attend chur ch or gnosticist services? 1 to 4 times per year 05/29/2023 Do you belong to any clubs o r organizations such as synagogue groups, unions, fraternal or athletic groups, or [...] to sleep or slept in a senior care (including now)? No 05/29/2023 Personal Safety Answer Date Recorded Have you ever been in or are you currently in a harmful physical or emotional relationship or is someone making you feel afraid or unsafe? Denies 05/29/2023 Comments Unknown Sex and Gender Information Value Date Recorded Sex Assigned at Not on file Legal Sex Female 8:35 AM CASING WRINGER OPERATOR Gender Identity Not on file Sexual Orientation Not on file Obstetrics History Last Filed Vital Signs Vital Sign Reading Time Taken Comments Blood Pressure 149/53 05/30/2023 12:32 PM CASING WRINGER OPERATOR Pulse 62 05/30/2023 12:32 PM CASING WRINGER OPERATOR Temperature 37 C (98.6 F) 05/30/2023 12:32 PM CASING WRINGER OPERATOR Respiratory Rate 18 05/30/2023 12:32 PM CASING WRINGER OPERATOR Oxygen Saturation 98% 05/30/2023 12:32 PM CASING WRINGER OPERATOR Inhaled Oxygen Concentration - - Weight 52.8 kg (116 lb 8 oz) 05/29/2023 6:45 AM CASING WRINGER OPERATOR Height 152.4 cm (5') 05/29/2023 6:45 AM CASING WRINGER OPERATOR Body Mass Index 22.75 05/29/2023 6:45 AM CASING WRINGER OPERATOR Plan of Treatment Health Maintenance Due Date [...] Zoster Vaccine Completed 01/20/2018, 11/18/2017 Insurance [employer] [facility] MEDICARE ADVANTAGE [employer] [facility] MEDICARE ADVANTAGE Care Teams Police Crime Scene Technician Relationship Specialty Start Date End Date Jeff Camarillo MD PCP - General Family Practice 09/20/20 Lynn Arora NP [facility] [address] Nurse Practitioner Medical Oncology 09/19/22 Ismael Matson MD [address] [place] [address] Consulting Physician Cardiology 05/30/23
--- OUTSIDE RECORDS SUMMARY | 2024-09-15 10:06 | XMS_ITS ---
Author Organization [facility] Address [address] [place] [address] Phone Care Team Providers Care Steel Floor Pan Placing Supervisor Name Role Phone Jeff Camarillo MD Primary Care Provider Lynn Arora NP Unavailable [phone] Ismael Matson MD Unavailable [phone] Active Problems Problem Noted Date Diagnosed Date [...]
--- OUTSIDE RECORDS SUMMARY | 2024-09-15 10:07 | XMS_ITS | CONTINUITY OF CARE DOCUMENT ---
Author Name almas, almas Address Unknown Organization [facility] Address [address] [place] [address] Phone [phone] Care Team Providers Care Brass Roller Name Role Phone Gene RAMIRES, Jos eG Unavailable [phone] Rabia RAMIRES, Jeff Unavailable Jeff Camarillo MD Unavailable [phone] PROBLEMS Condition Status Date Provider Notes Aortic [...] G Mills MD cannot g et to [facility] to get francesca scor e Overweight completed [...] cancer active Jose G Mills MD in [facility] 2012 ENCOUNTERS Date Type Provider Location Encounter Diag nosis - In-person encounter Office Visit Jose G Mills MD [facility] Diastolic CHF - In-person encounter Office Visit Jose G Mills MD [facility] ScreeningAtrial fibrillation, paroxysmal;nml tsh;has julia and tachy/svtPulmonary noduleSVT, paroxysmal;nml tsh - In-person encounter Office Visit Jose G Mills MD [facility] Renal disease, chron ic, mild;neg duplex and us - In-person encounter Office Visit Ismael Matson MD [facility] SVT, paroxysmal;nml tsh - In-person encounter Office Visit Jose G Mills MD [facility] covid 19;2020;HAD VACCINETachy julia syndrome WITH PAF;NML TSHRenal disease, chronic, mild;neg duplex and usAtrial fibrillation, paroxysmal;nml tsh;has julia and tachy/svtPulmonary nodule - In-person encounter Office Visit Ismael Matson MD [facility] Atrial fibrillation, paroxysmal;nml tsh;has julia and tachy/svt - In-person encounter Office Visit Jose G Mills MD [facility] PalpitationsAV paroxysmal tachycardia (PSVT) (not billable after 01/05/2023) - In-person encounter Office Visit Ismael Matson MD [facility] - In-person encounter Office Visit Jose G Mills MD [facility] - In-person encounter Office Visit Jose G Mills MD [facility] - In-person encounter Office Visit Jose G Mills MD [facility] - In-person encounter Office Visit Jose G Mills MD [facility] ScreeningDiastolic CHF - In-person encounter Office Visit Jose G Mills MD [facility] Breast cancer - In-person encounter Office Visit Jose G Mills MD [facility] - In-person encounter Office Visit Jose G Mills MD [facility] OverweightDiastolic CHFElevated LFT'sSLEEP APNEA;on rx - In-person encounter Office Visit Jose G Mills MD [facility] HypertensionCardiac murmur - In-person encounter Office Visit Libia Cortez MD [facility] - In-person encounter Office Visit Jose G Mills MD [facility] - In-person encounter Office Visit Jose G Mills MD [facility] AORTIC REGURGITATIONOther disorders of brain in diseases classified elsewhereValvular heart disease - In-person encounter Office Visit Jose G Mills MD [facility] Dizzinesscovid ;HAD VACCINETachy julia syndrome WITH PAF;NML TSHCarotid artery disease;mild - In-person encounter Office Visit Jose G Mills MD [facility] HTN essential;neg duplexBreast cancerAdenomatous colonic polypFAMILY [...] % Dannaron [place] pulse rate 84 /min [facility] [place] blood pressure, cuff size regular Dann aline [place] weight E&M 130.2 [lb_av] Glorian [place] height E&M 60 [in_i] [facility] [place] Body Mass Index (Ratio) 24.61 kg/m2 Nabila Mills MD blood pressure, cuff size regular Fadi reagan Sanchez blood pressure, diastolic 78 mm[Hg] Ta tez Sanchez blood pressure, systolic 110 mm[Hg] [facility] pulse rate 73 /min Nicole Sanchez [...] /min Edmund /03 weight E&M 122 [lb_av] Emdund height E&M 60 [in_i] Edmund Body Mass [...] Body Mass Index (Ratio) 23.24 kg/m2 Dontrell silvianojack [facility] blood pressure, cuff size regular Ke [...] Joannenenfeld blood pressure, systolic 130 mm[Hg] [facility], oximetry 98 % [facility] respiratory rate E&M 12 /min Melanie [facility] pulse rate 70 /min Melanie Taylor [...] Mills MD blood pressure, diastolic 57 mm[Hg] [facility] blood pressure, systolic 102 mm[Hg] [facility] oxygen saturation, oximetry 99 % Erma [place] pulse rate 83 /min Erma sims weight E&M 115 [lb_av] Erma sims respiratory rate E&M 16 /min Meggan bosch [place] blood pressure, cuff size large Oh ellen Goddard height E&M 60 [in_i] Erma [...] Franca Salcedo height E&M 60 [in_i] Franca Salecdo Body Mass Index (Ratio) 26.75 kg/m2 Marisa Cortez MD blood pressure, diastolic 55 mm[Hg] Li nkLogic blood pressure, systolic 134 mm[Hg] Sakina kLogic blood pressure, cuff size regular Ca therine [place] blood pressure, diastolic 55 mm[Hg] Ca therine Bill blood pressure, systolic 134 mm[Hg] Cat herine Bill oxygen saturation, oximetry 98 % Violetta [place] pulse rate 85 /min Violetta Bill respiratory rate E&M 14 /min Catheri ne Bill weight E&M 137 [lb_av] Violet[place] height E&M 60 [in_i] Violetta Bill Body Mass Index (Ratio) 27.73 kg/m2 Nabila [...] Nabila Mills MD blood pressure, resting Yes [place] kapoor O'Angel Luis blood pressure, diastolic 60 mm[Hg] Radha [facility] Luis blood pressure, systolic 130 mm[Hg] [facility] Luis oxygen saturation, oximetry 95 % [facility] O'Angel Luis respiratory rate E&M 16 /min Allie O'Angel Luis pulse rate 83 /min [facility] O'Angel Luis weight E&M 148 [lb_av] Allie O'Angel Luis height E&M 60 [in_i] [facility] O'Angel Luis Body Mass Index (Ratio) 30.27 [...] LinkLogic 0-149 cholesterol, serum 145 mg/dL [employer] 199-731 9416/07/ 15 calcium, serum 9.0 mg/dL LinkLog[facility] 8.7-10.3 carbon dioxide, venous blood 21 mmol/L Link[employer]ic 20-29 chloride, serum 105 mmol/L Link[employer]ic 96-106 potassium, serum 4.7 mmol/L LinkLogic 3.5-5.2 sodium, serum 141 mmol/L LinkLogic 064-074 9285/07/ 15 urea nitrogen/creatinine ratio, serum 11 LinkLogic [...] Not Estab. platelet count 225 X10E3/UL LinkLogic 110-275 5771/07/ 15 red blood cell distribution width 12.5 [...] iron binding capacity, unsaturated 273 ug/dL LinkLog[facility] 614-500 3202/03/ 11 iron binding capacity, total 332 ug/dL [employer] 751-607 1134/03/ 11 free thyroxine index 1.7 LinkLogic 1.2-4.9 [...] Not Estab. platelet count 228 X10E3/UL LinkLogic 134-721 7980/03/ 11 red blood cell distribution width 13.1 [...] LinkLogic 3.5-5.2 sodium, serum 144 mmol/L LinkLogic 470-524 4212/03/ 11 urea nitrogen/creatinine ratio, serum 18 LinkLogic [...] active TAKE 1 TABLET BY MOUTH DAILY Fabiola Goodrich ezetimibe 10 mg tablet active Take 1 [...] tablet completed once a day - Violetta [place] ezetimibe 10 mg tablet completed once a day - Violetta [place] Zetia 10 mg tablet completed 1 tablet [...] 5 mg tablet active once a day Melaine Laguna #28, 28 days supply, Prescribed by [...] capsule completed Take 1 every night - Joes G Mills MD #28, 28 days supply, [...] Jose G Mills MD drug use no JoseG Serotaysha Sims alcohol use no Jose G [...] use no Dontrell Zamoranoinga drug use no Dotnrell Zamoranoinga alcohol use no Dontrell Zamoranoinga smoking status Never smoker Dontrell Heckcece personal history of marijuana use no Jose G Mills MD drug use no Jose G Serota M D alcohol use no Jose G Serota M D smoking status Never smoker Jose G Mills MD personal history of marijuana use no Breanna Sueror SENIOR ENERGY TRADER drug use no Breanna Fendle r SENIOR ENERGY TRADER alcohol use no Breanna Fendle r SENIOR ENERGY TRADER smoking status Never smoker Breanna Sabrina alva SENIOR ENERGY TRADER Exercise counseling Yes Breanna Malave SENIOR ENERGY TRADER drug use no Jose G Sims alcohol use no Jose G Mills M Carol smoking status Never smoker Jose G Mills MD personal history of marijuana use no Mamiecheikh Jones SENIOR ENERGY TRADER drug use no Lo Bonareri SENIOR ENERGY TRADER alcohol use no Mamiecheikh Paezreri SENIOR ENERGY TRADER smoking status Never smoker Lo Paezharoon xiong SENIOR ENERGY TRADER drug use no Jose G Serota M [...] ewed - no changes required Lo Robert SENIOR ENERGY TRADER social history E&M S moking History: Sina deleon has never smoked. Lo Paezlisa SENIOR ENERGY TRADER drug use no Lo Jones SENIOR ENERGY TRADER alcohol use no Lo Hamptonri SENIOR ENERGY TRADER smoking status Never smoker Cathy Martinez social [...] Payer name Policy type / Coverage type [place] democr[employer] ID [id number] (PPO C-SNP) Commercial insurance Pcsso [id number] [facility] Medicaid 1 [id number] ADVANCE DIRECTIVES Name Date DISCUSSED - NO DECISION MADE TREATMENT PLAN Date Name Performer [id number],B,BETTER WITH Bridgette Mills MD [id number],S, 4 6 by c and 37 by echo 23 Jose G Mills MD [id number],S, m od ai by cath echo mild to mod as and mod ai, mod tr with pap 37, mild mr Jose G Mills MD [id number],S, n eg egfr and uacr n eg cor angio and neg stres and neg rpr and a1c Jose G Mills MD [id number],S, H er updated medication list for this problem includes: Rosuvastatin 40 Mg Tablet (Rosuvastatin) ..... Take 1 tablet by mouth once a day Ezetimibe 10 Mg Tablet (Ezetimibe) ..... Take 1 tablet by mouth daily C HOL: 145 (12/14/2020) HDL: 73 (12/14/2020) Jose G Mills MD [id number],S, 1 420 Jose G Mills MD [id number],S, Jose G olmstead MD [id number],C, n eg us and hep panel Jose G Mills MD [id number],B, u p tot date on colon Jose G Mills MD [id number],S, a ve 54 no afib on last holter, only med gto stop is multq Jose G Mills MD [id number],S, T he patient is using CPAP on a regular basis. The patient has been benefiting from therapy and should continue use. Jose G Mills MD [id number],C,ave 53 no xu b on last holter Jose G Mills MD [id number],S, Jose G olmstead MD [id number],S, W ill order Holter monitor for December. er updated medication list for this problem includes: Multaq 400 Mg Tablet (Dronedarone) ..... Take 1 tablet by mouth once a day Metoprolol Tartrate 25 Mg Tablet (Metoprolol tartrate) ..... Take 1/4 tablet by mouth twice a day Jose G Mills MD [id number],B, u p tot date on colon Jose G Mills MD [id number],S, n eg us and hep panel Jose G Mills MD [id number],S,n eg egfr and uacr n eg cor angio and neg stres and neg rpa and a1c Jose G Mills MD [id number],S, Jose G olmstead MD [id number],S, 1 420 Jose G Mills MD [id number],S, 4 6 by rhc and 37 by echo 23 Jose G Mills MD [id number],S, m od ai by cath echo mild to mod as and mod ai, mod tr with pap 37, mild mr Jose G Mills MD [id number],C,46 by rhc and 37 by echo 23 Jose G Mills MD [id number],C,m od ai by cath echo mild to mod as and mod ai, mod tr with pap 37, mild mr Jose G Gene RAMIRES [id number],C,neg us and he p panel Jose G Mills MD [id number],C,1420 Jose G rosario MD [id number],C,W ill order Holter monitor for December. er updated medication list for this problem includes: Multaq 400 Mg Tablet (Dronedarone) ..... Take 1 tablet by mouth once a day Metoprolol Tartrate 25 Mg Tablet (Metoprolol tartrate) ..... Take 1/4 tablet by mouth twice a day Lo Jones NP [id number],C,U ltrasound negative. W ill check Hepatitis Panel and recheck LFTs Lo Jones NP [id number],C, 4 6 by [facility] Lo Jones NP [id number],C,T he patient is using CPAP on a regular basis. The patient has been benefiting from therapy and should continue use. Lo Jones NP [id number],C,R PM Avg BP 106/39, HR 60 H er updated medication list for this problem includes: Metoprolol Tartrate 25 Mg Tablet (Metoprolol tartrate) ..... Take 1/4 tablet by mouth twice a day BP today: 111/49 P rior BP: 102/57 (12/19/2021) Labs Reviewed: C reat: 0.90 (10/19/2020) C hol: 145 (12/14/2020) HDL: 73 (12/14/2020) Lo Jones NP [id number],C,E KG in office today shows SR mika IRBBB H er updated medication list for this problem includes: Multaq 400 Mg Tablet (Dronedarone) ..... Take 1 tablet by mouth once a day Metoprolol Tartrate 25 Mg Tablet (Metoprolol tartrate) ..... Take 1/4 tablet by mouth twice a day Mamiecheikh Paezlisa ALEXIS [id number],C,W ill check echo and labs. H er updated medication list for this problem includes: Entresto 24-26 Mg Tablet (Sacubitril-valsartan) ..... Take 1 tablet by mouth twice a day Multaq 400 Mg Tablet (Dronedarone) ..... Take 1 tablet by mouth once a day Metoprolol Tartrate 25 Mg Tablet (Metoprolol tartrate) ..... Take 1/4 tablet by mouth twice a day Lo Paezlisa ALEXIS [id number],C,T ri 66, HDL 73, LDL 59 (12/2020) W ill repeat labs. H er updated medication list for this problem includes: Rosuvastatin 40 Mg Tablet (Rosuvastatin) ..... Take 1 tablet by mouth once a day Ezetimibe 10 Mg Tablet (Ezetimibe) ..... Take 1 tablet by mouth daily Lo Paezlisa ALEXIS [id number],C,C ONCLUSIONS: Carotid duplex 06/2020 1 . Mild plaque with less than 50% stenosis of the internal carotid arteries bilaterally. 2 . Vertebral flow is antegrade bilaterally. Lo Jones NP [id number],C, m od ai by ed , no as by ed raines idl to mod as and ai, mild mr and mod to severe tr with pap 46 and midl pr b y marzena ai is mod and tr is mild to mod oL Jones NP [id number],C,neg us Jose G Mills MD [id number],S, m od ai by cath , no as by ed raines idl to mod as and ai, mild mr and mod to severe tr with pap 46 and midl pr b y marzena ai is mod and tr is mild to mod Jose G Mills MD [id number],S, 4 6 by [facility] Jose G Mills MD [id number],S, Jose G olmstead MD [id number],B, H er updated medication list for this problem includes: Rosuvastatin 40 Mg Tablet (Rosuvastatin) ..... Take 1 tablet by mouth daily Ezetimibe 10 Mg Tablet (Ezetimibe) ..... Take 1 tablet by mouth daily C HOL: 145 (12/14/2020) HDL: 73 (12/14/2020) Jose G Mills MD [id number],S, n eg cor angio and neg stres and neg rpa and a1c Jose G Mills MD [id number],B, Jose G olmstead MD [id number],S, Jose G olmstead MD [id number],S, Jose G Serot aysha RAMIRES [id number],B, Jose G Serot aysha RAMIRES [id number],S, Jose G Serot aysha RAMIRES [id number],B,10 years Nabila Mills MD [id number],B, u p tot date on colon Jose G Mills MD [id number],B,fu neg on mul zackery Jose G Mills MD [id number],S, Jose G olmstead MD [id number],B, Jose G Serot aysha RAMIRES [id number],S, T he following medications were removed from [...] HDL: 73 (12/14/2020) Jose G Mills MD [id number],SJose G MD [id number],S, Jose G olmstead MD [id number],S, m od ai by ed , no as by ed m idl to mod as and ai, mild mr and mod to severe tr with pap 46 and midl pr b y marzena ai is mod and tr is mild to mod Jose G Mills MD [id number],S, n eg cor angio and neg stres and neg rpa and a1c Jose G Mills MD [id number],S, 4 6 by [facility] Jose G Mills MD [id number],B, Jose G olmstead MD [id number],B, 4 94, lvedp 20 Jose G Mills MD [id number],SJose G MD [id number],S, u p tot date on colon Jose G Mills MD [id number],S, Jose G olmstead MD [id number],S, Jose G olmstead MD [id number],B, T he following medications were removed from [...] HDL: 73 (12/14/2020) Jose G Mills MD [id number],S, Jose G olmstead MD [id number],W, T he following medications were removed from [...] HDL: 73 (12/14/2020) Jose G Mills MD [id number],S, Jose G olmstead MD [id number],B, u p tot date on colon Jose G Mills MD [id number],S, m od ai by cath , no as by cath m idl to mod as and ai, mild mr and mod to severe tr with pap 46 and midl pr b y marzena ai is mod and tr is mild to mod Jose G Mills MD [id number],S, 4 94, lvedp 20 Jose G Mills MD [id number],S,n eg cor angio and neg stres and neg rpa and a1c Jose G Mills MD [id number],B, u p tot date on colon Jose G Mills MD [id number],S, 4 6 by [facility] Jose G Mills MD [id number],S, C ONCLUSION: 1 . Normal coronary arteries. 2 . Absence of mitral regurgitation 3 . 2+ aortic regurgitation. 4 . Mild pulmonary hypertension. 5 . Elevated left and right heart filling pressures. 6 . Normal ejection fraction of 55%. Libia Cortez MD [id number],C, m od ai by cath m idl [...] mild pulmonic r egurgitation. Libia Cortez MD [id number],C,C HOL: 145 (12/14/2020) HDL: 73 (12/14/2020) H er updated medication list for this problem includes: Zetia 10 Mg Tablet (Ezetimibe) ..... 1 tablet once a day Crestor 40 Mg Tablet (Rosuvastatin) ..... 1 tablet once a day Libia Cortez MD [id number],C,C ONCLUSIONS: 1 . Normal left ventricular systolic [...] mild pulmonic r egurgitation. Libia Cortez MD [id number],S,B lood pressure is running low. She is on a diet where she has lost 10 lbs. Will discontinue her Norvasc. Libia Cortez MD [id number],C,46 Jose G paul MD [id number],C,m od ai by cath m idl to mod as and ai, mild mr and mod to severe tr with pap 46 and midl pr Jose G Mills MD [id number],C,47 due to hgh lvedp 20 Jose G Mills MD [id number],C,494, lvedp 20 Jose G Mills MD [id number],C,n eg stres and neg cor ango, neg rpr and a1x Jose G Mills MD [id number],C,mod ai by cat h Jose G Mills MD [id number],C,ai and tr mil d to mod by marzena Jose G Mills MD [id number],S, Jose G olmstead MD [id number],S, Jose G olmstead MD [id number],C,up tot date o n colon Jose G Mills MD [id number],S, 4 94 Jose G Mills MD [id number],S, m od with mils as and sevre tr, pap39 Jose G Mills MD [id number],S, n eg stress n eg rpr and a1c Jose G Mills MD [id number],S, Jose G Serot a [id number],S,C HOL: 233 (06/15/2020) HDL: 81 (06/15/2020) Jose G Mills MD [id number],S, m od with mils as Jose G Mills MD [id number],S, Jose G Mills MD [id number],B, Jose G Serot aysha RAMIRES Cardiology Jose [...] next visit in 2 months. Breanna Malave SENIOR ENERGY TRADER :59 Jose G Mills MD Cardiology: 4 [...] mr Jose G Mills MD Cardiology:[facility] in [facility] and got cardioveorn m ujtaq [...] last holter H heather Mills MD Cardiology JoseG Mills MD Cardiology: W [facility] order Holter monitor for December. H er [...] by rhc and 37 by echo 23 Dnadre yogi Mills MD :mod ai by cath echo mild to mod as and mod ai, mod tr with pap 37, mild mr Jose G Mills MD :neg us and hep panel Jose G paul MD :1420 Jose G Mills MD Cardiology-seen with SENIOR ENERGY TRADER:Will order Holter monitor for December. H er updated medication list for this problem includes: Multaq 400 Mg Tablet (Dronedarone) ..... Take 1 tablet by mouth once a day Metoprolol Tartrate 25 Mg Tablet (Metoprolol tartrate) ..... Take 1/4 tablet by mouth twice a day Lo Jones NP Cardiology-seen with SENIOR ENERGY TRADER:Ultrasound negative. W ill check Hepatitis Panel and recheck LFTs Lo Jones NP Cardiology-seen with SENIOR ENERGY TRADER: 4 6 by [facility] Lo Jones NP Cardiology-seen with SENIOR ENERGY TRADER:The patient is using CPAP on a regular basis. The patient has been benefiting from therapy and should continue use. Lo Jones NP Cardiology-seen with SENIOR ENERGY TRADER:RPM Avg BP 106/39, HR 60 H er updated medication list for this problem includes: Metoprolol Tartrate 25 Mg Tablet (Metoprolol tartrate) ..... Take 1/4 tablet by mouth twice a day BP today: 111/49 P rior BP: 102/57 (12/19/2021) Labs Reviewed: C reat: 0.90 (10/19/2020) C hol: 145 (12/14/2020) HDL: 73 (12/14/2020) Lo Jones NP Cardiology-seen with SENIOR ENERGY TRADER:EKG in office today shows SR witth IRBBB H er updated medication list for this problem includes: Multaq 400 Mg Tablet (Dronedarone) ..... Take 1 tablet by mouth once a day Metoprolol Tartrate 25 Mg Tablet (Metoprolol tartrate) ..... Take 1/4 tablet by mouth twice a day Lo Jones NP Cardiology-seen with SENIOR ENERGY TRADER:Will check echo and labs. H er updated medication list for this problem includes: Entresto 24-26 Mg Tablet (Sacubitril-valsartan) ..... Take 1 tablet by mouth twice a day Multaq 400 Mg Tablet (Dronedarone) ..... Take 1 tablet by mouth once a day Metoprolol Tartrate 25 Mg Tablet (Metoprolol tartrate) ..... Take 1/4 tablet by mouth twice a day Lo Jones NP Cardiology-seen with SENIOR ENERGY TRADER:Tri 66, HDL 73, LDL 59 (12/2020) W ill repeat labs. H er updated medication list for this problem includes: Rosuvastatin 40 Mg Tablet (Rosuvastatin) ..... Take 1 tablet by mouth once a day Ezetimibe 10 Mg Tablet (Ezetimibe) ..... Take 1 tablet by mouth daily Lo Jones NP Cardiology-seen with SENIOR ENERGY TRADER:CONCLUSIONS: Carotid duplex 06/2020 1 . Mild plaque with less than 50% stenosis of the internal carotid arteries bilaterally. 2 . Vertebral flow is antegrade bilaterally. Lo Jones NP Cardiology-seen with SENIOR ENERGY TRADER: m od ai by cath , no as by cath m idl to mod as and ai, mild mr and mod to severe tr with pap 46 and midl pr b y marzena ai is mod and tr is mild to mod Lo Paezlisa SENIOR ENERGY TRADER :neg us Jose G Mills MD Cardiology: m od ai by cath , no as by cath m idl to mod as and ai, mild mr and mod to severe tr with pap 46 and midl pr b y marzena ai is mod and tr is mild to mod Jose G Mills MD Cardiology: 4 6 by [facility] Jose G Mills MD Cardiology Jose G [...] G Mills MD Cardiology: 4 6 by [facility] Jose G Mills MD Cardiology Jose G [...] LIC PANEL, W/EGFR CXR- PA/Lat DLCO - 30398 FRC - 70602 FVC - [address] Chest without con trast [...]
[2024-09-15 12:47] LABS: Alanine Aminotransferase 43 U/L (6-35); Alkaline Phosphatase 68 U/L (38-126); Anion Gap 5 mmol/L (4-12); Aspartate Amino Transferase 76 U/L (14-36); Blood Urea Nitrogen 16 mg/dL (7-17); Calcium 9.5 mg/dL (8.4-10.2); Carbon Dioxide 29 mmol/L (22-30); Chloride 107 mmol/L (98-107); Estimated Glomerular Filt Rate > 60; Glucose 97 mg/dL (65-110); Potassium 4.4 mmol/L (3.4-5.0); Sodium 141 mmol/L (137-145); Total Protein 7.1 g/dL (6.3-8.2)
== END 2024-09-15 09:19 | disposition home or self-care (01) ==
LOC: ANHGOSHLAB 09:19
PROVIDERS: PCP Family Medicine; Visit Provider Family Medicine
DX: R79.89 Other specified abnormal findings of blood chemistry (principal); I10 Essential (primary) hypertension
CPT/HCPCS: 36415; 80053

== ENCOUNTER 2025-03-07 00:17 | Day surgery (SDC) | payer MEDICARE, MEDICAID, SELFPAY ==
--- OUTSIDE RECORDS SUMMARY | 2024-06-22 04:00 | XMS_ITS ---
Author Organization [facility] Address [address] [place] [address] Care Team Providers Care Forestry Laborer Name Role Phone Pradeep Maki Primary Care Provider [phone] Briana Pittman Unavailable [phone] REASON FOR VISIT r/s from 06/18; 4 week f/u Social History Sex Assigned At : Social History Observation Description Sex Assigned At Female Encounters Encounter Location Date Provider Diagnosis [address] [address] 06/22/2024 Pradeep Maki Plan Of Treatment Next Appt Details Provider Name:Brenda Velazco , 07/25/2025 03:00:00 PM, [address] [place] [address], [place], [address], Progress Notes * Vandana MCCARTNEYOB: (79 yo F)Acc No.[id number]:06/22/2024 UNLOCKED PROGRESS NOTE Patient: Génesis LCOKETTSABIBernadine ASHLEYra Provider: Vish Maki APN :1945 A ge:79 Y S ex:Female Date:06/22/2024 Address:[address], [place], [id number] Structured Data:Is there a n kristy you would prefer we call you? (Nombre que prefiere usar) : No Subjective: * Chief Complaints: * 1 . R/s from 06/18; 4 week f/u. * Medical History: Objective: * Vitals: Assessment: Plan: * Treatment: * * Electronic signature of Pradeep Maki on 03/07/2025 at 12:20 AM TECHNOLOGY ADOPTION MANAGER Sign off status: Pending * Provider: Vish Maki APN Date: 0 06/22/2024 Generated for Isma jiménez/Josi/Grzegorz on: 1 05/08/2024 12:20 AM TECHNOLOGY ADOPTION MANAGER
--- OUTSIDE RECORDS SUMMARY | 2024-08-20 07:00 | XMS_ITS ---
Author Organization [facility] Address [address] [place] [address] Care Team Providers Care Weed Cooking Operator Name Role Phone Pradeep Maki Primary Care Provider Toya Briana Unavailable [phone] REASON FOR VISIT LM to R/S -[facility] 1 month psych follow up/med refill and INJECTION Social History Sex Assigned At : Social History Observation Description Sex Assigned At Female Encounters Encounter Location Date Provider Diagnosis [address] [address] 08/20/2024 Pradeep Maki Plan Of Treatment Next Appt Details Provider Name:Brenda Velazco , 07/25/2025 03:00:00 PM, [address] [place] [address], [place], [address], Progress Notes * Vandana MCCARTNEYOB: 7 (79 yo F)Acc No.[id number]:08/20/2024 UNLOCKED PROGRESS NOTE Patient: Génesis LOCKETTLORETTABernadinera Provider: Vish Maki APN :1945 A ge:79 Y S ex:Female Date:08/20/2024 Address:[address], [place], [id number] Structured Data:Is there a n kristy you would prefer we call you? (Nombre que prefiere usar) : No Subjective: * Chief Complaints: * 1 . LM to R/S -[facility] 1 month psych follow up/med refill and INJECTION. * Medical History: Objective: * Vitals: Assessment: Plan: * Treatment: * * Electronic signature of Pradeep Maki on 03/07/2025 at 12:21 AM AUDIT TECH Sign off status: Pending * Provider: Vish Maki APN Date: 0 08/20/2024 Generated for Isma jiménez/Josi/Grzegorz on: 1 05/08/2024 12:21 AM AUDIT TECH
[2025-02-28 15:53] VITALS: BMI 27.3
--- NOTE | 2025-02-28 16:30 | PC.NURSE ---
Spoke with PATIENT regarding medication XARELTO . PATIENT verbalizes understanding that the last dose is to be taken on 03/04/2025 and the Endoscopist will instruct them when to restart after the procedure.
--- OUTSIDE RECORDS SUMMARY | 2025-03-07 00:20 | XMS_ITS | Clinical Summary ---
Author Organization [facility] Address [address] [place] [address] Phone Care Team Providers Care Filer And Sander Name Role Phone Jeff Camarillo MD Primary Care Provider Lynn Arora NP Unavailable [phone] Ismael Matson MD Unavailable [phone] Allergies Active Allergy Reactions Criticality Noted Date [...] drink = 0.6 oz pur e alcohol) [facility] Utilities Answer Date Recorded In the past 12 months has [employer], gas, oil, or water [employer] threatened to shut off services in your home? No 05/29/2023 Social Connection and Isolation Panel Answer Date Recorded In a typical week, how many times do you talk on the phone with family, friends, or neighbors? Three times a week 05/29/19 How often do you get togethe r with friends or relatives? Three times a week 05/29/2023 How often do you attend chur ch or congregational services? 1 to 4 times per year [...] place to sleep or slept in a long term (including now)? No 05/29/2023 Personal Safety Answer Date Recorded Have you ever been in or are you currently in a harmful physical or emotional relationship or is someone making you feel afraid or unsafe? 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 Gender Identity Not on file Sexual Orientation Not on file Last Filed Vital Signs Vital Sign Reading Time Taken Comments Blood Pressure 149/53 05/30/2023 12:32 PM TURNTABLE OPERATOR Pulse 62 05/30/2023 12:32 PM TURNTABLE OPERATOR Temperature 37 C (98.6 F) 05/30/2023 12:32 PM TURNTABLE OPERATOR Respiratory Rate 18 05/30/2023 12:32 PM TURNTABLE OPERATOR Oxygen Saturation 98% 05/30/2023 12:32 PM TURNTABLE OPERATOR Inhaled Oxygen Concentration - - Weight 52.8 kg (116 lb 8 oz) 05/29/2023 6:45 AM TURNTABLE OPERATOR Height 152.4 cm (5') 05/29/2023 6:45 AM TURNTABLE OPERATOR Body Mass Index 22.75 05/29/2023 6:45 AM TURNTABLE OPERATOR Plan of Treatment Health Maintenance Due Date Last Done Comments Depression Screening 1945 Hepatitis C Screening 1945 Osteoporosis Screening-Bone Density Scan 1945 Hepatitis B Screening 1963 Well Visit 65+ 06/21/2011 Pneumococcal vaccine 65+ (2 of 2 - PCV) 03/09/2019 1 05/10/2017, 01/05/2017 Fall Risk Assessment 05/30/2024 05/30/2023 Covid-19 Vaccine ( season) 2024, 06/29/2020 Influenza Vaccine (#1) 2024 12/04/2017, 2016 DTaP/Tdap/Td Vaccine (2 - Td or Tdap) 11/19/2027 Zoster Vaccine Completed 01/20/2018, 11/18/2017 Insurance [facility] MEDICARE ADVANTAGE [employer]PA [facility] MEDICARE ADVANTAGE Care Teams Filer And Sander Relationship Specialty Start Date End Date Jeff Camarillo MD PCP - General Family Practice 09/20/20 Lynn Arora, [facility] [address] Nurse Practitioner Medical Oncology 09/19/22 Ismael Matson MD [address] [place] [address] Consulting Physician Cardiology 05/30/23
--- OUTSIDE RECORDS SUMMARY | 2025-03-07 00:21 | XMS_ITS | Clinical Summary ---
Author Organization [facility] Address [facility] [place] [address] Care Team Providers Care Cleaning Associate Name Role Phone Sg Steven MD Primary Care Provider [phone] Allergies Active Allergy Reactions Criticality Noted Date [...] breast in female, estrogen receptor positive 09/18/2017 CPAP (continuous positive airway pressure) depen dence 12/24/2016 Obstructive sleep apnea 12/24/2016 Immunizations Immunization Administration Dates Next Due Flucelvax 6 Months+ (Prefill ed Syringe) 01/12/2019 Fluzone High Dose - >Age 65 (Prefilled Syringe) 12/03/2017,01/28/2017,12/19/2015,2014 Influenza (Generic) 03/09/2018,01/05/2017 Influenza Adult (Generic) 04/13/2019,06/2017,12/04/2017,2013 Pneumococcal (Generic) 01/05/2017 Pneumococcal (Pneumovax 23) 03/09/2018,1 ,04/07/2016,2014 Pneumococcal (Prevnar 13) 02/28/2015 Shingrix 01/19/2018,11/17/2017 Tdap (Generic) 11/17/2017,12/31/2012 Zoster (Zostavax) [address]231 Unt/0.65Ml 04/02/2015 Family History Medical History Relation [...] Comments Blood Pressure 139/57 03/17/2024 8:52 AM HUMAN RESOURCE INTERN Pulse 80 03/17/2024 8:52 AM HUMAN RESOURCE INTERN Temperature 36.1 C (97 F) 03/17/2024 8:52 AM HUMAN RESOURCE INTERN Respiratory Rate 18 03/17/2024 8:52 AM HUMAN RESOURCE INTERN Oxygen Saturation 99% 03/17/2024 8:52 AM HUMAN RESOURCE INTERN RA Inhaled Oxygen Concentration - - Weight 60.8 kg (134 lb) 03/17/2024 8:52 AM HUMAN RESOURCE INTERN Height 152.4 cm (5') 03/17/2024 8:52 AM HUMAN RESOURCE INTERN Body Mass Index 26.17 03/17/2024 8:52 AM HUMAN RESOURCE INTERN Plan of Treatment Upcoming Encounters Date Type Department Care Team (Late st Contact Info) Description 03/18/2025 10:00 AM HUMAN RESOURCE INTERN Office Visit [facility] - [facility] [address] [place] [id number] Redd Lamas MD [address] [place] [address] Health Maintenance Due Date Last Done Comments Hepatitis C 1963 Annual Medicare Wellness Visit 06/21/2011 Dexa Scan (General) 06/21/2011 RSV Immunization or 60+ Years (1 - 1-dose 75+ series) 2021 PHQ-2 (Physician [place]) 04/07/2024 COVID-19 Vaccine ( - season) 2024 07/27/2020, 06/29/2020 Influenza Adult (#1) 2025 04/13/2019, 01/12/2019, 03/09/2018, Additional history exists DTaP, Tdap and Td Vaccines (3 - Td or Tdap) 11/18/2027 11/17/2017, 12/31/2012 Zoster Vaccines Completed 01/19/2018, 11/05, 04/02/2015 Pneumococcal Vaccine: 50+ Years Completed 03/09/2018, 01/28/2017, 04/07/2016, Additional history exists Hepatitis A Vaccines Aged Out No long er eligible based on patient's age to complete this topic Meningococcal B Vaccine Aged Out No l onger eligible based on patient's age to complete this topic Meningococcal Vaccine Aged Out No mitul cherry eligible based on patient's age to complete this topic RSV Immunizations Under 20 Months Aged Out No longer eligible based on patient's age to complete this topic Insurance MEDICAID DEPT OF [employer]UM[employer] [address] MEDICARE Care Teams Cleaning Associate Relationship Specialty Start Date End Date Sg Steven MD [address] [place] [address] PCP - General FAMILY PRACTICE 01/15/18
--- OUTSIDE RECORDS SUMMARY | 2025-03-07 00:22 | XMS_ITS | Patient Health Record ---
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 Name Role Phone Pradeep Maki Primary Care Provider Briana Pittman Unavailable [phone] Brenda Velazco Unavailable [phone] Allergies Allergen (clinical drug ingredient) Drug/Non Drug Allergy documented on EMR Reaction Allergy Type Onset Date Status amoxicillin Amoxicillin rash Drug Allergy Act arturo Reason For Referral No Information Medications Medication SIG (Take, Route, Frequency, Duration) Notes Start Date End Date Status Rosuvastatin Calcium 40 MG 1 tablet Orally Once a day Active Ezetimibe 10 MG 1 tablet Orally Once a day Active Rivaroxaban 20 MG 1 tablet with food Orally Once a day Active Omeprazole 20 MG 1 capsule 1/2 to 1 h our before morning meal Orally Once a day Active Alendronate Sodium 70 MG 1 tablet Orally 1x per week Not-Taking Thornton 3 1000 MG 1 capsule Orally onc e daily Active Pregabalin 50 MG 1 capsule Orally 3 times a day; Duration: 30 days 01/24/2025 Active Trihexyphenidyl HCl 2 MG 0.5 tablet Oral ly once daily in the morning; Duration: 30 days Active clonazePAM 0.5 mg TAKE 1/2 TABLET BY MOUTH AT BEDTIME; Duration: 30 02/28/2025 Active Memantine HCl 5 MG 1 tablet Orally Once a day; Duration: 30 days Active Xiidra 5 % 1 drop into affected eye Ophthalmic Twice a day Active Invega Hafyera 1560 MG/5ML as directed Intramuscular every 6 months; Duration: 180 days Active Calcium Carbonate-Vitamin D 600-10 MG-MCG 1 tablet Orally Twice a day Active Memantine HCl 5 MG 1 tablet Orally Once a day; Duration: 30 days Active Magnesium Oxide 400 MG 1 tablet as neede d Orally Once a day Active Empagliflozin 10 MG 1 tablet Orally Once a day Active rOPINIRole HCl 3 MG 1 tablet Orally once daily at bedtime; Duration: 30 days Active Immunizations Vaccine Route Administration Date Status [...] Answer Notes Tobacco use: Nonsmoker Section Notes: [id number] 02/09/2020 02/09/2020 clonazePAM 14 14 0.25MG NA Tessie Becker L, Msn, [facility] - [id number] [facility] [place], [place] [address] [id number] 01/11/2020 01/11/2020 Hydrocodon-acetaminophen 20 5 5MG-325MG 20 Freeman Patino Md - [id number] [facility], [place] [id number] 10/18/2019 10/18/2019 clonazePAM 7 14 0.5 MG NA Tessie Becker L, Msn, [facility] - [id number] [facility] [place], [place] [address] [id number] 07/20/2019 07/20/2019 clonazePAM 14 14 0.25MG [id number] 07/10/2022 07/10/2022 clonazePAM 5.0 5 0.25 MG Briana Dickinson [facility] - [id number] [facility] [place], [place] 0 [place] 1 [id number] 06/05/2022 06/05/2022 clonazePAM 5.0 5 0.25 MG Briana Dickinsonp - [id number] [facility] [place], [place] NA 0 [place] 1 [id number] 05/14/2022 05/14/2022 clonazePAM 5.0 5 0.25 MG NA Karen Art ([employer]ant PRESCRIPTION # FILLED WRITTEN DRUG LABEL QTY DAYS STRENGTH MME PRESCRIBER PHARMACY REFILL NO. REFILLS STATE 09/25/2022 09/25/2022 clonazePAM 5.0 5 0.25 MG NA Toya, Briana L [employer] - [id number] [facility], [place] 0 [place] 1 [id number] 07/10/2022 07/10/2022 clonazePAM 5.0 5 0.25 MG NA Toya, Briana L [employer]ant - [id number] [facility], [place] 0 [place] 1 [id number] 06/05/2022 06/05/2022 clonazePAM 5.0 5 0.25 MG NA Toya, Briana L [employer] Quality Consultant - [id number] PRESCRIPTION # FILLED WRITTEN DRUG LABEL QTY DAYS STRENGTH MME PRESCRIBER PHARMACY REFILL NO. REFILLS STATE 09/25/2022 09/25/2022 clonazePAM 5.0 5 0.25 MG NA Toya, Briana L [employer]ant - [id number] [facility], [place] 1 [id number] 07/10/2022 07/10/2022 clonazePAM 5.0 5 0.25 MG NA Toya, Briana L [employer]ant - [id number] [facility], [place] 0 [place] 1 [id number] 06/05/2022 06/05/2022 clonazePAM 5.0 5 0.25 MG NA Toya, Briana L [employer] Quality Consultant - [id number] PRESCRIPTION # FILLED WRITTEN DRUG LABEL QTY DAYS STRENGTH MME PRESCRIBER PHARMACY REFILL NO. REFILLS STATE 12/11/2022 12/11/2022 clonazePAM 5.0 5 0.25 MG NA Toya, Briana L [employer] Quality Consultant - [id number] [facility], [place] 0 [place] 1 [id number] 09/25/2022 09/25/2022 clonazePAM 5.0 5 0.25 MG NA Toya, Briana L [employer] Consultant - [id number] [facility], [place] 0 [place] 1 [id number] 07/10/2022 07/10/2022 clonazePAM 5.0 5 0.25 MG NA Briana Pittman [facility] - [id number] [place] [id number] 02/09/2020 02/09/2020 clonazePAM 14 14 0.25MG NA Tessie Becker L, Msn, [facility] - [id number] [facility], [place] 1 [id number] 01/11/2020 01/11/2020 Hydrocodon-acetaminophen 20 5 5MG-325MG 20 Freeman Patino Md - [id number] [facility] #[id number], [place], [place] 1 [id number] 10/18/2019 10/18/2019 clonazePAM 7 14 0.5 MG NA [facility] L[facility] - [id number] [facility] [place], [place] 1 [id number] 07/20/2019 07/20/2019 clonazePAM 14 14 0.25MG PRESCRIPTION # FILLED WRITTEN DRUG LABEL QTY DAYS STRENGTH MEDD PRESCRIBER PHARMACY REFILL NO. REFILLS STATE 05/14/2022 05/14/2022 clonazePAM 5.0 5 0.25 MG NA Karen Art ([facility]) - [id number] [place], [place] NA 0 [place] 1 [id number] 04/11/2022 04/11/2022 clonazePAM 5.0 5 0.25 MG NA Tessie Becker L, Ms[facility], [facility] - [id number] [facility], [place] 0 [place] 1 [id number] 03/12/2022 03/11/2022 clonazePAM 5.0 5 0.25 MG NA Tessie Becker L PRESCRIPTION # FILLED WRITTEN DRUG LABEL QTY DAYS STRENGTH MEDD PRESCRIBER PHARMACY REFILL NO. REFILLS STATE 06/05/2022 06/05/2022 clonazePAM 5.0 5 0.25 MG NA Toya Briana L [employer]ant - [id number] [facility] [place], [place] NA 0 [place] 1 [id number] 05/14/2022 05/14/2022 clonazePAM 5.0 5 0.25 MG NA Karen Art ([employer]- bc) - [id number] [facility], [place] 0 [place] 1 [id number] 04/11/2022 04/11/2022 clonazePAM 5.0 5 0.25 MG NA Tessie Becker, PRESCRIPTION # FILLED WRITTEN DRUG LABEL QTY DAYS STRENGTH MME PRESCRIBER PHARMACY REFILL NO. REFILLS STATE 07/10/2022 07/10/2022 clonazePAM 5.0 5 0.25 MG NA Toya Briana L [employer] Quality Consultant - [id number] [facility], [place] 0 [place] 1 [id number] 06/05/2022 06/05/2022 clonazePAM 5.0 5 0.25 MG NA Toya Briana L [employer] Consultant - [id number] [facility] [place], [place] 0 [place] 1 [id number] 05/14/2022 05/14/2022 clonazePAM 5.0 5 0.25 MG NA Karen Art ([employer]ant-b PRESCRIPTION # FILLED WRITTEN DRUG LABEL QTY DAYS STRENGTH MME PRESCRIBER PHARMACY REFILL NO. REFILLS STATE 01/01/2023 01/01/2023 clonazePAM 7.0 7 0.25 MG NA Toya, Briana L [employer] Quality Consultant - [id number] [facility], [place] 1 [id number] 12/11/2022 12/11/2022 clonazePAM 5.0 5 0.25 MG NA Toya, Briana L [employer] Quality Consultant - [id number] [facility], [place] 0 [place] 1 [id number] 09/25/2022 09/25/2022 clonazePAM 5.0 5 0.25 MG NA Toya, Briana L [employer] Quality Consultant - [id number] [facility], [place] 0 [place] 1 [id number] 07/10/2022 07/10/2022 clonazePAM 5.0 5 0.25 MG NA Toya Briana L [employer] Quality Consultant - [id number] PRESCRIPTION # FILLED WRITTE N DRUG LABEL QTY DAYS STRENGTH MME PRESCRIBER PHARMACY REFILL NO. REFILLS STATE PATIENT [id number] 04/28/2023 04/28/2023 clonazePAM 7.0 7 0.25 MG NA Toya, Briana L [employer] Quality Consultant - [id number] [facility], [place] 0 [place] [id number] 03/05/2023 03/05/2023 clonazePAM 7.0 7 0.25 MG NA Toya, Briana L [employer] Quality Consultant - [id number] [facility], [place] 0 [place] [id number] 01/01/2023 01/01/2023 clonazePAM 7.0 7 0.25 MG NA Toya, Briana L Eng[employer] Quality Consultant - [id number] [facility], [place] 0 [place] [id number] 12/11/2022 12/11/2022 clonazePAM 5.0 5 0.25 MG NA Toya, Briana L Engagement Quality Consultant - [id number] [place] PRESCRIPTION # FILLED WRITTE N DRUG LABEL QTY DAYS STRENGTH MME PRESCRIBER PHARMACY REFILL NO. REFILLS STATE PATIENT [id number] 06/02/2023 06/02/2023 clonazePAM 7.0 7 0.25 MG NA Toya, Briana L Engagement Quality Consultant - [id number] [facility], [place] 0 [place] [id number] 04/28/2023 04/28/2023 clonazePAM 7.0 7 0.25 MG NA Toya, Briana L Engagement Quality Consultant - [id number] [facility], [place] 0 [place] [id number] 03/05/2023 03/05/2023 clonazePAM 7.0 7 0.25 MG NA Toya, Briana L Engagement Quality Consultant - [id number] [facility], [place] 0 [place] [id number] 01/01/2023 01/01/2023 clonazePAM 7.0 7 0.25 MG NA Briana Pittman [employer] Quality Consultant - [id number] [place] PRESCRIPTION # FILLED WRITTEN DRUG LABEL QTY DAYS STRENGTH MME PRESCRIBER PHARMACY REFILL NO. REFILLS STATE 09/25/2022 09/25/2022 clonazePAM 5.0 5 0.25 MG NA Briana Pittman [employer] Quality Consultant - [id number] [facility] [place], [place] NA 0 [place] 1 [id number] 07/10/2022 07/10/2022 clonazePAM 5.0 5 0.25 MG NA Briana Pittman [employer]ant - [id number] [place] Problems Problem Type SNOMED Code ICD Code Onset Dates Problem Status W/U Status Risk Notes Problem Tobacco user (666131507) Nicotine dependence, unspecified, uncomplicated (F17.200) Active confirmed Problem Generalized anxiety disorder (17226346) Generalized anxiety disorder (F41.1) Active confirmed Problem Restless legs syndrome (94685094) Restless leg syndrome (G25.81) Active confirmed Problem Paranoid schizophrenia (12311043) Schizophrenia, paranoid type (F20.0) Active confirmed Problem Memory impairment (605963578) Memory impairment (R41.3) Active confirmed Problem Tardive dyskinesia (944624977) Tardive dyskinesia (G24.01) Active confirmed Vital Signs Heart Rate 78 /min 01/24/2025 Temperature 98 degrees Fahrenheit 01/24/2025 Respiratory Rate 16 /min 01/24/2025 Blood pressure diastolic 74 mm Hg 01/24/2025 Oximetry 98 % 01/24/2025 Height 65 in in 01/24/2025 Blood pressure systolic 124 mm Hg 01/24/2025 Weight 143lb 4oz lbs 01/24/2025 BMI 23.84 kg/m2 01/24/2025 Encounters Encounter Location Date Provider Diagnosis [address] [place] [address] 03/19/2024 Pradeep Maki Generalized anxiety disorder F41.1 ; Schizophrenia, paranoid type F20.0 ; Tardive dyskinesia G24.01 and Memory impairment R41.[address] [address] 04/16/2024 Pradeep Maki Generalized anxiety disorder F41.1 ; Schizophrenia, paranoid type F20.0 ; Tardive dyskinesia G24.01 ; Memory impairment R41.3 and Nutritional counseling Z71.[address] [place] [address] 05/21/2024 Pradeep Maki Generalized anxiety disorder F41.1 ; Schizophrenia, paranoid type F20.0 ; Tardive dyskinesia G24.01 ; Memory impairment R41.3 and Nutritional counseling Z71.[address] [address] 06/24/2024 Pradeep Maki Generalized anxiety disorder F41.1 ; Schizophrenia, paranoid type F20.0 ; Tardive dyskinesia G24.01 ; Memory impairment R41.3 and Nutritional counseling Z71.[address] [address] 07/21/2024 Pradeep Maki Generalized anxiety disorder F41.1 ; Schizophrenia, paranoid type F20.0 ; Tardive dyskinesia G24.01 ; Memory impairment R41.3 ; Restless leg syndrome G25.81 and Nutritional counseling Z71.[address] [address] 08/13/2024 Pradeep Maki Generalized anxiety disorder F41.1 ; Schizophrenia, paranoid type F20.0 ; Tardive dyskinesia G24.01 ; Memory impairment R41.3 ; Restless leg syndrome G25.81 and Nutritional counseling Z71.[address] [address] 09/09/2024 Pradeep Maki Generalized anxiety disorder F41.1 ; Schizophrenia, paranoid type F20.0 ; Tardive dyskinesia G24.01 ; Memory impairment R41.3 ; Restless leg syndrome G25.81 and Nutritional counseling Z71.[address] [address] 10/04/2024 Brenda Velazco Generalized anxiety disorder F41.1 ; Schizophrenia, paranoid type F20.0 ; Tardive dyskinesia G24.01 ; Memory impairment R41.3 ; Restless leg syndrome G25.81 and Nutritional counseling Z71.[address] [place] [address] 11/03/2024 Brenda Velazco Generalized anxiety disorder F41.1 ; Schizophrenia, paranoid type F20.0 ; Tardive dyskinesia G24.01 ; Memory impairment R41.3 and Restless leg syndrome G25.[address] [place] [address] 11/29/2024 Brenda Velazco Schizophrenia, paranoid type F20.0 ; Tardive dyskinesia G24.01 ; Generalized anxiety disorder F41.1 ; Memory impairment R41.3 and Restless leg syndrome G25.[address] [place] [address] 01/24/2025 Brenda Velazco Generalized anxiety disorder F41.1 ; Schizophrenia, paranoid type F20.0 ; Tardive dyskinesia G24.01 ; Memory impairment R41.3 and Restless leg syndrome G25.[address] [address] 03/19/2024 Pradeep Maki [address] [address] 06/01/2024 Pradeep Maki Tardive dyskinesia G24.[address] [place] [address] 09/09/2024 Brenda Velazco [address] [place] [address] 11/30/2024 Brenda Velazco Generalized anxiety disorder F41.1 Assessments Encounter Date Diagnosis (ICD Code) Assessment Notes Treatment Notes Treatment Clinical Notes Section Notes 03/19/2024 Generalized anxiety disorder (ICD-10 - F41.1) [...] to the emergency department, or contact the [facility] Crisis [facility]/Team. Follow up as scheduled [...] to the emergency department, or contact the [facility]/Team. Follow up as scheduled [...] to the emergency department, or contact the [facility]/Team. Follow up as scheduled in 4 weeks or sooner if necessary. Follow up with PCP and/or other specialists as advised. NEXT STEP: Consider medication adjustments as needed. 06/01/2024 Tardive dyskinesia (ICD-10 - G24.01) 07/21/2024 Generalized anxiety disorder (ICD-10 - F41.1) [...] to the emergency department, or contact the [facility]/Team. Follow up as scheduled [...] to the emergency department, or contact the [facility]/Team. Follow up as scheduled in 4 weeks or sooner if necessary. Follow up with PCP and/or other specialists as advised. NEXT STEP: Consider medication adjustments as needed. 10/04/2024 Generalized anxiety disorder (ICD-10 - F41.1) Duration [...] health CRISIS, please reach out to [phone] ([place] [facility]), 911, go to the emergency department, or contact the [facility]/Team. Follow up as scheduled in 4 weeks or sooner if necessary. Follow up with PCP and/or other specialists as advised. NEXT STEP: Consider medication adjustments as needed. 11/29/2024 Tardive dyskinesia (ICD-10 - G24.01) See assessment and plan for schizophrenia 11/30/2024 Generalized anxiety disorder (ICD-10 - F41.1) 01/24/2025 Generalized anxiety disorder (ICD-10 - F41.1) 11/29/2024 Schizophrenia, paranoid type (ICD-10 - F20.0) Duration [...] to the emergency department, or contact the [facility]/Team. Follow up as scheduled in 4 weeks or sooner if necessary. Follow up with PCP and/or other specialists as advised. NEXT STEP: Consider medication adjustments as needed. Next Invega Hafyera injection due approximately 02/2025. 11/03/2024 Generalized anxiety disorder (ICD-10 - F41.1) Duration [...] to the emergency department, or contact the [facility]/Team. Follow up as scheduled [...] to the emergency department, or contact the [facility]/Team. Follow up as scheduled in 4 weeks or sooner if necessary. Follow up with PCP and/or other specialists as advised. NEXT STEP: Consider medication adjustments as needed. 06/24/2024 Generalized anxiety disorder (ICD-10 - F41.1) [...] to the emergency department, or contact the [facility]/Team. Follow up as scheduled [...] to the emergency department, or contact the [facility]/Team. Follow up as scheduled [...] health CRISIS, please reach out to [phone] ([place] [facility]), 911, go to the emergency department, or contact the [facility]/Team. Follow up as scheduled in 4 weeks or sooner if necessary. Follow up with PCP and/or other specialists as advised. NEXT STEP: Consider medication adjustments as needed. Next Invega Lidiaa injection due approximately 02/2025. 11/03/2024 Schizophrenia, paranoid type (ICD-10 - F20.0) Duration [...] mental health CRISIS, please reach out to [phone] ([place]), 911, go to the emergency department, or contact the [facility]/Team. Follow up as scheduled in 4 weeks or sooner if necessary. Follow up with PCP and/or other specialists as advised. NEXT STEP: Consider medication adjustments as needed. Next Invega Lidiaa injection due approximately 02/2025. 01/24/2025 Schizophrenia, paranoid type (ICD-10 - F20.0) Duration [...] to the emergency department, or contact the [facility]/Team. Follow up as scheduled in 4 weeks or sooner if necessary. Follow up with PCP and/or other specialists as advised. NEXT STEP: Consider medication adjustments as needed. Next Invega Hafyera injection due approximately 02/2025. 11/29/2024 Generalized anxiety disorder (ICD-10 - F41.1) Duration [...] to the emergency department, or contact the [facility]/Team. Follow up as scheduled in 4 weeks or sooner if necessary. Follow up with PCP and/or other specialists as advised. NEXT STEP: Consider medication adjustments as needed. 10/04/2024 Schizophrenia, paranoid type (ICD-10 - F20.0) Duration [...] to the emergency department, or contact the [facility]/Team. Follow up as scheduled in 4 weeks or sooner if necessary. Follow up with PCP and/or other specialists as advised. NEXT STEP: Consider medication adjustments as needed. Next Jv Montalvo injection due approximately 02/2025. 08/13/2024 Schizophrenia, paranoid type (ICD-10 - F20.0) [...] health CRISIS, please reach out to [phone] ([place]), 911, go to the emergency department, or contact the [facility]/Team. Follow up as scheduled in 4 weeks or sooner if necessary. Follow up with PCP and/or other specialists as advised. NEXT STEP: Consider medication adjustments as needed. Next Invega Hafyera injection due approximately 02/2025. 07/21/2024 Tardive dyskinesia (ICD-10 - G24.01) See assessment and plan for schizophrenia 07/21/2024 Schizophrenia, paranoid type (ICD-10 - F20.0) [...] health CRISIS, please reach out to [phone] ([place] [facility]), 911, go to the emergency department, or contact the [facility]/Team. Follow up as scheduled [...] to the emergency department, or contact the [facility]/Team. Follow up as scheduled in 4 weeks or sooner if necessary. Follow up with PCP and/or other specialists as advised. NEXT STEP: Consider medication adjustments as needed. Consider restarting low dose trihexyphenydil pending continued stability. of orthostatic vitals and exacerbation/worsen ing of TD. 04/16/2024 Schizophrenia, paranoid type (ICD-10 [...] to make it to office due to casework manager's vehicle requiring repairs today. Patient no [...] health CRISIS, please reach out to [phone] ([place] [facility]), 911, go to the emergency department, or contact the [facility]/Team. Follow up as scheduled [...] to make it to office due to casework manager's vehicle requiring repairs today. Patient no [...] to the emergency department, or contact the [facility]/Team. Follow up as scheduled in 4 weeks or sooner if necessary. Follow up with PCP and/or other specialists as advised. NEXT STEP: Consider medication adjustments as needed. REPEAT ORTHOSTATIC VITALS at follow up - consider restarting low dose trihexyphenydil pending continued stability. 04/16/2024 Tardive dyskinesia (ICD-10 - G24.01) Duration (acute/chronic), stability (controlled/uncontr olled): Chronic, uncontrolled, has failed numerous medications in the past, see below - trihexyphenydil reportedly helpful with TD movements (primarily oral movements); however, agent discontinued previously due to orthostatic hypotension, see previous notes Current medications/efficac y: N/A - patient completely discontinued trihexiphenydil, see [...] to make it to office due to casework manager's vehicle requiring repairs today. Patient no [...] to the emergency department, or contact the [facility]/Team. Follow up as scheduled in 4 weeks or sooner if necessary. Follow up with PCP and/or other specialists as advised. NEXT STEP: Consider medication adjustments as needed. REPEAT ORTHOSTATIC VITALS at follow up - consider restarting low dose trihexyphenydil pending continued stability. 05/21/2024 Tardive dyskinesia (ICD-10 - G24.01) See assessment and plan for schizophrenia 07/21/2024 Memory impairment (ICD-10 - R41.3) Duration (acute/chronic), stability (controlled/uncontr olled): Chronic, has reportedly been receiving memantine through psych services at [facility], this provider agreeable to continuing medication since [...] health CRISIS, please reach out to [phone] ([place] [facility]), 911, go to the emergency department, or contact the [facility]/Team. Follow up as scheduled or sooner if necessary. Follow up with PCP and/or other specialists as advised. NEXT STEP: Consider medication adjustments as needed. 08/13/2024 Tardive dyskinesia (ICD-10 - G24.01) See assessment and plan for schizophrenia 10/04/2024 Tardive dyskinesia (ICD-10 - G24.01) See assessment and plan for schizophrenia 11/29/2024 Memory impairment (ICD-10 - R41.3) Duration (acute/chronic), stability (controlled/uncontr olled): Chronic, has reportedly been receiving memantine through psych services at [facility], this provider agreeable to continuing medication since [...] mental health CRISIS, please reach out to [phone] ([place] [facility]), 911, go to the emergency department, or contact the [facility]/Team. Follow up as scheduled or sooner if necessary. Follow up with PCP and/or other specialists as advised. NEXT STEP: Consider medication adjustments as needed. 01/24/2025 Tardive dyskinesia (ICD-10 - G24.01) See assessment and plan for schizophrenia 09/09/2024 Tardive dyskinesia (ICD-10 - G24.01) See assessment and plan for schizophrenia 03/19/2024 Tardive dyskinesia (ICD-10 - G24.01) Duration (acute/chronic), stability (controlled/uncontr olled): Chronic, uncontrolled, has failed numerous medications in the past, see below - trihexyphenydil reportedly helpful with TD movements (primarily oral movements); however, agent discontinued previously due to orthostatic hypotension, see previous notes Current medications/efficac y: N/A - patient completely discontinued trihexiphenydil, see [...] to make it to office due to casework manager's vehicle requiring repairs today. Patient no [...] to the emergency department, or contact the [facility] Crisis Unit/Team. Follow up as scheduled in 4 weeks or sooner if necessary. Follow up with PCP and/or other specialists as advised. NEXT STEP: Consider medication adjustments as needed. REPEAT ORTHOSTATIC VITALS at follow up - consider restarting low dose trihexyphenydil pending continued stability. 11/03/2024 Tardive dyskinesia (ICD-10 - G24.01) See assessment and plan for schizophrenia 06/24/2024 Tardive dyskinesia (ICD-10 - G24.01) See assessment and plan for schizophrenia 06/24/2024 Memory impairment (ICD-10 - R41.3) Duration (acute/chronic), stability (controlled/uncontr olled): Chronic, has reportedly been receiving memantine through psych services at [facility], this provider agreeable to continuing medication since [...] to the emergency department, or contact the [facility]/Team. Follow up as scheduled or sooner if necessary. Follow up with PCP and/or other specialists as advised. NEXT STEP: Consider medication adjustments as needed. 09/09/2024 Memory impairment (ICD-10 - R41.3) Duration (acute/chronic), stability (controlled/uncontr olled): Chronic, has reportedly been receiving memantine through psych services at [facility], this provider agreeable to continuing medication since [...] health CRISIS, please reach out to [phone] ([facility]), 911, go to the emergency department, or contact the [facility] Crisis Unit/Team. Follow up as scheduled or sooner if necessary. Follow up with PCP and/or other specialists as advised. NEXT STEP: Consider medication adjustments as needed. 11/03/2024 Memory impairment (ICD-10 - R41.3) Duration (acute/chronic), stability (controlled/uncontr olled): Chronic, has reportedly been receiving memantine through psych services at [facility], this provider agreeable to continuing medication since [...] health CRISIS, please reach out to [phone] ([facility]), 911, go to the emergency department, or contact the [facility] Crisis Unit/Team. Follow up as scheduled or sooner if necessary. Follow up with PCP and/or other specialists as advised. NEXT STEP: Consider medication adjustments as needed. 01/24/2025 Memory impairment (ICD-10 - R41.3) Duration (acute/chronic), stability (controlled/uncontr olled): Chronic, has reportedly been receiving memantine through psych services at [facility], this provider agreeable to continuing medication since [...] health CRISIS, please reach out to [phone] ([facility]), 911, go to the emergency department, or contact the [facility] Crisis Unit/Team. Follow up as scheduled or sooner if necessary. Follow up with PCP and/or other specialists as advised. NEXT STEP: Consider medication adjustments as needed. 11/29/2024 Restless leg syndrome (ICD-10 - G25.81) See above assessment and plans 08/13/2024 Memory impairment (ICD-10 - R41.3) Duration (acute/chronic), stability (controlled/uncontr olled): Chronic, has reportedly been receiving memantine through psych services at [facility], this provider agreeable to continuing medication since [...] mental health CRISIS, please reach out to [phone] ([facility]), 911, go to the emergency department, or contact the [facility] Crisis Unit/Team. Follow up as scheduled or sooner if necessary. Follow up with PCP and/or other specialists as advised. NEXT STEP: Consider medication adjustments as needed. 10/04/2024 Memory impairment (ICD-10 - R41.3) Duration (acute/chronic), stability (controlled/uncontr olled): Chronic, has reportedly been receiving memantine through psych services at [facility], this provider agreeable to continuing medication since [...] health CRISIS, please reach out to [phone] ([facility]), 911, go to the emergency department, or contact the [facility] Crisis Unit/Team. Follow up as scheduled or sooner if necessary. Follow up with PCP and/or other specialists as advised. NEXT STEP: Consider medication adjustments as needed. 07/21/2024 Restless leg syndrome (ICD-10 - G25.81) See above assessment and plans 05/21/2024 Memory impairment (ICD-10 - R41.3) Duration (acute/chronic), stability (controlled/uncontr olled): Chronic, has reportedly been receiving memantine through psych services at [facility], this provider agreeable to continuing medication since [...] health CRISIS, please reach out to [phone] ([facility]), 911, go to the emergency department, or contact the [facility] Crisis Unit/Team. Follow up as scheduled or sooner if necessary. Follow up with PCP and/or other specialists as advised. NEXT STEP: Consider medication adjustments as needed. 04/16/2024 Memory impairment (ICD-10 - R41.3) Duration (acute/chronic), stability (controlled/uncontr olled): Chronic, has reportedly been receiving memantine through psych services at [facility], this provider agreeable to continuing medication since [...] mental health CRISIS, please reach out to [phone] ([facility]), 911, go to the emergency department, or contact the [facility] Crisis Unit/Team. Follow up as scheduled or sooner if necessary. Follow up with PCP and/or other specialists as advised. NEXT STEP: Consider medication adjustments as needed. 03/19/2024 Memory impairment (ICD-10 - R41.3) Duration (acute/chronic), stability (controlled/uncontr olled): Chronic, has reportedly been receiving memantine through psych services at [facility], this provider agreeable to continuing medication since [...] health CRISIS, please reach out to [phone] ([facility]), 911, go to the emergency department, or contact the [facility] Crisis Unit/Team. Follow up as scheduled or sooner if necessary. Follow up with PCP and/or other specialists as advised. NEXT STEP: Consider medication adjustments as needed. 04/16/2024 Nutritional counseling (ICD-10 - Z71.3) 05/21/2024 Nutritional counseling (ICD-10 - Z71.3) 07/21/2024 Nutritional counseling (ICD-10 - Z71.3) 08/13/2024 Restless leg syndrome (ICD-10 - G25.81) See above assessment and plans 10/04/2024 Restless leg syndrome (ICD-10 - G25.81) See above assessment and plans 01/24/2025 Restless leg syndrome (ICD-10 - G25.81) See above assessment and plans 11/03/2024 Restless leg syndrome (ICD-10 - G25.81) See above assessment and plans 09/09/2024 Restless leg syndrome (ICD-10 - G25.81) See above assessment and plans 06/24/2024 Nutritional counseling (ICD-10 - Z71.3) 09/09/2024 Nutritional counseling (ICD-10 - Z71.3) 10/04/2024 Nutritional counseling (ICD-10 - Z71.3) 08/13/2024 Nutritional counseling (ICD-10 - Z71.3) Plan Of Treatment Next Appt Details Provider Name:Brenda Velazco , 07/25/2025 03:00:00 PM, [address], [place], [address], Insurance Providers Payer Name Payer Address Payer Phone Subscriber Number Group Number Insured Name Patient Relationship to Insured Coverage Start Date Coverage End Date [facility] Medicare Assure [address] [address] [place] [address] [id number] Cinthia Mccartney Self - patient is the insured 4 MEDICAID [address] [place] [address] [id number] Cinthia Mccartney Self - patient is the insured 4 Medications Administered Medication Instructions Date of Administration Dosage Notes Invega Hafyera 08/20/2023 1560 mg Patient to lerated well Invega Hafyera 08/13/2024 1560 mg Invega Hafyera 01/24/2025 1560 mg Pt toll we ll Invega Sustenna 04/11/2017 234 mg Assembly Member: Otilia Patient tolerated well. Invega Sustenna 04/18/2017 156 mg Exp: 07/2018 Lot: [id number] Assembly Member: Otilia Pt tolerated injection well and verbalizes no questions or concerns at this time. Invega Sustenna 05/16/2017 234 mg Exp: 11/2018 Lot: [id number] Assembly Member: Otilia Patient tolerated injection well. She denies questions or concerns at this time. Invega Sustenna 06/17/2017 234 mg Manufact Otilia, pt tolerated well. Invega Sustenna 07/18/2017 234 mg Manufact Otilia pt tolerated well. Invega Sustenna 08/06/2017 234 mg Capri Bingham pt tolerated well. Invega Sustenna 09/05/2017 234 mg Capri Bingham pt tolerated well. Invega Sustenna 09/30/2017 234 mg Capri Bingham pt tolerated well. Invega Sustenna 10/30/2017 234 mg Capri Bingham pt tolerated well. Invega Sustenna 12/04/2017 234 mg Assembly Member-HZO Patient tolerated well. Invega Sustenna 01/01/2018 234 mg Manufact HZO, pt tolerated well. Invega Sustenna 02/04/2018 234 mg Manufactu rer: HZO. Pt tolerated well. Questions or concerns denied. Invega Sustenna 03/05/2018 234 mg Manufact Otilia, pt tolerated well. Invega Sustenna 04/03/2018 234 mg Manufact Otilia, pt tolerated well. Invega Sustenna 05/01/2018 234 mg Manufact HZO, pt tolerated well. Invega Sustenna 05/28/2018 234 mg Assembly Member: HZO Pt tolerated the injection well and denies questions or concerns at this time. Invega Sustenna 06/17/2019 234 mg Manufact by HZO Pt edward well. Invega Sustenna 06/23/2019 156 mg Manufact by HZO Pt edward well. Invega Sustenna 07/20/2019 234 mg Assembly Member-Zappli Pt tolerated injection well. Voiced no questions or concerns Invega Sustenna 08/20/2019 234 mg retail merchandiser technician-HZO Pt tolerated injection well. Voiced no questions or concerns Invega Sustenna 09/22/2019 234 mg Manufact by HZO Pt edward well. Invega Sustenna 10/20/2019 234 mg Manufact by HZO Pt edward well. Invega Sustenna 11/18/2019 234 mg Manufact by HZO Pt edward well. Invega Sustenna 12/16/2019 156 mg Invega Sustenna 01/13/2020 156 mg Manufact by HZO Pt edward well. Invega Sustenna 02/09/2020 156 mg Manufact Otilia, patient tolerated well. Invega Sustenna 03/16/2020 156 mg Assembly Member-HZO Pt tolerated injection well. Voiced no questions or concerns. Invega Sustenna 04/13/2020 156 mg Manufact by HZO Pt edward well. Invega Sustenna 05/18/2020 156 mg Assembly Member- Zappli Pt tolerated injection well. Voiced no questions or concerns. Invega Sustenna 06/15/2020 156 mg Assembly Member-HZO Pt tolerated injection well. Voiced no questions [...] olerated well. Invega Trinza 06/25/2018 819 mg Assembly Member: HZO Pt tolerated the injection well and denies questions or concerns at this time. Invega Trinza 09/21/2018 410 mg Assembly Member: HZO Pt tolerated well. No questions or concerns [...] well Perseris (Risperidone XR) 03/17/2019 90 mg Assembly Member: Indivior Given subcutaneously to the right abdomen. Pt tolerated the injection well. Medical (General) History Medical History History ICD Code Schizophrenia, paranoid type Generalized anxiety disorder HTN Surgical History Surgery Date(Month/Year) repaired to ruptured navel 01/2020 cardiac cath Hospitalization History Reason Date(Month/Year) 2 Atrial fibrillation Chirag 09/2021
[2025-03-07 08:54] VITALS: BP 124/54; PULSE 65; RESP 18; TEMP 36.1; O2SAT 100; BMI 27.8
[2025-03-07] MEDS: LACTATED RINGERS 1,000 ML 150 ML IV CONT (09:04)
--- NOTE | 2025-03-07 09:25 | WPDANESEPPF ---
Anes - Initial Pre Proc Eval Procedure: Operation Date: 03/07/25 10:00 Proposed Procedures p Screening Colonoscopy - Edison Lopez MD Date/Time: 03/07/25 09:25 Surgeon: Edison Lopez MD Pre Op Diagnosis: Personal history of colon polyps, unspecified Patient Data Age: 79 Gender: F Height: 1.52 m Weight: 64.8 kg Last Vital Signs Temp 36.1 C L 03/07/25 08:54 Pulse 65 03/07/25 08:54 Resp 18 03/07/25 08:54 BP 124/54 L 03/07/25 08:54 Pulse Ox 100 03/07/25 08:54 O2 Del Method Room Air 03/07/25 08:54 Allergies Allergy/AdvReac Type Severity Reaction Status Date / Time amoxicillin Allergy Mild Rash Verified 03/07/25 08:52 Home Medications ?Medication ?Instructions ?Recorded ?Confirmed ?Type memantine 5 mg tablet 5 mg PO QAM 06/01/19 03/07/25 History ezetimibe 10 mg tablet 10 mg PO DAILY 01/31/21 03/07/25 History empagliflozin 10 mg tablet 10 mg PO DAILY 10/26/21 03/07/25 History (Jardiance) omega-3 fatty acids 1,000 mg 1,000 mg PO QID 08/14/22 03/07/25 History capsule lifitegrast 5 % eye drops in a 1 drp EACH EYE BID 02/19/23 03/07/25 History dropperette (Xiidra) rosuvastatin 40 mg tablet 40 mg PO QHS 02/19/23 03/07/25 History clonazepam 0.25 mg disintegrating 0.25 mg PO DAILY PRN Anxiety 03/23/23 02/28/25 History tablet paliperidone palm (6 month) 1,560 1,560 mg IM [id number] Schizophrenia 03/23/23 02/28/25 History mg/5 mL intramuscular syringe (Invega Hafyera) rivaroxaban 20 mg tablet (Xarelto) 20 mg PO DAILY 03/23/23 03/07/25 History zoledronic acid 5 mg/100 mL in 100 ea IV .yearly 08/24/24 02/28/25 Rx mannitol 5 %-water intravenous piggybck (Reclast) trihexyphenidyl 2 mg tablet 1 mg PO DAILY 09/15/24 03/07/25 History loratadine 10 mg tablet (Allergy 10 mg PO DAILY #90 tabs 11/05/24 03/07/25 Rx Relief (loratadine)) omeprazole 20 mg capsule,delayed 20 mg PO DAILY #90 caps 11/05/24 03/07/25 Rx release calcium 600 mg (as 1 tablet PO BID #180 tabs 12/07/24 03/07/25 Rx carbonate)-vitamin D3 20 mcg (800 unit) tablet fluticasone propionate 50 2 spray intranasal DAILY #16 grams 12/17/24 03/07/25 Rx mcg/actuation nasal spray,suspension (Flonase Allergy Relief) EQUATE HAIR REGROWTH TREATMENT topical BID 02/28/25 History clobetasol 0.05 % scalp solution 1 applic topical .2W 02/28/25 02/28/25 History clonazepam 0.5 mg tablet 0.25 mg PO HS 02/28/25 03/07/25 History ferrous sulfate 325 mg (65 mg 325 mg PO DAILY 02/28/25 03/07/25 History iron) tablet (FeroSul) magnesium oxide 400 mg PO BID 02/28/25 03/07/25 History pregabalin 25 mg capsule 25 mg PO Q12H 02/28/25 03/07/25 History ropinirole 3 mg tablet 3 mg PO HS 02/28/25 03/07/25 History zeaxanthin 6 mg PO DAILY 02/28/25 03/07/25 History Patient hx anesthesia problems: none Family hx anesthesia problems: none Results Review: All pre-operative results and documents have been reviewed as part of the pre-operative evaluation. [facility] Past Medical History Medical History (Updated 12/29/24 @ 09:57 by Thanh Rizzo MD) Minimal cognitive impairment Tardive dyskinesia Schizophrenia Dyslipidemia Degenerative joint disease Paroxysmal atrial fibrillation Diastolic congestive heart failure Obstructive sleep apnea on CPAP History of left breast cancer Osteoporosis Seasonal allergies Cognitive impairment Osteopenia GERD without esophagitis Depression Humeral fracture Bilateral Benign essential hypertension Restless leg syndrome Surgical History Surgical History History of cardiac radiofrequency ablation (~05/2023) History of cardioversion (~03/2023) Hx of cardiac cath History of umbilical hernia repair History of umbilical hernia (~2020) History of lumpectomy of left breast 06/2012 Hx of shoulder surgery ALEN. Hx of tubal ligation (Unknown) History of bladder surgery (Unknown) Family History Family History Father Lung cancer Mother Acute myocardial infarction Son Diabetes mellitus Daughter Hypertension Social History Social History Social History: Patient currently resides in a apartment at [facility] in [facility]. Daughter states that she can go to assisted living due to her [place]. She wishes to be a full code at this time and her daughter Ashli is her surrogate. She denies any pets. Smoking status: Never smoker Second hand tobacco smoke exposure: No Alcohol intake: never Substance use: never Substance use type: does not use Lack of Transportation: No Lack of Food: Never True Current Housing: I Have Housing Concerned About Future Housing: No Difficulty Paying Gas/Electric Bills: No Difficulty Paying for Meds: No Currently Unemployed: No Education: High School Diploma/GED Difficulty w/ Childcare or Family Care: No Living arrangements: alone Occupation/Education: retired Gender identity (if verbalized by the patient): Female Sexual Orientation (if Verbalized by the Patient): Straight or Heterosexual Spiritual care concerns: No Agree to blood products: Yes Anes - Eval Final PreProcedure Day of Procedure 03/07/25 09:25 Patient weight: overweight Heart: regular rate and rhythm Lungs: clear to auscultation Airway: Mallampati scale class II Neurological: alert and oriented Last oral intake: >/= 8 hours ASA classification: III Emergent: no Anesthetic plan: proceed Anesthesia type and monitoring: general GIVS and standard monitoring Results Review: All pre-operative results and documents have been reviewed as part of the pre-operative evaluation. Informed Consent: The patient's anesthetic plan and its attendant risks and benefits were discussed with the patient/family/POA. Questions were solicited and answers provided to the satisfaction of the patient/family/POA.
--- NOTE | 2025-03-07 09:45 | PM.HPGS ---
History of Present Illness History of Present Illness Consent: Risks, benefits, and alternatives have been discussed and questions answered. Patient agrees to proceed with procedure. Chief complaint: Personal history of colon polyps, unspecified Narrative: Cinthia Mccartney is a 79 year old female with colon polyp in 2019 Review of Systems Review of Systems: All systems reviewed & are unremarkable except as noted in HPI and below PMFSH Past Medical History Medical History (Updated 03/07/25 @ 09:46 by Edison Lopez MD) Polyp of colon Minimal cognitive impairment Tardive dyskinesia Schizophrenia Dyslipidemia Degenerative joint disease Paroxysmal atrial fibrillation Diastolic congestive heart failure Obstructive sleep apnea on CPAP History of left breast cancer Osteoporosis Seasonal allergies Cognitive impairment Osteopenia GERD without esophagitis Depression Humeral fracture Bilateral Benign essential hypertension Restless leg syndrome Surgical History Surgical History History of cardiac radiofrequency ablation (~05/2023) History of cardioversion (~03/2023) Hx of cardiac cath History of umbilical hernia repair History of umbilical hernia (~2019) History of lumpectomy of left breast 06/2012 Hx of shoulder surgery ALEN. Hx of tubal ligation (Unknown) History of bladder surgery (Unknown) Family History Family History Father Lung cancer Mother Acute myocardial infarction Son Diabetes mellitus Daughter Hypertension Social History Social History Social History: Patient currently resides in a apartment at [facility] in [facility]. Daughter states that she can go to assisted living due to her [place]. She wishes to be a full code at this time and her daughter Ashli is her surrogate. She denies any pets. Smoking status: Never smoker Second hand tobacco smoke exposure: No Alcohol intake: never Substance use: never Substance use type: does not use Lack of Transportation: No Lack of Food: Never True Current Housing: I Have Housing Concerned About Future Housing: No Difficulty Paying Gas/Electric Bills: No Difficulty Paying for Meds: No Currently Unemployed: No Education: High School Diploma/GED Difficulty w/ Childcare or Family Care: No Living arrangements: alone Occupation/Education: retired Gender identity (if verbalized by the patient): Female Sexual Orientation (if Verbalized by the Patient): Straight or Heterosexual Spiritual care concerns: No Agree to blood products: Yes Meds Home Medications and Allergies Home Medications ?Medication ?Instructions ?Recorded ?Confirmed ?Type memantine 5 mg tablet 5 mg PO QAM 06/01/19 03/07/25 History ezetimibe 10 mg tablet 10 mg PO DAILY 01/31/21 03/07/25 History empagliflozin 10 mg tablet 10 mg PO DAILY 10/26/21 03/07/25 History (Jardiance) omega-3 fatty acids 1,000 mg 1,000 mg PO QID 08/14/22 03/07/25 History capsule lifitegrast 5 % eye drops in a 1 drp EACH EYE BID 02/19/23 03/07/25 History dropperette (Xiidra) rosuvastatin 40 mg tablet 40 mg PO QHS 02/19/23 03/07/25 History clonazepam 0.25 mg disintegrating 0.25 mg PO DAILY PRN Anxiety 03/23/23 02/28/25 History tablet paliperidone palm (6 month) 1,560 1,560 mg IM [id number] Schizophrenia 03/23/23 02/28/25 History mg/5 mL intramuscular syringe ([facility]) rivaroxaban 20 mg tablet (Xarelto) 20 mg PO DAILY 03/23/23 03/07/25 History zoledronic acid 5 mg/100 mL in 100 ea IV .yearly 08/24/24 02/28/25 Rx mannitol 5 %-water intravenous piggybck (Reclast) trihexyphenidyl 2 mg tablet 1 mg PO DAILY 09/15/24 03/07/25 History loratadine 10 mg tablet (Allergy 10 mg PO DAILY #90 tabs 11/05/24 03/07/25 Rx Relief (loratadine)) omeprazole 20 mg capsule,delayed 20 mg PO DAILY #90 caps 11/05/24 03/07/25 Rx release calcium 600 mg (as 1 tablet PO BID #180 tabs 12/07/24 03/07/25 Rx carbonate)-vitamin D3 20 mcg (800 unit) tablet fluticasone propionate 50 2 spray intranasal DAILY #16 grams 12/17/24 03/07/25 Rx mcg/actuation nasal spray,suspension (Flonase Allergy Relief) EQUATE HAIR REGROWTH TREATMENT topical BID 02/28/25 History clobetasol 0.05 % scalp solution 1 applic topical .2W 02/28/25 02/28/25 History clonazepam 0.5 mg tablet 0.25 mg PO HS 02/28/25 03/07/25 History ferrous sulfate 325 mg (65 mg 325 mg PO DAILY 02/28/25 03/07/25 History iron) tablet (FeroSul) magnesium oxide 400 mg PO BID 02/28/25 03/07/25 History pregabalin 25 mg capsule 25 mg PO Q12H 02/28/25 03/07/25 History ropinirole 3 mg tablet 3 mg PO HS 02/28/25 03/07/25 History zeaxanthin 6 mg PO DAILY 02/28/25 03/07/25 History Allergies Allergy/AdvReac Type Severity Reaction Status Date / Time amoxicillin Allergy Mild Rash Verified 03/07/25 08:52 Vital Signs Vital Signs - 24 hr 03/07/25 08:54 Temperature 97 F L Pulse Rate 65 Respiratory Rate 18 Blood Pressure 124/54 L Pulse Oximetry 100 Oxygen Delivery Room Air Exam Const: General: comfortable and no acute distress HENMT: Face/Nose/Sinus: Normal nares present Eyes: General: appearance normal, both eyes and all related structures Neck: Neck: no JVD Resp: Auscultation: clear to auscultation bilaterally Cardio: Rate: regular rate Rhythm: regular rhythm GI: Inspection: non-distended GI Palp: Yes Soft to palpation Skin: General skin exam: normal color Extrem: General: normal to inspection Psych: Mental Status: mental status grossly normal Assessment and Plan Assessment and plan (1) Polyp of colon: Code(s): K63.5 - Polyp of colon Status: Acute Assessment and Plan: colonoscopy
--- NOTE | 2025-03-07 09:59 | S_PTH ---
PATIENT: Cinthia Mccartney LOC: [facility]#:[id number] AGE/SX: 79/F ROOM: RE03/07/[address]: Edison Lopez MD : 1945 BED: DIS: 03/07/2025 SPEC #: [id number] RECD: 03/07/25 10:57 STATUS: MADISON RERahat #: [id number] ERIK: 03/07/25 09:[address]: Edison Lopez DEPT: [facility] Surgical RECD BY: Cynthia Saavedra ENTERED: 03/07/25 10:57 SP TYPE: Surgical OTHR DR: Jeff Camarillo MD Tissues: A - Colon Polypectomy Procedures: Hematoxylin and Eosin Stain Gross and Microscopic Level 4
[2025-03-07 10:05] VITALS: BP 116/70; PULSE 63; RESP 23; O2SAT 100
[2025-03-07 10:15] VITALS: BP 124/67; PULSE 65; RESP 18; O2SAT 100
[2025-03-07 10:25] VITALS: BP 140/59; PULSE 63; RESP 12; O2SAT 95
== END 2025-03-07 10:45 | disposition home or self-care (01) ==
PROVIDERS: PCP Family Medicine; Referring Provider Internal Medicine Gastroenterology; Visit Provider Internal Medicine Gastroenterology
PROC: 0DJD8ZZ Inspection of Lower Intestinal Tract, Via Natural or Artificial Opening Endoscopic (ICD-10-PCS; CPT 45378; principal; 2025-03-07 10:00)
DX: Z12.11 Encounter for screening for malignant neoplasm of colon (principal); D12.3 Benign neoplasm of transverse colon; K57.30 Diverticulosis of large intestine without perforation or abscess without bleeding; K64.8 Other hemorrhoids; K64.4 Residual hemorrhoidal skin tags
CPT/HCPCS: 45385; 88305; J2003; J2704; J7120

== ENCOUNTER 2025-03-21 09:27 | Outpatient (CLI) | payer MEDICARE, MEDICAID, SELFPAY ==
[2025-03-21 11:22] LABS: Hematocrit 45.8 % (37.0-47.0); Hemoglobin 14.7 g/dL (12.0-15.0); Immature Granulocyte Percent A 0.4 % (0-0.5); Lymphocytes Absolute Auto 0.80 K/mm3 (0.9-3.2); Mean Corpuscular HGB Conc 32.1 g/dl (32-36); Mean Corpuscular Hemoglobin 30.6 pg (26-34); Mean Corpuscular Volume 95.2 fl (80-100); Nucleated Red Blood Cells Absolute Auto 0.000 K/mm3 (0.0-0.012); Nucleated Red Blood Cells Perc 0.0 % (0.0-0.2); Platelet Count Result 179 k/mm3 (150-375); Red Blood Count 4.81 M/mm3 (4.2-5.4); White Blood Count 5.6 K/mm3 (4.5-10.0)
[2025-03-21 11:24] LABS: Alanine Aminotransferase 39 U/L (6-35); Albumin Level 4.4 g/dL (3.5-5.1); Alkaline Phosphatase 86 U/L (38-126); Anion Gap 3 mmol/L (4-12); Aspartate Amino Transferase 72 U/L (14-36); Bilirubin,Total 1.0 mg/dL (0.2-1.3); Blood Urea Nitrogen 19 mg/dL (7-17); Calcium 9.4 mg/dL (8.4-10.2); Carbon Dioxide 30 mmol/L (22-30); Chloride 107 mmol/L (98-107); Cholesterol 164 mg/dL (0-200); Estimated Glomerular Filt Rate > 60; Glucose 88 mg/dL (65-110); HDL Direct 79 mg/dL; Potassium 4.3 mmol/L (3.4-5.0); Sodium 140 mmol/L (137-145); Total Protein 8.0 g/dL (6.3-8.2); Triglycerides 64 mg/dL (<150)
[2025-03-21 11:59] LABS: Thyroid Stimulating Hormone Reflex 2.060 uIU/mL (0.465-4.68)
== END 2025-03-21 09:28 | disposition home or self-care (01) ==
PROVIDERS: PCP Nurse Practitioner Family; Visit Provider Nurse Practitioner Family
DX: E78.5 Hyperlipidemia, unspecified (principal); I10 Essential (primary) hypertension; E55.9 Vitamin D deficiency, unspecified
CPT/HCPCS: 36415; 80053; 80061; 82306; 84443; 85025

== ENCOUNTER 2025-03-23 10:21 | Outpatient (CLI) | payer MEDICARE, MEDICAID, SELFPAY ==
[2025-03-23 13:19] LABS: MALB Creatinine Ratio < 19.7 mg/g (0-30)
== END 2025-03-23 10:22 | disposition home or self-care (01) ==
PROVIDERS: PCP Family Medicine; Visit Provider Internal Medicine Cardiovascular Disease
DX: Z01.810 Encounter for preprocedural cardiovascular examination (principal); I34.0 Nonrheumatic mitral (valve) insufficiency; I10 Essential (primary) hypertension
CPT/HCPCS: 82043

== ENCOUNTER 2025-03-25 10:59 | Outpatient (CLI) | payer MEDICARE, MEDICAID, SELFPAY ==
--- OUTSIDE RECORDS SUMMARY | 2024-06-22 10:00 | XMS_ITS ---
Author Organization [facility] Address [address] [place] [address] Phone [phone] Care Team Providers Care Business Technology Analyst Name Role Phone Pradeep Maki Primary Care Provider Toya, Briana Unavailable [phone] REASON FOR VISIT r/s from 06/18; 4 week f/u Social History Sex Observation Social History Observation Description Sex Observation Female Sexual Orientation Social History Observation Description Sexual Orientation Straight or heterose xual Gender Identity Social History Observation Description Gender Identity Female Encounters Date Time Type Facility Location Provider Diagnosis 06/22/2024 10:00 AM Office Visit [place] [address] [place] [address] Pradeep Maki Plan Of Treatment Next Appt Details Provider Name:Brenda Velazco , 07/25/2025 03:00:00 PM, [address] [place], [address], Medical (General) History Medical History History ICD Code Schizophrenia, paranoid type Generalized anxiety disorder HTN Surgical History Surgery Date(Month/Year) repaired to ruptured navel 01/2020 cardiac cath Hospitalization History Reason Date(Month/Year) 2 Atrial fibrillation Chirag 09/2021 Progress Notes * Carroll MCCARTNEY: 7 (79 yo F)Acc No.[id number]:06/22/2024 UNLOCKED PROGRESS NOTE Patient: Cinthia VALERIO Provider: Vish Maki APN :1945 A ge:79 Y S ex:Female Date:06/22/2024 Address:[address] [place] [address], [address] Subjective: * Chief Complaints: * 1 . R/s from 06/18; 4 week f/u. * Screening: * * Medical History: Objective: * Vitals: Assessment: Plan: * Treatment: * * Electronic signature of Pradeep Maki on 03/25/2025 at 11:30 AM PRESS CLEANER Sign off status: Pending * Provider: Vish Maki APN Date: 0 06/22/2024 Generated for Isma jiménez/Josi/eTkimberlynsmitting on: 1 05/26/2024 11:30 AM PRESS CLEANER
--- OUTSIDE RECORDS SUMMARY | 2024-08-20 13:00 | XMS_ITS ---
Author Organization [facility] Address [address] [place] [address] Phone [phone] Care Team Providers Care Parts Back Counter Man Name Role Phone Pradeep Maki Primary Care Provider Toya, Briana Unavailable [phone] REASON FOR VISIT LM to R/S -[facility] 1 month psych follow up/med refill and INJECTION Social History Sex Observation Social History Observation Description Sex Observation Female Sexual Orientation Social History Observation Description Sexual Orientation Straight or heterose xual Gender Identity Social History Observation Description Gender Identity Female Encounters Date Time Type Facility Location Provider Diagnosis 08/20/2024 01:00 PM Office Visit [facility] [address] [place] [address] Pradeep Maki Plan Of Treatment Next Appt Details Provider Name:Brenda Velazco , 07/25/2025 03:00:00 PM, [address] [place], [place] [address] , [place], [address], Medical (General) History Medical History History ICD Code Schizophrenia, paranoid type Generalized anxiety disorder HTN Surgical History Surgery Date(Month/Year) 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 LM to R/S -[facility] 1 month psych follow up/med refill and INJECTION. * Screening: * * Medical History: Objective: * Vitals: Assessment: Plan: * Treatment: * * Electronic signature of Pradeep Maki on 03/25/2025 at 11:30 AM SIGN LANGUAGE TRANSLATOR Sign off status: Pending * Provider: Vish Maki APN Date: 0 08/20/2024 Generated for Isma jiménez/Josi/eTransmitting on: 1 05/26/2024 11:30 AM SIGN LANGUAGE TRANSLATOR
--- OUTSIDE RECORDS SUMMARY | 2025-03-25 04:17 | XMS_ITS | Continuity of Care Document ---
Author Organization [facility] Address [address] [place] [address] Phone Care Team Providers Care Transport Truck Driver Name Role Phone Gene RAMIRES, FACC, SWAPNIL, Jose G Unavailable U navailable Allergies, Adverse Reactions, Alerts Substance Reaction Status Criticality AMOXICILLIN TRIHYDRATE Active No In formation Medications Medication Instructions Dosage Effective Dates (start - stop) Status Comments Xiidra 5 % eye drops in a dropperette - Active clonazepam 0.5 mg tablet - A ctive fluticasone propionate 50 mcg/actuation nasal spray,suspension - Active ezetimibe 10 mg tablet - Act arturo Jardiance 10 mg tablet - Act arturo memantine 5 mg tablet - Acti ve omeprazole 20 mg capsule,delayed release - Active pregabalin 25 mg capsule - A ctive ropinirole 3 mg tablet - Act arturo trihexyphenidyl 2 mg tablet - Active Xarelto 20 mg tablet - Activ e FeroSul 325 (65 Fe)MG TABS TAKE 1 TABLET BY MOUTH DAILY - Active Invega Hafyera 1,560 mg/5 mL intramuscular syringe - Active Rosuvastatin Calcium 40MG TABS TAKE 1 TABLET BY MOUTH DAILY - Active clobetasol 0.05 % scalp solution - Active alendronate 70 mg tablet - A ctive Procedures Procedure Date Complex e/m visit add on OFFICE/OUTPATIENT VISIT, EST REM PHYSIOL MNTR EA ADDL 20 REM MNTR PHYSIOL ELIEZER DEV REM PHYSIOL MNTR 20 MIN MO NTRPROF PH1/NTRNET/EHR 5/> REM MNTR PHYSIOL ELIEZER DEV REM PHYSIOL MNTR 20 MIN MO REM MNTR PHYSIOL ELIEZER DEV REM PHYSIOL MNTR 20 MIN MO REMOTE 30 DAY ECG TECH SUPP REMOTE 30 DAY ECG REV/REPORT TTE W/DOPPLER, COMPLETE REM MNTR PHYSIOL ELIEZER DEV REM PHYSIOL MNTR 20 MIN MO REM PHYSIOL MNTR EA ADDL 20 REM MNTR PHYSIOL ELIEZER DEV REM PHYSIOL MNTR 20 MIN MO Advance Directives Directive Yes / No Effective Date File Name No Information Encounters Encounter Description Practice Location Reason(s) For Visit Diagnoses Date Provider Providers Copied on Encounter [facility], [address] [place] [address], [id number], tel:[phone] [facility] No Information 5 Gene Araiza. [address] [place] [address] [id number] , [place]. tel: [phone] OFFICE/OUTPAT IENT VISIT, EST [facility] , [address] [place] [address], [id number], tel:[phone] [facility] [place] follow up (chief complaint) Nonrheumatic mitral valve insufficiency 5 Gene Araiza. [address] [place], [place] [address], [id number] , . tel: [phone] Referring Provider: Jose G Mills, [facility], [place], [address] . tel:[phone] REM PHYSIOL MNTR EA ADDL 20 [facility], [address] [place] [address], [id number], tel:[phone] [facility] [place] Essential (primary) hypertension Dec 5 Gene Araiza. [address] [place] [address], [id number] , . tel: [phone] Referring Provider: Jose G Mills, [address] [place] [address], [place], [address] . tel:[phone] sulting Provider: Jose G Mills, [address] [place] [address], [place], [address] . tel:[phone] NTRPROF PH1/NTRNET/EH R 5/> [facility], [address] [place] [address], [id number], tel:[phone] [facility] Encounter for preprocedural cardiovascular examination 5 Gene Araiza. [address] [place] [address], [id number] , . tel: [phone] Referring Provider: Jose G Mills, [address] [place] [address], [id number] . tel:[phone] REM MNTR PHYSIOL ELIEZER DEV [facility], [address] [place] [address], [id number], tel:[phone] [facility] [place] Essential (primary) hypertension 5 Gene Araiza. [address] [place] [address], [id number] , . tel:[phone] Referring Provider: Jose G Mills, [address] [place] [address], [address] . tel:[phone] sulting Provider: Jose G Mills, [address] [place] [address], [place], [address] . tel:[phone] [facility], [address] [place] [address], [id number], tel:[phone] [facility] No Information Oct-2 7- 5 Serota Jose G. [address] [place] [address], [id number] , . tel: [phone] REM MNTR PHYSIOL ELIEZER DEV [facility], [address] [place] [address], [id number], tel:[phone] [facility] [place] Essential (primary) hypertension Oct-0 8-202 5 Ser[place] Jose G. [address] [place] [address], [id number] , . tel: [phone] Referring Provider: Jose G Mills, [address] [place] [address], [place], [address] . tel: [phone] sulting Provider: Jose G Mills, [address] [place] [address], [place], [address] . tel:[phone] [facility], [address] [place] [address], [id number], tel:[phone] [facility] No Information Oct-0 1- 5 Serota Jose G. [address] [place] [address], [id number] , . tel: [phone] [facility], [address] [place] [address], [id number], tel:[phone] [facility] [place] No Information Sep-1 0-202 5 Serota Jose G. [address] [place] [address], [id number] , . tel: [phone] Referring Provider: Jose G Mills, [address] [place] [address], [id number] . tel:[phone] [facility], [address] [place] [address], [id number], tel:[phone] [facility] [place] Essential (primary) hypertension Sep-1 0-202 5 Serota Jose G. [address] [place] [address], [id number] , . tel: [phone] Referring Provider: Jose G Mills, [address] [place] [address], [place], [address] . tel:[phone] REM MNTR PHYSIOL ELIEZER DEV [facility] , [address] [place] [address], [id number], tel:[phone] [facility] [place] Essential (primary) hypertension Sep-0 5 Gene Araiza. [address] [place] [address], [id number] , . tel: [phone] Referring Provider: Jose G Mills, [address] [place] [address], [address] . [phone] sulting Provider: Jose G Mills, [address] [place] [address], [place], [address] . tel:[phone] REM PHYSIOL MNTR EA ADDL 20 [facility] , [address] [place] [address], [id number], tel:[phone] [facility] [place] Essential (primary) hypertension Nov-0 5 Gene Araiza. [address] [place] [address], [id number] , . tel: [phone] Referring Provider: Jose G Mills, [address] [place] [address], [address] . [phone] sulting Provider: Jose G Mlils, [address] [place] [address], [address] . tel:[phone] Family History Family Member Type Diagnosis Age At Onset No Information Payers Payer name Insurance type Covered green party ID Authoriza tiartemio(s) [facility] [id number] O C [id number] [facility] [id number] Social History Type Description Quantity Date Captured Comments Alcohol Use Details Unknown Caffeine Use Details Unknown Tobacco Use Status No Information Smoking Status No Information Sex Female Chief Complaint And Reason For Visit No Information Reason For Referral Reason For Referral No Information Plan Of Treatment Date Type Action Status Appointment Keesha Mccartney BOOK ED Appointment RESEARCH - Cinthia Mccartney OOKED Appointment Cinthia Mccartney BOOKED Appointment Cnithia Mccartney BOOKED Appointment Cinthia Mccartney BOOKED Future Order: Lab Order proBNP ( [id number]), Ordered on: Ordered Future Order: Lab Order Microalb /Creat Ratio, Randm Ur ([id number]), Ordered on: Ordered Future Order: Lab Order proBNP ( [id number]), Ordered on: Ordered Future Order: Radiology Order Ec ho. ([id number]), Ordered on: Ordered Future Order: Radiology Order 24 -48 Hour Holters ([id number]), Ordered on: Ordered History Of Present Illness Encounter Date Complaint History Of Prese nt Illness follow up Functional Status Date Functional Assessmen t No Information Instructions Date Instruction Additional Infor mation No Information Assessments Type Assessment Date No Information Patient Care Teams Name Effective Dates (start - stop) Status Members No Information
--- OUTSIDE RECORDS SUMMARY | 2025-03-25 11:30 | XMS_ITS ---
Author Organization [facility] Address [address] [place] [address] Phone Care Team Providers Care Pattern Cutter Name Role Phone Jeff Camarillo MD Primary Care Provider Lynn Arora NP Unavailable [phone] Ismael Matson MD Unavailable [phone] Active Problems Problem Noted Date Diagnosed Date Atrial fibrillation and flutter 05/29/2023 SVT (supraventricular tachycardia) 04/25/2023 Malignant neoplasm of centra l portion of left breast in female, estrogen receptor positive 09/18/2017 Current Treatment and Therapy Plans No current plan information found. Past Treatment and Therapy Plans No past plan information found. Lifetime Dose Tracking * Chemical Lifetime Dose Automatic Entry Manual Entr y Fluoro Time 5.5 minutes 0 minutes 5.5 minutes Air kerma at the reference point (Ka,r) 97 mGy 0 mGy 97 mGy
--- OUTSIDE RECORDS SUMMARY | 2025-03-25 11:30 | XMS_ITS | Clinical Summary ---
Author Organization [facility] Address [address] [place] [address] Phone Care Team Providers Care Aquatic Facility Manager Name Role Phone Jeff Camarillo MD Primary Care Provider Lynn Arora NP Unavailable [phone] Ismael Matson MD Unavailable [phone] Allergies Active Allergy Reactions Criticality Noted Date [...] drink = 0.6 oz pur e alcohol) [facility] Utilities Answer Date Recorded In the past 12 months has vogogo, gas, oil, or water [employer] threatened to shut off services in your [...] any clubs o r organizations such as jehovah's witness groups, unions, fraternal or athletic groups, or [...] place to sleep or slept in a custodial (including now)? No 05/29/2023 Personal Safety Answer Date Recorded Have you ever been in or are you currently in a harmful physical or emotional relationship or is someone making you feel afraid or unsafe? Denies 05/29/2023 Comments Unknown Sex and Gender Information Value Date Recorded Sex Assigned at Not on file Legal Sex Female 8:35 AM DENTAL MOLD MAKER Gender Identity Not on file Sexual Orientation Not on file Last Filed Vital Signs Vital Sign Reading Time Taken Comments Blood Pressure 149/53 05/30/2023 12:32 PM DENTAL MOLD MAKER Pulse 62 05/30/2023 12:32 PM DENTAL MOLD MAKER Temperature 37 C (98.6 F) 05/30/2023 12:32 PM DENTAL MOLD MAKER Respiratory Rate 18 05/30/2023 12:32 PM DENTAL MOLD MAKER Oxygen Saturation 98% 05/30/2023 12:32 PM DENTAL MOLD MAKER Inhaled Oxygen Concentration - - Weight 52.8 kg (116 lb 8 oz) 05/29/2023 6:45 AM DENTAL MOLD MAKER Height 152.4 cm (5') 05/29/2023 6:45 AM DENTAL MOLD MAKER Body Mass Index 22.75 05/29/2023 6:45 AM DENTAL MOLD MAKER Plan of Treatment Health Maintenance Due Date [...] 11/19/2027 Zoster Vaccine Completed 01/20/2018, 11/18/2017 Insurance [facility] MEDICARE ADVANTAGE [employer] [facility] MEDICARE ADVANTAGE Care Teams Aquatic Facility Manager Relationship Specialty Start Date End Date Jeff Camarillo MD PCP - General Family Practice 09/20/20 Lynn Arora, [facility] [address] Nurse Practitioner Medical Oncology 09/19/22 Ismael Matson MD [address] [place] [address] Consulting Physician Cardiology 05/30/23
--- OUTSIDE RECORDS SUMMARY | 2025-03-25 11:30 | XMS_ITS | Clinical Summary ---
Author Organization [facility] Address [facility] [place] [address] Care Team Providers Care Boat Worker Name Role Phone Sg Steven MD Primary Care Provider [phone] Allergies Active Allergy Reactions Criticality Noted Date [...] positive 09/18/2017 CPAP (continuous positive airway pressure) depmansi cadena 12/24/2016 Obstructive sleep apnea 12/24/2016 Encounters Date Type Department Care Team Description 03/18/2025 10:00 AM CONTROL AND RECOVERY COMBAT RESCUE Office Visit [facility] Multispecialty Care - [address], [address] [place] [address] Redd Lamas MD Obstructive Sleep Apnea (On cpap; no complaints ) 03/18/2025 Travel 03/17/2025 Scan HEALTH INFO SRVCS Scanned, Doc Med Group Sleep Study (SCAN) from Last 3 Months Immunizations Immunization Administration Dates Next Due Flucelvax 6 Months+ (Prefill ed Syringe) 01/12/2019 Fluzone High Dose - >Age 65 (Prefilled Syringe) 12/03/2017,01/28/2017,12/19/2015,2014 Influenza (Generic) 03/09/2018,01/05/2017 Influenza Adult (Generic) 04/13/2019,06/2017,12/04/2017,2013 Pneumococcal (Generic) 01/05/2017 Pneumococcal (Pneumovax 23) 03/09/2018,1 ,04/07/2016,2014 Pneumococcal (Prevnar 13) 02/28/2015 Shingrix 01/19/2018,11/17/2017 Tdap (Generic) 11/17/2017,12/31/2012 Zoster (Zostavax) 72588 Unt/0.65Ml 04/02/2015 Family History Medical History Relation [...] Sign Reading Time Taken Comments Blood Pressure 159/77 03/18/2025 9:32 AM CONTROL AND RECOVERY COMBAT RESCUE Pulse 64 03/18/2025 9:32 AM CONTROL AND RECOVERY COMBAT RESCUE Temperature 36.1 C (97 F) 03/17/2024 8:52 AM CONTROL AND RECOVERY COMBAT RESCUE Respiratory Rate 16 03/18/2025 9:32 AM CONTROL AND RECOVERY COMBAT RESCUE Oxygen Saturation 99% 03/18/2025 9:32 AM CONTROL AND RECOVERY COMBAT RESCUE Inhaled Oxygen Concentration - - Weight 64 kg (141 lb) 03/18/2025 9:24 AM CONTROL AND RECOVERY COMBAT RESCUE Height 152.4 cm (5') 03/18/2025 9:24 AM CONTROL AND RECOVERY COMBAT RESCUE Body Mass Index 27.54 03/18/2025 9:24 AM CONTROL AND RECOVERY COMBAT RESCUE Plan of Treatment Upcoming Encounters Date Type Department Care Team (Late st Contact Info) Description 03/24/2026 9:20 AM CONTROL AND RECOVERY COMBAT RESCUE Office Visit [facility] Multispecialty Care - [address] [place] [id number] Redd Lamas MD 3 [facility] [address] [place] [address] Health Maintenance Due Date Last Done Comments Hepatitis C 1963 Annual Medicare Wellness Visit 06/21/2011 Dexa Scan (General) 06/21/2011 RSV Immunization or 60+ Years (1 - 1-dose 75+ series) 2021 PHQ-2 (Physician [place]) 04/07/2024 COVID-19 Vaccine ( - 2024- season) 2024 05/02/2021, 07/27/2020, 06/29/2020 Influenza Adult (#1) 2025 01/25/2021, 01/13/2020, 04/13/2019, Additional history exists DTaP, Tdap and Td Vaccines (3 - Td or Tdap) 11/18/2027 11/17/2017, 12/31/2012 Zoster Vaccines Completed 01/19/2018, 01/05, 11/17/2017, Additional history exists Pneumococcal Vaccine: 50+ Years Completed 03/09/2018, 11/18/2017, 01/28/2017, Additional history exists Hepatitis A Vaccines Aged [...] on patient's age to complete this topic Procedures Procedure Name Priority Date/Time Associated Diagnosis Comments SLEEP STUDY GENERIC (SCAN ORDER) 03/17/2025 from Last 3 Months Results * SLEEP STUDY GENERIC (SCAN ORDER) (03/17/2025) 03/17/2025 us Doc Med Group Scanned SCANNING Final Resu lt from Last 3 Months Insurance MEDICAID [facility] MEDICARE Care Teams Boat Worker Relationship Specialty Start Date End Date Sg Steven MD [address] [place] [address] PCP - General FAMILY PRACTICE 01/15/18
--- OUTSIDE RECORDS SUMMARY | 2025-03-25 11:31 | XMS_ITS | Encounter Summary ---
Author Organization [facility] Address [address] [place] [address] Care Team Providers Care Furniture Arranger Name Role Phone Sg Steven MD Primary Care Provider [phone] Reason for Visit * Reason Comments Sleep Study (SCAN) Encounter Details Date Type Department Care Team (Late Contact Info) Description 03/17/2025 Scan HEALTH INFO SRVCS Scanned, Doc Med Group Sleep Study (SCAN) Social History Tobacco Use Types Packs/Day Years [...] on file Sexual Orientation Not on file documented as of this encounter Plan of Treatment Upcoming Encounters Date Type Department Care Team ([facility] Contact Info) Description 03/24/2026 9:20 AM MIDWIFE Office Visit [facility] Medical [facility] Multispecialty Care - [address] [place] [address] Redd Lamas MD 3 [facility] [address] [place] [id number] documented as of this encounter Procedures Procedure Name Priority Date/Time Associated Diagnosis Comments SLEEP STUDY GENERIC (SCAN ORDER) 03/17/2025 documented in this encounter Results * SLEEP STUDY GENERIC (SCAN ORDER) (03/17/2025) 03/17/2025 us Doc Med Group Scanned SCANNING Final Resu lt documented in this encounter Visit Diagnoses Not on filedocumented in this encounter Additional Health Concerns Assessment Noted Time PHQ-9 Depression Total Score: 0 06/04/19 22 11:02 AM MIDWIFE documented as of this encounter Care Teams Furniture Arranger Relationship Specialty Start Date End Date Sg Steven MD [address] [place] [address] PCP - General FAMILY PRACTICE 01/15/18 documented as of this encounter
--- OUTSIDE RECORDS SUMMARY | 2025-03-25 11:31 | XMS_ITS | Patient Health Record ---
Author Organization Counts include 234 beds at the [facility] Address [address] [place] [address] Phone [phone] Care Team Providers Care Baseball Scout Name Role Phone Maki, Pradeep Primary Care Provider [phone] Briana Pittman Unavailable [phone] Brenda Velazco Unavailable [phone] Allergies Allergen (clinical drug ingredient) Drug/Non Drug Allergy documented on EMR Reaction Allergy Type Onset Date Status amoxicillin Amoxicillin rash Drug Allergy Act arturo Reason For Referral No Information Medications Medication SIG (Take, Route, Frequency, Duration) Notes Start Date End Date Diagnosis (ICD Code) Status Rosuvastatin Calcium 40 MG Tablet 1 tablet Orally Once a day Active Ezetimibe 10 MG Tablet 1 tablet Orally Once a day Active Rivaroxaban 20 MG Tablet 1 tablet with food Orally Once a day Active Omeprazole 20 MG Capsule Delayed Release 1 capsule 1/2 to 1 hour before morning meal Orally Once a day Active Alendronate Sodium 70 MG Tablet 1 tablet Orally 1x per week Not-Taking Hollins 3 1000 MG Capsule 1 capsule Orally once daily Active Pregabalin 50 MG Capsule 1 capsule Orally 3 times a day; Duration: 30 days 5 Generalized anxiety disorder (ICD_10 - F41.1) Active Trihexyphenidyl HCl 2 MG Tablet 0.5 tablet Orally once daily in the morning; Duration: 30 days Tardive dyskinesia (ICD_10 - G24.01) Active clonazePAM 0.5 mg Tablet TAKE 1/2 TABLET BY MOUTH AT BEDTIME; Duration: 30 5 Generalized anxiety disorder (ICD_10 - F41.1) Active Memantine HCl 5 MG Tablet 1 tablet Orally Once a day; Duration: 30 days Memory impairment (ICD_10 - R41.3) Active Xiidra 5 % Solution 1 drop into affected eye Ophthalmic Twice a day Active Invega Hafyera 1560 MG/5ML Suspension Prefilled Syringe as directed Intramuscular every 6 months; Duration: 180 days Schizophrenia, paranoid type (ICD_10 - F20.0) Active Calcium Carbonate-Vitamin D 600-10 MG-MCG Tablet 1 tablet Orally Twice a day Active Memantine HCl 5 MG Tablet 1 tablet Orally Once a day; Duration: 30 days Memory impairment (ICD_10 - R41.3) Active Magnesium Oxide 400 MG Tablet 1 tablet as needed Orally Once a day Active Empagliflozin 10 MG Tablet 1 tablet Orally Once a day Active rOPINIRole HCl 3 MG Tablet 1 tablet Orally once daily at bedtime; Duration: 30 days Tardive dyskinesia (ICD_10 - G24.01) Active Immunizations Status Vaccine Route Administration Date Visit Date Comments Administered FLU VAC NO PRSV 4VAL 6 mo+ IM Intramuscular 01/25/2021 Patient tolerated well. COVID-19 Moderna 2nd IM Intramuscular 07/27/2020 COVID-19 Moderna 1ST IM Intramuscular 06/29/2020 EUA date 03/2020. Screening reviewed and consent signed. Patient tolerated well. Social History Tobacco Use: Social History Observation Description Date Details (start date - stop date) Never Smoker NA - NA Sex Observation Social History Observation Description Sex Observation Female Sexual Orientation Social History Observation Description Sexual Orientation Straight or heterose xual Gender Identity Social History Observation Description Gender Identity Female Social History Miscellaneous Social Info Question Answer Notes Method of learning: Preferred method of learning: Hearing Primary Social History Social Info Question Answer Notes Living Arrangement Living Arrangement: Independent Rosa ing Single Question Alcohol Screening How many times in the past year have you had (4 for women, or 5 for men) or more drinks in a day? 0 Employment Status Employment Status: Unemployed [employer] Illicit Substance Usage Illicit Substanc e Usage: No Alcohol Use Alcohol Use Frequency: Never Tobacco Use: Social Info Question Answer Notes Tobacco Control (Standard) Tobacco use: Nonsmoker Additional Details Category Social Info Options Details Past Medication Use Do you use nicotine other than cigarettes? no Primary Social History Leisure: churc h activities, working out Section Notes: [place] Problems Problem Type SNOMED Code ICD Code Dates Problem Status W/U Status Risk Notes Problem Tobacco user (248920736) Nicotine dependence, unspecified, uncomplicated (F17.200) Added On:01/15 Active confirmed Problem Generalized anxiety disorder (03037131) Generalized anxiety disorder (F41.1) Added On:10/17 Active confirmed Problem Restless legs syndrome (47491498) Restless leg syndrome (G25.81) Added On:07/21 Active confirmed Problem Paranoid schizophrenia (27615422) Schizophrenia, paranoid type (F20.0) Added On:10/26 Active confirmed Problem Memory impairment (686128964) Memory impairment (R41.3) Added On:02/19 Active confirmed Problem Tardive dyskinesia (782975710) Tardive dyskinesia (G24.01) Added On:01/15 Active confirmed Vital Signs Vital Sign Value Notes Appt Date Heart Rate 78 /min 01/24/2025 Temperature 98 degrees Fahrenheit 2024 Respiratory Rate 16 /min 01/24/2025 Blood pressure diastolic 74 mm Hg Oximetry 98 % 01/24/2025 Height 65 in in 01/24/2025 Blood pressure systolic 124 mm Hg 01/06 Weight 143lb 4oz lbs 01/24/2025 BMI 23.84 kg/m2 01/24/2025 Encounters Date Time Type Facility Location Provider Diagnosis 01:00 PM [facility] ([id number]) [address] [place] [address] Pradeep Maki Generalized anxiety disorder F41.1 ; Schizophrenia, paranoid type F20.0 ; Tardive dyskinesia G24.01 ; Memory impairment R41.3 and Nutritional counseling Z71.3 5 02:00 PM Office Visit, Est Pt., Level 4 ([id number]) [address] [place] [address] Pradeep Maki Generalized anxiety disorder F41.1 ; Schizophrenia, paranoid type F20.0 ; Tardive dyskinesia G24.01 ; Memory impairment R41.3 and Nutritional counseling Z71.3 5 10:00 AM PHONE E/M BY PHYS 11-20 MIN ([id number]) [address] [address] Pradeep Maki Generalized anxiety disorder F41.1 ; Schizophrenia, paranoid type F20.0 ; Tardive dyskinesia G24.01 ; Memory impairment R41.3 and Nutritional counseling Z71.3 5 02:00 PM PHONE E/M BY PHYS 11-20 MIN ([id number]) [address] [address] Pradeep Maki Generalized anxiety disorder F41.1 ; Schizophrenia, paranoid type F20.0 ; Tardive dyskinesia G24.01 ; Memory impairment R41.3 ; Restless leg syndrome G25.81 and Nutritional counseling Z71.3 5 01:20 PM Office Visit, Est Pt., Level 4 ([id number]) [address] [address] Pradeep Maki Generalized anxiety disorder F41.1 ; Schizophrenia, paranoid type F20.0 ; Tardive dyskinesia G24.01 ; Memory impairment R41.3 ; Restless leg syndrome G25.81 and Nutritional counseling Z71.3 5 09:00 AM PHONE E/M BY PHYS 11-20 MIN ([id number]) [address] [address] Pradeep Maki Generalized anxiety disorder F41.1 ; Schizophrenia, paranoid type F20.0 ; Tardive dyskinesia G24.01 ; Memory impairment R41.3 ; Restless leg syndrome G25.81 and Nutritional counseling Z71.3 5 02:40 PM Office Visit, Est Pt., Level 4 ([id number]) [address] [address] Brenda Velazco Generalized anxiety disorder F41.1 ; Schizophrenia, paranoid type F20.0 ; Tardive dyskinesia G24.01 ; Memory impairment R41.3 ; Restless leg syndrome G25.81 and Nutritional counseling Z71.3 5 01:40 PM Telehealth Office Visit, Est Pt., Level 4 ([id number]) [address] [address] Brenda Velazco Generalized anxiety disorder F41.1 ; Schizophrenia, paranoid type F20.0 ; Tardive dyskinesia G24.01 ; Memory impairment R41.3 and Restless leg syndrome G25.81 5 11:00 AM Office Visit, Est Pt., Level 4 ([id number]) [address] [address] Brenda Velazco Schizophrenia, paranoid type F20.0 ; Tardive dyskinesia G24.01 ; Generalized anxiety disorder F41.1 ; Memory impairment R41.3 and Restless leg syndrome G25.81 5 03:00 PM Office Visit, Est Pt., Level 3 ([id number]) [address] [place] [address] Brenda Velazco Generalized anxiety disorder F41.1 ; Schizophrenia, paranoid type F20.0 ; Tardive dyskinesia G24.01 ; Memory impairment R41.3 and Restless leg syndrome G25.81 5 08:35 AM Telephone Encounter [address] [address] Pradeep Maki Tardive dyskinesia G24.01 5 09:15 AM Telephone Encounter [address] [address] Brenda Velazco 5 10:45 AM Telephone Encounter [address] [address] Brenda Velazco Generalized anxiety disorder F41.1 Assessments Encounter Date Diagnosis (ICD Code) Assessment Notes Treatment Notes Section Notes 04/16/2024 Generalized anxiety disorder (ICD-10 - F41.1) Duration (acute/chronic), stability (controlled/uncontroll ed): Chronic, well controlled on current therapy Current [...] techniques, such as guided imagery, journaling, aromatherapy, acupuncture/acupressur e, deep breathing, etc. Practice healthy sleep hygiene [...] to the emergency department, or contact the [facility] Crisis Unit/Team. Follow up as scheduled in 4 weeks or sooner if necessary. Follow up with PCP and/or other specialists as advised. NEXT STEP: Consider medication adjustments as needed. 05/21/2024 Generalized anxiety disorder (ICD-10 - F41.1) Duration (acute/chronic), stability (controlled/uncontroll ed): Chronic, well controlled on current therapy Current [...] techniques, such as guided imagery, journaling, aromatherapy, acupuncture/acupressur e, deep breathing, etc. Practice healthy sleep hygiene [...] to the emergency department, or contact the [facility] Crisis Unit/Team. Follow up as scheduled in 4 weeks or sooner if necessary. Follow up with PCP and/or other specialists as advised. NEXT STEP: Consider medication adjustments as needed. 06/01/2024 Tardive dyskinesia (ICD-10 - G24.01) 06/24/2024 Generalized anxiety disorder (ICD-10 - F41.1) Duration (acute/chronic), stability (controlled/uncontroll ed): Chronic, well controlled on current therapy Current [...] techniques, such as guided imagery, journaling, aromatherapy, acupuncture/acupressur e, deep breathing, etc. Practice healthy sleep hygiene [...] mental health CRISIS, please reach out to [phone] (National Suicide and Crisis Lifeline), 911, go to the emergency department, or contact the [facility] Crisis Unit/Team. Follow up as scheduled in 4 weeks or sooner if necessary. Follow up with PCP and/or other specialists as advised. NEXT STEP: Consider medication adjustments as needed. 07/21/2024 Generalized anxiety disorder (ICD-10 - F41.1) Duration (acute/chronic), stability (controlled/uncontroll ed): Chronic, well controlled on current therapy Current [...] techniques, such as guided imagery, journaling, aromatherapy, acupuncture/acupressur e, deep breathing, etc. Practice healthy sleep hygiene [...] to the emergency department, or contact the [facility] Crisis Unit/Team. Follow up as scheduled in 4 weeks or sooner if necessary. Follow up with PCP and/or other specialists as advised. NEXT STEP: Consider medication adjustments as needed. 08/13/2024 Generalized anxiety disorder (ICD-10 - F41.1) Duration (acute/chronic), stability (controlled/uncontroll ed): Chronic, well controlled on current therapy Current [...] techniques, such as guided imagery, journaling, aromatherapy, acupuncture/acupressur e, deep breathing, etc. Practice healthy sleep hygiene [...] to the emergency department, or contact the [facility] Crisis Unit/Team. Follow up as scheduled in 4 weeks or sooner if necessary. Follow up with PCP and/or other specialists as advised. NEXT STEP: Consider medication adjustments as needed. 09/09/2024 Generalized anxiety disorder (ICD-10 - F41.1) Duration (acute/chronic), stability (controlled/uncontroll ed): Chronic, well controlled on current therapy Current [...] techniques, such as guided imagery, journaling, aromatherapy, acupuncture/acupressur e, deep breathing, etc. Practice healthy sleep hygiene [...] to the emergency department, or contact the [facility] Crisis Unit/Team. Follow up as scheduled in 4 weeks or sooner if necessary. Follow up with PCP and/or other specialists as advised. NEXT STEP: Consider medication adjustments as needed. 10/04/2024 Generalized anxiety disorder (ICD-10 - F41.1) Duration (acute/chronic), stability (controlled/uncontroll ed): Chronic, well controlled on current therapy Current [...] techniques, such as guided imagery, journaling, aromatherapy, acupuncture/acupressur e, deep breathing, etc. Practice healthy sleep hygiene [...] health CRISIS, please reach out to [phone] ([employer] Suicide and Crisis Lifeline), 911, go to the emergency department, or contact the [facility] Crisis Unit/Team. Follow up as scheduled in 4 weeks or sooner if necessary. Follow up with PCP and/or other specialists as advised. NEXT STEP: Consider medication adjustments as needed. 11/03/2024 Generalized anxiety disorder (ICD-10 - F41.1) Duration (acute/chronic), stability (controlled/uncontroll ed): Chronic, well controlled on current therapy Current [...] techniques, such as guided imagery, journaling, aromatherapy, acupuncture/acupressur e, deep breathing, etc. Practice healthy sleep hygiene [...] to the emergency department, or contact the [facility] Crisis Unit/Team. Follow up as scheduled in 4 weeks or sooner if necessary. Follow up with PCP and/or other specialists as advised. NEXT STEP: Consider medication adjustments as needed. 11/29/2024 Schizophrenia, paranoid type (ICD-10 - F20.0) Duration (acute/chronic), stability (controlled/uncontroll ed): Chronic, well controlled on current therapy Current [...] techniques, such as guided imagery, journaling, aromatherapy, acupuncture/acupressur e, deep breathing, etc. Practice healthy sleep hygiene [...] mental health CRISIS, please reach out to [phone] ([place] Suicide and Crisis Lifeline), 911, go to the emergency department, or contact the [facility] Crisis Unit/Team. Follow up as scheduled in 4 weeks or sooner if necessary. Follow up with PCP and/or other specialists as advised. NEXT STEP: Consider medication adjustments as needed. Next Invega Hafyera injection due approximately 02/2025. 11/29/2024 Tardive dyskinesia (ICD-10 - G24.01) See assessment and plan for schizophrenia 11/30/2024 Generalized anxiety disorder (ICD-10 - F41.1) 01/24/2025 Generalized anxiety disorder (ICD-10 - F41.1) 11/29/2024 Generalized anxiety disorder (ICD-10 - F41.1) Duration (acute/chronic), stability (controlled/uncontroll ed): Chronic, well controlled on current therapy Current [...] techniques, such as guided imagery, journaling, aromatherapy, acupuncture/acupressur e, deep breathing, etc. Practice healthy sleep hygiene [...] to the emergency department, or contact the [facility] Crisis Unit/Team. Follow up as scheduled in 4 weeks or sooner if necessary. Follow up with PCP and/or other specialists as advised. NEXT STEP: Consider medication adjustments as needed. 11/03/2024 Schizophrenia, paranoid type (ICD-10 - F20.0) Duration (acute/chronic), stability (controlled/uncontroll ed): Chronic, well controlled on current therapy Current [...] techniques, such as guided imagery, journaling, aromatherapy, acupuncture/acupressur e, deep breathing, etc. Practice healthy sleep hygiene [...] to the emergency department, or contact the [facility] Crisis Unit/Team. Follow up as scheduled in 4 weeks or sooner if necessary. Follow up with PCP and/or other specialists as advised. NEXT STEP: Consider medication adjustments as needed. Next Invega Lidiaa injection due approximately 02/2025. 10/04/2024 Schizophrenia, paranoid type (ICD-10 - F20.0) Duration (acute/chronic), stability (controlled/uncontroll ed): Chronic, well controlled on current therapy Current [...] techniques, such as guided imagery, journaling, aromatherapy, acupuncture/acupressur e, deep breathing, etc. Practice healthy sleep hygiene [...] to the emergency department, or contact the [facility] Crisis Unit/Team. Follow up as scheduled in 4 weeks or sooner if necessary. Follow up with PCP and/or other specialists as advised. NEXT STEP: Consider medication adjustments as needed. Next Invega Selvin injection due approximately 02/2025. 09/09/2024 Schizophrenia, paranoid type (ICD-10 - F20.0) Duration (acute/chronic), stability (controlled/uncontroll ed): Chronic, well controlled on current therapy Current [...] techniques, such as guided imagery, journaling, aromatherapy, acupuncture/acupressur e, deep breathing, etc. Practice healthy sleep hygiene [...] mental health CRISIS, please reach out to [phone] ([place] Suicide and Crisis Lifeline), 911, go to the emergency department, or contact the [facility] Crisis Unit/Team. Follow up as scheduled in 4 weeks or sooner if necessary. Follow up with PCP and/or other specialists as advised. NEXT STEP: Consider medication adjustments as needed. Next Invega Hafyera injection due approximately 02/2025. 07/21/2024 Tardive dyskinesia (ICD-10 - G24.01) See assessment and plan for schizophrenia 08/13/2024 Schizophrenia, paranoid type (ICD-10 - F20.0) Duration (acute/chronic), stability (controlled/uncontroll ed): Chronic, well controlled on current therapy Current [...] techniques, such as guided imagery, journaling, aromatherapy, acupuncture/acupressur e, deep breathing, etc. Practice healthy sleep hygiene [...] to the emergency department, or contact the [facility] Crisis Unit/Team. Follow up as scheduled in 4 weeks or sooner if necessary. Follow up with PCP and/or other specialists as advised. NEXT STEP: Consider medication adjustments as needed. Next Invega Hafyera injection due approximately 02/2025. 07/21/2024 Schizophrenia, paranoid type (ICD-10 - F20.0) Duration (acute/chronic), stability (controlled/uncontroll ed): Chronic, well controlled on current therapy Current [...] techniques, such as guided imagery, journaling, aromatherapy, acupuncture/acupressur e, deep breathing, etc. Practice healthy sleep hygiene [...] to the emergency department, or contact the [facility] Crisis Unit/Team. Follow up as scheduled in 4 weeks or sooner if necessary. Follow up with PCP and/or other specialists as advised. NEXT STEP: Consider medication adjustments as needed. 06/24/2024 Schizophrenia, paranoid type (ICD-10 - F20.0) Duration (acute/chronic), stability (controlled/uncontroll ed): Chronic, well controlled on current therapy Current [...] techniques, such as guided imagery, journaling, aromatherapy, acupuncture/acupressur e, deep breathing, etc. Practice healthy sleep hygiene [...] to the emergency department, or contact the [facility] Crisis Unit/Team. Follow up as scheduled in 4 weeks or sooner if necessary. Follow up with PCP and/or other specialists as advised. NEXT STEP: Consider medication adjustments as needed. 05/21/2024 Schizophrenia, paranoid type (ICD-10 - F20.0) Duration (acute/chronic), stability (controlled/uncontroll ed): Chronic, well controlled on current therapy Current [...] techniques, such as guided imagery, journaling, aromatherapy, acupuncture/acupressur e, deep breathing, etc. Practice healthy sleep hygiene [...] mental health CRISIS, please reach out to [phone] ([place] Suicide and Crisis Lifeline), 911, go to the emergency department, or contact the [facility] Crisis Unit/Team. Follow up as scheduled in 4 weeks or sooner if necessary. Follow up with PCP and/or other specialists as advised. NEXT STEP: Consider medication adjustments as needed. Consider restarting low dose trihexyphenydil pending continued stability. of orthostatic vitals and exacerbation/worsening of TD. 04/16/2024 Schizophrenia, paranoid type (ICD-10 - F20.0) Duration (acute/chronic), stability (controlled/uncontroll ed): Chronic, well controlled on current therapy Current [...] to make it to office due to disease case manager rn's vehicle requiring repairs today. Patient no longer [...] techniques, such as guided imagery, journaling, aromatherapy, acupuncture/acupressur e, deep breathing, etc. Practice healthy sleep hygiene [...] to the emergency department, or contact the [facility] Crisis Unit/Team. Follow up as scheduled in 4 weeks or sooner if necessary. Follow up with PCP and/or other specialists as advised. NEXT STEP: Consider medication adjustments as needed. REPEAT ORTHOSTATIC VITALS at follow up - consider restarting low dose trihexyphenydil pending continued stability. 01/24/2025 Schizophrenia, paranoid type (ICD-10 - F20.0) Duration (acute/chronic), stability (controlled/uncontroll ed): Chronic, well controlled on current therapy Current [...] techniques, such as guided imagery, journaling, aromatherapy, acupuncture/acupressur e, deep breathing, etc. Practice healthy sleep hygiene [...] to the emergency department, or contact the [facility] Crisis Unit/Team. Follow up as scheduled in 4 weeks or sooner if necessary. Follow up with PCP and/or other specialists as advised. NEXT STEP: Consider medication adjustments as needed. Next Invega Hafyera injection due approximately 02/2025. 11/03/2024 Tardive dyskinesia (ICD-10 - G24.01) See assessment and plan for schizophrenia 01/24/2025 Tardive dyskinesia (ICD-10 - G24.01) See assessment and plan for schizophrenia 04/16/2024 Tardive dyskinesia (ICD-10 - G24.01) Duration (acute/chronic), stability (controlled/uncontroll ed): Chronic, uncontrolled, has failed numerous medications in [...] to make it to office due to disease case manager rn's vehicle requiring repairs today. Patient no longer [...] techniques, such as guided imagery, journaling, aromatherapy, acupuncture/acupressur e, deep breathing, etc. Practice healthy sleep hygiene [...] to the emergency department, or contact the [facility] Crisis Unit/Team. Follow up as scheduled in 4 weeks or sooner if necessary. Follow up with PCP and/or other specialists as advised. NEXT STEP: Consider medication adjustments as needed. REPEAT ORTHOSTATIC VITALS at follow up - consider restarting low dose trihexyphenydil pending continued stability. 07/21/2024 Memory impairment (ICD-10 - R41.3) Duration (acute/chronic), stability (controlled/uncontroll ed): Chronic, has reportedly been receiving memantine through psych services at [place], this provider agreeable to continuing medication since [...] techniques, such as guided imagery, journaling, aromatherapy, acupuncture/acupressur e, deep breathing, etc. Practice healthy sleep hygiene [...] to the emergency department, or contact the [facility] Crisis Unit/Team. Follow up as scheduled [...] impairment (ICD-10 - R41.3) Duration (acute/chronic), stability (controlled/uncontroll ed): Chronic, has reportedly been receiving memantine through psych services at [place], this provider agreeable to continuing medication since [...] techniques, such as guided imagery, journaling, aromatherapy, acupuncture/acupressur e, deep breathing, etc. Practice healthy sleep hygiene [...] to the emergency department, or contact the [facility] Crisis Unit/Team. Follow up as scheduled or sooner if necessary. Follow up with PCP and/or other specialists as advised. NEXT STEP: Consider medication adjustments as needed. 11/29/2024 Restless leg syndrome (ICD-10 - G25.81) See above assessment and plans 10/04/2024 Memory impairment (ICD-10 - R41.3) Duration (acute/chronic), stability (controlled/uncontroll ed): Chronic, has reportedly been receiving memantine through psych services at [place], this provider agreeable to continuing medication since [...] techniques, such as guided imagery, journaling, aromatherapy, acupuncture/acupressur e, deep breathing, etc. Practice healthy sleep hygiene [...] to the emergency department, or contact the [facility] Crisis Unit/Team. Follow up as scheduled or sooner if necessary. Follow up with PCP and/or other specialists as advised. NEXT STEP: Consider medication adjustments as needed. 11/03/2024 Memory impairment (ICD-10 - R41.3) Duration (acute/chronic), stability (controlled/uncontroll ed): Chronic, has reportedly been receiving memantine through psych services at [place], this provider agreeable to continuing medication since [...] techniques, such as guided imagery, journaling, aromatherapy, acupuncture/acupressur e, deep breathing, etc. Practice healthy sleep hygiene [...] to the emergency department, or contact the [facility] Crisis Unit/Team. Follow up as scheduled or sooner if necessary. Follow up with PCP and/or other specialists as advised. NEXT STEP: Consider medication adjustments as needed. 09/09/2024 Memory impairment (ICD-10 - R41.3) Duration (acute/chronic), stability (controlled/uncontroll ed): Chronic, has reportedly been receiving memantine through psych services at [place], this provider agreeable to continuing medication since [...] techniques, such as guided imagery, journaling, aromatherapy, acupuncture/acupressur e, deep breathing, etc. Practice healthy sleep hygiene [...] to the emergency department, or contact the [facility] Crisis Unit/Team. Follow up as scheduled or sooner if necessary. Follow up with PCP and/or other specialists as advised. NEXT STEP: Consider medication adjustments as needed. 08/13/2024 Memory impairment (ICD-10 - R41.3) Duration (acute/chronic), stability (controlled/uncontroll ed): Chronic, has reportedly been receiving memantine through psych services at [place], this provider agreeable to continuing medication since [...] techniques, such as guided imagery, journaling, aromatherapy, acupuncture/acupressur e, deep breathing, etc. Practice healthy sleep hygiene [...] to the emergency department, or contact the [facility] Crisis Unit/Team. Follow up as scheduled or sooner if necessary. Follow up with PCP and/or other specialists as advised. NEXT STEP: Consider medication adjustments as needed. 07/21/2024 Restless leg syndrome (ICD-10 - G25.81) See above assessment and plans 05/21/2024 Memory impairment (ICD-10 - R41.3) Duration (acute/chronic), stability (controlled/uncontroll ed): Chronic, has reportedly been receiving memantine through psych services at [place], this provider agreeable to continuing medication since [...] techniques, such as guided imagery, journaling, aromatherapy, acupuncture/acupressur e, deep breathing, etc. Practice healthy sleep hygiene [...] health CRISIS, please reach out to [phone] ([facility]), 911, go to the emergency department, or contact the [facility] Crisis Unit/Team. Follow up as scheduled or sooner if necessary. Follow up with PCP and/or other specialists as advised. NEXT STEP: Consider medication adjustments as needed. 06/24/2024 Memory impairment (ICD-10 - R41.3) Duration (acute/chronic), stability (controlled/uncontroll ed): Chronic, has reportedly been receiving memantine through psych services at [place], this provider agreeable to continuing medication since [...] techniques, such as guided imagery, journaling, aromatherapy, acupuncture/acupressur e, deep breathing, etc. Practice healthy sleep hygiene [...] health CRISIS, please reach out to [phone] ([facility]), 911, go to the emergency department, or contact the [facility] Crisis Unit/Team. Follow up as scheduled or sooner if necessary. Follow up with PCP and/or other specialists as advised. NEXT STEP: Consider medication adjustments as needed. 04/16/2024 Memory impairment (ICD-10 - R41.3) Duration (acute/chronic), stability (controlled/uncontroll ed): Chronic, has reportedly been receiving memantine through psych services at [place], this provider agreeable to continuing medication since [...] techniques, such as guided imagery, journaling, aromatherapy, acupuncture/acupressur e, deep breathing, etc. Practice healthy sleep hygiene [...] health CRISIS, please reach out to [phone] ([facility]), 911, go to the emergency department, or contact the [facility] Crisis Unit/Team. Follow up as scheduled or sooner if necessary. Follow up with PCP and/or other specialists as advised. NEXT STEP: Consider medication adjustments as needed. 01/24/2025 Memory impairment (ICD-10 - R41.3) Duration (acute/chronic), stability (controlled/uncontroll ed): Chronic, has reportedly been receiving memantine through psych services at [place], this provider agreeable to continuing medication since [...] techniques, such as guided imagery, journaling, aromatherapy, acupuncture/acupressur e, deep breathing, etc. Practice healthy sleep hygiene [...] health CRISIS, please reach out to [phone] ([facility]), 911, go to the emergency department, or contact the [facility] Crisis Unit/Team. Follow up as scheduled or sooner if necessary. Follow up with PCP and/or other specialists as advised. NEXT STEP: Consider medication adjustments as needed. 04/16/2024 Nutritional counseling (ICD-10 - Z71.3) 06/24/2024 [...] G25.81) See above assessment and plans 10/04/2024 Nutritional counseling (ICD-10 - Z71.3) 09/09/2024 Nutritional counseling (ICD-10 - Z71.3) 08/13/2024 Nutritional counseling (ICD-10 - Z71.3) Plan Of Treatment Next Appt Details Provider Name:Brenda Velazco , 07/25/2025 03:00:00 PM, [address] [facility] , [place], [address], Insurance Providers Payer Name Payer Address Payer Phone Subscriber Number Group Number Insured Name Patient Relationship to Insured Coverage Start Date Coverage End Date [facility] Medicare Assure [address] [address] [place] [phone] [id number] Cinthia Mccartney Self - patient is the insured 4 MEDICAID [address] [place] [address] [id number] Cinthia Mccartney Self - patient is the insured 4 Medications Administered Medication Instructions Date of Administration Dosage Diagnosis (ICD Code) Notes Invega Hafyera 08/20/2023 1560 mg Leigh ent tolerated well Invega Hafyera 08/13/2024 1560 mg Invega Hafyera 01/24/2025 1560 mg Pt t oll well Invega Sustenna 04/11/2017 234 mg Residential Energy Auditor: Otilia Patient tolerated well. Invega Sustenna 04/18/2017 156 mg Exp: 07/2018 Lot: [id number] Residential Energy Auditor: Otilia Pt tolerated injection well and verbalizes no questions or concerns at this time. Invega Sustenna 05/16/2017 234 mg Exp: 11/2018 Lot: [id number] Residential Energy Auditor: Otilia Patient tolerated injection well. She denies questions or concerns at this time. Invega Sustenna 06/17/2017 234 mg Man ufact Otilia, pt tolerated well. Invega Sustenna 07/18/2017 234 mg Man ufact Otilia, pt tolerated well. Invega Sustenna 08/06/2017 234 mg Man ufact Otilia, pt tolerated well. Invega Sustenna 09/05/2017 234 mg Man ufact Otilia, pt tolerated well. Invega Sustenna 09/30/2017 234 mg Man ufact Otilia, pt tolerated well. Invega Sustenna 10/30/2017 234 mg Man ufact Otilia, pt tolerated well. Invega Sustenna 12/04/2017 234 mg Residential Energy Auditor-Lamberto nazario Patient tolerated well. Invega Sustenna 01/01/2018 234 mg Man ufact Otilia, pt tolerated well. Invega Sustenna 02/04/2018 234 mg Man ufacturer: Otilia. Pt tolerated well. Questions or concerns denied. Invega Sustenna 03/05/2018 234 mg Man ufact Otilia, pt tolerated well. Invega Sustenna 04/03/2018 234 mg Man ufact Otilia, pt tolerated well. Invega Sustenna 05/01/2018 234 mg Man ufact Otilia pt tolerated well. Invega Sustenna 05/28/2018 234 mg Residential Energy Auditor: Otilia Pt tolerated the injection well and denies questions or concerns at this time. Invega Sustenna 06/17/2019 234 mg Man ufact by Otilia Pt edward well. Invega Sustenna 06/23/2019 156 mg Man ufact by Otilia Pt edward well. Invega Sustenna 07/20/2019 234 mg Residential Energy Auditor-janss en Pt tolerated injection well. Voiced no questions or concerns Invega Sustenna 08/20/2019 234 mg locker room supervisor-Janss en Pt tolerated injection well. Voiced no questions or concerns Invega Sustenna 09/22/2019 234 mg Man ufact by Otilia Pt edward well. Invega Sustenna 10/20/2019 234 mg Man ufact by Otilia Pt edward well. Invega Sustenna 11/18/2019 234 mg Man ufact by Otilia Pt edward well. Invega Sustenna 12/16/2019 156 mg Invega Sustenna 01/13/2020 156 mg Man ufact by Otilia Pt edward well. Invega Sustenna 02/09/2020 156 mg Man ufact Otilia, patient tolerated well. Invega Sustenna 03/16/2020 156 mg Residential Energy Auditor-Janss en Pt tolerated injection well. Voiced no questions or concerns. Invega Sustenna 04/13/2020 156 mg Man ufact by Otilia Pt edward well. Invega Sustenna 05/18/2020 156 mg Residential Energy Auditor- otilia Pt tolerated injection well. Voiced no questions or concerns. Invega Sustenna 06/15/2020 156 mg Residential Energy Auditor-Janss en Pt tolerated injection well. Voiced no questions or concerns. Invega Sustenna 07/13/2020 156 mg Pat ient tolerated well. Invega Sustenna 08/10/2020 156 mg Pt tolerated injection well. Pt voiced no questions or concerns. Invega Sustenna 09/07/2020 156 mg Pat ient tolerated well. Invega Sustenna 10/12/2020 156 mg Pat ient tolerated well. Invega Sustenna 11/20/2020 234 mg Pat ient tolerated well. Invega Sustenna 12/21/2020 234 mg PT TOLERATED WELL Invega Sustenna 01/25/2021 234 mg Pat ient tolerated well. Invega Sustenna 02/22/2021 234 mg 2 c lient identifiers verified,denied previous side effects,tolerated injection well. Invega Sustenna 03/22/2021 234 mg Den ied previous side effects,tolerted injection well. Invega Sustenna 04/19/2021 234 mg Den ied previos side effects, tolerated injection well. Invega Sustenna 06/14/2021 234 mg Den ied previous side effects, tolerated injection well. Invega Sustenna 07/12/2021 234 mg Den ied any previous effects. Tolerated injections well. Invega Sustenna 08/09/2021 234 mg Pat ient tolerated well. Invega Trinza 06/25/2018 819 mg Residential Energy Auditor: [employer] Pt tolerated the injection well and denies questions or concerns at this time. Invega Trinza 09/21/2018 410 mg Residential Energy Auditor: [employer] Pt tolerated well. No questions or concerns verbalized. Invega Trinza 12/22/2018 273 mg Manuf act Otilia, pt tolerated well. Invega Trinza 09/05/2021 819 mg Pt to l well. Invega Trinza 12/05/2021 819 mg Patie nt tolerated well. Invega Trinza 03/07/2022 819 mg Patie nt tolerated well Invega Trinza 06/05/2022 819 mg Patie nt tolerated well waisted 1ml Invenga Hafyera 09/04/2022 1560 mg Pat ient tolerated well Invenga Hafyera 03/06/2023 1560 mg Pat ient tolerated well Invenga Hafyera 02/20/2024 1560 mg Pat ient tolerated well Perseris (Risperidone XR) 03/17/2019 90 mg Residential Energy Auditor: Indiv[employer] Given subcutaneously to the right abdomen. Pt tolerated the injection well. Medical (General) History Medical History History ICD Code Schizophrenia, paranoid type Generalized anxiety disorder HTN Surgical History Surgery Date(Month/Year) repaired to ruptured navel 01/2020 cardiac cath Hospitalization History Reason Date(Month/Year) 2 Atrial fibrillation [facility] 09/2021
[2025-03-25 11:53] LABS: NT Pro B Type Natriuretic Pept 846 pg/mL (19.9-100)
== END 2025-03-25 11:00 | disposition home or self-care (01) ==
PROVIDERS: PCP Family Medicine; Visit Provider Internal Medicine Cardiovascular Disease
DX: I50.30 Unspecified diastolic (congestive) heart failure (principal)
CPT/HCPCS: 36415; 83880